=== PATIENT | female | born 1970 | race Hispanic/Latino ===

== ENCOUNTER 2017-01-11 12:41 | Emergency (ER) | payer MEDICARE, MEDICAID ==
[~2017-01-11] VITALS: Ht 149.9 cm; Wt 47.7 kg
[~2017-01-11 12:41] MED LIST: ACET325T51 PO; AMLO2.5T PO; ATOR20TA PO; BISA10SU61 RC; CALC500T9 PO; CITA20TA11 PO; ERGO500050 PO; HYDR-4003 PO; LACT10SO60 PO; LEVO25TA2 PO; MAGN400O4 PO; MELA3TAB35 PO; NA P133E23 RC; O2 NASAL; ONDA-53 PO; ONDA4TAB9 PO; OXYC5TAB72 PO; PANT40TA3 PO; PHEN1SUP94 RECTAL; PRED5DRO6 RIGHT_EYE; SENN-133 PO; SEVE800T7 PO; SIME125C PO
[2017-01-11 12:49] VITALS: BP 171/74; PULSE 72; RESP 14; O2SAT 99
[2017-01-11] MEDS ORDERED: 0.9% Sodium Chloride 500 ML IV ONE (13:20)
[2017-01-11] MEDS ORDERED: Ondansetron 2 mg/mL 2 mL Inj IVPUSH ONE (13:20)
--- NOTE | 2017-01-11 13:39 | ED.REPORT ---
HPI-General Illness Date of Service Jan 11, 2017 ED Provider: Tiffany Leonardo MD Pt is a Gabonese-speaking 46 y.o. female with a hx of ESRD on hemodialysis who presents to the ED from dialysis with weakness. Pt had finished her treatment and was too weak to stand up. She reports nausea, vomiting, diarrhea, and abdominal pain onset 1 week ago. She denies fever. Her most recent episodes of vomiting and diarrhea were yesterday and today at 0300 respectively. She was administered 2 Imodium and 1 Zofran at the dialysis center prior to arrival. Nursing Notes Stated Complaint: VERY TIRED,CAN'T REALLY WALK Chief Complaint: General Complaint Nursing Notes Reviewed: Yes Allergies: Coded Allergies: No Known Allergies (Verified Allergy, Unknown, 08/05/16) Scheduled Amlodipine (Amlodipine) 2.5 Mg Tablet 2.5 MG PO DAILY Atorvastatin (Lipitor) 20 Mg Tablet 20 MG PO HS Calcium Carbonate (Tums) 500 Mg Tab.chew 500 MG PO BID Citalopram (Citalopram) 20 Mg Tablet 20 MG PO HS Ergocalciferol (Vitamin D2) (Drisdol) 50,000 Unit Capsule 50,000 UNIT PO Fri, Debra Lactulose (Lactulose) 20 Gm/30 Ml Solution 20 GM PO DAILY Levothyroxine (Synthroid) 25 Mcg Tablet 25 MCG PO DAILY Loperamide HCl (Imodium A-D) 2 Mg Capsule 2 MG PO after diarrhea max of 6 in 24 hours Melatonin (Melatonin) 3 Mg Tablet 3 MG PO HS Ondansetron (Ondansetron) 4 Mg Tablet 4 MG PO QID Pantoprazole DR (Pantoprazole DR) 40 Mg Tablet.dr 40 MG PO BIDAC Prednisolone Acetate (Prednisolone Acetate) 5 Ml Drops.susp 1 DRP RIGHT_EYE BID 1% Sevelamer Carbonate (Renvela) 800 Mg Tablet 1,600 MG PO TIDWM Scheduled PRN ([O2]) 1-2 L NASAL PRN CP or SOB Acetaminophen (Acetaminophen) 325 Mg Tablet 650 MG PO Q4H PRN PRN Fever/Pain Bisacodyl (Dulcolax Rectal) 10 Mg Supp.rect 10 MG RC Evening PRN PRN For Constipation If no BM by PM shift after using MOM Hydrocodone-Acetaminophen 5-325 mg (Hydrocodone-Acetaminophen 5-325 mg) 1 Each Tablet 1 TABLET PO Q6H PRN PRN For Pain Magnesium Hydroxide (Milk of Magnesia) 400 Mg/5 Ml Oral.susp 400 MG PO MORNING PRN PRN For Constipation If no BM in 3 days Na Phos,M-B/Na Phos,Di-Ba (Fleet Enema) 133 Ml Enema 133 ML RC PRN For Constipation If no BM after using Dulcolax supp Ondansetron (Ondansetron) 4 Mg Tablet 4 MG PO Q6H PRN PRN For Nausea Ondansetron ODT (Zofran ODT) 4 Mg Tablet 4 MG PO Q4H PRN PRN For Nausea Phenylephrine/[place] Butter (Preparation H Supp) 1 Each Supp.rect 1 SUPP RECTAL PRN Rectal Bleeding Give after every bowel movement - up to 4 times a day Sennosides (Senna) 8.6 Mg Tablet 17.2 MG PO PRN For Constipation Simethicone (Gas-X) 125 Mg Capsule 125 MG PO Q24H PRN PRN Gas Pain oxyCODONE (oxyCODONE) 5 Mg Tablet 5-10 MG PO Q4H PRN PRN For Pain General Time Seen by MD: 13:12 Chief Complaint Weakness Hx Obtained From: Patient Arrived By: Wheelchair Sudden in Onset?: Yes Onset Occurred: 1 - 4 hours ago Symptom Duration: Since onset Location: : Abdomen Quality: Painful Severity: Current: Moderate Past Medical History Past Medical History Diabetes mellitus, type II Diabetic foot ulcer, history of End-stage renal disease on hemodialysis Mondays, Wednesdays, and Fridays Hypertension Anemia, likely secondary to end-stage renal disease Hypothyroidism Hx of osteoporotic left femur fracture Hepatosteatosis Past Surgical History Left fistula placement Family History noncontributory Smoking History Never Smoker Social History Drug Use: Denies drug use Other Social History: Lives in [place] [facility], Local resident Ambulatory Status Independent Review of Systems Full Review of Systems Constitutional: Reports: Weakness - generalized GI: Reports: Abdominal pain, Diarrhea, Nausea, Vomiting Neurologic: Reports: Problem walking (due to weakness) Complete sys rev & neg: except as marked. Physical Exam Vital Signs Vital Signs Date Time Temp Pulse Resp B/P Pulse Ox O2 Delivery O2 Flow Rate FiO2 01/11/17 15:23 36.5 80 14 134/69 99 Room Air 01/11/17 14:36 36.8 75 18 158/67 100 Room Air 01/11/17 12:49 36.2 72 14 171/74 99 Room Air Initial VS: Reviewed Head / Eyes: Atraumatic, Normocephalic Extremities: Vascular intact, Neuro intact Neurologic: Alert General/Constitutional: Awake, Alert Pt is generally unwell appearing Respiratory / Chest: Atraumatic, Breath sounds NL, Breath sounds = bilat, No respiratory distress, No wheezing Cardiovascular: Peripheral circulation NL Heart Rate / Rhythm: Positive: Tachycardia Heart Sounds / Murmur: Positive: Systolic murmur present.. (IV/) Abdomen: Atraumatic, Soft, No guarding, No rebound, No distention Tenderness/Guarding/Rebound: Positive: Tender diffuse Non-surgical abdomen Skin: Atraumatic, Color NL, Warm, Dry, Intact, Turgor NL, No swelling Interpretation & Diagnostics Lab Results Interpretation Result Diagram: 01/11/17 1345 01/11/17 1345 Test 01/11/17 13:45 White Blood Count 4.7th/mm3 (3.8-10.1) Red Blood Count 4.36mil/mm3 (3.90-5.20) Hemoglobin 13.2g/dL (12.0-15.6) Hematocrit 39.6% (35.0-46.0) Mean Corpuscular Volume 90.8fL (81-100) Mean Corpuscular Hemoglobin 30.3pg (27.0-35.0) Mean Corpuscular Hemoglobin Concent 33.3% (32.0-37.0) Red Cell Distribution Width 13.6% (12.3-15.4) Platelet Count 158bil/L (150-400) Neutrophils (%) (Auto) 61.1% (40-74) Lymphocytes (%) (Auto) 19.8% (14-46) Monocytes (%) (Auto) 9.9% (4-12) Eosinophils (%) (Auto) 8.6% (0-5) Basophils (%) (Auto) 0.6% (0-3) Sodium Level 135mEq/L (134-144) Potassium Level 3.0mEq/L (3.5-5.2) Chloride Level 89mEq/L (97-108) Carbon Dioxide Level 28mmol/L (18-29) Blood Urea Nitrogen 11mg/dL (6-24) Creatinine 1.96mg/dL (0.57-1.00) Estimat Glomerular Filtration Rate 39mL/min (>59) Glucose Level 100mg/dL (60-99) Calcium Level 10.0mg/dL (8.5-10.1) Magnesium Level 1.9mg/dL (1.6-2.6) Total Bilirubin 1.0mg/dL (0.0-1.2) Aspartate Amino Transf (AST/SGOT) 30U/L (0-50) Alanine Aminotransferase (ALT/SGPT) 29U/L (0-32) Alkaline Phosphatase 188U/L (25-150) Troponin T 0.072ug/L (0.0-0.011) Total Protein 8.6g/dL (6.4-8.4) Albumin 4.6g/dL (3.4-5.0) Lipase 42U/L (13-60) Hold Bazzi Top Tube Received (Received) Lab Results Interpretation: Pt has a trop of 0.072. Her troponin is chronically elevated and is less than previous ECG Interpretation ECG Interpretation: No acute ischemia. Similar to prior ECG (08/05/16) Time: 13:43 Interpreted by: ED physician Normal ECG Interpretation: Normal rate (69), Normal sinus rhythm Re-Eval/Medical Decision Source of Hx: Old records Time of Eval: 14:54 Re-Evaluation/Progress Note: Pt rechecked. Pt states she is feeling improved and would like to be discharged with nausea and diarrhea medication. Discussed plan for discharge, pt understands and agrees with plan. Counseled Regarding: Diagnosis, Lab results Discharge & Departure Primary Impression: Nausea vomiting and diarrhea Disposition: Home Discharge Condition All VS Reviewed: Yes Condition: Improved Patient Instructions: Acute Diarrhea (ED) Additional Instructions: Thank you for entrusting us with your care today. You were seen here today for nausea and diarrhea. I sent a prescription of Zofran and Imodium to your pharmacy.Take these as directed to help with your nausea and diarrhea. Return if you have any new or concerning symptoms. I wish you the best of luck and hope you start to feel better soon! Referrals: NOPCP (PCP) Scribe Attestation Portions of this note were transcribed by Brendon Lester. I, Dr. Leonardo personally performed the history, physical exam and medical decision-making; I reviewed and confirmed the accuracy of the information in the transcribed note. Signed by: Ayden Key, 01/11/17 and 1505 Tiffany Leonardo MD Jan 11, 2017 13:39 BRENDON LESTER Jan 11, 2017 13:43
[2017-01-11 14:11] LABS: BASOPHILS % (AUTO) 0.6 % (0-3); EOSINOPHILS % (AUTO) 8.6 % (0-5); MONOCYTES % (AUTO) 9.9 % (4-12); Mean Corpuscular Hemoglobin 30.3 pg (27.0-35.0); Mean Corpuscular Volume 90.8 fL (81-100); NEUTROPHILS % (AUTO) 61.1 % (40-74); Platelet Count 158 bil/L (150-400)
[2017-01-11 14:36] VITALS: BP 158/67; PULSE 75; RESP 18; O2SAT 100
[2017-01-11 14:41] LABS: Magnesium 1.9 mg/dL (1.6-2.6)
[2017-01-11 14:42] LABS: TROPONIN T 0.072 ug/L (0.0-0.011)
[2017-01-11] MEDS ORDERED: LOPE-147 PO (15:00)
[2017-01-11] MEDS ORDERED: ONDA-53 PO (15:00)
[2017-01-11 15:23] VITALS: BP 134/69; PULSE 80; RESP 14; O2SAT 99
[2017-01-16] MEDS ORDERED: AMLO10TA3 PO (19:07)
[2017-01-16] MEDS ORDERED: CALC667T5 PO (19:19)
== END 2017-01-11 15:24 | disposition home or self-care (01) ==
LOC: SED 12:41
DX: R11.2 Nausea with vomiting, unspecified (principal); R19.7 Diarrhea, unspecified; E11.22 Type 2 diabetes mellitus with diabetic chronic kidney disease; I13.11 Hypertensive heart and chronic kidney disease without heart failure, with stage 5 chronic kidney disease, or end stage renal disease; E11.621 Type 2 diabetes mellitus with foot ulcer; N18.6 End stage renal disease; L97.509 Non-pressure chronic ulcer of other part of unspecified foot with unspecified severity; Z79.899 Other long term (current) drug therapy; Z99.2 Dependence on renal dialysis
CPT/HCPCS: 36415; 80053; 83690; 83735; 84484; 85025; 93005; 96374; 99285; J2405; J7040

== ENCOUNTER 2017-01-17 00:47 | Day surgery (SDC) | payer MEDICARE, MEDICAID ==
[~2017-01-17] VITALS: Ht 149.9 cm; Wt 52.0 kg
[2017-01-17] VITALS (7 sets, daily range): BP systolic 160–170; BP diastolic 63–88; PULSE 60–80; RESP 16–18; O2SAT 100
[~2017-01-17 00:47] MED LIST changes: +AMLO10TA3 PO; -AMLO2.5T PO; +CALC667T5 PO; -ERGO500050 PO; -MAGN400O4 PO; -NA P133E23 RC; -O2 NASAL; -ONDA-53 PO; -SEVE800T7 PO
[2017-01-17 12:12] LABS: EOSINOPHILS % (AUTO) 8.4 % (0-5); MONOCYTES % (AUTO) 8.8 % (4-12); Mean Corpuscular Hemoglobin 30.1 pg (27.0-35.0); NEUTROPHILS % (AUTO) 60.8 % (40-74); Platelet Count 152 bil/L (150-400)
[2017-01-17 12:29] LABS: INR 1.01 ratio
[2017-01-17] MEDS ORDERED: Heparin 1,000 Unit/mL 10 mL Inj ONE ×2 (13:20→13:59)
[2017-01-17] MEDS ORDERED: Heparin 5,000 Units/500 mL NS Premix IV ONE ×2 (13:20→13:45)
[2017-01-17] MEDS ORDERED: fentaNYL-PF 50 mCg/mL 2 mL Inj ONE (13:51)
--- NOTE | 2017-01-17 15:02 | DRSVH ---
PROCEDURE: 1. Left arm AV fistulogram. 2. Angioplasty of peripheral aspect of venous limb. 3. Angioplasty of venous limb at level of proximal humerus. 4. Selective left subclavian venography. 5. Limited ultrasound of the left upper extremity arteriovenous fistula. 6. Conscious sedation x60 minutes. INDICATIONS: Malfunctioning arteriovenous fistula. COMPARISON: [facility], CR, XR CHEST 1VW (PORTABLE), 06/27/2016, 11:40. [facility], XA, ARTERIO VENOUS FISTULOGRAM (PNL), 12/27/2015, 10:53. TECHNIQUE: Informed, written consent from the patient was obtained prior to the procedure. Patient wa s brought to the angiography suite, and conscious sedation was administered intravenously by retirement staff, while continuous cardiorespiratory monitoring was performed. Maximal sterile barrier t echnique, hand hygiene, skin preparation, and sterile ultrasound technique (if ultrasound was utilize d) was followed. A mask, sterile gown, sterile gloves, a large sterile sheet, hand hygiene, and 2% ch lorhexidine or iodine was utilized for skin antisepsis. The left arm was prepped and draped sterilely , and the skin and subcutaneous tissues overlying the peripheral aspect of the venous limb were infus ed with lidocaine. The peripheral aspect of the venous line was accessed antegrade with a micropunctu re set. Contrast was injected for arteriovenous fistulogram. Intravenous heparin was administered. 03 5 J-wire was advanced into the inferior vena cava. A 20 mm long balloon was advanced into the periphe ral aspect of the venous limb and was expanded to 6.2 mm diameter. Subsequently, a high pressure 10 m m diameter 20 mm long balloon was expanded within the venous limb at the level of the proximal humeru s. A 4 Indonesian nontapered angled catheter was advanced into the left subclavian vein and injected for selective left subclavian venography. Sheath was removed and the venotomy was closed with pursestring closure. FLUOROSCOPY TIME: 3.4 minutes FINDINGS: Moderate to high-grade focal weblike stenosis involve the portal aspect of the venous limb just central to the arteriovenous anastomosis. There is only mild residual stenosis following angiop lasty at this site. There is recurrent high-grade focal stenosis within the venous limb at the level of the proximal humerus, with only mild residual stenosis following high pressure 10 mm angioplasty. Central draining venous structures are patent. Selective left subclavian venography demonstrates no e vidence of stenosis. IMPRESSION: 1. 6.2 mm angioplasty of weblike stenosis within the peripheral aspect of the venous limb, with only mild residual stenosis remaining. 2. 10 mm high-pressure angioplasty of recurrent stenosis within the venous limb at the level of the p roximal humerus, with only mild residual stenosis remaining. Dictated by: Reza Hernandez M.D. on 01/17/2017 at 14:56 Approved by: Reza Hernandez M.D. on 01/17/2017 at 15:01
--- NOTE | 2017-01-17 16:30 | NUR ---
Discharge Pt discharged to home with daughter, pt had stable recovery post fistulagram vss on RA, puncture site soft non tender no signs of bleeding. Pt and pt daughter stated verbal understanding of discharge instructions with interpretor present. Pt and daughter left at 1630 with personal belongings, discharge paperwork, IV dc'd intact.
== END 2017-01-17 23:59 | disposition home or self-care (01) ==
LOC: SOUO 00:47
PROVIDERS: ATTEND Radiology Diagnostic Radiology
DX: I87.1 Compression of vein (principal); E11.21 Type 2 diabetes mellitus with diabetic nephropathy; E11.22 Type 2 diabetes mellitus with diabetic chronic kidney disease; I12.0 Hypertensive chronic kidney disease with stage 5 chronic kidney disease or end stage renal disease; N18.6 End stage renal disease; Z99.2 Dependence on renal dialysis; E03.9 Hypothyroidism, unspecified; D63.1 Anemia in chronic kidney disease
CPT/HCPCS: 36415; 36901; 36902; 80048; 85025; 85610; 85730; 99152; 99153; C1725; C1769; C1894; J1644; J2250; J3010; Q9967

== ENCOUNTER 2017-05-07 15:01 | Inpatient (IN) | payer MEDICARE, MEDICAID ==
[~2017-05-07] VITALS: Ht 121.9 cm; Wt 50.7 kg
[2017-05-07 15:31] VITALS: BP 161/72; PULSE 70; RESP 18; O2SAT 98
[2017-05-07 16:17] LABS: BASOPHILS % (AUTO) 0.3 % (0-3); EOSINOPHILS % (AUTO) 1.1 % (0-5); MONOCYTES % (AUTO) 9.8 % (4-12); Mean Corpuscular Hemoglobin 30.4 pg (27.0-35.0); NEUTROPHILS % (AUTO) 75.9 % (40-74); Platelet Count 116 bil/L (150-400)
--- NOTE | 2017-05-07 16:23 | ED.REPORT ---
HPI-NVD Date of Service May 07, 2017 ED Provider: Cayden Whaley MD Patient is a 46 year old female with a history of ESRD, diabetes and hypertension who presents to the ED complaining of vomiting onset a week ago. Associated symptoms include nausea, abdominal pain, chills, decreased appetite, 5-7 episodes of diarrhea a day and a fever for the past 3 days. She denies hematemesis or hematochezia. She describes her abdominal pain as sharp and rates it as an 8/10. Patient reports that vomiting worsens her abdominal pain and she has tried using over the counter anti-diarrhea medication without relief. The patient had similar symptoms 3 months ago, was diagnosed with a "stomach infection" and was put on antibiotics. She states that no one else in the household is sick. Nursing Notes Stated Complaint: UPSET STOMACH, VOMITING Chief Complaint: Female Abdominal Pain Nursing Notes Reviewed: Yes ([employer] not reconciled) Allergies: Coded Allergies: No Known Allergies (Verified Allergy, Unknown, 08/05/16) Scheduled Amlodipine (Amlodipine) 10 Mg Tablet 10 MG PO DAILY Atorvastatin (Lipitor) 20 Mg Tablet 20 MG PO HS Calcium Acetate (Calcium Acetate) 667 Mg Tablet 1,971 MG PO TIDWM Calcium Carbonate (Tums) 500 Mg Tab.chew 500 MG PO BID Citalopram (Citalopram) 20 Mg Tablet 20 MG PO HS Lactulose (Lactulose) 20 Gm/30 Ml Solution 20 GM PO DAILY Levothyroxine (Synthroid) 25 Mcg Tablet 25 MCG PO DAILY Melatonin (Melatonin) 3 Mg Tablet 3 MG PO HS Pantoprazole DR (Pantoprazole DR) 40 Mg Tablet.dr 40 MG PO BIDAC Prednisolone Acetate (Prednisolone Acetate) 5 Ml Drops.susp 1 DRP RIGHT_EYE BID 1% Scheduled PRN Acetaminophen (Acetaminophen) 325 Mg Tablet 650 MG PO Q4H PRN PRN Fever/Pain Bisacodyl (Dulcolax Rectal) 10 Mg Supp.rect 10 MG RC Evening PRN PRN For Constipation If no BM by PM shift after using MOM Hydrocodone-Acetaminophen 5-325 mg (Hydrocodone-Acetaminophen 5-325 mg) 1 Each Tablet 1 TABLET PO Q6H PRN PRN For Pain Ondansetron ODT (Zofran ODT) 4 Mg Tablet 4 MG PO Q4H PRN PRN For Nausea Phenylephrine/[place] Butter (Preparation H Supp) 1 Each Supp.rect 1 SUPP RECTAL PRN Rectal Bleeding Give after every bowel movement - up to 4 times a day Sennosides (Senna) 8.6 Mg Tablet 17.2 MG PO PRN For Constipation Simethicone (Gas-X) 125 Mg Capsule 125 MG PO Q24H PRN PRN Gas Pain oxyCODONE (oxyCODONE) 5 Mg Tablet 5-10 MG PO Q4H PRN PRN For Pain General Time Seen by MD: 16:21 Chief Complaint Vomiting Hx Obtained From: Patient, Spouse Arrived By: Walk-in Onset Occurred: 1 week ago Symptom Duration: Since onset Vomiting: Vomiting 4-6 episodes Diarrhea: Diarrhea 4-6 episodes Location: : LUQ Quality: Painful, Sharp Severity: Current: Pain level 8 out of 10 Associated with: Reports: Fever Recent Healthcare: Recent doctor visit Similar Sx Previous: Yes Past Medical History Past Medical History Diabetes mellitus, type II Diabetic foot ulcer, history of End-stage renal disease on hemodialysis Mondays, Wednesdays, and Fridays Hypertension Anemia, likely secondary to end-stage renal disease Hypothyroidism Hx of osteoporotic left femur fracture Hepatosteatosis Past Surgical History Left fistula placement Family History noncontributory Smoking History Never Smoker Social History Drug Use: Denies drug use Other Social History: Lives in longterm, Local resident Ambulatory Status Independent Review of Systems Constitutional: Reports: Chills, Fever, Malaise GI: Reports: Abdominal pain, Diarrhea, Nausea, Vomiting, Denies: Hematemesis, Hematochezia Skin: Denies Itching, Denies Rash Neurologic: Denies: Headache, Weakness Complete sys rev & neg: except as marked. Respiratory: Denies: Non-productive cough, Shortness of breath Physical Exam Initial Vital Signs Vital Signs (First) Date Time Temp Pulse Resp B/P Pulse Ox O2 Delivery O2 Flow Rate FiO2 05/07/17 15:31 37.8 70 18 161/72 98 Room Air 05/07/17 17:22 2 Initial VS: Reviewed (borderline temp) General/Constitutional: Awake, Alert Distress / Hydration: Positive: Dehydration mild, Distress moderate Appearance / Presentation: Positive: Frail, Uncomfortable appears very fatigued + cough Abdomen: Atraumatic, Soft, No guarding, No rebound minimally diffuse tendernes ENT: Atraumatic, Airway patent Mouth: Positive: Mucous membranes dry Respiratory / Chest: Atraumatic, Breath sounds NL, Breath sounds = bilat, No respiratory distress Cardiovascular: Heart rate NL, Regular rhythm Heart Sounds / Murmur: Positive: Murmur present... (IV/) Skin: Atraumatic, Color NL, No rash poor skin turgor Neurologic: Oriented X3, Speech NL, No motor deficits, No sensory deficits Head / Eyes: Atraumatic, Normocephalic, PERRL, EOMI Upper Extremity / MS: Atraumatic, Inspection NL AV fistula in the left arm Psychiatric: Affect NL, Mood NL Interpretation & Diagnostics Lab Results Interpretation Result Diagram: 05/07/17 1605 05/07/17 1605 Test 05/07/17 16:05 White Blood Count 6.6th/mm3 (3.8-10.1) Red Blood Count 3.49mil/mm3 (3.90-5.20) Hemoglobin 10.6g/dL (12.0-15.6) Hematocrit 32.8% (35.0-46.0) Mean Corpuscular Volume 94.0fL (81-100) Mean Corpuscular Hemoglobin 30.4pg (27.0-35.0) Mean Corpuscular Hemoglobin Concent 32.3% (32.0-37.0) Red Cell Distribution Width 14.5% (12.3-15.4) Platelet Count 116bil/L (150-400) Neutrophils (%) (Auto) 75.9% (40-74) Lymphocytes (%) (Auto) 12.7% (14-46) Monocytes (%) (Auto) 9.8% (4-12) Eosinophils (%) (Auto) 1.1% (0-5) Basophils (%) (Auto) 0.3% (0-3) Sodium Level 129mEq/L (134-144) Potassium Level 4.2mEq/L (3.5-5.2) Chloride Level 86mEq/L (97-108) Carbon Dioxide Level 27mmol/L (18-29) Blood Urea Nitrogen 27mg/dL (6-24) Creatinine 5.13mg/dL (0.57-1.00) Estimat Glomerular Filtration Rate 13mL/min (>59) Glucose Level 152mg/dL (60-99) Calcium Level 9.4mg/dL (8.5-10.1) Magnesium Level 1.8mg/dL (1.6-2.6) Total Bilirubin 1.2mg/dL (0.0-1.2) Aspartate Amino Transf (AST/SGOT) 16U/L (0-50) Alanine Aminotransferase (ALT/SGPT) 9U/L (0-32) Alkaline Phosphatase 113U/L (25-150) Total Protein 7.5g/dL (6.4-8.4) Albumin 3.5g/dL (3.4-5.0) Lipase 9U/L (13-60) Hold Bazzi Top Tube Received (Received) Lab Results Interpretation: CBC normal CMP chronic renal failure Blood cultures 2 pending X-Ray Chest Interpretation Chest Xray Interpretation: IMPRESSION: Right mid lung pneumonia. Recommend radiographic followup to document resolution. Small right pleural effusion. Dictated by: Nghia Cm M.D. on 05/07/2017 at 19:04 Approved by: Nghia Cm M.D. on 05/07/2017 at 19:05 View: Portable, 1 view Interpretation / Wet Read by: Interpret - Radiologist CT Abd / Pelvis Interpretation IMPRESSION: Right middle lobe consolidation, suggestive of pneumonia and/or aspiration. Please correlate clinically and recommend followup after treatment to exclude underlying nodule/mass. Small right pleural effusion with adjacent atelectasis. Cholelithiasis. Please correlate clinically and with LFTs. Nonspecific scattered mild ascites as above. Cardiomegaly. Coronary artery disease. Dictated by: Nghia Cm M.D. on 05/07/2017 at 17:24 Approved by: Nghia Cm M.D. on 05/07/2017 at 17:29 Interpretation / Wet Read by: Interpret - Radiologist Re-Eval/Medical Decision Med Decision/Clinical Course This is a 46-year-old female on dialysis who presents complaining of fevers, chills, some abdominal discomfort, diarrhea, and a cough. It is very worsening over the past week, she still running fevers and chills. She is dialyzed yesterday. She denies shortness of breath. Reports some nausea as well. Exam she has a low-grade fever, she appears quite fatigued and moderately ill. She has a mild cough but does not really complain of this initially-although the family notices present. Her abdomen is soft and nontender. She has no findings of cellulitis, she is sufficient left arm appears normal. Lab work was normal except for chronic renal failure. CT abdomen and pelvis reveals no intra-abdominal acute pathology, there is cholelithiasis but the patient is not tender, has normal LFTs, however is concerning for a possible pneumonia. Follow-up chest x-ray demonstrates a clear lobar pneumonia. The patient received IV fluids given she reports poor import, and appears quite fatigued and moderately ill. Stool studies have also been ordered Received IV fluids boluses ([id number] given her renal failure), Tylenol, but even after interventions still appears ill. Given her comorbidities, despite her young age, I have recommended admission and she is accepted. The patient is being started on initial IV antibiotics for community-acquired pneumonia Source of Hx: Old records Re-Evaluation/Progress #1: Time of Eval: 17:59 Re-Evaluation/Progress Note: Discussed results of CT and plan for X-ray Re-Evaluation/Progress #2: Time of Eval: 19:39 Re-Evaluation/Progress Note: Discussed X-ray results and plan for admit. Patient understands and agrees to the plan. All questions were addressed. Consultation #1: Referral / Consult Name: Kiko Rolle MD Consulted With: Nephrology Call Returned at: 19:18 Trust Operations Assistant: Agrees with eval, Agrees with plan Note: Consult with Dr. Ramirez, who will ensure patient receives dialysis in the morning. Consultation #2: Referral / Consult Name: Tong Looney MD Consulted With: Hospitalist Call Returned at: 19:57 Trust Operations Assistant: Agrees with eval, Agrees with plan, Accepts admit Differential Diagnosis: Positive: Dehydration, Negative: Boerhaave syndrome, Bowel obstruction, Drug-med reaction, Food poisoning, Pancreatitis, Counseled Regarding: Diagnosis, Lab results, Need for admission Discharge & Departure Impression: Primary Impression: Pneumonia Pneumonia type: due to unspecified organism Laterality: right Lung location : middle lobe of lung Qualified Code: J18.1 - Lobar pneumonia, unspecified organism Additional Impressions: Nausea vomiting and diarrhea Chronic renal failure Chronic kidney disease stage: stage 5 Qualified Code: N18.5 - Chronic kidney disease, stage 5 Disposition: ADMITTED TO HOSPITAL Discharge Condition All VS Reviewed: Yes Condition: Stable Referrals: [facility] Scribe Attestation Portions of this note were transcribed by Aviva Dale. I, Dr. Whaley personally performed the history, physical exam and medical decision-making; I reviewed and confirmed the accuracy of the information in the transcribed note. Signed by: Aviva Hensley, 05/07/17 copies to: [facility] Cayden Whaley MD May 07, 2017 16:23 Anne Dale May 07, 2017 16:34
[2017-05-07] MEDS ORDERED: Ondansetron 2 mg/mL 2 mL Inj IVPUSH ONE ×2 (16:25→16:30)
[2017-05-07] MEDS ORDERED: 0.9% Sodium Chloride 500 ML IV ONE ×2 (16:25→17:25)
[2017-05-07 16:39] LABS: Magnesium 1.8 mg/dL (1.6-2.6)
[2017-05-07] MEDS: HYDROmorphone 0.5 mg/0.5 mL iSecure Syringe IVPUSH PRN ×2 (16:45→19:45)
[2017-05-07 17:22] VITALS: BP 166/102; PULSE 72; RESP 16; O2SAT 98
--- NOTE | 2017-05-07 17:31 | DRSVH ---
PROCEDURE: CT ABDOMEN AND PELVIS WITHOUT CONTRAST ([id number]) INDICATIONS: abd pain, fever, NVD TECHNIQUE: Noncontrast 5 mm thick sections acquired from the diaphragms to the symphysis. 5 mm coronal and sagi ttal reformats were then performed. For radiation dose reduction, the following was used: automated exposure control, adjustment of mA and/or kV according to patient size. COMPARISON: None. FINDINGS: Image quality: Excellent. ABDOMEN: Lung bases: Right middle lobe consolidation is present. There is a small right pleural effusion with adjacent atelectasis. The heart is enlarged. There are coronary artery calcifications. Solid organs: Unenhanced liver and spleen are normal in size. Gallbladder contains gallstones and po ssible sludge. Pancreas is normal in contours. No adrenal nodules. Kidneys are normal in size, wit hout hydronephrosis or nephrolithiasis. Peritoneum and bowel: Unenhanced bowel loops demonstrate normal wall thickness and caliber. Perihepa tic and perisplenic mild free fluid. Appendix is not clearly seen. The rectum is decompressed. Nodes and vessels: No retroperitoneal or mesenteric adenopathy by size criteria. Aorta and inferior vena cava are normal in caliber. There are numerous widespread vascular calcifications Miscellaneous: No ventral hernias. PELVIS: Genitourinary: Bladder wall thickness is normal. Miscellaneous: No inguinal hernias or adenopathy. Bones: No suspicious bony lesions. No vertebral body compression fractures. IMPRESSION: Right middle lobe consolidation, suggestive of pneumonia and/or aspiration. Please correlate clinical ly and recommend followup after treatment to exclude underlying nodule/mass. Small right pleural effusion with adjacent atelectasis. Cholelithiasis. Please correlate clinically and with LFTs. Nonspecific scattered mild ascites as above. Cardiomegaly. Coronary artery disease. Dictated by: Nghia Cm M.D. on 05/07/2017 at 17:24 Approved by: Nghia Cm M.D. on 05/07/2017 at 17:29
[2017-05-07 18:33] VITALS: BP 172/68; PULSE 75; RESP 15; O2SAT 99
[2017-05-07] MEDS ORDERED: Azithromycin Inj 500 MG in Dextrose 5% w/Vial Mate 250 ML IV ONE (19:00)
[2017-05-07] MEDS ORDERED: cefTRIAXone Inj 2,000 MG in Dextrose 5% Minibag Plus 50 ML IV ONE (19:00)
--- NOTE | 2017-05-07 19:07 | DRSVH ---
PROCEDURE: X-RAY CHEST ONE VIEW, PORTABLE ([id number]) INDICATIONS: pneumonia TECHNIQUE: One view of the chest was acquired. COMPARISON: [facility], CR, XR CHEST 1VW (PORTABLE), 08/05/2016, 19:51. FINDINGS: Surgical changes and devices: None. Lungs and pleura: Small right pleural effusion and right midlung consolidation. No pneumothorax. Mediastinum: Cardiac silhouette and mediastinal contours are stable. Bones and chest wall: No suspicious bony lesions. Overlying soft tissues appear unremarkable. IMPRESSION: Right mid lung pneumonia. Recommend radiographic followup to document resolution. Small right pleural effusion. Dictated by: Nghia Cm M.D. on 05/07/2017 at 19:04 Approved by: Nghia Cm M.D. on 05/07/2017 at 19:05
[2017-05-07 20:13] VITALS: BP 152/68; PULSE 77; RESP 16; O2SAT 99
[2017-05-07] MEDS ORDERED: Alum-Mag Hydrox-Simeth 30 mL Suspension PO PRN ×2 (20:30→21:35)
--- NOTE | 2017-05-07 21:03 | NUR ---
[facility] PT unable to confirm what medications she currently takes. Family will not be able to bring in her medications tonight, but they will come back in am and will bring pill containers so that meds can be reconcilled. Per report, pt did not take any of her prescribed medications today due to nausea/vomiting.
[2017-05-07 21:27] VITALS: BP 111/62; PULSE 73; RESP 12; O2SAT 98
[2017-05-07 21:29] VITALS: BP 136/76; PULSE 75; RESP 16; O2SAT 98
--- NOTE | 2017-05-07 21:30 | NUR ---
Admit Pt arrived with all belongings from ED, and son came along. Pt was alert and oriented x3, speaks only turkish, son helped. No complaint of nausea at that time, pain in abdomen at a 4 and increasing. IV patent in R forearm, fistula in LUE.
[2017-05-07] MEDS ORDERED: Polyethylene Glycol (PEG) 17 Gm Powder PO PRN (21:35)
[2017-05-07] MEDS ORDERED: Piperacillin-Tazo 3.375 Gm Inj 3.375 GM in Dextrose 5% Minibag Plus 50 ML IV ONE (22:05)
[2017-05-07] MEDS ORDERED: Vancomycin 1 Gm/200 mL NS Premix IV ONE (22:05)
[2017-05-07] MEDS ORDERED: Levofloxacin 750 mg/150 mL D5W IV ONE (22:05)
[2017-05-07] MEDS ORDERED: 0.9% Sodium Chloride 1,000 ML IV SCH ×3 (22:10→22:25)
--- NOTE | 2017-05-07 22:18 | PCM.PHAPRO ---
Progress Date of Service: May 07, 2017 Vancomycin Management per Pharmacy: Indication: Pneumonia in a dialysis patient Goal Vancomycin Trough: ~20 mcg/dL Dialysis Sched: Assume Tu/Th/Sat? Labs: WBC: 6.6 Lactate: not drawn Procalcitonin: Pending CrCl: Dialysis Vitals: Temp: 37.8 HR: 70s BP: Maintaining/on the high end RR: ~12-16 Micro: MRSA screen pending Additional Abx: Zosyn and Levaquin for double pseudomonas covg Recommendation: Vancomycin 1000 mg IV x 1 now (~20 mg/kg) Vanco trough: Draw on 05/08 w/ AM labs, at least 6 hours post vancomycin dose in order for appropriate redistribution post infusion Pharmacy to continue to adjust dose as needed. Liza Villatoro May 07, 2017 22:18
[2017-05-07] MEDS: Famotidine Inj 20 MG in IV Premix 1 EACH IV SCH (22:21)
--- NOTE | 2017-05-07 22:28 | PCM.HPMED ---
Subjective Date of Service May 07, 2017 Primary Provider: Admitting Physician: Primary Care Physician: Arielle Attending Physician: Admit Status: From the Emergency Department Chief Complaint: Fever, Abdominal Pain, Nausea, vomiting History of Present Illness: Bonnie Gooden is a Qatari-speaking 46-year-old female with a history of end- stage renal disease (on dialysis), type 2 diabetes, and hypertension who presents with one week of worsening abdominal pain and fever. Patient is not very conversant, so information taken from her son. She describes her abdominal pain as sharp and rates it an 8/10. Associated symptoms include nausea, vomiting , 5-7 episodes of diarrhea per day, shortness of breath, cough, and fever for the past 3 days. Patient reports that vomiting worsens her abdominal pain and she has tried using over the counter anti-diarrhea medication without relief. The patient had similar symptoms 3 months ago, was diagnosed with a "stomach infection" and was put on "antibiotics." ED records from 01/11/17 show that she was prescribed ondansetron and loperimide for nausea and vomiting. The patient reports that abdominal pain, nausea, and diarrhea have been going on since she started dialysis 1-2 years ago and is usually mild. She states that no one else in the household is sick. She does frequent the dialysis clinic with her scheduled , , . She also mentions she did feel as if her vomit did enter her lungs at times. She denies hematochezia or hematemesis. She denies dysuria, hematuria, or increased urinary urgency or frequency. In the ED, her labs were WBC 6.6, hgb/hct of 10.6/32.8, MCV 94.0, platelets 116, sodium 129, BUN 27, Cr 5.13, glucose 152. Lipase was negative (9 U/L). CT abdomen and pelvis revealed no intra-abdominal acute pathology, there is cholelithiasis but the patient is not tender and has normal LFTs, however shows possible pneumonia. Follow-up chest x-ray demonstrated a clear right middle lobe pneumonia. Review of Systems: A comprehensive review of systems was conducted with the patient and found to be negative except as above in the History of Present Illness. Allergies Coded Allergies: No Known Allergies (Verified Allergy, Unknown, 08/05/16) Home Medications Scheduled Amlodipine (Amlodipine) 10 Mg Tablet 10 MG PO DAILY Atorvastatin (Lipitor) 20 Mg Tablet 20 MG PO HS Calcium Acetate (Calcium Acetate) 667 Mg Tablet 1,971 MG PO TIDWM Calcium Carbonate (Tums) 500 Mg Tab.chew 500 MG PO BID Citalopram (Citalopram) 20 Mg Tablet 20 MG PO HS Lactulose (Lactulose) 20 Gm/30 Ml Solution 20 GM PO DAILY Levothyroxine (Synthroid) 25 Mcg Tablet 25 MCG PO DAILY Melatonin (Melatonin) 3 Mg Tablet 3 MG PO HS Pantoprazole DR (Pantoprazole DR) 40 Mg Tablet.dr 40 MG PO BIDAC Prednisolone Acetate (Prednisolone Acetate) 5 Ml Drops.susp 1 DRP RIGHT_EYE BID 1% Scheduled PRN Acetaminophen (Acetaminophen) 325 Mg Tablet 650 MG PO Q4H PRN PRN Fever/Pain Bisacodyl (Dulcolax Rectal) 10 Mg Supp.rect 10 MG RC Evening PRN PRN For Constipation If no BM by PM shift after using MOM Hydrocodone-Acetaminophen 5-325 mg (Hydrocodone-Acetaminophen 5-325 mg) 1 Each Tablet 1 TABLET PO Q6H PRN PRN For Pain Ondansetron ODT (Zofran ODT) 4 Mg Tablet 4 MG PO Q4H PRN PRN For Nausea Phenylephrine/[place] Butter (Preparation H Supp) 1 Each Supp.rect 1 SUPP RECTAL PRN Rectal Bleeding Give after every bowel movement - up to 4 times a day Sennosides (Senna) 8.6 Mg Tablet 17.2 MG PO PRN For Constipation Simethicone (Gas-X) 125 Mg Capsule 125 MG PO Q24H PRN PRN Gas Pain oxyCODONE (oxyCODONE) 5 Mg Tablet 5-10 MG PO Q4H PRN PRN For Pain PMH Diabetes mellitus, type II Diabetic foot ulcer, history of End-stage renal disease on hemodialysis Mondays, Wednesdays, and Fridays Hypertension Anemia, likely secondary to end-stage renal disease Hypothyroidism Hx of osteoporotic left femur fracture Hepatosteatosis Surgical History Left fistula placement Family History Mother: Diabetes Brother: Diabetes Social History Hx Alcohol Use: No Hx Substance Use: No Hx Tobacco Use: No Smoking Status: Never Smoker Exam Vital Signs Vital Sign - Last Date Time Temp Pulse Resp B/P Pulse Ox O2 Delivery O2 Flow Rate FiO2 05/07/17 18:33 75 15 172/68 99 Nasal Cannula 2 05/07/17 15:31 37.8 Exam General: Ill appearing female, fatigued, quiet, no acute distress HEENT: Normocephalic, atraumatic. Pupils equal, round. Anicteric sclerae. Neck: Supple with full range of motion. No jugular venous distension. No lymphadenopathy. Cardiovascular: Regular rate and rhythm with blowing murmur heard best at left sternal border. Pulmonary: Decreased breath sounds on right, no wheezes, or rhonchi. On nasal cannula. Normal respiratory effort with no use of accessory muscles. Abdomen: Bowel tones present. Soft, left side abdominal tenderness, nondistended. No hepatosplenomegaly or masses appreciated. negative murphys. Extremities: AV fistula left arm, No clubbing, cyanosis, edema, or lymphadenopathy appreciated. Skin: Normal temperature, poor skin turgor Neurological: Cranial nerves grossly intact. Normal muscle strength, tone, and bulk. Reflexes, coordination, and sensory function within normal limits. No known gait impairment. Psychiatric: Normal mood and affect. Alert and oriented to person, place, and time. Lab and Diagnostics Labs Item Value Date Time Lipase 9 U/L L 05/07/17 1605 Albumin 3.5 g/dL 05/07/17 1605 Aspartate Amino Transf (AST/SGOT) 16 U/L 05/07/17 1605 Alanine Aminotransferase (ALT/SGPT) 9 U/L 05/07/17 1605 Magnesium Level 1.8 mg/dL 05/07/17 1605 Total Bilirubin 1.2 mg/dL 05/07/17 1605 Alkaline Phosphatase 113 U/L 05/07/17 1605 Result Diagram: 05/07/17 1605 05/07/17 1605 Microbiology Item Value Date Time Blood Culture Received 05/07/17 1650 Blood Aerobic And Anaerobic Bottle Pending Blood Culture Received 05/07/17 1640 Blood Aerobic And Anaerobic Bottle Pending X-Rays, CTs and MRIs PROCEDURE: CT ABDOMEN AND PELVIS WITHOUT CONTRAST ([id number]) IMPRESSION: Right middle lobe consolidation, suggestive of pneumonia and/or aspiration. Please correlate clinically and recommend followup after treatment to exclude underlying nodule/mass. Small right pleural effusion with adjacent atelectasis. Cholelithiasis. Please correlate clinically and with LFTs. Nonspecific scattered mild ascites as above. Cardiomegaly. Coronary artery disease. Dictated by: Nghia Cm M.D. on 05/07/2017 at 17:24 PROCEDURE: X-RAY CHEST ONE VIEW, PORTABLE ([id number]) IMPRESSION: Right mid lung pneumonia. Recommend radiographic followup to document resolution. Small right pleural effusion. Dictated by: Nghia Cm M.D. on 05/07/2017 at 19:04 Assessment & Plan 45 year old Qatari-speaking female with ESRD on hemodialysis, diabetes mellitus type 2, Hypertension who presents to the Emergency Department with complaint of abdominal pain, vomiting and fever found to have right middle lobe pneumonia. Aspiration with Healthcare associated Pneumonia, Present on Admission, Active Patient presenting with Fever, chest x-ray shows right middle lobe pneumonia. Patient has been vomiting and goes to dialysis clinic. Likely aspiration pneumonia vs. HCAP. Less likely heart failure or TB. - MRSA swab, Respiratory Viral panel, Urine Legionella and strep pneumo ag, procalcitonin, sputum cultures. May be difficult to obtain urine testing as patient minimal urine output from ESRD. - Blood cultures pending - Will start Levofloxacin, Zosyn and Vancomycin Abdominal Pain, Present on Admission, Active Patient has associated nausea, vomiting, diarrhea. Likely secondary to gastroparesis. - Will check stool C. diff - Symptomatic control ESRD on dialysis, Present on Admission, Active On admission Cr 5.13, regular dialysis schedule is - Nephrology Consult, Plan for dialysis 05/08/17 AM - Monitor BMP Hyponatremia, Present on Admission, Active Sodium 129 on admission. Recieved fluids in the ED. Likely due to hypovolemia as patient is dry. - IV NS 100 mL/hr to go till 0500 on 05/08/17 - Monitor BMP Normocytic Anemia, Present on Admission, Active - Monitor CBC Diabetes Mellitus Type 2, Present on Admission, Active Last HgA1C 9.16 July 2016. Per patient she doesn't take any medications for diabetes after starting dialysis. - HgA1c Pending - Bedside glucose checks Hypertension, Present on Admission, Active - Continue home amlodipine Hypothyroidism, presumed stable - Continue home Levothyroxine Patient Status: Patient is admitted under inpatient status with expected length of stay greater than 2 midnights due to severity of presenting symptoms, risk of adverse event, and complexity of treatment plan. Code Status: Full Code VTE Prophylaxis: Sub-Q Heparin (Unfractionated) VTE Mechanical Devices: Intermittant Pneumatic CD Attending Statement The patient was seen and examined together with Dr. Parkinson on 05/07 and I agree with the history, exam and plan as outlined in the note above. Tong Parkinson DO May 07, 2017 20:10 Tong Looney MD May 08, 2017 01:23 ESRD on dialysis, Present on Admission, Active On admission Cr 5.13, regular dialysis schedule is , Sa - Nephrology Consult, Plan for dialysis 05/08/17 AM - Monitor BMP Hyponatremia, Present on Admission, Active Sodium 129 on admission. Recieved fluids in the ED. Likely due to hypovolemia as patient is dry. - IV NS 100 mL/hr to go till 0500 on 05/08/17 - Monitor BMP Normocytic Anemia, Present on Admission, Active - Monitor CBC Diabetes Mellitus Type 2, Present on Admission, Active Last HgA1C 9.16 July 2016. Per patient she doesn't take any medications for diabetes after starting dialysis. - HgA1c Pending - Bedside glucose checks Hypertension, Present on Admission, Active - Continue home amlodipine Hypothyroidism, presumed stable - Continue home Levothyroxine Patient Status: Patient is admitted under inpatient status with expected length of stay greater than 2 midnights due to severity of presenting symptoms, risk of adverse event, and complexity of treatment plan. Code Status: Full Code VTE Prophylaxis: Sub-Q Heparin (Unfractionated) VTE Mechanical Devices: Intermittant Pneumatic CD Tong Parkinson DO May 07, 2017 20:10
[2017-05-07] MEDS: Pantoprazole 40 mg ER24 Tablet PO SCH (23:57)
[2017-05-08] VITALS (11 sets, daily range): BP systolic 141–191; BP diastolic 61–74; PULSE 59–95; RESP 15–22; O2SAT 92–100
[2017-05-08] MEDS: HYDROcodone-APAP 5-325 mg Tablet PO PRN ×3 (00:03→17:15)
[2017-05-08] MEDS: Heparin 5,000 Unit/mL Inj SUBQ SCH ×3 (00:30→17:15)
[2017-05-08] MEDS: Ondansetron 2 mg/mL 2 mL Inj IVPUSH PRN ×3 (01:31→23:02)
--- NOTE | 2017-05-08 03:47 | NUR ---
nausea Pt complained of nausea and vomiting, gave 8 mg Zofran, pt received some relief. Will continue to monitor.
[2017-05-08 06:43] LABS: BASOPHILS % (AUTO) 0.4 % (0-3); EOSINOPHILS % (AUTO) 1.4 % (0-5); MONOCYTES % (AUTO) 13.7 % (4-12); Mean Corpuscular Hemoglobin 30.7 pg (27.0-35.0); Mean Corpuscular Volume 94.2 fL (81-100); Platelet Count 95 bil/L (150-400)
[2017-05-08] MEDS: Pantoprazole 40 mg ER24 Tablet PO SCH ×2 (07:30→17:16)
--- NOTE | 2017-05-08 08:15 | NUR ---
Status MD notified that pt continues to complain of nausea and abdominal pain 05/22. No active emesis. Per MD ok to give po norco. Ok to give heparin with plt 95. Family at bedside. VSS. Will continue to monitor. Pt to go down to dialysis.
[2017-05-08] MEDS ORDERED: PrednisoLONE 1% 1 mL Ophthalmic Suspension RIGHT_EYE SCH (08:30)
[2017-05-08] MEDS: Vancomycin Dose per Pharmacist XX SCH (08:30)
[2017-05-08] MEDS: Piperacillin-Tazo 3.375 Gm Inj 3.375 GM in Dextrose 5% Minibag Plus 50 ML IV SCH ×2 (08:30→21:52)
[2017-05-08] MEDS: Famotidine Inj 20 MG in IV Premix 1 EACH IV SCH (08:30)
[2017-05-08] MEDS ORDERED: levoFLOXacin Inj 750 MG in IV Premix 1 EACH IV SCH (08:30)
--- NOTE | 2017-05-08 10:16 | NUR ---
Pt to dialysis at 0845. Report called, tele notified. Addendum: 05/08/17 at 1412 by ROBBY COLLINS RN Pt back from dialysis at 1320. BP high - amlodipine given and MD notified. To monitor. Placed back on 2L NC with sats at 100%. Fistula stable.
[2017-05-08] MEDS ORDERED: METO-272 PO (11:15)
[2017-05-08] MEDS ORDERED: LOPE-147 PO (11:20)
[2017-05-08] MEDS ORDERED: CHOL500050 PO (11:20)
--- NOTE | 2017-05-08 13:00 | NUR ---
Dialysis note: 3 1/2 hrs tx 2000 ml net UF LUIS CARLOS fistula, accessed w/ no problems Pls see DTR for VS details Qb 400-450 No heparin given, Citrasate used instead O2 @ 2L via NC on Tolerated tx, slept at intervals Fistula needle sites clotted w/in 10 min Stable condition at end of tx Report given to Diana HAJI
[2017-05-08] MEDS ORDERED: ACET325T51 PO (14:40)
[2017-05-08] MEDS: MeTOProlol XL 50 mg ER24 Tablet PO SCH (15:24)
--- NOTE | 2017-05-08 15:55 | NUR ---
BP 1510 MD notified that BP after amlodipine given 191/74 HR 69. MD to reorder home metoprolol. Will monitor. Addendum: 05/08/17 at 1739 by ROBBY COLLINS RN BP 174/71 at 1614 post BB. Will continue to monitor.
--- NOTE | 2017-05-08 15:58 | PCM.CHPMED ---
Subjective Date of Service: May 08, 2017 Provider requesting consult: Herman Kay MD Primary Physician: Admitting Physician: Tong Looney MD Primary Care Physician: Arielle Attending Physician: Herman Kay MD Chief Complaint: Chief Complaint: ESRD on HD History of Present Illness: Ms. Gooden is a 46-year-old female with past medical history of ESRD on HD or over 1 year (,, ), diabetes mellitus type II and HTN who was admitted for abdominal pain with fever, diarrhea, nausea and vomiting. Patient is Yoruba- speaking, Pt son in room who serves as exchange specialist. Pt states abdominal pain has been persistent 1 week and is described as a sharp 8 out of 10 pain in her left upper and lower quadrant and is nonradiating. She also states nausea and vomiting with 5-7 episodes of diarrhea per day, denies blood or mucus in her diarrhea. She states she has been febrile at home though has not taken her temperature and states some diaphoresis as well. She reports a recent stomach infection 3 months prior with similar symptoms. She also states that over all these symptoms of abdominal pain nausea and diarrhea have been somewhat persistent though mild over the last 1-2 years since starting dialysis and home Zofran has not been adequate in controlling her nausea. Nephrology consult to manage HD. Vital signs show persistent hypertension, no white count 2 though high monocyte count, decreased H&H and platelet count. Chem panel shows hyponatremia , elevated BUN/creatinine and serum glucose. Pro-calcitonin elevated at 2.3. Liver function tests normal. CT abdomen and pelvis showed possible pneumonia/ aspiration, cholelithiasis, cardiomegaly and mild ascites. Review of Systems: A comprehensive review of systems was conducted with the patient and found to be negative except as above in the history of present illness. PMH Past Medical History Diabetes mellitus, type II Diabetic foot ulcer, history of End-stage renal disease on hemodialysis Mondays, Wednesdays, and Fridays Hypertension Anemia, likely secondary to end-stage renal disease Hypothyroidism Hx of osteoporotic left femur fracture Hepatosteatosis Bedside Blood Glucose: 75 Surgical History Left fistula placement Home Medications Amlodipine (Amlodipine) 10 Mg Tablet 10 MG PO DAILY Atorvastatin (Lipitor) 20 Mg Tablet 20 MG PO HS Calcium Acetate (Calcium Acetate) 667 Mg Tablet 1,971 MG PO TIDWM Calcium Carbonate (Tums) 500 Mg Tab.chew 500 MG PO BID Citalopram (Citalopram) 20 Mg Tablet 20 MG PO HS Lactulose (Lactulose) 20 Gm/30 Ml Solution 20 GM PO DAILY Levothyroxine (Synthroid) 25 Mcg Tablet 25 MCG PO DAILY Melatonin (Melatonin) 3 Mg Tablet 3 MG PO HS Pantoprazole DR (Pantoprazole DR) 40 Mg Tablet.dr 40 MG PO BIDAC Prednisolone Acetate (Prednisolone Acetate) 5 Ml Drops.susp 1 DRP RIGHT_EYE BID 1% Scheduled PRN Acetaminophen (Acetaminophen) 325 Mg Tablet 650 MG PO Q4H PRN PRN Fever/Pain Bisacodyl (Dulcolax Rectal) 10 Mg Supp.rect 10 MG RC Evening PRN PRN For Constipation If no BM by PM shift after using MOM Hydrocodone-Acetaminophen 5-325 mg (Hydrocodone-Acetaminophen 5-325 mg) 1 Each Tablet 1 TABLET PO Q6H PRN PRN For Pain Ondansetron ODT (Zofran ODT) 4 Mg Tablet 4 MG PO Q4H PRN PRN For Nausea Phenylephrine/[place] Butter (Preparation H Supp) 1 Each Supp.rect 1 SUPP RECTAL PRN Rectal Bleeding Give after every bowel movement - up to 4 times a day Sennosides (Senna) 8.6 Mg Tablet 17.2 MG PO PRN For Constipation Simethicone (Gas-X) 125 Mg Capsule 125 MG PO Q24H PRN PRN Gas Pain oxyCODONE (oxyCODONE) 5 Mg Tablet 5-10 MG PO Q4H PRN PRN For Pain Allergies: Coded Allergies: No Known Allergies (Verified Allergy, Unknown, 08/05/16) Family History Family History Mother: Diabetes Brother: Diabetes Social History Hx Alcohol Use: NoHx Substance Use: NoHx Tobacco Use: No Smoking Status: Never Smoker Exam Vital Signs Vital Sign - Last Date Time Temp Pulse Resp B/P Pulse Ox O2 Delivery O2 Flow Rate FiO2 05/08/17 15:00 69 191/74 100 Nasal Cannula 1.00 05/08/17 13:22 36.6 16 Intake and Output 05/07/17 05/07/17 05/08/17 Cumulative From/Thru 15:00 23:00 07:00 05/07/17 15:31 - 05/08/17 05:25 Intake Total 1000 ml 0 ml 1000 ml Output Total 0 ml 0 ml Balance 1000 ml 0 ml 1000 ml Intake Oral 0 ml 0 ml IV Total 1000 ml 1000 ml Output Urine Total 0 ml 0 ml # Bowel Movements 0 0 General: Ill-appearing female with distant affect in no acute distress. HEENT: Normocephalic, atraumatic. External ears without defect. Pupils equal, round, and reactive to light and accommodation. Neck: No jugular venous distension. Cardiovascular: Regular rate and rhythm soft blowing systolic murmur. Pulmonary: Decreased breath sounds right lung bone, no wheezes. Normal respiratory effort with no use of accessory muscles. Abdomen: Bowel tones present. Soft, states non tender to palpation x 4 quadrants. Though some facial grimace on deep LLQ ABD palpation. Negative Waggoner sign. Extremities: AV fistula left arm good thrill appreciated, no extremity edema. Skin: Normal temperature, decreased skin turgor Neurological: Cranial nerves grossly intact. Lab and Diagnostics Result Diagram: 05/08/1761905/08/17619 Assessment & Plan Assessment Ms. Gooden is a 46 year old ESRD on hemodialysis, diabetes mellitus type 2, Hypertension admitted for possible HAP, nephrology consult to manage hemodialysis secondary to ESRD ESRD on dialysis, Present on Admission, Active Regular dialysis schedule is - HD today with 2 L ultrafiltrate removed - Continue to Monitor BMP Hyponatremia, Present on Admission, Active - Most likely secondary to volume depletion. Patient does have a long history of hyponatremic episodes - Sodium 129 on admission. Today 131 - Received IV fluid bolus in ED and maintenance fluid overnight. - IV fluids discontinued - Continue to monitor BMP Aspiration with Healthcare associated Pneumonia, Present on Admission, Active Patient presenting with Fever, chest x-ray shows right middle lobe pneumonia. Patient has been vomiting and goes to dialysis clinic. Likely aspiration pneumonia vs. HCAP. Less likely heart failure or TB. - MRSA swab, Respiratory Viral panel, Urine Legionella and strep pneumo ag, procalcitonin, sputum cultures. May be difficult to obtain urine testing as patient minimal urine output from ESRD. - Blood cultures pending - Levofloxacin, Zosyn and Vancomycin Abdominal Pain, Present on Admission, Active Patient has associated nausea, vomiting, diarrhea. Likely secondary to gastroparesis. -Appropriate cultures and serologies pending - Symptomatic control Normocytic Anemia, Present on Admission, Active - In the setting of ESRD - Monitor CBC Diabetes Mellitus Type 2, Present on Admission, Active Last HgA1C 9.16 July 2016. Per patient she doesn't take any medications for diabetes after starting dialysis. - HgA1c Pending - Bedside glucose checks Hypertension, Present on Admission, Active - Continue with HD, restart home medications Hypothyroidism, presumed stable - Continue home Levothyroxine Patient was seen and examined. Agreed with Dr. Tapia's assessment and plan. Thank you for allowing me to participate in the care of your patient. Clifton Ramirez MD. Problems: VTE Prophylaxis: Sub-Q Heparin (Unfractionated) VTE Mechanical Devices: Intermittant Pneumatic CD ROQUE TAPIA DO May 08, 2017 15:58 Kiko Rolle MD May 08, 2017 18:09
--- NOTE | 2017-05-08 18:29 | NUR ---
Status Pt up OOB in chair. Stable with pain subsiding. BP improved. Able to eat dinner. Continuing to encourage deep breathing. Family at bedside. Will continue to monitor. Addendum: 05/08/17 at 1837 by ROBBY COLLINS RN aware that if US Abd not ordered stat may not be done this evening, ok with being done in am 05/09
[2017-05-08] MEDS ORDERED: levoFLOXacin Inj 500 MG in IV Premix 1 EACH IV SCH (21:00)
--- NOTE | 2017-05-08 23:24 | PCM.PNMED ---
Subjective Date of Service May 08, 2017 Subjective The patient continues to complain of abdominal pain and nausea, but no further vomiting. The patient has no further diarrhea as of yet today. She has no other new complaints. Exam Vital Signs Vital Sign - Last Date Time Temp Pulse Resp B/P Pulse Ox O2 Delivery O2 Flow Rate FiO2 05/08/17 22:11 Supplement Oxygen 05/08/17 21:01 36.8 60 22 152/61 96 05/08/17 15:00 1.00 Intake and Output 05/07/17 05/07/17 05/08/17 Cumulative From/Thru 15:00 23:00 07:00 05/07/17 15:31 - 05/08/17 05:25 Intake Total 1000 ml 0 ml 1000 ml Output Total 0 ml 0 ml Balance 1000 ml 0 ml 1000 ml Intake Oral 0 ml 0 ml IV Total 1000 ml 1000 ml Output Urine Total 0 ml 0 ml # Bowel Movements 0 0 Exam General: Patient is laying in bed seen after hemodialysis. She appears to be in some general discomfort. HEENT: Head is atraumatic and normocephalic. Eyes: Pupils are equally round and reactive to light and accommodation. Extraocular muscles are intact. Sclera are white, anicteric. Subconjunctival mucosa is pink. Ears and nose are unremarkable. Oropharynx: There is no mucosal lesions, there is no thrush, there is no pharyngitis. Neck: Is supple, there are no nodes, or masses or tenderness. Chest: Is clear to auscultation and percussion. There are no rales, rhonchi, wheezes or rubs. Heart: Rate, rhythm is regular. There is a grade 2/6 systolic ejection murmur heard best at the left sternal border. There is no rub or gallop. Abdomen: Good bowel sounds are present. Abdomen is soft, with nonspecific tenderness, no organomegaly or masses were appreciated. Extremities: Are symmetrical(except for a well-functioning left upper extremity AV fistula) and well perfused. There is no edema, there is no cellulitis, no rash. Neurologic: There are no focal neurological deficits. Cranial nerves II through XII are intact. There are no sensory or motor deficits. Psychiatric: Patients mood is calm and shows no sign of agitation. Genital: Deferred Rectal: Deferred Lab and Diagnostics Result Diagram: 05/08/1761905/08/17619 Microbiology Item Value Date Time Blood Culture Received 05/07/17 1650 Blood Aerobic And Anaerobic Bottle Pending Blood Culture Received 05/07/17 1640 Blood Aerobic And Anaerobic Bottle Pending X-Rays, CTs and MRIs PROCEDURE: CT ABDOMEN AND PELVIS WITHOUT CONTRAST ([id number]) IMPRESSION: Right middle lobe consolidation, suggestive of pneumonia and/or aspiration. Please correlate clinically and recommend followup after treatment to exclude underlying nodule/mass. Small right pleural effusion with adjacent atelectasis. Cholelithiasis. Please correlate clinically and with LFTs. Nonspecific scattered mild ascites as above. Cardiomegaly. Coronary artery disease. Dictated by: Nghia Cm M.D. on 05/07/2017 at 17:24 PROCEDURE: X-RAY CHEST ONE VIEW, PORTABLE ([id number]) IMPRESSION: Right mid lung pneumonia. Recommend radiographic followup to document resolution. Small right pleural effusion. Dictated by: Nghia Cm M.D. on 05/07/2017 at 19:04 Cardiac Echo Impressions Echocardiogram Report Name: YULY PEARCE Study Date: 03/25/2017 Height: 59 in Hospital Exam Location: [facility] Weight: 101 lb Gender: Female BSA: 1.4 m2 : 1970 Age: 46 yrs BP: 130/70 mmHg Reason For Study: END STAGE RENAL DISEASE Ordering Physician: Performed By: Mariya Umanzor Interpretation Summary The ejection fraction is estimated to be 50-55%. There is severe mitral regurgitation. There is severe tricuspid regurgitation. The right ventricular systolic pressure is estimated at 59 mmHg assuming a right atrial pressure of 8 mm Hg. Compared to the prior echo report on 06/2016, there is no significant change. Assessment & Plan The 45 year old Citizen Of [place]-speaking female with ESRD on hemodialysis, diabetes mellitus type 2, Hypertension who presents to the Emergency Department with complaint of abdominal pain, vomiting and fever found to have right middle lobe pneumonia. The patient was admitted to the hospitalist service for further evaluation and treatment. Aspiration with Healthcare associated Pneumonia, Present on Admission, Active Patient presenting with Fever, chest x-ray shows right middle lobe pneumonia. Patient has been vomiting and goes to dialysis clinic. Likely aspiration pneumonia vs. HCAP. Less likely heart failure or TB. - MRSA swab, Respiratory Viral panel, Urine Legionella and strep pneumo ag, procalcitonin, sputum cultures. May be difficult to obtain urine testing as patient minimal urine output from ESRD. - Blood cultures pending - Will start Levofloxacin, Zosyn and Vancomycin Abdominal Pain, Present on Admission, Active Patient has associated nausea, vomiting, diarrhea. Likely secondary to gastroparesis. - Will check stool C. diff - Symptomatic control ESRD on dialysis, Present on Admission, Active On admission Cr 5.13, regular dialysis schedule is - Nephrology Consult, Plan for dialysis 05/08/17 AM - Monitor BMP Hyponatremia, Present on Admission, Active Sodium 129 on admission. Recieved fluids in the ED. Likely due to hypovolemia as patient is dry. - IV NS 100 mL/hr to go till 0500 on 05/08/17 - Monitor BMP Normocytic Anemia, Present on Admission, Active - Monitor CBC Diabetes Mellitus Type 2, Present on Admission, Active Last HgA1C 9.16 July 2016. Per patient she doesn't take any medications for diabetes after starting dialysis. - HgA1c Pending - Bedside glucose checks Hypertension, Present on Admission, Active - Continue home amlodipine Hypothyroidism, presumed stable - Continue home Levothyroxine Patient Status: Patient is admitted under inpatient status with expected length of stay greater than 2 midnights due to severity of presenting symptoms, risk of adverse event, and complexity of treatment plan. Code Status: Full Code Pain Evaluation: Adequate Pain Control GI Prophylaxis: Proton Pump Inhibitor VTE Prophylaxis: Sub-Q Heparin (Unfractionated) VTE Mechanical Devices: Intermittant Pneumatic CD Resuscitation Status: CPR: Attempt Resuscitation Herman Kay MD May 08, 2017 23:24
[2017-05-09] VITALS (7 sets, daily range): BP systolic 130–181; BP diastolic 63–79; PULSE 59–65; RESP 16–18; O2SAT 93–99
[2017-05-09] MEDS: Heparin 5,000 Unit/mL Inj SUBQ SCH ×3 (00:30→16:10)
[2017-05-09] MEDS: Ondansetron 2 mg/mL 2 mL Inj IVPUSH PRN ×4 (06:44→20:38)
[2017-05-09] MEDS: Pantoprazole 40 mg ER24 Tablet PO SCH ×2 (07:08→16:09)
[2017-05-09] MEDS: MeTOProlol XL 50 mg ER24 Tablet PO SCH (07:09)
[2017-05-09 07:24] LABS: EOSINOPHILS % (AUTO) 6.4 % (0-5); MONOCYTES % (AUTO) 13.3 % (4-12); Mean Corpuscular Volume 95.4 fL (81-100); NEUTROPHILS % (AUTO) 58.7 % (40-74); Platelet Count 101 bil/L (150-400)
[2017-05-09] MEDS: Vancomycin Dose per Pharmacist XX SCH (08:30)
[2017-05-09] MEDS: Piperacillin-Tazo 3.375 Gm Inj 3.375 GM in Dextrose 5% Minibag Plus 50 ML IV SCH ×2 (08:40→21:33)
--- NOTE | 2017-05-09 09:55 | NUR ---
nausea/vomit pt complains of feeling nauseated. When this RN returned with Zofran pt was having active emesis. pt requests that Zofran before each meal.
[2017-05-09] MEDS: Famotidine Inj 20 MG in IV Premix 1 EACH IV SCH (11:49)
--- NOTE | 2017-05-09 14:07 | PCM.PNNEPH ---
Subjective Date of Service May 09, 2017 Subjective Patient is well-known to me from previous evaluations. She has a history of end -stage renal disease and normally dialyzes on Friday and Friday. It scheduled Hospital for presumed pneumonia. Since that time she has had some improvement and this morning does not complaining of any chest pain shortness of breath nausea or vomiting. Exam Vital Signs Vital Sign - Last Date Time Temp Pulse Resp B/P Pulse Ox O2 Delivery O2 Flow Rate FiO2 05/09/17 13:32 36.6 64 18 177/79 99 Room Air 05/08/17 15:00 1.00 Intake and Output 05/08/17 05/08/17 05/09/17 Cumulative From/Thru 15:00 23:00 07:00 05/07/17 15:31 - 05/09/17 05:42 Intake Total 0 ml 100 ml 1100 ml Output Total 2000 ml 0 ml 2000 ml Balance -2000 ml 0 ml 100 ml -900 ml Intake Oral 0 ml 100 ml 100 ml IV Total 1000 ml Output Urine Total 0 ml 0 ml Ultrafiltrate 2000 ml 2000 ml # Voids 2 2 # Bowel Movements 0 2 2 Exam Neck is supple without adenopathy, thyromegaly, or jugular venous distention. Chest clear to auscultation. Heart is regular and rhythmical with a soft systolic murmur. Abdomen is soft without any tenderness or rebound and guarding masses or hepatosplenomegaly. Extremities not show any evidence of any clubbing, cyanosis, or edema. Skin turgor is good and ears no evidence of any rashes. Lab and Diagnostics Result Diagram: 05/09/17 0555 05/09/17 0555 Microbiology Item Value Date Time Blood Culture Received 05/07/17 1650 Blood Aerobic And Anaerobic Bottle Pending Blood Culture Received 05/07/17 1640 Blood Aerobic And Anaerobic Bottle Pending X-Rays, CTs and MRIs PROCEDURE: CT ABDOMEN AND PELVIS WITHOUT CONTRAST ([id number]) IMPRESSION: Right middle lobe consolidation, suggestive of pneumonia and/or aspiration. Please correlate clinically and recommend followup after treatment to exclude underlying nodule/mass. Small right pleural effusion with adjacent atelectasis. Cholelithiasis. Please correlate clinically and with LFTs. Nonspecific scattered mild ascites as above. Cardiomegaly. Coronary artery disease. Dictated by: Nghia Cm M.D. on 05/07/2017 at 17:24 PROCEDURE: X-RAY CHEST ONE VIEW, PORTABLE ([id number]) IMPRESSION: Right mid lung pneumonia. Recommend radiographic followup to document resolution. Small right pleural effusion. Dictated by: Nghia Cm M.D. on 05/07/2017 at 19:04 Cardiac Echo Impressions Echocardiogram Report Name: YULY PEARCE Study Date: 03/25/2017 Height: 59 in Hospital Exam Location: [facility] Weight: 101 lb Gender: Female BSA: 1.4 m2 : 1970 Age: 46 yrs BP: 130/70 mmHg Reason For Study: END STAGE RENAL DISEASE Ordering Physician: Performed By: Mariya Umanzor Interpretation Summary The ejection fraction is estimated to be 50-55%. There is severe mitral regurgitation. There is severe tricuspid regurgitation. The right ventricular systolic pressure is estimated at 59 mmHg assuming a right atrial pressure of 8 mm Hg. Compared to the prior echo report on 06/2016, there is no significant change. Plan Impression Impression #1 end-stage renal disease dialysis dependent #2 pneumonia Recommendations #100 scheduled her for her routine dialysis treatment tomorrow. Khanh Ma DO May 09, 2017 14:07
--- NOTE | 2017-05-09 14:20 | NUR ---
emesis/nausea pt is vomiting and feeling nauseated. 8mg Zofran given.
--- NOTE | 2017-05-09 14:38 | DRSVH ---
PROCEDURE: US ABDOMEN, LIMITED ([id number]) INDICATIONS: Abdominal pain with [place] and vomiting TECHNIQUE: Real-time focused scanning was performed of the abdomen, with image documentation. COMPARISON: [facility], CT, CT ABD PELVIS WO CON, 05/07/2017, 16:39. FINDINGS: Limited exam demonstrates normal appearance of the liver and no biliary dilatation is seen . Multiple gallstones are present the gallbladder wall is thickened measuring up to 5 mm. Right ple ural effusion is noted. IMPRESSION: Cholelithiasis with thickened gallbladder wall. Developing cholecystitis cannot be exclu ded and clinical correlation is recommended. Dictated by: Constantino HINTON Interpreted: Chetan Mitchell MD on 05/09/2017 at 10:40 Approved by: Chetan Mitchell M.D. on 05/09/2017 at 14:34
--- NOTE | 2017-05-09 15:24 | NUR ---
Social Work: Initial Assessment Data: Pt is a 46 y/o female admitted for pneumonia, pt's PCP is not listed, pt's insurance is Medicare with [facility] supp. EMR reviewed, pt discussed in multidisciplinary rounds. BRICK SHADER met with pt at bedside with work distributor. Pt states she lives in [place] with her family in a two story home where she uses no DME, pt does not drive, has no hx of HH, hx of SNF at [facility], no LTC or VA benefits. Pt does not have MIO at this time. Pt received dialysis at [facility]. No d/c planning needs anticipated at this time. BRICK SHADER will continue to follow if needs arise. Assessment: Pt on dialysis. Plan: Pt will d/c home via POV when medically stable. No d/c planning needs anticipated at this time. BRICK SHADER will continue to follow if needs arise. EDUARD Hooper Addendum: 05/09/17 at 1527 by SANTANA LUNA Amended: Links added.
--- NOTE | 2017-05-09 15:56 | NUR ---
NUTRITION ASSESSMENT: ASSESS: 46YO F admit with pneumonia (?aspiration)-ST following, abdominal pain--MD notes indicate likely gastroparesis. Vomiting and diarrhea have improved. PMHX: Diabetic, ESRD on dialysis,HTN DIET: Renal Diabetic Soft. Nepro supplement at lunch. PO 25% x 2 days LABS: Reviewed. Alb 3.5, Cr 3.49, Glu 119, A1c 7.1 MEDS: Reviewed GI: 2 BM 05/09 WEIGHT:51.6kg BMI: 34.7 EST.NEEDS: DIALYSIS/OBESITY (25-30kcal/kg;1.2-1.8g/kg pro) NUTRITION DIAGNOSIS: (1) Increased kcal/protein needs related to increased demand for nutrients as evidenced by ESRD on dialysis. (2) Inadequate oral intake likely related to n/v/abdominal pain as evidenced by po intake 25%. INTERVENTION: (1) Small frequent meals for resolution of gastroparesis. (2) Supplement to increase kcal/protein intake with pt. increased needs. MONITOR/EVALUATE: PO intake, texture tolerance, lab values. F/U per moderate risk.
[2017-05-09] MEDS: HYDROcodone-APAP 5-325 mg Tablet PO PRN (21:32)
--- NOTE | 2017-05-09 23:57 | PCM.PNMED ---
Subjective Date of Service May 09, 2017 Subjective The patient was examined with her son Elia who is fluent in Syriac and Danish acting as her translator interpreter. The patient continues to complain of nausea and vomiting and abdominal pain. She states that she is not feeling any better. Exam Vital Signs Vital Sign - Last Date Time Temp Pulse Resp B/P Pulse Ox O2 Delivery O2 Flow Rate FiO2 05/09/17 21:53 Supplement Oxygen 05/09/17 21:13 36.9 65 16 174/74 94 05/08/17 15:00 1.00 Intake and Output 05/08/17 05/08/17 05/09/17 Cumulative From/Thru 15:00 23:00 07:00 05/07/17 15:31 - 05/09/17 05:42 Intake Total 0 ml 100 ml 1100 ml Output Total 2000 ml 0 ml 2000 ml Balance -2000 ml 0 ml 100 ml -900 ml Intake Oral 0 ml 100 ml 100 ml IV Total 1000 ml Output Urine Total 0 ml 0 ml Ultrafiltrate 2000 ml 2000 ml # Voids 2 2 # Bowel Movements 0 2 2 Exam General: Patient is lying supine in bed and appears to be uncomfortable but in no significant distress. HEENT: Head is atraumatic and normocephalic. Eyes: Pupils are equally round and reactive to light and accommodation. Extraocular muscles are intact. Sclera are white, anicteric. Subconjunctival mucosa is pink. Ears and nose are unremarkable. Oropharynx: There is no mucosal lesions, there is no thrush, there is no pharyngitis. Neck: Is supple, there are no nodes, or masses or tenderness. Chest: Is clear to auscultation and percussion. There are no rales, rhonchi, wheezes or rubs. Heart: Rate, rhythm is regular. There is a grade 2/6 systolic ejection murmur heard best at the left sternal border. There is no rub or gallop. Abdomen: Good bowel sounds are present. Abdomen is soft, with nonspecific tenderness, no organomegaly or masses were appreciated. Extremities: Are symmetrical(except for a well-functioning left upper extremity AV fistula) and well perfused. There is no edema, there is no cellulitis, no rash. Neurologic: There are no focal neurological deficits. Cranial nerves II through XII are intact. There are no sensory or motor deficits. Psychiatric: Patients mood is calm and shows no sign of agitation. Genital: Deferred Rectal: Deferred Lab and Diagnostics Result Diagram: 05/09/17 0555 05/09/17 0555 Microbiology Item Value Date Time Blood Culture Received 05/07/17 1650 Blood Aerobic And Anaerobic Bottle Pending Blood Culture Received 05/07/17 1640 Blood Aerobic And Anaerobic Bottle Pending X-Rays, CTs and MRIs PROCEDURE: CT ABDOMEN AND PELVIS WITHOUT CONTRAST ([id number]) IMPRESSION: Right middle lobe consolidation, suggestive of pneumonia and/or aspiration. Please correlate clinically and recommend followup after treatment to exclude underlying nodule/mass. Small right pleural effusion with adjacent atelectasis. Cholelithiasis. Please correlate clinically and with LFTs. Nonspecific scattered mild ascites as above. Cardiomegaly. Coronary artery disease. Dictated by: Nghia Cm M.D. on 05/07/2017 at 17:24 PROCEDURE: X-RAY CHEST ONE VIEW, PORTABLE ([id number]) IMPRESSION: Right mid lung pneumonia. Recommend radiographic followup to document resolution. Small right pleural effusion. Dictated by: Nghia Cm M.D. on 05/07/2017 at 19:04 Cardiac Echo Impressions Echocardiogram Report Name: YULY PEARCE Study Date: 03/25/2017 Height: 59 in Hospital Exam Location: [facility] Weight: 101 lb Gender: Female BSA: 1.4 m2 : 1970 Age: 46 yrs BP: 130/70 mmHg Reason For Study: END STAGE RENAL DISEASE Ordering Physician: Performed By: Mariya Umanzor Interpretation Summary The ejection fraction is estimated to be 50-55%. There is severe mitral regurgitation. There is severe tricuspid regurgitation. The right ventricular systolic pressure is estimated at 59 mmHg assuming a right atrial pressure of 8 mm Hg. Compared to the prior echo report on 06/2016, there is no significant change. Assessment & Plan The 45 year old Danish-speaking female with ESRD on hemodialysis, diabetes mellitus type 2, Hypertension who presents to the Emergency Department with complaint of abdominal pain, vomiting and fever found to have right middle lobe pneumonia. The patient was admitted to the hospitalist service for further evaluation and treatment. Aspiration with Healthcare associated Pneumonia, Present on Admission, Active Patient presenting with Fever, chest x-ray shows right middle lobe pneumonia. Patient has been vomiting and goes to dialysis clinic. Likely aspiration pneumonia vs. HCAP. Less likely heart failure or TB. - MRSA swab, Respiratory Viral panel, Urine Legionella and strep pneumo ag, procalcitonin, sputum cultures. May be difficult to obtain urine testing as patient minimal urine output from ESRD. - Blood cultures pending - Will continue Levofloxacin, Zosyn and Vancomycin for now. As MRSA nasopharyngeal screen was negative may consider discontinuing vancomycin however , will continue for now until patient is showing some improvement. As the negative MRSA nasal smear screen does not rule out an MRSA pneumonia. It does however make it less likely. Abdominal Pain, Present on Admission, Active Patient has associated nausea, vomiting, diarrhea. Likely secondary to gastroparesis. - Will check stool C. diff - Symptomatic control ESRD on dialysis, Present on Admission, Active On admission Cr 5.13, regular dialysis schedule is - Appreciate Nephrology Consult, appreciate Dr. Ma's time and expertise. Plan for dialysis 05/10/17 AM - Monitor BMP Hyponatremia, Present on Admission, Active Sodium 129 on admission. Recieved fluids in the ED. Likely due to hypovolemia as patient is dry. - IV NS 100 mL/hr to go till 0500 on 05/08/17 - Monitor BMP Normocytic Anemia, Present on Admission, Active - Monitor CBC Diabetes Mellitus Type 2, Present on Admission, Active Last HgA1C 9.16 July 2016. Per patient she doesn't take any medications for diabetes after starting dialysis. - HgA1c Pending - Bedside glucose checks Hypertension, Present on Admission, Active - Continue home amlodipine Hypothyroidism, presumed stable - Continue home Levothyroxine Patient Status: Patient will be here another 48 hours due to severity of presenting symptoms, risk of adverse event, and complexity of treatment plan. Code Status: Full Code Pain Evaluation: Adequate Pain Control GI Prophylaxis: Proton Pump Inhibitor VTE Prophylaxis: Sub-Q Heparin (Unfractionated) VTE Mechanical Devices: Venous Foot Pump Resuscitation Status: CPR: Attempt Resuscitation Herman Kay MD May 09, 2017 23:57
[2017-05-10] VITALS (9 sets, daily range): BP systolic 128–176; BP diastolic 64–86; PULSE 53–64; RESP 16–18; O2SAT 95–99
[2017-05-10] MEDS: Heparin 5,000 Unit/mL Inj SUBQ SCH ×3 (00:01→16:55)
[2017-05-10 06:22] LABS: EOSINOPHILS % (AUTO) 9.3 % (0-5); MONOCYTES % (AUTO) 11.8 % (4-12); Mean Corpuscular Hemoglobin 30.3 pg (27.0-35.0); Mean Corpuscular Volume 93.7 fL (81-100); NEUTROPHILS % (AUTO) 55.6 % (40-74); Platelet Count 120 bil/L (150-400)
[2017-05-10 07:03] LABS: Magnesium 2.1 mg/dL (1.6-2.6); Phosphorus 4.2 mg/dL (2.5-4.9)
[2017-05-10] MEDS: MeTOProlol XL 50 mg ER24 Tablet PO SCH ×2 (07:52→14:51)
[2017-05-10] MEDS: Piperacillin-Tazo 3.375 Gm Inj 3.375 GM in Dextrose 5% Minibag Plus 50 ML IV SCH ×2 (07:52→20:17)
[2017-05-10] MEDS: Vancomycin Dose per Pharmacist XX SCH (07:53)
[2017-05-10] MEDS: Pantoprazole 40 mg ER24 Tablet PO SCH ×2 (07:53→16:30)
[2017-05-10] MEDS: HYDROcodone-APAP 5-325 mg Tablet PO PRN ×2 (08:00→21:13)
[2017-05-10] MEDS: Ondansetron 2 mg/mL 2 mL Inj IVPUSH PRN ×2 (08:00→20:17)
[2017-05-10] MEDS ORDERED: Vancomycin Inj 500 MG in 0.9% Sodium Chloride 250 ML IV ONE (08:40)
[2017-05-10] MEDS ORDERED: Vancomycin Inj 500 MG in 0.9% Sodium Chloride 100 ML IV ONE (09:00)
--- NOTE | 2017-05-10 10:34 | PCM.PHAPRO ---
Progress ESRD on HD VANCOMYCIN DOSING PER PHARMACY Pt gets dialysis T/Debra/Sat Trough before dialysis session today (05/10): 11.7 Scr: 4.90 WBC: 5.2 P: Will give one dose of vancomycin 500mg IV Will draw additional trough before next dialysis session on Friday (05/13) Pharmacy will continue to follow Ale Abel PharmD May 10, 2017 10:34
--- NOTE | 2017-05-10 10:48 | NUR ---
[facility] [place]: 1005 Patient arrived via bed for ordered dialysis per plaster block layer Karla. Report received from primary RN Jolanta Villalpando. Addendum: 05/10/17 at 1347 by TAYLOR JAIMES RN Ordered Stool Sample Sent.
--- NOTE | 2017-05-10 11:20 | PCM.PNNEPH ---
Subjective Date of Service May 10, 2017 Subjective Patient offers no new complaints. She is scheduled for dialysis today and orders have been written. Exam Vital Signs Vital Sign - Last Date Time Temp Pulse Resp B/P Pulse Ox O2 Delivery O2 Flow Rate FiO2 05/10/17 09:09 36.6 60 18 176/78 95 Room Air 05/08/17 15:00 1.00 Intake and Output 05/09/17 05/09/17 05/10/17 Cumulative From/Thru 15:00 23:00 07:00 05/07/17 15:31 - 05/10/17 06:02 Intake Total 520 ml 200 ml 1820 ml Output Total 0 ml 2000 ml Balance 520 ml 200 ml -180 ml Intake Oral 520 ml 200 ml 820 ml IV Total 1000 ml Output Urine Total 0 ml 0 ml Ultrafiltrate 2000 ml # Voids 0 2 # Bowel Movements 0 2 Exam Neck is supple without adenopathy, thyromegaly, or jugular venous distention. Lungs are clear to auscultation. Heart is regular and rhythmical with a soft systolic murmur. Abdomen soft without any tenderness rebound guarding masses or hepatosplenomegaly. Extremities did not show any evidence of any clubbing, cyanosis, or edema. Skin turgor is good. Lab and Diagnostics Result Diagram: 05/10/17 0550 05/10/17 0550 Microbiology Item Value Date Time Blood Culture Received 05/07/17 1650 Blood Aerobic And Anaerobic Bottle Pending Blood Culture Received 05/07/17 1640 Blood Aerobic And Anaerobic Bottle Pending X-Rays, CTs and MRIs PROCEDURE: CT ABDOMEN AND PELVIS WITHOUT CONTRAST ([id number]) IMPRESSION: Right middle lobe consolidation, suggestive of pneumonia and/or aspiration. Please correlate clinically and recommend followup after treatment to exclude underlying nodule/mass. Small right pleural effusion with adjacent atelectasis. Cholelithiasis. Please correlate clinically and with LFTs. Nonspecific scattered mild ascites as above. Cardiomegaly. Coronary artery disease. Dictated by: Nghia Cm M.D. on 05/07/2017 at 17:24 PROCEDURE: X-RAY CHEST ONE VIEW, PORTABLE ([id number]) IMPRESSION: Right mid lung pneumonia. Recommend radiographic followup to document resolution. Small right pleural effusion. Dictated by: Nghia Cm M.D. on 05/07/2017 at 19:04 Cardiac Echo Impressions Echocardiogram Report Name: YULY PEARCE Study Date: 03/25/2017 Height: 59 in Hospital Exam Location: [facility] Weight: 101 lb Gender: Female BSA: 1.4 m2 : 1970 Age: 46 yrs BP: 130/70 mmHg Reason For Study: END STAGE RENAL DISEASE Ordering Physician: Performed By: Mariya Umanzor Interpretation Summary The ejection fraction is estimated to be 50-55%. There is severe mitral regurgitation. There is severe tricuspid regurgitation. The right ventricular systolic pressure is estimated at 59 mmHg assuming a right atrial pressure of 8 mm Hg. Compared to the prior echo report on 06/2016, there is no significant change. Plan Impression Impression #1 end-stage renal disease dialysis dependent Recommendation #1 patient is dialyzed today for 3 to half A STANDARD DIALYZER, 2 POTASSIUM BATH, 50 BLOOD FLOW AROUND 600 DIALYSATE FLOW, ALSO HEPARIN AND 200 PER ALL WILL TRY TO TAKE 2 L OF FLUID OFF. Khanh Ma DO May 10, 2017 11:20
--- NOTE | 2017-05-10 14:27 | NUR ---
Hemodialysis note Uneventful 3.5 hr tx. SBP high throughout tx which is normal for this patient. 2L fluid removed, BVP 87.2. Slept most of her tx. See DTR for additional information
--- NOTE | 2017-05-10 16:07 | NUR ---
Enteropathogenic E. Coli Patient PCR stool was collected and sent to lab. Lab called with results of Enteropathogenic E. Coli. was notified. Awaiting orders.
--- NOTE | 2017-05-10 17:48 | NUR ---
Hypoglycemia Patient dinner time blood glucose was 43 and patient was hard to arouse and diaphoretic. MD notified. Patient was administered 25mg D50 IV push. rechecked blood glucose 40 minutes later and was 115. Patient being assisted with eating dinner.
[2017-05-10] MEDS: levoFLOXacin 500 mg Tablet PO SCH (21:14)
[2017-05-11] VITALS (8 sets, daily range): BP systolic 123–132; BP diastolic 65–71; PULSE 54–58; RESP 16–18; O2SAT 97–100
[2017-05-11] MEDS: Heparin 5,000 Unit/mL Inj SUBQ SCH ×3 (00:30→17:20)
--- NOTE | 2017-05-11 00:40 | PCM.PNMED ---
Subjective Date of Service May 11, 2017 Subjective The patient continues to complain of nausea and abdominal pain. She is very somnolent today and her blood sugar was found to be only 46 after hemodialysis. A half an amp of D50 was given and her blood sugar went up to 115. The patient has no other specific complaints. The patient was seen with her son Elia who speaks fluent Filipino and Irish and acted as an experimental electronics developer for her. Exam Vital Signs Vital Sign - Last Date Time Temp Pulse Resp B/P Pulse Ox O2 Delivery O2 Flow Rate FiO2 05/10/17 23:53 36.6 53 16 128/64 95 Room Air 05/08/17 15:00 1.00 Intake and Output 05/10/17 05/10/17 05/11/17 Cumulative From/Thru 15:00 23:00 07:00 05/07/17 15:31 - 05/10/17 20:26 Intake Total 1940 ml 3760 ml Output Total 2000 ml 4000 ml Balance -2000 ml 1940 ml -240 ml Intake Oral 320 ml 1140 ml IV Total 1620 ml 2620 ml Output Urine Total 0 ml Ultrafiltrate 2000 ml 4000 ml # Voids 0 2 # Bowel Movements 2 4 Exam General: Patient is lying supine in bed and appears to be uncomfortable but in no significant distress. HEENT: Head is atraumatic and normocephalic. Eyes: Pupils are equally round and reactive to light and accommodation. Extraocular muscles are intact. Sclera are white, anicteric. Subconjunctival mucosa is pink. Ears and nose are unremarkable. Oropharynx: There is no mucosal lesions, there is no thrush, there is no pharyngitis. Neck: Is supple, there are no nodes, or masses or tenderness. Chest: Is clear to auscultation and percussion. There are no rales, rhonchi, wheezes or rubs. Heart: Rate, rhythm is regular. There is a grade 2/6 systolic ejection murmur heard best at the left sternal border. There is no rub or gallop. Abdomen: Good bowel sounds are present. Abdomen is soft, with nonspecific tenderness, no organomegaly or masses were appreciated. Extremities: Are symmetrical(except for a well-functioning left upper extremity AV fistula) and well perfused. There is no edema, there is no cellulitis, no rash. Neurologic: There are no focal neurological deficits. Cranial nerves II through XII are intact. There are no sensory or motor deficits. Patient is very somnolent after hemodialysis. Psychiatric: Patients mood is calm and shows no sign of agitation. Genital: Deferred Rectal: Deferred Lab and Diagnostics Result Diagram: 05/10/17 0550 05/10/17 0550 Microbiology Item Value Date Time Blood Culture Received 05/07/17 1650 Blood Aerobic And Anaerobic Bottle Pending Blood Culture Received 05/07/17 1640 Blood Aerobic And Anaerobic Bottle Pending X-Rays, CTs and MRIs PROCEDURE: CT ABDOMEN AND PELVIS WITHOUT CONTRAST ([id number]) IMPRESSION: Right middle lobe consolidation, suggestive of pneumonia and/or aspiration. Please correlate clinically and recommend followup after treatment to exclude underlying nodule/mass. Small right pleural effusion with adjacent atelectasis. Cholelithiasis. Please correlate clinically and with LFTs. Nonspecific scattered mild ascites as above. Cardiomegaly. Coronary artery disease. Dictated by: Nghia Cm M.D. on 05/07/2017 at 17:24 PROCEDURE: X-RAY CHEST ONE VIEW, PORTABLE ([id number]) IMPRESSION: Right mid lung pneumonia. Recommend radiographic followup to document resolution. Small right pleural effusion. Dictated by: Nghia Cm M.D. on 05/07/2017 at 19:04 Cardiac Echo Impressions Echocardiogram Report Name: YULY PEARCE Study Date: 03/25/2017 Height: 59 in Hospital Exam Location: [facility] Weight: 101 lb Gender: Female BSA: 1.4 m2 : 1970 Age: 46 yrs BP: 130/70 mmHg Reason For Study: END STAGE RENAL DISEASE Ordering Physician: Performed By: Mariya Umanzor Interpretation Summary The ejection fraction is estimated to be 50-55%. There is severe mitral regurgitation. There is severe tricuspid regurgitation. The right ventricular systolic pressure is estimated at 59 mmHg assuming a right atrial pressure of 8 mm Hg. Compared to the prior echo report on 06/2016, there is no significant change. Assessment & Plan The 45 year old Irish-speaking female with ESRD on hemodialysis, diabetes mellitus type 2, Hypertension who presents to the Emergency Department with complaint of abdominal pain, vomiting and fever found to have right middle lobe pneumonia. The patient was admitted to the hospitalist service for further evaluation and treatment. Aspiration with Healthcare associated Pneumonia, Present on Admission, Active Patient presenting with Fever, chest x-ray shows right middle lobe pneumonia. Patient has been vomiting and goes to dialysis clinic. Likely aspiration pneumonia vs. HCAP. Less likely heart failure or TB. - MRSA swab, Respiratory Viral panel, Urine Legionella and strep pneumo ag, procalcitonin, sputum cultures. May be difficult to obtain urine testing as patient minimal urine output from ESRD. - Blood cultures pending - Will continue Levofloxacin, Zosyn and Vancomycin for now. As MRSA nasopharyngeal screen was negative may consider discontinuing vancomycin however , will continue for now until patient is showing some improvement. As the negative MRSA nasal smear screen does not rule out an MRSA pneumonia. It does however make it less likely. Abdominal Pain, Present on Admission, Active Patient has associated nausea, vomiting, diarrhea. Likely secondary to gastroparesis. - We checked stool PCR for pathogens and is reportedly positive for Escherichia coli entero-pathogenic strain - Symptomatic control Hypoglycemia after hemodialysis - D50 was given with correction of glucose - Continue to monitor closely. ESRD on dialysis, Present on Admission, Active On admission Cr 5.13, regular dialysis schedule is - Appreciate Nephrology Consult, appreciate Dr. Ma's time and expertise. Plan for dialysis 05/10/17 AM - Monitor BMP Hyponatremia, Present on Admission, Active Sodium 129 on admission. Recieved fluids in the ED. Likely due to hypovolemia as patient is dry. - IV NS 100 mL/hr to go till 0500 on 05/08/17 - Monitor BMP Normocytic Anemia, Present on Admission, Active - Monitor CBC Diabetes Mellitus Type 2, Present on Admission, Active Last HgA1C 9.16 July 2016. Per patient she doesn't take any medications for diabetes after starting dialysis. - HgA1c Pending - Bedside glucose checks Hypertension, Present on Admission, Active - Continue home amlodipine Hypothyroidism, presumed stable - Continue home Levothyroxine Patient Status: Patient will be here another 48 hours due to severity of presenting symptoms, risk of adverse event, and complexity of treatment plan. Code Status: Full Code Pain Evaluation: Adequate Pain Control GI Prophylaxis: Proton Pump Inhibitor VTE Prophylaxis: Sub-Q Heparin (Unfractionated) VTE Mechanical Devices: Venous Foot Pump Resuscitation Status: CPR: Attempt Resuscitation Herman Kay MD May 11, 2017 00:40
[2017-05-11 07:15] LABS: BASOPHILS % (AUTO) 0.2 % (0-3); EOSINOPHILS % (AUTO) 6.6 % (0-5); MONOCYTES % (AUTO) 8.9 % (4-12); Mean Corpuscular Hemoglobin 30.3 pg (27.0-35.0); Mean Corpuscular Volume 93.6 fL (81-100); NEUTROPHILS % (AUTO) 66.9 % (40-74); Platelet Count 142 bil/L (150-400)
[2017-05-11] MEDS: MeTOProlol XL 50 mg ER24 Tablet PO SCH (07:32)
[2017-05-11] MEDS: Ondansetron 2 mg/mL 2 mL Inj IVPUSH PRN (07:32)
[2017-05-11] MEDS: Pantoprazole 40 mg ER24 Tablet PO SCH ×2 (07:32→17:19)
[2017-05-11] MEDS: Piperacillin-Tazo 3.375 Gm Inj 3.375 GM in Dextrose 5% Minibag Plus 50 ML IV SCH ×2 (07:33→20:20)
[2017-05-11] MEDS: Vancomycin Dose per Pharmacist XX SCH (07:33)
[2017-05-11 07:38] LABS: Magnesium 1.8 mg/dL (1.6-2.6)
--- NOTE | 2017-05-11 12:20 | NUR ---
Hypoglycemia Patient blood sugar this morning was 65. 25mg of D50 IV push was administered. Patient blood glucose raised up to 95 upon reassessment. Blood sugar at noon was 84. Nurse encouraged patient to eat and let family in room know she needs to be encouraged to eat.
--- NOTE | 2017-05-11 23:35 | PCM.PNMED ---
Subjective Date of Service May 11, 2017 Subjective The patient is feeling slightly better. She still has abdominal pain and nausea but is not having any vomiting at present time. Diarrhea is improved. The patient still appears extremely weak. She has no other new complaints. The patient was seen with her son Elia and daughter who both speak fluent Macedonian and German and acted as interpreters further mother. Exam Vital Signs Vital Sign - Last Date Time Temp Pulse Resp B/P Pulse Ox O2 Delivery O2 Flow Rate FiO2 05/11/17 20:34 36.3 58 16 131/65 98 Room Air 05/08/17 15:00 1.00 Intake and Output 05/10/17 05/10/17 05/11/17 Cumulative From/Thru 15:00 23:00 07:00 05/07/17 15:31 - 05/11/17 05:37 Intake Total 1940 ml 200 ml 3960 ml Output Total 2000 ml 4000 ml Balance -2000 ml 1940 ml 200 ml -40 ml Intake Oral 320 ml 200 ml 1340 ml IV Total 1620 ml 2620 ml Output Urine Total 0 ml Ultrafiltrate 2000 ml 4000 ml # Voids 0 0 2 # Bowel Movements 2 4 Exam General: Patient is lying supine in bed and appears to be more comfortable today. HEENT: Head is atraumatic and normocephalic. Eyes: Pupils are equally round and reactive to light and accommodation. Extraocular muscles are intact. Sclera are white, anicteric. Subconjunctival mucosa is pink. Ears and nose are unremarkable. Oropharynx: There is no mucosal lesions, there is no thrush, there is no pharyngitis. Neck: Is supple, there are no nodes, or masses or tenderness. Chest: Is clear to auscultation and percussion. There are no rales, rhonchi, wheezes or rubs. Heart: Rate, rhythm is regular. There is a grade 2/6 systolic ejection murmur heard best at the left sternal border. There is no rub or gallop. Abdomen: Good bowel sounds are present. Abdomen is soft, with nonspecific tenderness, no organomegaly or masses were appreciated. Extremities: Are symmetrical(except for a well-functioning left upper extremity AV fistula) and well perfused. There is no edema, there is no cellulitis, no rash. Neurologic: There are no focal neurological deficits. Cranial nerves II through XII are intact. There are no sensory or motor deficits. Patient is very somnolent after hemodialysis. Psychiatric: Patients mood is calm and shows no sign of agitation. Genital: Deferred Rectal: Deferred Lab and Diagnostics Result Diagram: 05/11/1745 05/11/1745 Microbiology Item Value Date Time Blood Culture Received 05/07/17 1650 Blood Aerobic And Anaerobic Bottle Pending Blood Culture Received 05/07/17 1640 Blood Aerobic And Anaerobic Bottle Pending X-Rays, CTs and MRIs PROCEDURE: CT ABDOMEN AND PELVIS WITHOUT CONTRAST ([id number]) IMPRESSION: Right middle lobe consolidation, suggestive of pneumonia and/or aspiration. Please correlate clinically and recommend followup after treatment to exclude underlying nodule/mass. Small right pleural effusion with adjacent atelectasis. Cholelithiasis. Please correlate clinically and with LFTs. Nonspecific scattered mild ascites as above. Cardiomegaly. Coronary artery disease. Dictated by: Nghia Cm M.D. on 05/07/2017 at 17:24 PROCEDURE: X-RAY CHEST ONE VIEW, PORTABLE ([id number]) IMPRESSION: Right mid lung pneumonia. Recommend radiographic followup to document resolution. Small right pleural effusion. Dictated by: Nghia Cm M.D. on 05/07/2017 at 19:04 Cardiac Echo Impressions Echocardiogram Report Name: YULY PEARCE Study Date: 03/25/2017 Height: 59 in Hospital Exam Location: [facility] Weight: 101 lb Gender: Female BSA: 1.4 m2 : 1970 Age: 46 yrs BP: 130/70 mmHg Reason For Study: END STAGE RENAL DISEASE Ordering Physician: Performed By: Mariya Umanzor Interpretation Summary The ejection fraction is estimated to be 50-55%. There is severe mitral regurgitation. There is severe tricuspid regurgitation. The right ventricular systolic pressure is estimated at 59 mmHg assuming a right atrial pressure of 8 mm Hg. Compared to the prior echo report on 06/2016, there is no significant change. Assessment & Plan The 45 year old German-speaking female with ESRD on hemodialysis, diabetes mellitus type 2, Hypertension who presents to the Emergency Department with complaint of abdominal pain, vomiting and fever found to have right middle lobe pneumonia. The patient was admitted to the hospitalist service for further evaluation and treatment. Aspiration with Healthcare associated Pneumonia, Present on Admission, Active Patient presenting with Fever, chest x-ray shows right middle lobe pneumonia. Patient has been vomiting and goes to dialysis clinic. Likely aspiration pneumonia vs. HCAP. Less likely heart failure or TB. - MRSA swab, Respiratory Viral panel, Urine Legionella and strep pneumo ag, procalcitonin, sputum cultures. May be difficult to obtain urine testing as patient minimal urine output from ESRD. - Blood cultures pending - Will continue Levofloxacin, Zosyn and Vancomycin for now. As MRSA nasopharyngeal screen was negative may consider discontinuing vancomycin however , will continue for now until patient is showing some improvement. As the negative MRSA nasal smear screen does not rule out an MRSA pneumonia. It does however make it less likely. - We will repeat the chest x-ray in a.m. Abdominal Pain, Present on Admission, Active Patient has associated nausea, vomiting, diarrhea. Likely secondary to gastroparesis. - We checked stool PCR for pathogens and is reportedly positive for Escherichia coli entero-pathogenic strain - Symptomatic control Hypoglycemia after hemodialysis - D50 was given with correction of glucose - Continue to monitor closely. ESRD on dialysis, Present on Admission, Active On admission Cr 5.13, regular dialysis schedule is - Appreciate Nephrology Consult, appreciate Dr. Ma's time and expertise. Plan for dialysis 05/10/17 AM - Monitor BMP Hyponatremia, Present on Admission, Active Sodium 129 on admission. Recieved fluids in the ED. Likely due to hypovolemia as patient is dry. - IV NS 100 mL/hr to go till 0500 on 05/08/17 - Monitor BMP Normocytic Anemia, Present on Admission, Active - Monitor CBC Diabetes Mellitus Type 2, Present on Admission, Active Last HgA1C 9.16 July 2016. Per patient she doesn't take any medications for diabetes after starting dialysis. - HgA1c Pending - Bedside glucose checks Hypertension, Present on Admission, Active - Continue home amlodipine Hypothyroidism, presumed stable - Continue home Levothyroxine Patient Status: Patient will be here another 24 to 48 hours due to severity of presenting symptoms, risk of adverse event, and complexity of treatment plan. Code Status: Full Code Pain Evaluation: Adequate Pain Control GI Prophylaxis: Proton Pump Inhibitor VTE Prophylaxis: Sub-Q Heparin (Unfractionated) VTE Mechanical Devices: Venous Foot Pump Resuscitation Status: CPR: Attempt Resuscitation Herman Kay MD May 11, 2017 23:35
[2017-05-12] VITALS (9 sets, daily range): BP systolic 119–135; BP diastolic 63–78; PULSE 57–60; RESP 14–16; O2SAT 96–98
[2017-05-12] MEDS: Heparin 5,000 Unit/mL Inj SUBQ SCH ×3 (00:01→16:51)
--- NOTE | 2017-05-12 04:25 | NUR ---
Mobility/BG Pt. has been up in the BR a few times this shift, steady on feet, denies any discomfort, BG at HI was 168, no s/s of hypoglycemia, encouraged fluids and deep breath, family at bedside, call light in reach at all times, hourly checks, all needs attended.
[2017-05-12 07:01] LABS: BASOPHILS % (AUTO) 0.3 % (0-3); EOSINOPHILS % (AUTO) 5.2 % (0-5); MONOCYTES % (AUTO) 10.3 % (4-12); Mean Corpuscular Hemoglobin 30.2 pg (27.0-35.0); Mean Corpuscular Volume 93.3 fL (81-100); NEUTROPHILS % (AUTO) 67.4 % (40-74); Platelet Count 150 bil/L (150-400)
[2017-05-12 07:10] LABS: Magnesium 1.9 mg/dL (1.6-2.6)
[2017-05-12] MEDS: Pantoprazole 40 mg ER24 Tablet PO SCH ×2 (07:55→16:51)
[2017-05-12] MEDS: MeTOProlol XL 50 mg ER24 Tablet PO SCH (07:55)
[2017-05-12] MEDS: Vancomycin Dose per Pharmacist XX SCH (07:55)
[2017-05-12] MEDS: Piperacillin-Tazo 3.375 Gm Inj 3.375 GM in Dextrose 5% Minibag Plus 50 ML IV SCH ×2 (07:55→20:15)
[2017-05-12] MEDS ORDERED: Dextrose 10% 250 ML IV PRN (10:50)
--- NOTE | 2017-05-12 11:00 | NUR ---
Social Work-continued d/c planning: Data:EMR Reviewed. Pt is on day 5 of hospitalization for pneumonia per H&P. Pt is not medically stable anticipate several more days. Pt is a dialysis pt and is still on IV abx. No anticipated discharge needs. SW will continue to follow if needs arise. Assessment:Pt who is independent at baseline. Plan:Pt to discharge home when medically stable via POV. No anticipated discharge needs. SW will continue to follow if needs arise. EDUARD Prince
--- NOTE | 2017-05-12 11:13 | DRSVH ---
PROCEDURE: X-RAY CHEST ONE VIEW, PORTABLE ([id number]) INDICATIONS: follow-up for right lower lobe infiltrate. TECHNIQUE: One view of the chest was acquired. COMPARISON: [facility], CR, XR CHEST 1VW (PORTABLE), 05/07/2017, 18:31. FINDINGS: Surgical changes and devices: None. Lungs and pleura: No pneumothorax. No left pleural effusion. Airspace opacity and small right pleura l effusion involving the right lung base redemonstrated similar to prior exam. Left lung is clear. Mediastinum: Mediastinal contours appear normal. Heart size is normal. Bones and chest wall: No suspicious bony lesions. Overlying soft tissues appear unremarkable. IMPRESSION: Right pleural effusion and mid/basilar airspace opacity consistent with compressive atele ctasis and/or pneumonia. Continued radiographic surveillance to resolution is recommended. Dictated by: Constantino HINTON Interpreted: Mary Kay Lo MD on 05/12/2017 at 9:46 Approved by: Mary Kay Lo M.D. on 05/12/2017 at 11:10
[2017-05-12] MEDS: Ondansetron 2 mg/mL 2 mL Inj IVPUSH PRN (11:40)
--- NOTE | 2017-05-12 17:20 | NUR ---
Nausea Patient did have complaints of nausea this morning. Patient was administered Zofran. Medication was effective.
[2017-05-12] MEDS: levoFLOXacin 500 mg Tablet PO SCH (20:15)
[2017-05-13] MEDS: Heparin 5,000 Unit/mL Inj SUBQ SCH ×3 (00:23→17:17)
--- NOTE | 2017-05-13 02:27 | PCM.PNMED ---
Subjective Date of Service May 13, 2017 Subjective For the first time the patient is feeling a little bit better today. Her nausea vomiting and diarrhea have improved. Her energy level has improved. He is eating a little bit better. Exam Vital Signs Vital Sign - Last Date Time Temp Pulse Resp B/P Pulse Ox O2 Delivery O2 Flow Rate FiO2 05/12/17 23:55 36.7 60 16 124/64 97 Room Air 05/08/17 15:00 1.00 Intake and Output 05/12/17 05/12/17 05/13/17 Cumulative From/Thru 15:00 23:00 07:00 05/07/17 15:31 - 05/13/17 00:54 Intake Total 367 ml 5703 ml Output Total 4000 ml Balance 367 ml 1703 ml Intake Oral 250 ml 2563 ml IV Total 117 ml 3140 ml Output Urine Total 0 ml Ultrafiltrate 4000 ml # Voids 1 4 # Bowel Movements 1 6 Exam General: Patient is lying supine in bed and appears to be more comfortable again today. He is much brighter and in better spirits. HEENT: Head is atraumatic and normocephalic. Eyes: Pupils are equally round and reactive to light and accommodation. Extraocular muscles are intact. Sclera are white, anicteric. Subconjunctival mucosa is pink. Ears and nose are unremarkable. Oropharynx: There is no mucosal lesions, there is no thrush, there is no pharyngitis. Neck: Is supple, there are no nodes, or masses or tenderness. Chest: Is significant for a few right basilar crackles. Heart: Rate, rhythm is regular. There is a grade 2/6 systolic ejection murmur heard best at the left sternal border. There is no rub or gallop. Abdomen: Good bowel sounds are present. Abdomen is soft, with nonspecific tenderness, no organomegaly or masses were appreciated. Extremities: Are symmetrical(except for a well-functioning left upper extremity AV fistula) and well perfused. There is no edema, there is no cellulitis, no rash. Neurologic: There are no focal neurological deficits. Cranial nerves II through XII are intact. There are no sensory or motor deficits. Patient is very somnolent after hemodialysis. Psychiatric: Patients mood is calm and shows no sign of agitation. Genital: Deferred Rectal: Deferred Lab and Diagnostics Result Diagram: 05/12/1762405/12/17624 Microbiology Item Value Date Time Blood Culture Received 05/07/17 1650 Blood Aerobic And Anaerobic Bottle Pending Blood Culture Received 05/07/17 1640 Blood Aerobic And Anaerobic Bottle Pending X-Rays, CTs and MRIs PROCEDURE: CT ABDOMEN AND PELVIS WITHOUT CONTRAST ([id number]) IMPRESSION: Right middle lobe consolidation, suggestive of pneumonia and/or aspiration. Please correlate clinically and recommend followup after treatment to exclude underlying nodule/mass. Small right pleural effusion with adjacent atelectasis. Cholelithiasis. Please correlate clinically and with LFTs. Nonspecific scattered mild ascites as above. Cardiomegaly. Coronary artery disease. Dictated by: Nghia Cm M.D. on 05/07/2017 at 17:24 PROCEDURE: X-RAY CHEST ONE VIEW, PORTABLE ([id number]) IMPRESSION: Right mid lung pneumonia. Recommend radiographic followup to document resolution. Small right pleural effusion. Dictated by: Nghia Cm M.D. on 05/07/2017 at 19:04 Cardiac Echo Impressions Echocardiogram Report Name: YULY PEARCE Study Date: 03/25/2017 Height: 59 in Hospital Exam Location: [facility] Weight: 101 lb Gender: Female BSA: 1.4 m2 : 1970 Age: 46 yrs BP: 130/70 mmHg Reason For Study: END STAGE RENAL DISEASE Ordering Physician: Performed By: Mariya Umanzor Interpretation Summary The ejection fraction is estimated to be 50-55%. There is severe mitral regurgitation. There is severe tricuspid regurgitation. The right ventricular systolic pressure is estimated at 59 mmHg assuming a right atrial pressure of 8 mm Hg. Compared to the prior echo report on 06/2016, there is no significant change. Assessment & Plan The 45 year old Belarusian-speaking female with ESRD on hemodialysis, diabetes mellitus type 2, Hypertension who presents to the Emergency Department with complaint of abdominal pain, vomiting and fever found to have right middle lobe pneumonia. The patient was admitted to the hospitalist service for further evaluation and treatment. Aspiration with Healthcare associated Pneumonia, Present on Admission, Active Patient presenting with Fever, chest x-ray shows right middle lobe pneumonia. Patient has been vomiting and goes to dialysis clinic. Likely aspiration pneumonia vs. HCAP. Less likely heart failure or TB. - MRSA swab, Respiratory Viral panel, Urine Legionella and strep pneumo ag, procalcitonin, sputum cultures. May be difficult to obtain urine testing as patient minimal urine output from ESRD. - Blood cultures pending - Will continue Levofloxacin, Zosyn and Vancomycin for now. As MRSA nasopharyngeal screen was negative may consider discontinuing vancomycin however , will continue for now until patient is showing some improvement. As the negative MRSA nasal smear screen does not rule out an MRSA pneumonia. It does however make it less likely. - We will repeat the chest x-ray in a.m. Abdominal Pain, Present on Admission, Active Patient has associated nausea, vomiting, diarrhea. Likely secondary to gastroparesis. - We checked stool PCR for pathogens and is reportedly positive for Escherichia coli entero-pathogenic strain - Symptomatic control Hypoglycemia after hemodialysis - D50 was given with correction of glucose - Continue to monitor closely. ESRD on dialysis, Present on Admission, Active On admission Cr 5.13, regular dialysis schedule is - Appreciate Nephrology Consult, appreciate Dr. Ma's time and expertise. Plan for dialysis 05/10/17 AM - Monitor BMP Hyponatremia, Present on Admission, corrected Sodium 129 on admission. Recieved fluids in the ED. Likely due to hypovolemia as patient is dry. - IV NS 100 mL/hr to go till 0500 on 05/08/17 - Monitor BMP Normocytic Anemia, Present on Admission, Active - Monitor CBC Diabetes Mellitus Type 2, Present on Admission, Active Last HgA1C 9.16 July 2016. Per patient she doesn't take any medications for diabetes after starting dialysis. - HgA1c Pending - Bedside glucose checks Hypertension, Present on Admission, Active - Continue home amlodipine Hypothyroidism, presumed stable - Continue home Levothyroxine Patient Status: Patient will be here another 24 to 48 hours due to severity of presenting symptoms, risk of adverse event, and complexity of treatment plan. Discussed with Dr. Ma. Dr. Naidu will follow in a.m. Code Status: Full Code Pain Evaluation: Adequate Pain Control GI Prophylaxis: Proton Pump Inhibitor VTE Prophylaxis: Sub-Q Heparin (Unfractionated) VTE Mechanical Devices: Venous Foot Pump Resuscitation Status: CPR: Attempt Resuscitation Herman Kay MD May 13, 2017 02:26
[2017-05-13 04:16] VITALS: BP 117/63; PULSE 56; RESP 16; O2SAT 97
[2017-05-13] MEDS ORDERED: Vancomycin Serum Trough XX ONE (05:00)
--- NOTE | 2017-05-13 05:31 | NUR ---
uneventful night Pt denies N/V/D or any discomfort. BG at HS was 143. Slept most of the night. hourly rounding done.
[2017-05-13 07:33] LABS: BASOPHILS % (AUTO) 0.4 % (0-3); Mean Corpuscular Hemoglobin 30.3 pg (27.0-35.0); Mean Corpuscular Volume 93.1 fL (81-100); Platelet Count 174 bil/L (150-400)
[2017-05-13 08:02] LABS: Magnesium 2.1 mg/dL (1.6-2.6)
[2017-05-13] MEDS: Pantoprazole 40 mg ER24 Tablet PO SCH ×2 (08:04→17:17)
[2017-05-13] MEDS: MeTOProlol XL 50 mg ER24 Tablet PO SCH (08:30)
[2017-05-13 09:09] VITALS: BP 153/74; PULSE 62; RESP 15; O2SAT 96
[2017-05-13 09:48] VITALS: BP 144/78; PULSE 61
[2017-05-13] MEDS: Ondansetron 2 mg/mL 2 mL Inj IVPUSH PRN (10:08)
[2017-05-13 10:55] VITALS: PULSE 60
--- NOTE | 2017-05-13 11:27 | PCM.PNNEPH ---
Subjective Date of Service May 13, 2017 Subjective Patient is complaining of some nausea, vomiting, and diffuse abdominal pain. She remains afebrile and her lab has been reviewed. Her sodium is 134 potassium 4.9, chloride 97, bicarbonate 24, BUN and creatinine are 37 and 6.47. Exam Vital Signs Vital Sign - Last Date Time Temp Pulse Resp B/P Pulse Ox O2 Delivery O2 Flow Rate FiO2 05/13/17 10:55 60 05/13/17 09:09 36.6 15 153/74 96 Room Air 05/08/17 15:00 1.00 Intake and Output 05/12/17 05/12/17 05/13/17 Cumulative From/Thru 15:00 23:00 07:00 05/07/17 15:31 - 05/13/17 06:06 Intake Total 367 ml 0 ml 5703 ml Output Total 100 ml 4100 ml Balance 367 ml -100 ml 1603 ml Intake Oral 250 ml 0 ml 2563 ml IV Total 117 ml 3140 ml Output Urine Total 100 ml 100 ml Ultrafiltrate 4000 ml # Voids 1 4 # Bowel Movements 1 6 Exam Neck is supple without adenopathy, thyromegaly, or jugular venous distention. Lungs showed a few scattered rhonchi and markedly diminished breath sounds in both bases. Heart was regular and rhythmical with a soft systolic murmur. Abdomen is distended with diffuse tympany noted. There is some tenderness which localizes into the left lower quadrant. There is no rebound guarding or masses noted. Skin turgor is good. Lab and Diagnostics Result Diagram: 05/13/17 0700 05/13/17 0700 Microbiology Item Value Date Time Blood Culture Received 05/07/17 1650 Blood Aerobic And Anaerobic Bottle Pending Blood Culture Received 05/07/17 1640 Blood Aerobic And Anaerobic Bottle Pending X-Rays, CTs and MRIs PROCEDURE: CT ABDOMEN AND PELVIS WITHOUT CONTRAST ([id number]) IMPRESSION: Right middle lobe consolidation, suggestive of pneumonia and/or aspiration. Please correlate clinically and recommend followup after treatment to exclude underlying nodule/mass. Small right pleural effusion with adjacent atelectasis. Cholelithiasis. Please correlate clinically and with LFTs. Nonspecific scattered mild ascites as above. Cardiomegaly. Coronary artery disease. Dictated by: Nghia Cm M.D. on 05/07/2017 at 17:24 PROCEDURE: X-RAY CHEST ONE VIEW, PORTABLE ([id number]) IMPRESSION: Right mid lung pneumonia. Recommend radiographic followup to document resolution. Small right pleural effusion. Dictated by: Nghia Cm M.D. on 05/07/2017 at 19:04 Cardiac Echo Impressions Echocardiogram Report Name: YULY PEARCE Study Date: 03/25/2017 Height: 59 in Hospital Exam Location: [facility] Weight: 101 lb Gender: Female BSA: 1.4 m2 : 1970 Age: 46 yrs BP: 130/70 mmHg Reason For Study: END STAGE RENAL DISEASE Ordering Physician: Performed By: Mariya Umanzor Interpretation Summary The ejection fraction is estimated to be 50-55%. There is severe mitral regurgitation. There is severe tricuspid regurgitation. The right ventricular systolic pressure is estimated at 59 mmHg assuming a right atrial pressure of 8 mm Hg. Compared to the prior echo report on 06/2016, there is no significant change. Plan Impression End-stage renal disease dialysis dependent #2 pneumonia #3 left lower quadrant tenderness. Recommendation #1 patient to be dialyzed today for routine treatment for 3-1/2 hours on a standard dialyzer, 2 potassium bath, 400 blood flow was 600 dialysate flow, no heparin, and will take 2 L of fluid off. Initial CT from 728 at time of admission was remarkable for gallstones and there was no mention of the left lower quadrant. I would be suspicious of a possible evolving diverticular process. I will defer workup to the primary team. Khanh Ma DO May 13, 2017 11:27
--- NOTE | 2017-05-13 11:38 | DRSVH ---
PROCEDURE: X-RAY CHEST, TWO VIEWS ([id number]) INDICATIONS: follow-up for right lower lobe infiltrate/pneumoni TECHNIQUE: 2 views of the chest were acquired. COMPARISON: [facility], CR, XR CHEST 1VW (PORTABLE), 06/27/2016, 11:40. [facility], CR, XR CHEST 1VW (PORTABLE), 05/12/2017, 5:27. [facility], CR, XR CHEST 1VW (PORT ABLE), 05/07/2017, 18:31. FINDINGS: Surgical changes and devices: None. Lungs and pleura: No pneumothorax. No left pleural effusion. Airspace opacity and small right pleura l effusion involving the right lung base redemonstrated similar to prior exam. Left lung is clear. Mediastinum: Mediastinal contours appear normal. Heart size is normal. Bones and chest wall: No suspicious bony lesions. Overlying soft tissues appear unremarkable. IMPRESSION: Persistent small right pleural effusion and mid/basal air space opacity consistent with c ompressive atelectasis versus pneumonia. Continued radiographic surveillance to resolution is recomme nded. Dictated by: Constantino Lake A Interpreted: Odalis Lynn MD on 05/13/2017 at 10:30 Approved by: Odalis Lynn MD, PhD on 05/13/2017 at 11:35
--- NOTE | 2017-05-13 13:50 | NUR ---
Dialysis note: 3 1/2 hrs tx 2000 ml net UF LUIS CARLOS fistula, accessed w/ no problems Pls see DTR for VS details Qb 400-450 No heparin given, Citrasate used instead O2 @ 2L via NC on during tx PRN Zofran 4 mg IV given for nausea Pt had 1x soft brown BM during tx Tolerated tx, slept at intervals Fistula needle sites clotted w/in 10 min Stable condition at end of tx Report given to Kristina HAJI
--- NOTE | 2017-05-13 15:40 | PCM.PNMED ---
Subjective Date of Service May 13, 2017 Subjective Patient seen and examined today. Uruguayan speaking. Feels tired, wants to sleep. Vitals stable. Exam Vital Signs Vital Sign - Last Date Time Temp Pulse Resp B/P Pulse Ox O2 Delivery O2 Flow Rate FiO2 05/13/17 10:55 60 05/13/17 09:09 36.6 15 153/74 96 Room Air 05/08/17 15:00 1.00 Intake and Output 05/12/17 05/12/17 05/13/17 Cumulative From/Thru 15:00 23:00 07:00 05/07/17 15:31 - 05/13/17 06:06 Intake Total 367 ml 0 ml 5703 ml Output Total 100 ml 4100 ml Balance 367 ml -100 ml 1603 ml Intake Oral 250 ml 0 ml 2563 ml IV Total 117 ml 3140 ml Output Urine Total 100 ml 100 ml Ultrafiltrate 4000 ml # Voids 1 4 # Bowel Movements 1 6 Exam General: Patient is lying supine in bed and appears to be more comfortable again today. He is much brighter and in better spirits. Neck: Is supple, there are no nodes, or masses or tenderness. Chest: Is significant for a few right basilar crackles. Heart: Rate, rhythm is regular. There is a grade 2/6 systolic ejection murmur heard best at the left sternal border. There is no rub or gallop. Abdomen: Good bowel sounds are present. Abdomen is soft, with nonspecific tenderness, no organomegaly or masses were appreciated. Extremities: Are symmetrical(except for a well-functioning left upper extremity AV fistula) and well perfused. There is no edema, there is no cellulitis, no rash. Neurologic: There are no focal neurological deficits. Cranial nerves II through XII are intact. There are no sensory or motor deficits. Patient is very somnolent after hemodialysis. Lab and Diagnostics Result Diagram: 05/13/17 0700 05/13/17 0700 Microbiology Item Value Date Time Blood Culture Received 05/07/17 1650 Blood Aerobic And Anaerobic Bottle Pending Blood Culture Received 05/07/17 1640 Blood Aerobic And Anaerobic Bottle Pending X-Rays, CTs and MRIs PROCEDURE: CT ABDOMEN AND PELVIS WITHOUT CONTRAST ([id number]) IMPRESSION: Right middle lobe consolidation, suggestive of pneumonia and/or aspiration. Please correlate clinically and recommend followup after treatment to exclude underlying nodule/mass. Small right pleural effusion with adjacent atelectasis. Cholelithiasis. Please correlate clinically and with LFTs. Nonspecific scattered mild ascites as above. Cardiomegaly. Coronary artery disease. Dictated by: Nghia Cm M.D. on 05/07/2017 at 17:24 PROCEDURE: X-RAY CHEST ONE VIEW, PORTABLE ([id number]) IMPRESSION: Right mid lung pneumonia. Recommend radiographic followup to document resolution. Small right pleural effusion. Dictated by: Nghia Cm M.D. on 05/07/2017 at 19:04 Cardiac Echo Impressions Echocardiogram Report Name: YULY PEARCE Study Date: 03/25/2017 Height: 59 in Hospital Exam Location: [facility] Weight: 101 lb Gender: Female BSA: 1.4 m2 : 1970 Age: 46 yrs BP: 130/70 mmHg Reason For Study: END STAGE RENAL DISEASE Ordering Physician: Performed By: Mariya Umanzor Interpretation Summary The ejection fraction is estimated to be 50-55%. There is severe mitral regurgitation. There is severe tricuspid regurgitation. The right ventricular systolic pressure is estimated at 59 mmHg assuming a right atrial pressure of 8 mm Hg. Compared to the prior echo report on 06/2016, there is no significant change. Assessment & Plan The 45 year old [place]ayan-speaking female with ESRD on hemodialysis, diabetes mellitus type 2, Hypertension who presents to the Emergency Department with complaint of abdominal pain, vomiting and fever found to have right middle lobe pneumonia. The patient was admitted to the hospitalist service for further evaluation and treatment. Aspiration with Healthcare associated Pneumonia, Present on Admission, Active Patient presenting with Fever, chest x-ray shows right middle lobe pneumonia. Patient has been vomiting and goes to dialysis clinic. Likely aspiration pneumonia vs. HCAP. Less likely heart failure or TB. - MRSA swab, Respiratory Viral panel, Urine Legionella and strep pneumo ag, procalcitonin, sputum cultures. May be difficult to obtain urine testing as patient minimal urine output from ESRD. - Blood cultures pending - Will continue Levofloxacin, Zosyn , will dc vanco. Abdominal Pain, Present on Admission, Active Patient has associated nausea, vomiting, diarrhea. Likely secondary to gastroparesis. - We checked stool PCR for pathogens and is reportedly positive for Escherichia coli entero-pathogenic strain - Symptomatic control Hypoglycemia after hemodialysis - D50 was given with correction of glucose - Continue to monitor closely. ESRD on dialysis, Present on Admission, Active On admission Cr 5.13, regular dialysis schedule is - Appreciate Nephrology Consult, appreciate Dr. Ma's time and expertise. - Monitor BMP Hyponatremia, Present on Admission, corrected Sodium 129 on admission. Recieved fluids in the ED. Likely due to hypovolemia as patient is dry. - IV NS 100 mL/hr to go till 0500 on 05/08/17 - Monitor BMP Normocytic Anemia, Present on Admission, Active - Monitor CBC Diabetes Mellitus Type 2, Present on Admission, Active Last HgA1C 9.16 July 2016. Per patient she doesn't take any medications for diabetes after starting dialysis. - HgA1c Pending - Bedside glucose checks Hypertension, Present on Admission, Active - Continue home amlodipine Hypothyroidism, presumed stable - Continue home Levothyroxine Patient Status: Patient will be here another 24 to 48 hours due to severity of presenting symptoms, risk of adverse event, and complexity of treatment plan. Discussed with Dr. Ma. Dr. Naidu will follow in a.m. Code Status: Full Code GI Prophylaxis: Proton Pump Inhibitor VTE Prophylaxis: Sub-Q Heparin (Unfractionated) VTE Mechanical Devices: Venous Foot Pump Resuscitation Status: CPR: Attempt Resuscitation Time spent 35 mins Favio Naidu MD May 13, 2017 15:40
[2017-05-13] MEDS: Piperacillin-Tazo 3.375 Gm Inj 3.375 GM in Dextrose 5% Minibag Plus 50 ML IV SCH (15:43)
--- NOTE | 2017-05-13 15:49 | NUR ---
Meds Pt had HD this morning and meds were held, IV Abx given now, pharmacy notified and requested Zoysn be retimed.
[2017-05-13 18:19] VITALS: BP 157/63; PULSE 69; RESP 16; O2SAT 91
[2017-05-13 20:50] VITALS: BP 158/65; PULSE 63; RESP 16; O2SAT 94
[2017-05-14] MEDS: Heparin 5,000 Unit/mL Inj SUBQ SCH ×3 (00:43→17:25)
[2017-05-14] MEDS: Piperacillin-Tazo 3.375 Gm Inj 3.375 GM in Dextrose 5% Minibag Plus 50 ML IV SCH ×2 (03:56→16:04)
[2017-05-14 05:08] VITALS: BP 149/69; PULSE 65; RESP 16; O2SAT 94
--- NOTE | 2017-05-14 06:36 | NUR ---
nausea Pt reported slight nausea this shift; no vomiting or diarrhea noted. denies pain or discomfort. hourly rounding done.
[2017-05-14] MEDS: Pantoprazole 40 mg ER24 Tablet PO SCH ×3 (07:30→17:23)
[2017-05-14] MEDS: HYDROcodone-APAP 5-325 mg Tablet PO PRN (08:08)
[2017-05-14] MEDS: MeTOProlol XL 50 mg ER24 Tablet PO SCH (08:09)
[2017-05-14 13:12] VITALS: BP 137/67; PULSE 62; RESP 16; O2SAT 97
--- NOTE | 2017-05-14 15:19 | PCM.DIMED ---
Discharge Instructions Date of Service May 14, 2017 Dates of Hospitalization May 07, 2017 at 20:36 Discharge Diagnosis Discharge Diagnosis Pneumonia Diet Discharge Diet: Low fat, Low Sodium, Other (hydrate adequately ) Activity Discharge Activity: No restrictions Call your provider Call your provider for: Fever or Chills, Vomitting, Excessive diarrhea Patient Instructions Follow-up with PCP in: 1 week Favio Naidu MD May 14, 2017 15:19
--- NOTE | 2017-05-14 16:05 | PCM.PNMED ---
Subjective Date of Service May 14, 2017 Subjective Patient seen and examined today. She says she feels better, however abdominal pain (generalized) comes and goes. Vitals stable. Exam Vital Signs Vital Sign - Last Date Time Temp Pulse Resp B/P Pulse Ox O2 Delivery O2 Flow Rate FiO2 05/14/17 13:12 36.7 62 16 137/67 97 Room Air 05/08/17 15:00 1.00 Intake and Output 05/13/17 05/13/17 05/14/17 Cumulative From/Thru 15:00 23:00 07:00 05/07/17 15:31 - 05/14/17 06:24 Intake Total 500 ml 100 ml 6303 ml Output Total 2000 ml 0 ml 0 ml 6100 ml Balance -2000 ml 500 ml 100 ml 203 ml Intake Oral 500 ml 100 ml 3163 ml IV Total 3140 ml Output Urine Total 0 ml 0 ml 100 ml Ultrafiltrate 2000 ml 6000 ml # Voids 4 # Bowel Movements 1 7 Exam General: Patient is lying supine in bed and appears to be more comfortable. Chest: Is significant for a few right basilar crackles. Heart: Rate, rhythm is regular. There is a grade 2/6 systolic ejection murmur heard best at the left sternal border. There is no rub or gallop. Abdomen: Good bowel sounds are present. Abdomen is soft, with nonspecific tenderness, no organomegaly or masses were appreciated. Extremities: Are symmetrical(except for a well-functioning left upper extremity AV fistula) and well perfused. There is no edema, there is no cellulitis, no rash. Neurologic: There are no focal neurological deficits. Cranial nerves II through XII are intact. There are no sensory or motor deficits. Patient is very somnolent after hemodialysis. Lab and Diagnostics Result Diagram: 05/13/17 0700 05/14/17 0730 Microbiology Item Value Date Time Blood Culture Received 05/07/17 1650 Blood Aerobic And Anaerobic Bottle Pending Blood Culture Received 05/07/17 1640 Blood Aerobic And Anaerobic Bottle Pending X-Rays, CTs and MRIs PROCEDURE: CT ABDOMEN AND PELVIS WITHOUT CONTRAST ([id number]) IMPRESSION: Right middle lobe consolidation, suggestive of pneumonia and/or aspiration. Please correlate clinically and recommend followup after treatment to exclude underlying nodule/mass. Small right pleural effusion with adjacent atelectasis. Cholelithiasis. Please correlate clinically and with LFTs. Nonspecific scattered mild ascites as above. Cardiomegaly. Coronary artery disease. Dictated by: Nghia Cm M.D. on 05/07/2017 at 17:24 PROCEDURE: X-RAY CHEST ONE VIEW, PORTABLE ([id number]) IMPRESSION: Right mid lung pneumonia. Recommend radiographic followup to document resolution. Small right pleural effusion. Dictated by: Nghia Cm M.D. on 05/07/2017 at 19:04 Cardiac Echo Impressions Echocardiogram Report Name: YULY PEARCE Study Date: 03/25/2017 Height: 59 in Hospital Exam Location: [facility] Weight: 101 lb Gender: Female BSA: 1.4 m2 : 1970 Age: 46 yrs BP: 130/70 mmHg Reason For Study: END STAGE RENAL DISEASE Ordering Physician: Performed By: Mariya Umanzor Interpretation Summary The ejection fraction is estimated to be 50-55%. There is severe mitral regurgitation. There is severe tricuspid regurgitation. The right ventricular systolic pressure is estimated at 59 mmHg assuming a right atrial pressure of 8 mm Hg. Compared to the prior echo report on 06/2016, there is no significant change. Assessment & Plan The 45 year old Polish-speaking female with ESRD on hemodialysis, diabetes mellitus type 2, Hypertension who presents to the Emergency Department with complaint of abdominal pain, vomiting and fever found to have right middle lobe pneumonia. The patient was admitted to the hospitalist service for further evaluation and treatment. Aspiration with Healthcare associated Pneumonia, Present on Admission, Active Patient presenting with Fever, chest x-ray shows right middle lobe pneumonia. Patient has been vomiting and goes to dialysis clinic. Likely aspiration pneumonia vs. HCAP. Less likely heart failure or TB. - MRSA swab, Respiratory Viral panel, Urine Legionella and strep pneumo ag, procalcitonin, sputum cultures. - Blood cultures negative - Will continue Levofloxacin for now Abdominal Pain, Present on Admission, Resolving Patient has associated nausea, vomiting, diarrhea. Likely secondary to gastroparesis. - We checked stool PCR for pathogens and is reportedly positive for Escherichia coli entero-pathogenic strain, symptomatic management - CT and US noted for chololithiasis, however her symptoms (Waggoner's negative) + lab values (bili and LFTs) not concerning for acute cholecystitis Hypoglycemia after hemodialysis, resolved - D50 was given with correction of glucose - Continue to monitor closely. ESRD on dialysis, Present on Admission, Active On admission Cr 5.13, regular dialysis schedule is - Appreciate Nephrology Consult, appreciate Dr. Ma's time and expertise. - Monitor BMP Hyponatremia, Present on Admission, corrected Sodium 129 on admission. Recieved fluids in the ED. Likely due to hypovolemia as patient is dry. - IV NS 100 mL/hr to go till 0500 on 05/08/17 - Monitor BMP Normocytic Anemia, Present on Admission, Active - Monitor CBC Diabetes Mellitus Type 2, Present on Admission, Active Last HgA1C 9.16 July 2016. Per patient she doesn't take any medications for diabetes after starting dialysis. - HgA1c Pending - Bedside glucose checks Hypertension, Present on Admission, Active - Continue home amlodipine Hypothyroidism, presumed stable - Continue home Levothyroxine Patient Status: Likely discharge tomorrow after dialysis. Code Status: Full Code GI Prophylaxis: Proton Pump Inhibitor VTE Prophylaxis: Sub-Q Heparin (Unfractionated) VTE Mechanical Devices: Venous Foot Pump Resuscitation Status: CPR: Attempt Resuscitation Time spent 35 mins Favio Naidu MD May 14, 2017 16:05
--- NOTE | 2017-05-14 18:07 | NUR ---
Activity/shift Pt amb to BR with SBA managing IV pole. Denies any pain/discomfort this far. No c/o N/V and no report of loose BM's this shift thus far. Blood sugars 145, 142, and 242. Bed in lowest, locked position and call light in reach. Son at bedside.
[2017-05-14] MEDS: Ondansetron 2 mg/mL 2 mL Inj IVPUSH PRN (19:49)
[2017-05-14] MEDS: levoFLOXacin 500 mg Tablet PO SCH (21:10)
[2017-05-14 22:45] VITALS: BP 125/62; PULSE 64; RESP 16; O2SAT 96
[2017-05-15] MEDS: Heparin 5,000 Unit/mL Inj SUBQ SCH ×2 (01:47→08:01)
[2017-05-15 05:32] VITALS: BP 135/69; PULSE 56; RESP 16; O2SAT 94
[2017-05-15 06:58] LABS: BASOPHILS % (AUTO) 0.6 % (0-3); EOSINOPHILS % (AUTO) 4.9 % (0-5); MONOCYTES % (AUTO) 7.3 % (4-12); Mean Corpuscular Hemoglobin 30.1 pg (27.0-35.0); Mean Corpuscular Volume 94.4 fL (81-100); NEUTROPHILS % (AUTO) 71.3 % (40-74); Platelet Count 201 bil/L (150-400)
[2017-05-15] MEDS: Pantoprazole 40 mg ER24 Tablet PO SCH (07:59)
[2017-05-15] MEDS ORDERED: Ergocalciferol (Vit D2) 50,000 Unit Capsule PO SCH (08:30)
[2017-05-15] MEDS: MeTOProlol XL 50 mg ER24 Tablet PO SCH (08:30)
[2017-05-15 10:00] VITALS: BP 132/68; PULSE 60
[2017-05-15] MEDS ORDERED: guaiFENesin 20 mg/mL 10 mL Syrup PO PRN (10:10)
--- NOTE | 2017-05-15 11:02 | NUR ---
Social Work-readiness for discharge: Data:EMR reviewed. Pt is on day 8 of hospitalization for pneumonia per h&P. Pt is likely medically stable later today. Pt resides at home with her family. SW received a call from Zahira at [facility] requesting expedited referral be sent in from the hospital for assistance with MIO. SW received MD order, SW faxed in expedited referral for services. Zahira at [facility] confirms pt has PCP appointment set up with Corazon Goodman in June, no earlier date can be obtained. Pt's family to provide transport home. No anticipated discharge needs. SW will continue to follow if needs arise. Assessment:Pt who would benefit from MIO referral. Plan:Pt to discharge home when medically stable via POV. Referral faxed into [facility] for Expedited referral for MIO. No anticipated discharge needs. SW will continue to follow if needs arise. [facility]
--- NOTE | 2017-05-15 12:02 | NUR ---
Dialysis Assessment this AM with official court interpreter. Dialysis this AM on MOC. Holding AM BP meds. Pt transferred to room 244 via bed by [employer]. Report called to Diana HAJI.
--- NOTE | 2017-05-15 12:10 | PCM.PNNEPH ---
Subjective Date of Service May 15, 2017 Subjective Overall the patient is unchanged other than complaining of some ongoing abdominal pain. Exam Vital Signs Vital Sign - Last Date Time Temp Pulse Resp B/P Pulse Ox O2 Delivery O2 Flow Rate FiO2 05/15/17 05:32 36.5 56 16 135/69 94 Room Air 05/14/17 22:45 1.00 Intake and Output 05/14/17 05/14/17 05/15/17 Cumulative From/Thru 15:00 23:00 07:00 05/07/17 15:31 - 05/15/17 06:31 Intake Total 243 ml 318 ml 6864 ml Output Total 0 ml 6100 ml Balance 243 ml 318 ml 764 ml Intake Oral 318 ml 3481 ml IV Total 243 ml 3383 ml Output Urine Total 0 ml 100 ml Ultrafiltrate 6000 ml # Voids 4 # Bowel Movements 7 Exam Neck is supple without adenopathy, thyromegaly, or jugular venous distention. Lungs were clear to auscultation. Heart was regular and rhythmical with a soft systolic murmur. Abdomen is soft without any tenderness rebound guarding masses or hepatosplenomegaly. Extremities without evidence of any clubbing cyanosis or edema. Lab and Diagnostics Result Diagram: 05/15/1762605/15/17 06 Microbiology Item Value Date Time Blood Culture Received 05/07/17 1650 Blood Aerobic And Anaerobic Bottle Pending Blood Culture Received 05/07/17 1640 Blood Aerobic And Anaerobic Bottle Pending X-Rays, CTs and MRIs PROCEDURE: CT ABDOMEN AND PELVIS WITHOUT CONTRAST ([id number]) IMPRESSION: Right middle lobe consolidation, suggestive of pneumonia and/or aspiration. Please correlate clinically and recommend followup after treatment to exclude underlying nodule/mass. Small right pleural effusion with adjacent atelectasis. Cholelithiasis. Please correlate clinically and with LFTs. Nonspecific scattered mild ascites as above. Cardiomegaly. Coronary artery disease. Dictated by: Nghia Cm M.D. on 05/07/2017 at 17:24 PROCEDURE: X-RAY CHEST ONE VIEW, PORTABLE ([id number]) IMPRESSION: Right mid lung pneumonia. Recommend radiographic followup to document resolution. Small right pleural effusion. Dictated by: Nghia Cm M.D. on 05/07/2017 at 19:04 Cardiac Echo Impressions Echocardiogram Report Name: YULY PEARCE Study Date: 03/25/2017 Height: 59 in Hospital Exam Location: [facility] Weight: 101 lb Gender: Female BSA: 1.4 m2 : 1970 Age: 46 yrs BP: 130/70 mmHg Reason For Study: END STAGE RENAL DISEASE Ordering Physician: Performed By: Mariya Umanzor Interpretation Summary The ejection fraction is estimated to be 50-55%. There is severe mitral regurgitation. There is severe tricuspid regurgitation. The right ventricular systolic pressure is estimated at 59 mmHg assuming a right atrial pressure of 8 mm Hg. Compared to the prior echo report on 06/2016, there is no significant change. Plan Impression Impression #1 end-stage renal disease dialysis dependent #2 abdominal pain #3 and pneumonia Recommendations #1 the patient dialyzed today for 3-1/2 hours on a standard dialyzer, 2 potassium bath, 450 blood flow and 600 dialysate flow, thousand of heparin and 400 protocol and we will remove about 2 L of fluid. Khanh Ma DO May 15, 2017 12:10
--- NOTE | 2017-05-15 13:48 | NUR ---
Hemodialysis note Uneventful 3.5hr tx completed w/o problems. LUIS CARLOS fistula used with 450 BFR. 2L removed, SBP 130s. Transferred back to 3027 via bed. Plan to go home today Addendum: 05/15/17 at 1737 by MICHAEL SALINAS RN Returned from dialysis with meds in chart.
[2017-05-15 14:47] VITALS: BP 139/67; PULSE 63; RESP 16; O2SAT 95
[2017-05-15] MEDS ORDERED: LEVO500T16 PO (15:08)
--- NOTE | 2017-05-15 15:21 | PCM.DC.MED ---
Discharge Summary Date of Service May 15, 2017 Dates of Hospitalization Date of Hospital Admission May 07, 2017 at 20:36 Date of Discharge: May 15, 2017 Providers: Admitting Physician: Tong Looney MD Primary Care Physician: Arielle Attending Physician: Deric Brower MD Diagnosis at Time of Discharge Diagnosis at Time of Discharge Pneumonia Procedures XRay, CTs & MRIs PROCEDURE: CT ABDOMEN AND PELVIS WITHOUT CONTRAST ([id number]) IMPRESSION: Right middle lobe consolidation, suggestive of pneumonia and/or aspiration. Please correlate clinically and recommend followup after treatment to exclude underlying nodule/mass. Small right pleural effusion with adjacent atelectasis. Cholelithiasis. Please correlate clinically and with LFTs. Nonspecific scattered mild ascites as above. Cardiomegaly. Coronary artery disease. Dictated by: Nghia Cm M.D. on 05/07/2017 at 17:24 PROCEDURE: X-RAY CHEST ONE VIEW, PORTABLE ([id number]) IMPRESSION: Right mid lung pneumonia. Recommend radiographic followup to document resolution. Small right pleural effusion. Dictated by: Nghia Cm M.D. on 05/07/2017 at 19:04 Cardiac Echo Impression Echocardiogram Report Name: YULY PEARCE Study Date: 03/25/2017 Height: 59 in Hospital Exam Location: [facility] Weight: 101 lb Gender: Female BSA: 1.4 m2 : 1970 Age: 46 yrs BP: 130/70 mmHg Reason For Study: END STAGE RENAL DISEASE Ordering Physician: Performed By: Mariya Umanzor Interpretation Summary The ejection fraction is estimated to be 50-55%. There is severe mitral regurgitation. There is severe tricuspid regurgitation. The right ventricular systolic pressure is estimated at 59 mmHg assuming a right atrial pressure of 8 mm Hg. Compared to the prior echo report on 06/2016, there is no significant change. Brief History Ms. Pearce is a 46-year-old female with past medical history of ESRD on HD or over 1 year (,, ), diabetes mellitus type II and HTN who was admitted for abdominal pain with fever, diarrhea, nausea and vomiting. Patient is [place]- speaking, Pt son in room who serves as data security coordinator. Pt states abdominal pain has been persistent 1 week and is described as a sharp 8 out of 10 pain in her left upper and lower quadrant and is nonradiating. She also states nausea and vomiting with 5-7 episodes of diarrhea per day, denies blood or mucus in her diarrhea. She states she has been febrile at home though has not taken her temperature and states some diaphoresis as well. She reports a recent stomach infection 3 months prior with similar symptoms. She also states that over all these symptoms of abdominal pain nausea and diarrhea have been somewhat persistent though mild over the last 1-2 years since starting dialysis and home Zofran has not been adequate in controlling her nausea. Nephrology consult to manage HD. Vital signs show persistent hypertension, no white count 2 though high monocyte count, decreased H&H and platelet count. Chem panel shows hyponatremia , elevated BUN/creatinine and serum glucose. Pro-calcitonin elevated at 2.3. Liver function tests normal. CT abdomen and pelvis showed possible pneumonia/ aspiration, cholelithiasis, cardiomegaly and mild ascites. Hospital Course The 45 year old [place]-speaking female with ESRD on hemodialysis, diabetes mellitus type 2, Hypertension who presents to the Emergency Department with complaint of abdominal pain, vomiting and fever found to have right middle lobe pneumonia. The patient was admitted to the hospitalist service for further evaluation and treatment. Aspiration with Healthcare associated Pneumonia, Present on Admission, Active Patient presenting with Fever, chest x-ray shows right middle lobe pneumonia. Patient has been vomiting and goes to dialysis clinic. Likely aspiration pneumonia vs. HCAP. Less likely heart failure or TB. - MRSA swab, Respiratory Viral panel, Urine Legionella and strep pneumo ag, procalcitonin, sputum cultures. - Blood cultures negative - Will continue Levofloxacin to complete a 7 day course Abdominal Pain, Present on Admission, Resolving Patient has associated nausea, vomiting, diarrhea. Likely secondary to gastroparesis. - We checked stool PCR for pathogens and is reportedly positive for Escherichia coli entero-pathogenic strain, symptomatic management - CT and US noted for chololithiasis, however her symptoms (Waggoner's negative) + lab values (bili and LFTs) not concerning for acute cholecystitis - patient to follow up outpatient Hypoglycemia after hemodialysis, resolved - D50 was given with correction of glucose ESRD on dialysis, Present on Admission, Active On admission Cr 5.13, regular dialysis schedule is , , Sa - Appreciate Nephrology Consult, appreciate Dr. Ma's time and expertise. Hyponatremia, Present on Admission, corrected Sodium 129 on admission. Recieved fluids in the ED. Likely due to hypovolemia as patient is dry. - IV NS 100 mL/hr to go till 0500 on Normocytic Anemia, Present on Admission, Active Diabetes Mellitus Type 2, Present on Admission, Active Last HgA1C 9.16 July 2016. Per patient she doesn't take any medications for diabetes after starting dialysis. Hypertension, Present on Admission, Active - Continue home amlodipine Hypothyroidism, presumed stable - Continue home Levothyroxine Patient to follow up outpatient to address gall bladder stones. Currently no signs of cholecysitis, duct dilatation, or change in lfts and bilirubin. Exam Vital Signs (Last) Date Time Temp Pulse Resp B/P Pulse Ox O2 Delivery O2 Flow Rate FiO2 05/15/17 14:47 36.7 63 16 139/67 95 Room Air 05/14/17 22:45 1.00 Test 05/07/17 16:05 05/07/17 16:28 05/08/17 06:20 05/10/17 05:50 Lipase 9U/L (13-60) Hold Bazzi Top Tube Received (Received) Hemoglobin A1c 7.1% (4.8-5.6) Vancomycin Level Trough 28.0mcg/mL Phosphorus Level 4.2mg/dL (2.5-4.9) Test 05/13/17 07:00 05/14/17 07:30 05/15/17 06:27 Magnesium Level 2.1mg/dL (1.6-2.6) Total Bilirubin 0.6mg/dL (0.0-1.2) Aspartate Amino Transf (AST/SGOT) 12U/L (0-50) Alanine Aminotransferase (ALT/SGPT) 6U/L (0-32) Alkaline Phosphatase 128U/L (25-150) Total Protein 6.3g/dL (6.4-8.4) Albumin 3.3g/dL (3.4-5.0) Random Vancomycin Level 16.4ug/mL Rx Procalcitonin 0.86ng/mL (0.00-0.08) White Blood Count 7.0th/mm3 (3.8-10.1) Red Blood Count 3.06mil/mm3 (3.90-5.20) Hemoglobin 9.2g/dL (12.0-15.6) Hematocrit 28.9% (35.0-46.0) Mean Corpuscular Volume 94.4fL (81-100) Mean Corpuscular Hemoglobin 30.1pg (27.0-35.0) Mean Corpuscular Hemoglobin Concent 31.8% (32.0-37.0) Red Cell Distribution Width 15.1% (12.3-15.4) Platelet Count 201bil/L (150-400) Neutrophils (%) (Auto) 71.3% (40-74) Lymphocytes (%) (Auto) 15.6% (14-46) Monocytes (%) (Auto) 7.3% (4-12) Eosinophils (%) (Auto) 4.9% (0-5) Basophils (%) (Auto) 0.6% (0-3) Sodium Level 140mEq/L (134-144) Potassium Level 4.8mEq/L (3.5-5.2) Chloride Level 99mEq/L (97-108) Carbon Dioxide Level 27mmol/L (18-29) Blood Urea Nitrogen 26mg/dL (6-24) Creatinine 5.49mg/dL (0.57-1.00) Estimat Glomerular Filtration Rate 12mL/min (>59) Glucose Level 171mg/dL (60-99) Calcium Level 10.1mg/dL (8.5-10.1) Microbiology Results Item Value Date Time Blood Culture Received 05/07/17 1650 Blood Aerobic And Anaerobic Bottle Pending Blood Culture Received 05/07/17 1640 Blood Aerobic And Anaerobic Bottle Pending Discharge Medications Discharge Medications Amlodipine (Amlodipine) 10 Mg Tablet 10 MG PO DAILY (Reported) Calcium Acetate (Calcium Acetate) 667 Mg Tablet 1,971 MG PO TIDWM (Reported) Cholecalciferol (Vitamin D3) (Vitamin D3) 50,000 Unit Capsule 50,000 UNIT PO WEEKLY (Reported) Citalopram (Citalopram) 20 Mg Tablet 40 MG PO HS (Reported) Levofloxacin (Levaquin) 500 Mg Tablet 500 MG PO Q48H Prescribed by: DERIC BROWER MD Levothyroxine (Synthroid) 25 Mcg Tablet 25 MCG PO DAILY (Reported) Metoprolol Succinate ER (Metoprolol Succinate ER) 50 Mg Tab.er.24h 50 MG PO DAILY (Reported) Pantoprazole DR (Pantoprazole DR) 40 Mg Tablet.dr 40 MG PO BIDAC Prescribed by: LALO HEARN MD As needed Acetaminophen (Acetaminophen) 325 Mg Tablet 325 MG PO Q4H PRN PRN For Pain ( Reported) Loperamide HCl (Imodium A-D) 2 Mg Capsule 2 MG PO PRN For Diarrhea or Loose Stool (Reported) Ondansetron ODT (Zofran ODT) 4 Mg Tablet 4 MG PO Q4H PRN PRN For Nausea Prescribed by: YOBANY CLEVELAND DO Followup Plan Discharge Diet: Low fat, Low Sodium, Other (hydrate adequately ) Discharge Activity: No restrictions Follow-up with PCP in: 1 week Time spent 35 mins Deric Brower MD May 15, 2017 15:21
--- NOTE | 2017-05-15 15:28 | NUR ---
Social Work-discharge: Data:EMR reviewed. Pt is on day 8 of hospitalization for pneumonia per H&P. Pt is medically stable for discharge. requested SW set up PCP appointment for pt. JASPER explained to MD that per dialysis [facility] has set up PCP appointment in June with Corazon Goodman and they do not want pt to be seen at residency clinic because of the rotation of the MDs. MD is agreeable to PCP appointment. JASPER has faxed in expedited referral for MIO assessment. Pt and family updated and agreeable to plan. Pt's family to provide transport home. No anticipated discharge needs. All updated and agreeable to plan. Assessment:Pt who is independent at baseline. Plan:Pt to discharge home when medically stable via POV. No anticipated discharge needs. All updated and agreeable to plan. EDUARD Prince
[2017-05-15] MEDS ORDERED: levoFLOXacin 500 mg Tablet PO SCH (15:59)
--- NOTE | 2017-05-15 17:37 | NUR ---
Discharge D/C to home with son, D/C instructions discussed with director patient financial services. RX for abx discussed and provided. No further questions about plan of care at this time. Escorted off floor via w/c with all belongings and pillow to splint abdomen if activity triggers coughing.
== END 2017-05-15 16:52 | disposition home or self-care (01) | DRG 177 ==
LOC: SED 15:01 → MPC 20:36
PROVIDERS: ADMIT Hospitalist; ATTEND Hospitalist
PROC: 5A1D00Z (ICD-10-PCS; principal; 2017-05-08)
PROC: 5A1D00Z (ICD-10-PCS; 2017-05-10)
PROC: 5A1D00Z (ICD-10-PCS; 2017-05-13)
PROC: 5A1D00Z (ICD-10-PCS; 2017-05-15)
DX: J69.0 Pneumonitis due to inhalation of food and vomit (principal); N18.6 End stage renal disease; E87.1 Hypo-osmolality and hyponatremia; I12.0 Hypertensive chronic kidney disease with stage 5 chronic kidney disease or end stage renal disease; Z99.2 Dependence on renal dialysis; E86.0 Dehydration; E11.43 Type 2 diabetes mellitus with diabetic autonomic (poly)neuropathy; K31.84 Gastroparesis; D63.1 Anemia in chronic kidney disease; E03.9 Hypothyroidism, unspecified; R19.7 Diarrhea, unspecified; E16.1 Other hypoglycemia

== ENCOUNTER 2017-05-22 12:31 | Inpatient (IN) | payer MEDICARE, MEDICAID ==
[~2017-05-22] VITALS: Ht 147.3 cm; Wt 52.6 kg
[~2017-05-22 12:31] MED LIST changes: -ATOR20TA PO; -BISA10SU61 RC; -CALC500T9 PO; +CHOL500050 PO; -HYDR-4003 PO; -LACT10SO60 PO; +LEVO500T16 PO; +LOPE-147 PO; -MELA3TAB35 PO; +METO-272 PO; -OXYC5TAB72 PO; -PHEN1SUP94 RECTAL; -PRED5DRO6 RIGHT_EYE; -SENN-133 PO; -SIME125C PO
[2017-05-22 12:38] VITALS: BP 173/70; PULSE 73; RESP 13
[2017-05-22 13:22] LABS: BASOPHILS % (AUTO) 1.2 % (0-3); EOSINOPHILS % (AUTO) 3.3 % (0-5); MONOCYTES % (AUTO) 7.7 % (4-12); Mean Corpuscular Hemoglobin 30.9 pg (27.0-35.0); Mean Corpuscular Volume 91.4 fL (81-100); NEUTROPHILS % (AUTO) 69.6 % (40-74); Platelet Count 213 bil/L (150-400)
[2017-05-22 13:25] LABS: INR 1.11 ratio
--- NOTE | 2017-05-22 13:27 | ED.REPORT ---
HPI-General Illness Date of Service May 22, 2017 ED Provider: Jacinto Hayes MD Pt is a 46 year old female with a history of type II DM, HTN, and end-stage renal disease who presents to the ED complaining of persistent clear vomiting onset today. She c/o associated constant LLQ abdominal pain and nausea. Pt rates her abdominal pain as aching, 05/22, and reports that her pain radiates to the middle of her abdomen, and started today as well. Per pt, her pain is neither exacerbated nor relieved by anything. She denies any other new symptoms at this time, including no hematemesis, chest pain, worsening SOB, headache, or vision change. She reports that she was diagnosed with pneumonia recently this past week. Pt reports that she had a complete dialysis session today. Nursing Notes Stated Complaint: LETHARGIC,VOMITING Chief Complaint: Female Abdominal Pain Nursing Notes Reviewed: Yes Allergies: Coded Allergies: No Known Allergies (Verified Allergy, Unknown, 05/22/17) Scheduled Amlodipine (Amlodipine) 10 Mg Tablet 10 MG PO DAILY Calcium Acetate (Calcium Acetate) 667 Mg Tablet 1,971 MG PO TIDWM Cholecalciferol (Vitamin D3) (Vitamin D3) 50,000 Unit Capsule 50,000 UNIT PO WEEKLY Citalopram (Citalopram) 20 Mg Tablet 40 MG PO HS Levofloxacin (Levaquin) 500 Mg Tablet 500 MG PO Q48H Levothyroxine (Synthroid) 25 Mcg Tablet 25 MCG PO DAILY Metoprolol Succinate ER (Metoprolol Succinate ER) 50 Mg Tab.er.24h 50 MG PO DAILY Pantoprazole DR (Pantoprazole DR) 40 Mg Tablet.dr 40 MG PO BIDAC Scheduled PRN Acetaminophen (Acetaminophen) 325 Mg Tablet 325 MG PO Q4H PRN PRN For Pain Loperamide HCl (Imodium A-D) 2 Mg Capsule 2 MG PO PRN For Diarrhea or Loose Stool Ondansetron ODT (Zofran ODT) 4 Mg Tablet 4 MG PO Q4H PRN PRN For Nausea General Time Seen by MD: 13:27 Chief Complaint Vomiting Hx Obtained From: Patient Arrived By: Walk-in Onset Occurred: 5 - 8 hours ago Symptom Duration: Since onset Location: : Abdomen Quality: Painful Radiation: : Does not radiate Severity: Current: Pain level 8 out of 10 Severity: Maximum: Pain level 8 out of 10 Recent Healthcare: Recent doctor visit Similar Sx Previous: Yes Past Medical History Past Medical History Diabetic foot ulcer, history of End-stage renal disease on hemodialysis Mondays, Wednesdays, and Fridays Anemia, likely secondary to end-stage renal disease Hypothyroidism Hx of osteoporotic left femur fracture Hepatosteatosis Reports: Diabetes mellitus (type II), Hypertension Past Surgical History Left fistula placement Family History noncontributory Smoking History Never Smoker Social History Drug Use: Denies drug use Other Social History: Good social support, Lives in senior living, Local resident Ambulatory Status Independent Review of Systems Full Review of Systems Respiratory: Denies: Shortness of breath Cardiovascular: Denies: Chest pain GI: Reports: Abdominal pain, Vomiting (clear), Denies: Hematemesis Neurologic: Denies: Headache, Vision change Complete sys rev & neg: except as marked. Physical Exam Nursing note and vitals reviewed. Constitutional: Well-developed, well-nourished. Not diaphoretic. Head: Normocephalic and atraumatic. Mouth/Throat: Oropharynx is clear and moist. No oropharyngeal exudate. Eyes: EOM are normal. Pupils are equal, round, and reactive to light. Neck: Supple, no tracheal deviation. Cardiovascular: Normal rate, regular rhythm. II/ systolic murmur. Equal and intact distal pulses throughout. Pulmonary/Chest: Effort normal. No respiratory distress. Rhonchi to R base. Abdominal: Diffuse left sided abdominal tenderness, as well as epigastric tenderness. No rebound or guarding. Musculoskeletal: Range of motion grossly intact, moving all extremities. No edema or tenderness appreciated. Neurological: AOx3. Grossly nonfocal exam. Strength and sensation intact and equal to bilateral upper and lower extremities. Skin: Warm and dry, no rashes or pallor appreciated. Psychiatric: Appropriate mood and affect. Behavior appears normal. Vital Signs Vital Signs Date Time Temp Pulse Resp B/P Pulse Ox O2 Delivery O2 Flow Rate FiO2 05/22/17 15:53 62 13 147/65 97 Room Air 05/22/17 13:47 69 14 156/66 97 Room Air 05/22/17 12:38 36.7 73 13 173/70 Initial VS: Reviewed Interpretation & Diagnostics Lab Results Interpretation Result Diagram: 05/22/17 1230 05/22/17 1230 Test 05/22/17 12:30 05/22/17 13:38 White Blood Count 6.9th/mm3 (3.8-10.1) Red Blood Count 3.27mil/mm3 (3.90-5.20) Hemoglobin 10.1g/dL (12.0-15.6) Hematocrit 29.9% (35.0-46.0) Mean Corpuscular Volume 91.4fL (81-100) Mean Corpuscular Hemoglobin 30.9pg (27.0-35.0) Mean Corpuscular Hemoglobin Concent 33.8% (32.0-37.0) Red Cell Distribution Width 15.6% (12.3-15.4) Platelet Count 213bil/L (150-400) Neutrophils (%) (Auto) 69.6% (40-74) Lymphocytes (%) (Auto) 17.9% (14-46) Monocytes (%) (Auto) 7.7% (4-12) Eosinophils (%) (Auto) 3.3% (0-5) Basophils (%) (Auto) 1.2% (0-3) Prothrombin Time 11.9sec (8.1-12.5) Prothromb Time International Ratio 1.11ratio Sodium Level 136mEq/L (134-144) Potassium Level 3.7mEq/L (3.5-5.2) Chloride Level 92mEq/L (97-108) Carbon Dioxide Level 29mmol/L (18-29) Blood Urea Nitrogen 8mg/dL (6-24) Creatinine 1.82mg/dL (0.57-1.00) Estimat Glomerular Filtration Rate 43mL/min (>59) Glucose Level 126mg/dL (60-99) Calcium Level 9.1mg/dL (8.5-10.1) Magnesium Level 1.6mg/dL (1.6-2.6) Total Bilirubin 0.8mg/dL (0.0-1.2) Aspartate Amino Transf (AST/SGOT) 33U/L (0-50) Alanine Aminotransferase (ALT/SGPT) 21U/L (0-32) Alkaline Phosphatase 187U/L (25-150) Total Protein 7.6g/dL (6.4-8.4) Albumin 3.9g/dL (3.4-5.0) Lipase 133U/L (13-60) Lactic Acid Level 0.8mmol/L (0.4-2.0) Lab Results Interpretation: Hgb - 10.1, stable from previous Normal WBC Creatine 1.82 Alkaline - 187-128 nine days ago Lipase - 133, last lipase on 05/07 and it was 9 lactic acid 0.8 ECG Interpretation ECG Interpretation: Sinus rhythm with a rate of 74 Consider left ventricular hypertrophy No significant change from previous Time: 13:31 Interpreted by: ED physician Re-Eval/Medical Decision Med Decision/Clinical Course In summary, 46 old female with a complex past medical history including end- stage renal disease, recent admission for pneumonia presenting to the ED for evaluation of vomiting and abdominal pain since earlier today. Differential is broad and includes small bowel obstruction, pancreatitis, appendicitis, diverticulitis, intra-abdominal mass, etc. EKG demonstrates sinus rhythm with no significant change from previous; patient with LVH pattern. Labs notable for a white blood cell count within normal limits, hemoglobin of 10.1, stable from previous, creatinine of 1.82 (dialyzed today), alkaline phosphatase of 187 , lipase of 133, lactic acid is 0.8. CT scan demonstrates a right-sided pneumonia; patient is apparently on Levaquin as an outpatient for her pneumonia however there is no significant improvement on imaging today despite antibiotics. Within the limits of her noncontrast CT, there was no obvious radiologic etiology for her symptoms. Upon reassessment, patient continues to have significant discomfort and having difficulty tolerating anything by mouth. I do think she has at least a mild or developing pancreatitis given her tenderness and laboratory studies, and I am concerned that her pneumonia is not improving - unclear if this is related to her current presentation at all. Given the above, plan admission for further management and evaluation. Patient agreeable to the plan as stated, to further questions. Source of Hx: Old records Time of Eval: 17:01 Re-Evaluation/Progress Note: Pt rechecked. Informed pt of plan for admission. Pt understands and agrees with plan for admission. All questions addressed. Consultation : Referral / Consult Name: Shasta Rowe MD Consulted With: Hospitalist Call Returned at: 17:02 Gunner'S Mate M: Will see patient, Agrees with eval, Agrees with plan, Accepts admit Counseled Regarding: Diagnosis, Lab results, Need for admission Discharge & Departure Primary Impression: HCAP (healthcare-associated pneumonia) Additional Impression: Pancreatitis Chronicity: chronic Pancreatitis type: unspecified pancreatitis type Qualified Code: K86.1 - Other chronic pancreatitis Disposition: ADMITTED TO HOSPITAL Discharge Condition All VS Reviewed: Yes Condition: Stable Referrals: [facility] Scribe Attestation Portions of this note were transcribed by Sirena Rainey. I, Dr. Hayes personally performed the history, physical exam and medical decision-making; I reviewed and confirmed the accuracy of the information in the transcribed note. Signed by: Ayden Bhat, 05/22/17. copies to: [facility] Jacinto Hayes MD May 22, 2017 13:27 Sirena Bui May 22, 2017 14:19
[2017-05-22 13:32] LABS: Magnesium 1.6 mg/dL (1.6-2.6)
[2017-05-22 13:47] VITALS: BP 156/66; PULSE 69; RESP 14; O2SAT 97
[2017-05-22] MEDS ORDERED: 0.9% Sodium Chloride 1,000 ML IV ONE (14:15)
[2017-05-22] MEDS ORDERED: HYDROmorphone 0.5 mg/0.5 mL iSecure Syringe IVPUSH ONE (14:15)
[2017-05-22 15:53] VITALS: BP 147/65; PULSE 62; RESP 13; O2SAT 97
--- NOTE | 2017-05-22 15:56 | DRSVH ---
PROCEDURE: CT KUB ([id number]) INDICATIONS: abd pain, swelling, vomiting TECHNIQUE: Noncontrast 5 mm thick sections acquired from the diaphragms to the symphysis. 5 mm thick coronal an d sagittal reformats were then performed. For radiation dose reduction, the following was used: aut omated exposure control, adjustment of mA and/or kV according to patient size. COMPARISON: Aorta demonstrates a relative paucity of calcification compared to the other vessels. [facility], CT, CT ABD PELVIS WO CON, 05/07/2017, 16:39. FINDINGS: Image quality: Excellent. Lung bases: Mild to moderate right pleural effusion. Patchy consolidation is present in the right mi ddle lobe and to a lesser extent the right lower lobe superimposed upon the consolidation. There is a minimal interval increase in size of the right pleural effusion compared to prior exam of consolidat coretta opacities are relatively unchanged. Heart size is enlarged. There is a trace pericardial effusion . Prominent coronary vasculature calcification is also noted. Urinary system: Both kidneys are normal in size. No kidney stones. No hydronephrosis or perinephri c fat stranding. Both ureters appear non-dilated throughout their expected courses. Bladder wall th ickness is normal; no calcified bladder stones. Other solid organs: Liver and spleen are normal in size. Gallbladder demonstrates amorphous hyperde nsity within the lumen without wall thickening. Pancreas is normal in contours. No adrenal nodules. Peritoneum and bowel: Unenhanced bowel loops demonstrate normal wall thickness and caliber. Mild sca ttered fluid is present within the abdomen, slightly more prominent when compared to prior exam. Nodes and vessels: No retroperitoneal or mesenteric adenopathy by size criteria. Vascular structures within the abdomen including the celiac axis, superior and inferior mesenteric arteries as well as b ilateral renal arteries ends clinic and hepatic vasculature demonstrate a significant degree of wall calcification, much greater than expected for patient's stated age. Abdominal wall: No ventral hernias. Pelvis: No free pelvic fluid. No inguinal hernias or adenopathy. Bones: No suspicious bony lesions. No vertebral body compression fractures. Stone attenuation measurements reference DELETE FROM FINAL REPORT Calcium oxalate: 6659-8459 HU. Hydroxyapatite: 1371-1362 HU. Uric acid: 200-450 HU. Struvite: 600-900 HU. Cystine: 600-1100 HU. IMPRESSION: 1. Mildly increased right pleural effusion and, with stable superimposed areas of right lower and mid dle lobe consolidation suggestive of pneumonia. 2. Mild abdominal pelvic ascites, minimally increased compared to prior exam. 3. Extensive vascular calcifications, including coronary calcification, greater than expected for pat ient's stated age. 4. Ill-defined hyperintensity within the gallbladder lumen likely motor vehicle field representative of stones and unchan ged. No imaging evidence of wall thickening to suggest cholecystitis. Dictated by: Petra Renteria M.D. on 05/22/2017 at 14:42 Approved by: Petra Renteria M.D. on 05/22/2017 at 14:54
[2017-05-22] MEDS ORDERED: Vancomycin Dose per Pharmacist XX ONE (17:15)
[2017-05-22] MEDS ORDERED: Piper-Tazo 3.375 Gm/50 mL D5W Minibag Plus - Q8H over 4 hrs IV ONE ×2 (17:30)
[2017-05-22] MEDS ORDERED: Vancomycin Inj 1,000 MG in IV Premix 1 EACH IV ONE (17:30)
[2017-05-22] MEDS ORDERED: Levofloxacin 750 mg/150 mL D5W IV ONE (17:30)
[2017-05-22 18:52] VITALS: BP 164/75; PULSE 74; RESP 16; O2SAT 97
[2017-05-22] MEDS ORDERED: Polyethylene Glycol (PEG) 17 Gm Powder PO PRN (19:10)
[2017-05-22] MEDS ORDERED: Alum-Mag Hydrox-Simeth 30 mL Suspension PO PRN (19:10)
[2017-05-22] MEDS: 0.9% Sodium Chloride 1,000 ML IV SCH (19:50)
[2017-05-22] MEDS ORDERED: levoFLOXacin Dose Per Pharmacist XX ONE (22:45)
--- NOTE | 2017-05-22 22:45 | PCM.HPMED ---
Subjective Date of Service May 22, 2017 Primary Provider: Admitting Physician: Tea Dye DO Primary Care Physician: Arielle Attending Physician: Tea Dye DO Chief Complaint: LETHARGIC,VOMITING History of Present Illness: Pt is a 46 year old female with a history of type II DM, HTN, and end-stage renal disease who presents to the ED complaining of persistent clear vomiting onset today. and started today as well. Per pt, her pain is neither exacerbated nor relieved by anything. She denies any other new symptoms at this time, including no hematemesis, chest pain, worsening SOB, headache, or vision change. She reports that she was diagnosed with pneumonia recently this past week. Pt reports that she had a complete dialysis session today. Bonnie Gooden is a Hungarian-speaking 46-year-old female with a history of end- stage renal disease (on dialysis TThS), type 2 diabetes, and hypertension who presents weakness and persistent clear vomiting onset today. She was recently discharged from [facility] week ago today for pneumonia and N/V, was doing quite well until this morning, according to her 2 sons, who accompanied her today.She reports associated constant LLQ abdominal pain and nausea. Pt rates her abdominal pain as aching, 8/10, and reports that her pain radiates to the middle of her abdomen. Patient is not very conversant, so information taken from her son. Today's presentation is much like her previous presentation. On her previous admit she mentions she felt as if her vomit did enter her lungs at times. She denies hematochezia or hematemesis. She denies dysuria, hematuria, or increased urinary urgency or frequency. She denies headache, syncope, shortness of breath. She reports fevers, weakness, Chest pain and abdominal pain. In the ED patients vitals: T - 36.7, HR - 73, RR - 13, BP - 173/70, 97 % RA. CT KUB 1. Mildly increased right pleural effusion and, with stable superimposed areas of right lower and middle lobe consolidation suggestive of pneumonia. 2. Mild abdominal pelvic ascites, minimally increased compared to prior exam. 3. Extensive vascular calcifications, including coronary calcification, greater than expected for patient's stated age. 4. 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 No imaging evidence of wall thickening to suggest cholecystitis. Review of Systems: A comprehensive review of systems was conducted with the patient and found to be negative except as above in the History of Present Illness. Allergies Coded Allergies: No Known Allergies (Verified Allergy, Unknown, 05/22/17) Home Medications Scheduled Amlodipine (Amlodipine) 10 Mg Tablet 10 MG PO DAILY Calcium Acetate (Calcium Acetate) 667 Mg Tablet 1,971 MG PO TIDWM Cholecalciferol (Vitamin D3) (Vitamin D3) 50,000 Unit Capsule 50,000 UNIT PO WEEKLY Citalopram (Citalopram) 20 Mg Tablet 40 MG PO HS Levofloxacin (Levaquin) 500 Mg Tablet 500 MG PO Q48H Levothyroxine (Synthroid) 25 Mcg Tablet 25 MCG PO DAILY Metoprolol Succinate ER (Metoprolol Succinate ER) 50 Mg Tab.er.24h 50 MG PO DAILY Pantoprazole DR (Pantoprazole DR) 40 Mg Tablet.dr 40 MG PO BIDAC Scheduled PRN Acetaminophen (Acetaminophen) 325 Mg Tablet 325 MG PO Q4H PRN PRN For Pain Loperamide HCl (Imodium A-D) 2 Mg Capsule 2 MG PO PRN For Diarrhea or Loose Stool Ondansetron ODT (Zofran ODT) 4 Mg Tablet 4 MG PO Q4H PRN PRN For Nausea PMH Diabetic foot ulcer, history of End-stage renal disease on hemodialysis Mondays, Wednesdays, and Fridays Anemia, likely secondary to end-stage renal disease Hypothyroidism Hx of osteoporotic left femur fracture Hepatosteatosis Reports: Diabetes mellitus (type II), Hypertension Surgical History Left fistula placement Family History Could not report. Social History Hx Alcohol Use: No Hx Substance Use: No Hx Tobacco Use: No Smoking Status: Never Smoker Exam Vital Signs Vital Sign - Last Date Time Temp Pulse Resp B/P Pulse Ox O2 Delivery O2 Flow Rate FiO2 05/22/17 18:52 36.6 74 16 164/75 97 Room Air Exam General: No acute distress, mildly lethargic, well-developed, well-nourished, appropriately interactive HEENT: Normocephalic, atraumatic. External ears without defect. Pupils equal, round, and reactive to light and accommodation. Anicteric sclerae, moist conjunctivae, and no lid lag. Oropharynx free of erythema and cobble stoning with moist mucosa. Neck: Supple with full range of motion. No jugular venous distension. No bruits. No lymphadenopathy or thyromegaly. Cardiovascular: Regular rate and rhythm with no rubs, or gallops appreciated, II / systolic murmur. Pulmonary: Clear to auscultation bilaterally with no crackles, wheezes, mild Rhonchi to R base. Normal respiratory effort with no use of accessory muscles. Abdominal: Diffuse left sided abdominal tenderness, as well as epigastric tenderness. No rebound or guarding. Extremities: No clubbing, cyanosis, edema, or lymphadenopathy appreciated. Skin: Normal temperature, turgor, and texture; no rash, ulcers, or subcutaneous nodules appreciated. Neurological: Cranial nerves grossly intact. Normal muscle strength, tone, and bulk. Reflexes, coordination, and sensory function within normal limits. No known gait impairment. Psychiatric: Normal mood and affect. Alert and oriented to person, place, and time. Lab and Diagnostics Result Diagram: 05/22/17 1230 05/22/17 1230 X-Rays, CTs and MRIs CT KUB IMPRESSION: 1. Mildly increased right pleural effusion and, with stable superimposed areas of right lower and middle lobe consolidation suggestive of pneumonia. 2. Mild abdominal pelvic ascites, minimally increased compared to prior exam. 3. Extensive vascular calcifications, including coronary calcification, greater than expected for patient's stated age. 4. 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 No imaging evidence of wall thickening to suggest cholecystitis. Approved by: Petra Renteria M.D. on 05/22/2017 at 14:54 Assessment & Plan 45 year old Hungarian-speaking female with ESRD on hemodialysis, diabetes mellitus type 2, Hypertension who presents to the Emergency Department with complaint of abdominal pain, vomiting and fever currently being treated for Hospital acquired pneumonia. Hospital Acquired Pneumonia, Present on Admission, Active Patient presenting with Fever, chest x-ray shows increased right middle and lower lobe pneumonia and increased Right pleural effusion. - MRSA swab pending. - Respiratory Viral panel pending. - Urine Legionella and strep pneumo ag, May be difficult to obtain urine testing as patient minimal urine output from ESRD. - Procalcitonin elevated. - Sputum cultures. - Blood cultures pending. - CT as above. - Rpt CXR in the AM. - ID consult. - Patient received Levofloxacin, Zosyn and Vancomycin, will continue. Right pleural effusion, increased from prior study. Present on admission. Active. - If respiratory status worsens may consider US evaluation for thoracentesis. Abdominal Pain, Present on Admission, Active Patient has associated nausea, vomiting, diarrhea. Likely secondary to gastroparesis vs. cholecystitis. Patient with increased pelvic ascites from previous visit. - Symptomatic control - Troponins ordered, trending. - CT KUB as above. - US ordered. ESRD on dialysis, Present on Admission, Active On admission Cr 1.82, regular dialysis schedule is - Nephrology Consult. - Monitor BMP Chronic Normocytic Anemia, Present on Admission, Active - Monitor CBC Diabetes Mellitus Type 2, Present on Admission, Active Last HgA1C 9.16 July 2016. Per patient she doesn't take any medications for diabetes after starting dialysis. - HgA1c from recent admit 7.1. - Holding home oral anti hyperglycemics. Hypertension, Present on Admission, Active - Continue home amlodipine Hypothyroidism, presumed stable - Continue home Levothyroxine Acetaminophen for mild pain when necessary. Bowel regimen Senna and MiraLAX scheduled and PRN. Zofran when necessary for nausea and vomiting. SubQ heparin for now. SCDs in place. High-risk medications: Vancomycin Social: Good social support. Full Code. Patient Status: Patient is admitted under inpatient status with expected length of stay greater than 2 midnights due to severity of presenting symptoms, risk of adverse event, and complexity of treatment plan. Pain Evaluation: Adequate Pain Control Resuscitation Status: CPR: Attempt Resuscitation Attending Statement The patient was seen and examined together with Dr. Potter on 05/22 and I agree with the history, exam and plan as outlined in the note above. PARADISE POTTER DO May 22, 2017 19:20 Tong Looney MD May 23, 2017 03:49
[2017-05-22] MEDS ORDERED: Acetaminophen IV 1,000 MG in IV Premix 1 EACH IV PRN (22:55)
[2017-05-22] MEDS: Heparin 5,000 Unit/mL Inj SUBQ SCH (23:10)
[2017-05-22] MEDS: Ondansetron 2 mg/mL 2 mL Inj IVPUSH PRN (23:11)
[2017-05-23] VITALS (11 sets, daily range): BP systolic 144–169; BP diastolic 68–79; PULSE 62–80; RESP 16–28; O2SAT 95–100
[2017-05-23] MEDS: Heparin 5,000 Unit/mL Inj SUBQ SCH ×3 (00:30→16:15)
--- NOTE | 2017-05-23 02:35 | NUR ---
Arrival to Unit/ Critical Lab Values Patient arrived to floor at approx 0655 via ED gurney. maintenance leader used as patient is Czech speaking only. A&OX3, and passive. Complains of 7-8/10 abdominal pain and nausea. Denies vomiting. Night hospitalist notified and 4mg Zofran and 5mg oxy were ordered. Upon further reassessment patient states some pain relief, and has been sleeping. Droplet precautions started, and patient has been NPO. Tele applied and injection mold technician reports SR 68. Denies CP, SOB. Maintaining sats >92% on room air. Bed is locked/low position, and call light is within reach. Will continue to monitor and continue Q1 hour checks. Critical lab Trop .058 reported at approx 2315. Night hospitalist notified. No new orders at this time.
[2017-05-23] MEDS ORDERED: Glucose 40% Oral Gel 15 Gm Tube PO PRN (03:50)
--- NOTE | 2017-05-23 04:16 | NUR ---
Hypoglycemia 0325 BG 67. Charge Nurse and Night hospitalist notified. 25ml of D50 IV administered. 15min recheck 122. new orders for hypoglycemia protocol have been written. Will continue to closely monitor and continue Q1 hour checks.
[2017-05-23] MEDS ORDERED: Piperacillin-Tazo 3.375 Gm Inj 3.375 GM in Dextrose 5% Minibag Plus 50 ML IV SCH (06:00)
[2017-05-23 07:18] LABS: BASOPHILS % (AUTO) 1.2 % (0-3); EOSINOPHILS % (AUTO) 3.2 % (0-5); Mean Corpuscular Hemoglobin 31.2 pg (27.0-35.0); NEUTROPHILS % (AUTO) 71.8 % (40-74); Platelet Count 157 bil/L (150-400)
[2017-05-23 07:52] LABS: Phosphorus 3.9 mg/dL (2.5-4.9)
[2017-05-23] MEDS: Insulin LISPRO 300 Unit/3 mL Inj SUBQ SCH ×4 (08:00→22:00)
[2017-05-23] MEDS ORDERED: MeTOProlol XL 50 mg ER24 Tablet PO SCH (08:30)
[2017-05-23] MEDS ORDERED: Vancomycin Dose per Pharmacist XX SCH (08:30)
[2017-05-23] MEDS: Ergocalciferol (Vit D2) 50,000 Unit Capsule PO SCH (11:35)
--- NOTE | 2017-05-23 14:29 | DRSVH ---
PROCEDURE: X-RAY CHEST ONE VIEW, PORTABLE ([id number]) INDICATIONS: pneumonia TECHNIQUE: One view of the chest was acquired. COMPARISON: [facility], CR, XR CHEST 2VW, 05/13/2017, 7:52. [facility], CT, CT ABD PELVIS WO CON, 05/07/2017, 16:39. [facility], CR, XR CHEST 1VW (PORTABLE), 05/07/20 17, 18:31. [facility], CR, XR CHEST 1VW (PORTABLE), 05/12/2017, 5:27. FINDINGS: Surgical changes and devices: None. Lungs and pleura: Persistent right basilar airspace opacity and small right pleural effusion. There' s been interval increase in right perihilar airspace opacity. Left lung remains clear. Mediastinum: Mediastinal contours appear normal. Heart size is normal. Bones and chest wall: No suspicious bony lesions. Overlying soft tissues appear unremarkable. IMPRESSION: Increasing right perihilar airspace opacity otherwise persistent right basilar opacity an d right pleural effusion noted. Findings likely related to pneumonia. Continued radiographic surveil raza to resolution is recommended. Dictated by: Constantino SIMMSA Interpreted: Mary Kay Lo MD on 05/23/2017 at 10:49 Approved by: Mary Kay Lo M.D. on 05/23/2017 at 14:28
--- NOTE | 2017-05-23 14:44 | CONS ---
[address] [address] CONSULTATION REPORT PATIENT: YULY PEARCE : 1970 MR#: [id number] ADMIT: 05/22/2017 JOB ID: [id number] DATE OF SERVICE: 05/23/2017 INFECTIOUS DISEASE CONSULTATION: REASON FOR CONSULTATION: Possible pulmonary infection in a patient with intractable nausea and vomiting. I thank Dr. Mena for this timely consult. HISTORY OF THE PRESENT ILLNESS: The patient is a very unfortunate 46-year-old Monegasque [place] woman who was born in [facility] but has lived for years here in [facility]. She has underlying end-stage renal disease, and has been not on dialysis the last 2-3 years. She also has underlying diabetes and hypertension. She was admitted in late April of this year with intractable nausea, vomiting and diarrhea. An extensive workup was done but in the end the patient was treated primarily for pneumonia on the basis of chest imaging which showed right midlung infiltrate. Also of interest during that admission, she underwent CT scan of the abdomen and pelvis, which shows cholelithiasis and some scattered ascites, but no other notable findings. She was treated for this right-sided pulmonary infiltrate with a variety of antibiotics and was eventually discharged on a course of levofloxacin. There were no specific diagnostic cultures of interest obtained during that late April admission which lasted from May 07 until May 15. The patient went home and completed her course of levofloxacin but she reports that she never really got better and that her main problem continues to be nausea, vomiting and diarrhea. She tells me she vomits basically constantly and that this has been a problem for two years or more which seems to be intensifying. Along with the vomiting, nausea and diarrhea, she has considerable abdominal pain which is also chronic. She had some coughing but it is relatively mild and usually nonproductive. She states she has both subjective fever, as well as subjective chills, and that she is losing a great deal of weight because she can no longer eat. She tells me she has headaches which seem to accompany the episodes of vomiting as well as a sore throat from the constant passage of vomitus through her back. The patient has no real productive cough and no pleuritic chest pain. She denies any exposure to or history of TB. PAST MEDICAL HISTORY: 1. End-stage renal disease. 2. Diabetes mellitus. 3. Hypertension. 4. History of right-sided pulmonary infiltrate. 5. Intractable nausea and vomiting. SOCIAL HISTORY: The patient is a lifelong nonsmoker, nondrinker. She lives with her and children in the local area. She is originally from [facility]. FAMILY HISTORY: Is negative for TB in first and second degree relatives. REVIEW OF SYSTEMS: Was done. The patient states she has some headache which tends to accompany excessive vomiting. Her vision is not great but it is not changing recently either. No sinus complaints. She notes a sore throat whenever she has extended jags of vomiting which lately has been a big problem. No stiff neck, but she has minimal cough and denies shortness of breath. She states she can walk a bit outside but she requires a cane because of musculoskeletal complaints. No pleuritic chest pain. She has diffuse abdominal pain, which if anything, is worse in the left upper quadrant. She also notes that she has the constant nausea, vomiting, anorexia and frequent diarrhea usually 4-5 times a day minimum. She produces no urine and, therefore, has no dysuria, urgency or frequency. Her legs and arms are weak on a diffuse basis and she needs a cane to get around, but it is not acutely worse. Remainder of the review of systems is negative. PHYSICAL EXAMINATION: Reveals an afebrile woman. Temperature 36.9, pulse 65, respiratory rate 16, blood pressure 156/73. She is saturating well on room air. Examination of the head reveals no evidence of trauma. There is no temporal wasting noted. The conjunctivae are somewhat pale but without conjunctivitis. Nose is normal. Sinuses nontender. Oral cavity without thrush, pharyngitis or hairy leukoplakia. Neck: Supple. No adenopathy or JVD. A fistula is present in the left upper arm without evidence of infection. Lungs were auscultated with the patient sitting up. She has some decreased breath sounds at the right base and a few crackles at the left base. Cardiac tones notable for a harsh holosystolic 2/6 murmur heard across the precordium. Abdomen is slightly distended and diffusely tender in all quadrants but perhaps especially so in the epigastrium. No masses appreciated. There is no flank tenderness. She does not have a Schilling catheter as she does not make urine. There is no suprapubic distention either. Her joints are without evidence of synovitis. Her skin is free of exanthem or bullae. Neurologically she has surprisingly good strength at 4+/5 throughout. No significant sensory abnormality. LABORATORIES: Include white count basically 6000 throughout this and the last admission. The differential has been completely normal through both admissions. Creatinine 3.2. LFTs are normal. Procalcitonin 0.28. DUSTIN screen recently was negative. Hep B, HIV negative. Micro studies from the last admission included a series of blood cultures which were negative. MRSA screen negative. Stool PCR was positive for EPVC. As mentioned in previous consults, we do not know what that means but it is probably not of significance. During this admission, which started yesterday, we have negative blood cultures, negative MRSA screen and negative respiratory viral PCR panel. IMAGING: Chest x-ray: The patient's chest x-ray shows continued fairly extensive right-sided infiltrates. It is worth noting that on films done a year or so ago this was not present. Though when compared to a film of a week ago, there is not too much difference. IMPRESSION/Plans 1. This is a difficult case of a woman who has been admitted now twice in the past 15 days or so basically for intractable nausea, vomiting and diarrhea, occurring in the setting of longstanding diabetes and renal failure. This to me sounds more like gastroparesis or some gastrointestinal process rather than infection. It is worth noting that her blood cultures and other significant cultures have all been negative through both these admissions and her procalcitonin is 0.28, which if anything, is low for someone with end-stage renal disease. She just received broad-spectrum IV antibiotics in the hospital and then finished a course of levofloxacin as an outpatient. I do not think that she has an untreated typical bacterial pneumonia. The nature of the patient's pulmonary infiltrate remains unclear. It is fairly impressive on a chest x-ray, and I think a CT scan would be advisable to better delineate the size and exact characteristics of this radiographically. In addition I think it may be worthwhile to involve our pulmonary colleagues to see if they believe that any BAL or any other specific diagnostic maneuvers might be of value. At this point, I see no reason to give additional antibiotics. We should look for more atypical causes of infection and I think these might reasonably include mycobacteria, crypto, Aspergillus or similar pathogens and I will order appropriate serologies to include QuantiFERON gold, crypto antigen and Aspergillus antigen and antibody. A Fungitell will also be ordered. 2. If the patient were to have significant sputum, I think it would be reasonable to check a sputum AFB x3 primarily looking for MAC rather than TB and also to do a routine sputum as well as fungal cultures. 3. As mentioned, pulmonary consult with possible BAL is indicated here. 4. CT scan of the chest will be ordered. 5. I think GI should be involved in this case because when you ask the patient what her main problem is, she just says nausea and vomiting and does not even mention pulmonary complaints as the pulmonary issues seem to be relatively quiescent as compared to the very significant gastrointestinal problems here. ADRIANOD
[2017-05-23] MEDS: 0.9% Sodium Chloride 1,000 ML IV SCH (15:15)
[2017-05-23] MEDS: D5 0.45% NaCl + KCl 20 mEq/L 1,000 ML IV SCH (18:39)
[2017-05-23] MEDS: Ondansetron 2 mg/mL 2 mL Inj IVPUSH PRN ×2 (20:08→22:57)
[2017-05-23] MEDS: Famotidine Inj 20 MG in IV Premix 1 EACH IV SCH (20:35)
--- NOTE | 2017-05-23 20:48 | DRSVH ---
PROCEDURE: CT CHEST WITHOUT CONTRAST ([id number]) INDICATIONS: right pleural effusions TECHNIQUE: Noncontrast 5 mm thick sections acquired from the pulmonary apices to the posterior costophrenic angl es. 7 mm thick coronal and sagittal MIP reformats were then acquired. For radiation dose reduction, the following was used: automated exposure control, adjustment of mA and/or kV according to patient size. COMPARISON: None. FINDINGS: Image quality: Excellent. Lungs and pleura: Moderate right pleural effusion with associated compressive atelectasis. Dense righ t middle lobe consolidation with air bronchograms. Left basilar atelectasis.. Mediastinum: Heart size is enlarged. No pericardial effusion. No mediastinal adenopathy by size cr iteria. Esophagus is normal in caliber. No hiatal hernia. Bones and chest wall: No suspicious bony lesions. No vertebral body compression fractures. No axil ubaldo or supraclavicular adenopathy by size criteria. Thyroid gland is present. Abdomen: Partially visualized upper abdominal ascites. Vascular calcifications. Otherwise organs are grossly within normal limits where seen.. IMPRESSION: 1. Moderate right-sided pleural effusion with right basilar atelectasis or infiltrate. 2. Dense right middle lobe infiltrate. Recommend radiographic followup to resolution to exclude under lying masses. 3. Partially visualized upper abdominal ascites. 4. Cardiomegaly. Dictated by: Adriel Ferro M.D. on 05/23/2017 at 20:41 Approved by: Adriel Ferro M.D. on 05/23/2017 at 20:46
--- NOTE | 2017-05-23 23:32 | PCM.PNMED ---
Subjective Date of Service May 23, 2017 Subjective Patient states that she stopped taking diabetes meds when she started dialysis 3 yrs ago, states that her ESRD is due to diabetes. She is endorsing epigastric pain, right upper quadrant pain left shoulder pain. It appears that she was having low-normal blood glucose. Her symptoms have been ongoing for one year, but she came still ER from the dialysis center and she was extremely nauseated and was having emesis. Exam Vital Signs Vital Sign - Last Date Time Temp Pulse Resp B/P Pulse Ox O2 Delivery O2 Flow Rate FiO2 05/23/17 05:58 36.9 68 16 156/68 95 Room Air Intake and Output 05/22/17 05/22/17 05/23/17 Cumulative From/Thru 15:00 23:00 07:00 05/22/17 12:38 - 05/23/17 06:45 Intake Total 1000 ml 586 ml 1586 ml Output Total 0 ml 0 ml Balance 1000 ml 586 ml 1586 ml Intake Oral 0 ml 0 ml IV Total 1000 ml 586 ml 1586 ml Output Urine Total 0 ml 0 ml Exam Gen.: Mildly distressed, very thin appearing HEENT: Normocephalic, atraumatic Respiratory: No lobe pleural effusion crackles could be heard, no wheezing Heart: Positive for systolic murmur Abdomen: Positive for tenderness over the right upper quadrant, epigastrium and left upper quadrant musculoskeletal: pain over upper left thoracic area Extremities: Skin has peeling appearance but no swelling Vascular: Palpable pedal pulses Neurological: No focal deficit IVs and Medications Medications Reviewed: Medications were reviewed in detail Lab and Diagnostics Result Diagram: 05/23/17 0631 05/22/17 1230 X-Rays, CTs and MRIs CT KUB IMPRESSION: 1. Mildly increased right pleural effusion and, with stable superimposed areas of right lower and middle lobe consolidation suggestive of pneumonia. 2. Mild abdominal pelvic ascites, minimally increased compared to prior exam. 3. Extensive vascular calcifications, including coronary calcification, greater than expected for patient's stated age. 4. Ill-defined hyperintensity within the gallbladder lumen likely ambulatory service representative of stones and unchanged. No imaging evidence of wall thickening to suggest cholecystitis. Approved by: Petra Renteria M.D. on 05/22/2017 at 14:54 Assessment & Plan 45 year old Martiniquais-speaking female with ESRD on hemodialysis, diabetes mellitus type 2, Hypertension who presents to the Emergency Department with complaint of abdominal pain, vomiting and fever currently being treated for Hospital acquired pneumonia. Right pleural effusion, increased from prior study. Present on admission. Active. - If respiratory status worsens may consider US evaluation for thoracentesis. -- Chest CT is ordered for further examination of right pleural effusion RUQ Abdominal Pain, Present on Admission, Active Patient has associated nausea, vomiting, diarrhea. Likely secondary to gastroparesis vs. cholecystitis. Patient with increased pelvic ascites from previous visit. -Symptomatic control -CT KUB as above. -US ordered but not performed as she just recently had a right upper quadrant scan that revealed cholelithiasis, possible questionable developing cholecystitis -Discussed the case with GI, no LFT elevation, CT scan showed cholelithiasis but no cholecystitis. MRCP is ordered Dr. Salas and will see the patient ESRD on dialysis, Present on Admission, Active On admission Cr 1.82, regular dialysis schedule is - Nephrology Consult. - Monitor BMP. Acute hypokalemia 3.3 - Because of patient's poor renal function, we will add potassium to IV fluids - Continue to monitor Hospital Acquired Pneumonia, Present on Admission, ruled out Patient presenting with Fever, chest x-ray shows increased right middle and lower lobe pneumonia and increased Right pleural effusion. - MRSA swab negative - Respiratory Viral panel pending. - Urine Legionella and strep pneumo ag, May be difficult to obtain urine testing as patient minimal urine output from ESRD. - Procalcitonin elevated. - Sputum cultures not yet collected - Blood cultures no growth to date - CT as above. - Rpt CXR in the AM showed increasing right perihilar airspace capacity and right pleural effusion - ID consult. - Patient received Levofloxacin, Zosyn and Vancomycin. Vancomycin was discontinued this a.m. Dr. Burrows has seen the patient and feels that she does not have pneumonia based on her findings, rest of the antibiotics were discontinued --Chest CT is ordered to examine the pleural effusions further. Chronic Normocytic Anemia, Present on Admission, Active - Monitor CBC Diabetes Mellitus Type 2, Present on Admission, Active Last HgA1C 9.16 July 2016. Per patient she doesn't take any medications for diabetes after starting dialysis. - HgA1c from recent admit 7.1. - Holding home oral anti hyperglycemics. -- Change her fluids to D5 half normal +20meqK saline running at 50 mL per hour due to concern for low blood glucose and low potassium Hypertension, Present on Admission, poorly controlled - Continue home amlodipine -- Increase metoprolol. Due to fluid control Hypothyroidism, presumed stable - Continue home Levothyroxine Acetaminophen for mild pain when necessary. Bowel regimen Senna and MiraLAX scheduled and PRN. Zofran when necessary for nausea and vomiting. SubQ heparin for now. SCDs in place. High-risk medications: IV morphine Social: Good social support. Full Code. Patient Status: Patient is admitted under inpatient status with expected length of stay greater than 2 midnights due to severity of presenting symptoms, risk of adverse event, and complexity of treatment plan. Pain Evaluation: Pain not Controlled Resuscitation Status: CPR: Attempt Resuscitation Time spent 30 minutes Tea Dye DO May 23, 2017 08:16
[2017-05-24] VITALS (9 sets, daily range): BP systolic 110–156; BP diastolic 61–87; PULSE 61–70; RESP 14–20; O2SAT 93–99
[2017-05-24] MEDS: Heparin 5,000 Unit/mL Inj SUBQ SCH ×3 (00:38→16:30)
[2017-05-24] MEDS: Ondansetron 2 mg/mL 2 mL Inj IVPUSH PRN ×4 (02:20→15:44)
[2017-05-24] MEDS ORDERED: Vancomycin Serum Trough XX ONE (05:00)
--- NOTE | 2017-05-24 05:01 | NUR ---
NOC/Activity Pt reports of abdominal pain 05/22. Controlled with Morphine and Oxycodone. Pt had an emesis of more than 50mL. Administered zofran PRN to control nausea. Pt still have persistent nausea even with Zofran. Denies chest pain, sob. IVF held due to pt being on Hemodialysis. notified. No further orders. Continuing to monitor.
[2017-05-24] MEDS: Insulin LISPRO 300 Unit/3 mL Inj SUBQ SCH ×4 (07:40→21:17)
[2017-05-24] MEDS: MeTOProlol XL 50 mg ER24 Tablet PO SCH (07:50)
--- NOTE | 2017-05-24 08:47 | CONS ---
[address] [address] CONSULTATION REPORT PATIENT: YULY PEARCE : 1970 MR#: [id number] ADMIT: 05/22/2017 JOB ID: [id number] DATE OF SERVICE: 05/24/2017 GASTROENTEROLOGY CONSULTATION: REASON FOR CONSULTATION: Right upper quadrant epigastric pain. HISTORY OF PRESENT ILLNESS: A 46-year-old Serbian-speaking only female with a history end-stage renal disease on hemodialysis, type 2 diabetes, hypertension, who presents for consultation for right upper quadrant pain and epigastric pain. The patient reports there was abdominal pain and nausea and vomiting 05/22. During this hospital stay, the patient had a CT KUB that showed increased mild right pleural effusion suggestive of pneumonia, mild pelvic abdominal ascites, extensive vascular calcifications. The patient had an EGD and colonoscopy performed on June 28, 2016 in which the upper endoscopy showed oozing at a prior biopsy site which was hemoclipped, melena throughout the entire colon at that point time and two polyps 4 mm and 5 mm removed by hot snare polypectomy in the ascending colon, small internal hemorrhoids. Her family history is unknown in terms of colon cancer, inflammatory bowel disease or celiac disease. The patient presents for further evaluation. Most recently, the patient on admission had a lipase of 133 on May 22, 2017, repeat lipase is 78. The patient had an abdominal ultrasound performed May 09, 2017, which show gallstones with a thickened gallbladder wall measuring 5 mm. There was no biliary dilatation that was seen at that point in time. CT of the abdomen and pelvis performed on May 07, 2017 showed right middle lobe consolidation consistent with aspiration pneumonia, small right pleural effusion, gallstones, cardiomegaly and coronary artery disease and mild ascites. PAST MEDICAL HISTORY: As stated above. ALLERGIES: No known drug allergies. PAST SURGERIES: Left fissure repair. HOME MEDICATIONS: Amlodipine, calcium acetate, vitamin D3, citalopram, Levaquin, Synthroid, metoprolol, Protonix 40 mg twice a day. SOCIAL HISTORY: No smoking, alcohol, or drugs. FAMILY HISTORY: Is unknown. REVIEW OF SYSTEMS: The patient denies headache, blurred vision, nausea, vomiting, chest pain, shortness of breath. Positive for abdominal pain. No skin rash. PHYSICAL EXAMINATION: Vital signs upon presentation: Her temperature is 36.4, pulse 70, respiratory rate 16, blood pressure 135/77, satting 97% on room air. Generally in no acute distress. Head: No scars. Eyes: Anicteric. Throat supple. Lungs: Decreased breath sounds and crackles to the left side of the base. Cardiovascular: Regular rhythm. Abdomen: Soft. Positive epigastric pain. Right upper quadrant pain on palpation. Slightly distended. Normoactive bowel sounds. Extremities: No cyanosis, clubbing or edema. LABORATORIES: Show white count of 5.9, hemoglobin 9.4, hematocrit 28, platelet count 157. Sodium 136, potassium 3.3, chloride 95, bicarbonate 25, BUN 12, creatinine 3.2, glucose 84, lactic acid 0.8. Calcium 8.6. Phosphorus 3.9, total bili 0.8. AST 16, ALT 13, alk phos 134. Troponin 0.058, total protein 6.0, albumin 3.4. Lipase 78 currently. PT 11.9, INR 1.1. ASSESSMENT AND PLAN: A 46-year-old Serbian-speaking only female history of type 2 diabetes, end-stage renal disease on hemodialysis, hypertension, history of diabetic foot ulcer, hypothyroidism, left fistula placement who presents for consultation for epigastric area and right upper quadrant pain. At this point in time, the patient does not quite meet the criteria for pancreatitis given the fact that her lipase was not elevated three times upper limit of normal. I agree with an MRCP at this point in time to evaluate the pancreas and the biliary tree, even though her transaminases are normal. Her prior ultrasound CT scan showed gallstones and thickened gallbladder wall. This may be suggestive as to why the patient may also have contributed to have abdominal pain. At this point in time, I will also recommend a repeat upper endoscopy to make sure that there were no ulcers since her last one back on last year. RECOMMENDATIONS: 1. Await MRCP results. 2. Continue Protonix 40 mg twice a day. 3. Upper endoscopy will be scheduled for tomorrow with anesthesia at 930am. 4. Serial abdominal examinations. 5. Will continue to follow. [facility]
[2017-05-24] MEDS: D5 0.45% NaCl + KCl 20 mEq/L 1,000 ML IV SCH (08:50)
[2017-05-24 09:43] LABS: BASOPHILS % (AUTO) 1.9 % (0-3); EOSINOPHILS % (AUTO) 3.7 % (0-5); MONOCYTES % (AUTO) 6.6 % (4-12); Mean Corpuscular Hemoglobin 30.7 pg (27.0-35.0); Mean Corpuscular Volume 93.5 fL (81-100); NEUTROPHILS % (AUTO) 76.5 % (40-74); Platelet Count 156 bil/L (150-400)
[2017-05-24 10:08] LABS: Cryptococcal Ag Negative (Negative)
--- NOTE | 2017-05-24 13:06 | CONS ---
[address] [address] CONSULTATION REPORT PATIENT: YULY PEARCE : 1970 MR#: [id number] ADMIT: 05/22/2017 JOB ID: [id number] CORRECTED REPORT: DATE OF SERVICE: 05/24/2017 HISTORY: The patient is a rather unfortunate, 46-year-old, female, who was readmitted to [facility] once again for abdominal pain, nausea, and vomiting. She has a history of end-stage renal disease, and renal consultation is being sought for further evaluation and management of her end-stage renal disease. She is very difficult to get his a history out of, even with an language interpreter present. She has had several admissions in the last several months for nausea, vomiting, questionable pneumonia, and anorexia. She has been on a variety of antibiotics without significant improvement. She was recently here for another presumed pneumonia and was discharged last week, only to be readmitted. The major concern has been this recurrent and intractable mid epigastric, ill-defined abdominal pain, associated with nausea, vomiting, anorexia, but no diarrhea. There is no hematochezia, melena, urinary problems, dysuria, fever, or chill. There is also no headache, chest pain, shortness of breath, or rash. There is a subjective report of fever and some generalized weakness. However, her oral intake has been poor. In the emergency room, she was once again re-scanned, showing a right pleural effusion, some small amount of ascites, and thickening of the gallbladder. Her lipase was mildly elevated. However, in light of her end-stage renal disease, I do not feel that this minimal elevation was diagnostic. PAST MEDICAL HISTORY: Significant for end-stage renal disease for which she normally dialyzes on Friday, Friday, and Friday, diabetes, hypertension, with hypertensive heart disease and hypertensive nephrosclerosis, nonalcoholic fatty liver disease. PAST SURGICAL HISTORY: Remarkable for a left AV fistula. She is not allergic to any food or any medication. SOCIAL HISTORY: She denies use of alcohol, tobacco, or illicit drugs. FAMILY HISTORY: Noncontributory. REVIEW OF SYSTEMS: As detailed above, but otherwise is quite difficult to get any kind of direct answer from the patient, even through an language interpreter. PHYSICAL EXAMINATION: Revealed a thin, somewhat frail and cachectic-appearing, 46-year-old female, who was somewhat somnolent at time of my evaluation. She was afebrile and her blood pressure today was 137/72 with a pulse rate of 60. HEENT examination is remarkable for pale sclerae and bitemporal wasting. Cornea, conjunctivae, pupils, and extraocular muscles were unremarkable. Neck is supple without adenopathy, thyromegaly, or jugular venous distention. Lungs are clear to auscultation. Heart is regular and rhythmical with a soft systolic murmur. Abdomen is soft, without any tenderness, rebound, guarding, masses or hepatosplenomegaly. Extremities do not show any evidence of any clubbing, cyanosis, or edema. Skin turgor is diminished. LABORATORY EXAMINATION: Her white count is 6.8, hemoglobin 9.5, hematocrit 28.9. Red cell indices, platelet count and differential were unremarkable. Sodium was 136, potassium 4.0, chloride 96, bicarbonate 23, BUN and creatinine were 19 and 4.76. No urinalysis is on the chart. IMPRESSION: 1. End-stage renal disease--dialysis dependent. 2. History of diabetic nephropathy. 3. Hypertension with hypertensive heart disease and hypertensive nephrosclerosis. 4. Abdominal pain with pleural effusion. RECOMMENDATION: 1. I will make arrangements for her dialysis for tomorrow morning. 2. I appreciate Dr. Burrows's input from Infectious Disease and Dr. Salas's input from Gastroenterology. In light of her multiple admissions, I am hoping we can get some definitive answers for this patient. Once again, I would like to thank you for allowing me to participate in the care of this most pleasant but somewhat unfortunate patient. I will be following her closely with you. Corrected by ALEXIS 05/30/17 at 12:06pm DOS.
[2017-05-24] MEDS ORDERED: Promethazine 25 mg/mL Inj IM PRN (16:05)
--- NOTE | 2017-05-24 16:14 | PCM.PNMED ---
Subjective Date of Service May 24, 2017 Subjective During rounding, patient is found to be somnolent, had last morphine at 2 am, oxycodone on the clock every 4 hrs. She is waking up briefly but can not stay awake very long. Apparently mrcp was not done because she was sleepy. 0.4 mg norco was administered and patient regained alertness, following commands but c/o of headache, nausea/vomiting. Also got up to go to have a BM. She said she felt cold, all narcotics discontinued. Exam Vital Signs Vital Sign - Last Date Time Temp Pulse Resp B/P Pulse Ox O2 Delivery O2 Flow Rate FiO2 05/24/17 14:02 36.6 63 20 143/67 93 Room Air Intake and Output 05/23/17 05/23/17 05/24/17 Cumulative From/Thru 15:00 23:00 07:00 05/22/17 12:38 - 05/24/17 06:03 Intake Total 988 ml 1213 ml 3787 ml Output Total 0 ml 50 ml 50 ml Balance 988 ml 1163 ml 3737 ml Intake Oral 520 ml 590 ml 1110 ml IV Total 468 ml 623 ml 2677 ml Output Urine Total 0 ml 0 ml 0 ml Emesis 50 ml 50 ml Exam general: c/o headache and nausea heent: ncat heart: RRR, no s3 s4 abd: positive for tenderness, bowel soudns are present ext: no swelling lung sounds are clear neuro: responding to verbal commands ext: no swelling, peeling Lab and Diagnostics Result Diagram: 05/24/17 0915 05/24/17 0915 X-Rays, CTs and MRIs CT KUB IMPRESSION: 1. Mildly increased right pleural effusion and, with stable superimposed areas of right lower and middle lobe consolidation suggestive of pneumonia. 2. Mild abdominal pelvic ascites, minimally increased compared to prior exam. 3. Extensive vascular calcifications, including coronary calcification, greater than expected for patient's stated age. 4. Ill-defined hyperintensity within the gallbladder lumen likely industrial relations representative of stones and unchanged. No imaging evidence of wall thickening to suggest cholecystitis. Approved by: Perta Renteria M.D. on 05/22/2017 at 14:54 Assessment & Plan 45 year old Irish-speaking female with ESRD on hemodialysis, diabetes mellitus type 2, Hypertension who presents to the Emergency Department with complaint of abdominal pain, vomiting and fever currently being treated for Hospital acquired pneumonia. Increased sedation caused by accumulations of pain meds due to poor renal fucntion, resolved -- Resolved after patient is given one dose of narco. - Discontinues all opiods -- Tylenol IV 1 g PRN for pain Right pleural effusion, increased from prior study. Present on admission. Active. - If respiratory status worsens may consider US evaluation for thoracentesis. -- Chest CT is ordered for further examination of right pleural effusion -- Will request a thoracentesis on Mon AM RUQ Abdominal Pain, Present on Admission, Active Patient has associated nausea, vomiting, diarrhea. Likely secondary to gastroparesis vs. cholecystitis. Patient with increased pelvic ascites from previous visit. -Symptomatic control -CT KUB as above. -US ordered but not performed as she just recently had a right upper quadrant scan that revealed cholelithiasis, possible questionable developing cholecystitis -Discussed the case with GI, no LFT elevation, CT scan showed cholelithiasis but no cholecystitis. MRCP is ordered but not performed 05/24 -Dr Salas has seen the patient, plans to do an EGD in the AM ESRD on dialysis, Present on Admission, Active On admission Cr 1.82, regular dialysis schedule is - Nephrology Consult. - Monitor BMP. - Dialysis Sun AM 05/25 Acute hypokalemia 3.3 resolved - Because of patient's poor renal function, we will add potassium to IV fluids - Continue to monitor Hospital Acquired Pneumonia, Present on Admission, ruled out Patient presenting with Fever, chest x-ray shows increased right middle and lower lobe pneumonia and increased Right pleural effusion. - MRSA swab negative - Respiratory Viral panel pending. - Urine Legionella and strep pneumo ag, May be difficult to obtain urine testing as patient minimal urine output from ESRD. - Procalcitonin elevated. - Sputum cultures not yet collected - Blood cultures no growth to date - CT as above. - Rpt CXR in the AM showed increasing right perihilar airspace capacity and right pleural effusion - ID consult. - Patient received Levofloxacin, Zosyn and Vancomycin. Vancomycin was discontinued this a.m. Dr. Burrows has seen the patient and feels that she does not have pneumonia based on her findings, rest of the antibiotics were discontinued --Chest CT is ordered to examine the pleural effusions further. Chronic Normocytic Anemia, Present on Admission, Active - Monitor CBC Diabetes Mellitus Type 2, Present on Admission, Active Last HgA1C 9.16 July 2016. Per patient she doesn't take any medications for diabetes after starting dialysis. - HgA1c from recent admit 7.1. - Holding home oral anti hyperglycemics. -- Change her fluids to D5 half normal +20meqK saline running at 50 mL per hour due to concern for low blood glucose and low potassium Hypertension, Present on Admission, poorly controlled - Continue home amlodipine -- Increase metoprolol. Due to fluid control Hypothyroidism, presumed stable - Continue home Levothyroxine Acetaminophen for mild pain when necessary. Bowel regimen Senna and MiraLAX scheduled and PRN. Zofran when necessary for nausea and vomiting. SubQ heparin for now. SCDs in place. High-risk medications: IV morphine Social: Good social support. Full Code. Patient Status: Patient is admitted under inpatient status with expected length of stay greater than 2 midnights due to severity of presenting symptoms, risk of adverse event, and complexity of treatment plan. Pain Evaluation: Adequate Pain Control VTE Mechanical Devices: Venous Foot Pump Resuscitation Status: CPR: Attempt Resuscitation Time spent 40 min Tea Dye DO May 24, 2017 16:14
[2017-05-24] MEDS ORDERED: Acetaminophen IV 1,000 MG in IV Premix 1 EACH IV PRN ×2 (16:45→17:35)
[2017-05-24] MEDS ORDERED: Promethazine Inj 25 MG in 0.9% Sodium Chloride 50 ML IV PRN (16:45)
--- NOTE | 2017-05-24 16:49 | NUR ---
Social Work: Brief Note Data: Pt is a 46 y/o female admitted for HCAP, pancreatitis. Pt's PCP is not listed. Pt's insurance is Medicare with [facility] supp. EMR reviewed. Readmit score is 5, high. 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 Pt is a dialysis pt. DELIMER attempted to meet with pt for initial assessment, pt vomiting and with medical staff through the afternoon. DELIMER will complete at a later time. EDUARD Hooper
--- NOTE | 2017-05-24 16:53 | NUR ---
Traci Somnolence when MD went to assess pt. One 0.4mg dose given, pt awaken, states that she has a H.A. and then proceeds to ambulate to the bathroom. MD states that due to pt not having dialysis today that her pain medications may have built up in her system. IV Tylenol ordered for pain and phenergan ordered for N/V.
[2017-05-24] MEDS ORDERED: Levofloxacin 500 mg/100 mL D5W IV SCH (17:00)
[2017-05-24] MEDS ORDERED: levoFLOXacin 500 mg Tablet PO SCH (17:00)
[2017-05-24] MEDS: Famotidine Inj 20 MG in IV Premix 1 EACH IV SCH (20:28)
[2017-05-25] VITALS (13 sets, daily range): BP systolic 105–154; BP diastolic 55–76; PULSE 59–66; RESP 7–20; O2SAT 93–100
[2017-05-25] MEDS: Heparin 5,000 Unit/mL Inj SUBQ SCH ×3 (00:33→16:30)
[2017-05-25] MEDS: D5 0.45% NaCl + KCl 20 mEq/L 1,000 ML IV SCH ×2 (04:04→14:31)
--- NOTE | 2017-05-25 04:10 | NUR ---
OXYGEN NEEDS Pt generally weak and passive, easily awakened. On RA, pts oxygen saturation mid 80s, then up to high 90s, but pt unable to maintain adequate oxygen saturation on RA. Pt placed on 2L NC, oxygen saturation remains mid to high 90s. Pt continues to be easily awakened. Continued to monitor.
[2017-05-25] MEDS: MeTOProlol XL 50 mg ER24 Tablet PO SCH (07:02)
[2017-05-25] MEDS: Insulin LISPRO 300 Unit/3 mL Inj SUBQ SCH ×4 (07:03→20:16)
[2017-05-25 07:15] LABS: Mean Corpuscular Volume 90.8 fL (81-100)
[2017-05-25] MEDS ORDERED: Propofol 10,000 mCg/mL 20 mL Inj ONE (07:32)
[2017-05-25] MEDS ORDERED: Lactated Ringer's 1,000 ML IV ONE (08:50)
--- NOTE | 2017-05-25 08:51 | PCM.HPANE ---
Patient Data Surgeon Admitting Provider:Tong Looney MD Attending Provider:Tea Dye DO Primary Care Physician:Nopcp Other Provider: Reason for Visit Hcap,Pancreatitis Ht/WT & BMI Height (Feet): 4 Height (Inches): 10.00 Weight (Kilograms): 54.800 Body Mass Index 25.27 Allergies Coded Allergies: No Known Allergies (Verified Allergy, Unknown, 05/22/17) Past Anesthesia History Anesthesia History: Denies:: Abnormal Airway, Anesthesia Reactions, Difficult Intubation Diabetes History Hx Diabetes?: Yes Current Bedside Blood Glucose: 118 MRSA MRSA: No Medications Active Scripts Levofloxacin (Levaquin)500 Mg Lwccpj534 Mg PO Q48H 7 Days Prov:Favio Nadiu MD 05/15/17 Ondansetron ODT (Zofran ODT)4 Mg Tablet4 Mg PO Q4H PRN For Nausea #20 TABLET Prov:Rhonda Sheth DO 08/07/[address] 40 Mg Tablet.dr40 Mg PO BIDAC #60 Ref 1 Prov:Cleveland Jane MD 07/01/16 Reported Medications Acetaminophen 325 Mg Pmheuf520 Mg PO Q4H PRN For Pain Ref 0 05/08/17 Loperamide HCl (Imodium A-D)2 Mg Capsule2 Mg PO PRN For Diarrhea or Loose Stool 05/08/17 Cholecalciferol (Vitamin D3) (Vitamin D3)50,000 Unit Qkdmcun36,000 Unit PO WEEKLY 05/08/17 Metoprolol Succinate ER 50 Mg Tab.er.24h50 Mg PO DAILY Ref 0 05/08/17 Calcium Acetate 667 Mg Tablet1,971 Mg PO TIDWM 01/16/17 Amlodipine 10 Mg Dxbwtn86 Mg PO DAILY Ref 0 01/16/17 Levothyroxine (Synthroid)25 Mcg Zvxdkk73 Mcg PO DAILY Ref 0 06/20/16 Citalopram 20 Mg Tqeqie04 Mg PO HS Ref 0 06/20/16 History History of ENT Problems?: No HEENT History: Denies:: Abnormal Airway Cataracts Difficult Intubation Dysphagia Glaucoma Sinus Problem Denture Type: None Teeth Condition: Within Normal Limits Hx of Heart Problems?: Yes Cardiovascular History: Positive for:: Heart Murmur Hypertension Denies:: Cardiac Surgery Chest Pain Congestive Heart Failure Edema Irregular Heartbeat Pacemaker Thrombophlebitis Hx of Respiratory Problem?: No Respiratory History: Positive for:: Pneumonia Denies:: Asthma COPD Chest Surgery Dyspnea Emphysema Hemoptysis Tuberculosis Hx Neurologic Problems?: No Neurological History: Positive for:: Headaches Denies:: Alzheimer's Disease CVA Dementia Dizziness Parkinson's Disease Seizures Hx of GI Problems?: Yes Hx of Problems?: Yes Genitourinary History: Positive for:: HX of Hemodialysis ([facility]) Urinary Tract Infection Denies:: Kidney Stones HX of Peritoneal Dialysis: No Female Hx: Denies:: Currently Endometriosis Pelvic Inflammatory Problems with Breasts? Hx Musculoskeletal Problems?: Yes Musculoskeletal History: Denies:: Back Injury Joint Replacement (FX - of Left femur) Hx of Psycho/Social Problems?: Yes ( on dialysis 3x's week) Psycho Social History: Denies:: Anxiety Bipolar Disorder Hx Depression Suicide Attempt Hx Surgeries?: Yes Hx Any Other Health Problems?: Yes Other History: Positive for:: Hospitalization Denies:: Cancer Endocrine Disease Thyroid Disease History Blood Transfusions: Positive for:: Blood Transfusions Denies:: Blood Transfuse Reaction Hx Diabetes: YesBedside Blood Glucose: 118 Hx Alcohol Use: NoHx Substance Use: No Smoking Status: Never Smoker Have You Smoked inLast 12 mo: No Stop/Bang Treated for Sleep Apnea?: No Do You Have a CPAP Machine?: No S-Snoring: Do You Snore Loudly: No T-Tired: feel tired, fatigued: Yes O-Obsered: Observed not breath: No P-Blood Pressure: treated: Yes B- Body Mass Index > 35 kg/m2: No A- Age over 50: No N- Neck Large Circumference: No G- Gender Male: No SHAD Total Score: 2 Risk Assessment Category Category 1A: Patient has history of documented sleep apnea, and HAS NOT received any narcotic, sedative or anesthesia administration during this stay. Category 1B: Patient has history of documented sleep apnea, and HAS received any narcotic , sedative or anesthesia administration during this stay Category 2: Patient has SUSPECTED Obstructive Sleep Apnea, and HAS received any narcotic , sedative or anesthesia administration during this stay. Category 3: Patient has SUSPECTED Obstructive Sleep Apnea and HAS NOT received narcotic, sedative or anesthesia administration during this stay. Category 4: Outpatient in Procedural Areas with known sleep apnea or who screen positive for High Risk via the STOP/BANG questionnaire. Exam Exam Vital Signs Vital Signs Date Time Temp Pulse Resp B/P Pulse Ox O2 Delivery O2 Flow Rate FiO2 05/25/17 06:11 62 05/25/17 04:05 36.6 62 16 150/72 98 Nasal Cannula 2.00 General Appearance: Alert, Oriented X3, Cooperative, Mild Distress HEENT/AIRWAY: MP 2 Lungs: Clear to Auscultation Heart: Exam Unremarkable Meds/Labs/Diagnostics Admission Meds Current Medications Naloxone HCl (Narcan Inj) 0.4 mg STK-MED ONCE .ROUTE Last administered on t 16:58; Start 05/24/17 at 16:27; Stop 05/24/17 at 16:28; Status DC Bedside Blood Glucose: 118 Labs Test 05/22/17 12:30 05/22/17 13:38 05/23/17 06:31 05/23/17 16:16 Prothrombin Time 11.9sec (8.1-12.5) Prothromb Time International Ratio 1.11ratio Hemoglobin A1c 7.3% (4.8-5.6) Magnesium Level 1.6mg/dL (1.6-2.6) Troponin T 0.058ug/L (0.0-0.011) Lactic Acid Level 0.8mmol/L (0.4-2.0) Phosphorus Level 3.9mg/dL (2.5-4.9) Triglycerides Level 96mg/dL (0-149) Cholesterol Level 125mg/dL (100-199) LDL Cholesterol, Calculated 51.800mg/dL (0-99) VLDL Cholesterol 19.200mg/dL HDL Cholesterol 54mg/dL (>39) Cholesterol/HDL Ratio 2.31 (0.0-4.4) Procalcitonin 0.28ng/mL (0.00-0.08) Cryptococcus Antigen Negative (Negative) Test 05/24/17 09:15 05/25/17 06:50 Neutrophils (%) (Auto) 76.5% (40-74) Lymphocytes (%) (Auto) 11.2% (14-46) Monocytes (%) (Auto) 6.6% (4-12) Eosinophils (%) (Auto) 3.7% (0-5) Basophils (%) (Auto) 1.9% (0-3) White Blood Count 6.7th/mm3 (3.8-10.1) Red Blood Count 2.94mil/mm3 (3.90-5.20) Hemoglobin 9.1g/dL (12.0-15.6) Hematocrit 26.7% (35.0-46.0) Mean Corpuscular Volume 90.8fL (81-100) Mean Corpuscular Hemoglobin 31.0pg (27.0-35.0) Mean Corpuscular Hemoglobin Concent 34.1% (32.0-37.0) Red Cell Distribution Width 15.6% (12.3-15.4) Platelet Count 134bil/L (150-400) Sodium Level 136mEq/L (134-144) Potassium Level 4.2mEq/L (3.5-5.2) Chloride Level 96mEq/L (97-108) Carbon Dioxide Level 23mmol/L (18-29) Blood Urea Nitrogen 28mg/dL (6-24) Creatinine 5.43mg/dL (0.57-1.00) Estimat Glomerular Filtration Rate 12mL/min (>59) Glucose Level 110mg/dL (60-99) Calcium Level 9.2mg/dL (8.5-10.1) Total Bilirubin 0.6mg/dL (0.0-1.2) Aspartate Amino Transf (AST/SGOT) 18U/L (0-50) Alanine Aminotransferase (ALT/SGPT) 14U/L (0-32) Alkaline Phosphatase 154U/L (25-150) Total Protein 6.7g/dL (6.4-8.4) Albumin 3.6g/dL (3.4-5.0) Lipase 66U/L (13-60) Plan Impression Patient chart reviewed, patient interviewed and anesthestic plan with risks, benefits, and alternatives discussed, and informed consent obtained. ASA Physical Status: ASA3 Severe Disease Anesthetic Plan: MAC Bene/Risks/Altern/Consents: Yes HP Complete Prior to Induction: Yes Nilton Rueda MD May 25, 2017 08:51
--- NOTE | 2017-05-25 09:25 | NUR ---
off floor pt taken to EGD. transported in [facility]. pt is georgian speaking only-using staff interpreter.
--- NOTE | 2017-05-25 09:51 | NUR ---
ALEE attempted - pt off floor for EGD
--- NOTE | 2017-05-25 09:52 | NUR ---
Social Work: 2nd Attempted Initial Assessment SW attempted to meet with pt for initial assessment - pt off floor. EDUARD West
[2017-05-25] MEDS ORDERED: Lactated Ringer's 1,000 ML IV SCH (10:57)
--- NOTE | 2017-05-25 11:59 | ENDO ---
[address] [address] ENDOSCOPY PROCEDURE PATIENT: YULY PEARCE : 1970 MR#: [id number] ADMIT: 05/22/2017 JOB ID: [id number] DATE OF SERVICE: 05/25/2017 TYPE OF OPERATION: Esophagogastroduodenoscopy with biopsy. PREOPERATIVE DIAGNOSIS(ES): Epigastric right upper quadrant pain. POSTOPERATIVE DIAGNOSIS(ES): 1. Moderate nonerosive gastritis. 2. Small amount of food retained in the stomach. ANESTHESIA: Monitored anesthesia care. COMPLICATIONS: None. BLOOD LOSS: Minimal. DESCRIPTION OF PROCEDURE: After risks and benefits explained to the patient, informed consent was obtained. After anesthesia administered, upper endoscope was inserted in mouth, intubating the esophagus, stomach, and second portion of duodenum. Mucosa carefully examined. After procedure was done, the scope withdrawn and procedure terminated. Upon inspection esophagus was normal without masses, ulcers, or lesions. Z-line located 35 cm from the incisors. Upon entering the stomach, there is mild nonerosive gastritis. There was also small amount of food that was seen in the stomach. Retroflexion was normal. Duodenal bulb, first and second portion were normal. Biopsy of antrum and body of stomach. IMPRESSION: 1. Moderate nonerosive gastritis. 2. Small amount of food that was seen in the stomach. RECOMMENDATION: 1. Await pathology results. 2. Okay to start clear liquid diet, advance as tolerated. 3. Recommendations per inpatient GI consultation team.
--- NOTE | 2017-05-25 12:18 | PCM.PNNEPH ---
Subjective Date of Service May 25, 2017 Subjective Patient underwent an endoscopy earlier today and I have reviewed his results. These were remarkable only for some nonerosive gastritis and some retained food in the stomach from gastroparesis. She is scheduled for dialysis today. Exam Vital Signs Vital Sign - Last Date Time Temp Pulse Resp B/P Pulse Ox O2 Delivery O2 Flow Rate FiO2 05/25/17 10:27 60 8 136/55 98 Room Air 05/25/17 10:08 4 05/25/17 09:05 36.5 Intake and Output 05/24/17 05/24/17 05/25/17 Cumulative From/Thru 15:00 23:00 07:00 05/22/17 12:38 - 05/25/17 05:53 Intake Total 120 ml 330 ml 4237 ml Output Total 0 ml 50 ml Balance 120 ml 330 ml 4187 ml Intake Oral 120 ml 50 ml 1280 ml IV Total 280 ml 2957 ml Output Urine Total 0 ml 0 ml Emesis 50 ml # Voids 3 3 # Bowel Movements 2 2 Exam Neck is supple without adenopathy thyromegaly or jugular venous distention. Lungs are clear to auscultation. Heart is regular and rhythmical with a soft systolic murmur. Abdomen is soft with mild diffuse tenderness to palpation however rebound is appreciated.. Extremities show any evidence of clubbing cyanosis or edema. Lab and Diagnostics Result Diagram: 05/25/17 0650 05/25/17 0650 X-Rays, CTs and MRIs CT KUB IMPRESSION: 1. Mildly increased right pleural effusion and, with stable superimposed areas of right lower and middle lobe consolidation suggestive of pneumonia. 2. Mild abdominal pelvic ascites, minimally increased compared to prior exam. 3. Extensive vascular calcifications, including coronary calcification, greater than expected for patient's stated age. 4. 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 No imaging evidence of wall thickening to suggest cholecystitis. Approved by: Petra Renteria M.D. on 05/22/2017 at 14:54 Plan Impression Impression #1 end-stage renal disease dialysis dependent #2 diabetic nephropathy with diabetic gastroparesis #3 hypertension with hypertensive heart disease and hypertensive nephrosclerosis Recommendations #1 the patient to be dialyzed today for 3-1/2 hours on a standard dialyzer, 3 potassium bath, 35 bicarbonate, 137 sodium, 400 blood flow and 600 dialysate flow, thousand of heparin and 400 and will attempt to take off 2 L as tolerated. Khanh Ma DO May 25, 2017 12:18
--- NOTE | 2017-05-25 12:57 | PCM.ANEP1 ---
Post Anesthesia PACU Phase 1 Assessment Vital Signs Vital Signs Date Time Temp Pulse Resp B/P Pulse Ox O2 Delivery O2 Flow Rate FiO2 05/25/17 10:27 60 8 136/55 98 Room Air 05/25/17 10:12 59 7 105/57 96 Room Air 05/25/17 10:08 59 9 109/55 100 Nasal Cannula 4 05/25/17 09:35 62 10 129/58 93 Room Air 05/25/17 09:05 36.5 64 15 126/72 98 Nasal Cannula 2.00 05/25/17 08:00 64 05/25/17 06:11 62 Anesthetic Administered: GA, MAC Level of Alertness: Awake, talking GAMEZ's with Equal Strength: Yes Pain: No Nausea or Vomiting: No CV Function & Hydration Stable: Yes Airway Device: Oxygen Delivery: Room Air Lungs: Normal Air Movement PACU Phase 2 Assessment Complications: No Follow up Care: No Patient Instructions Provided: N/A Nilton Rueda MD May 25, 2017 12:57
--- NOTE | 2017-05-25 15:05 | NUR ---
Transfer Pt arrived from [facility] at 1040, pt had transferred there from [facility], report received by Ciaran Richardson RN as well as received meds. Pt latvian speaking only, transferred to bed via slide board. Using mobile ipad physical sciences instructor service pt oriented to room and call light, as well as informing pt of dialysis plan and timing. Pt didn't have any questions or concerns about current plan of care.
--- NOTE | 2017-05-25 20:02 | NUR ---
Hemodialysis note 3.5hr tx 2.8kg fluid removed 83.1L processed VSS throughout tx, see DTRPt slept most of tx, arouses easily. blood sugar at end of tx 76, apple juice given
[2017-05-25] MEDS: Famotidine Inj 20 MG in IV Premix 1 EACH IV SCH (20:42)
--- NOTE | 2017-05-25 22:22 | PCM.PNMED ---
Subjective Date of Service May 25, 2017 Subjective Patient is seen and examined. She is about to go get her in EGD done. No complaints Exam Vital Signs Vital Sign - Last Date Time Temp Pulse Resp B/P Pulse Ox O2 Delivery O2 Flow Rate FiO2 05/25/17 20:32 37.2 66 20 154/68 94 Room Air 05/25/17 12:33 2.00 Intake and Output 05/24/17 05/24/17 05/25/17 Cumulative From/Thru 15:00 23:00 07:00 05/22/17 12:38 - 05/25/17 05:53 Intake Total 120 ml 330 ml 4237 ml Output Total 0 ml 50 ml Balance 120 ml 330 ml 4187 ml Intake Oral 120 ml 50 ml 1280 ml IV Total 280 ml 2957 ml Output Urine Total 0 ml 0 ml Emesis 50 ml # Voids 3 3 # Bowel Movements 2 2 Exam Gen.: No acute distress thin appearing HEENT: NCAT Heart: Regular rate and rhythm 1 plus systolic murmur Lungs: Negative crackles or wheezes Abdomen: Mildly tender over epigastrium and no LUQ. Normal bowel sounds Extremities: No edema; no agitation explained neuro: No focal deficits Lab and Diagnostics Result Diagram: 05/25/17 0650 05/25/17 0650 X-Rays, CTs and MRIs CT KUB IMPRESSION: 1. Mildly increased right pleural effusion and, with stable superimposed areas of right lower and middle lobe consolidation suggestive of pneumonia. 2. Mild abdominal pelvic ascites, minimally increased compared to prior exam. 3. Extensive vascular calcifications, including coronary calcification, greater than expected for patient's stated age. 4. 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 No imaging evidence of wall thickening to suggest cholecystitis. Approved by: Petra Renteria M.D. on 05/22/2017 at 14:54 Assessment & Plan 45 year old Icelandic-speaking female with ESRD on hemodialysis, diabetes mellitus type 2, Hypertension who presents to the Emergency Department with complaint of abdominal pain, vomiting and fever currently being treated for Hospital acquired pneumonia. Increased sedation caused by accumulations of pain meds due to poor renal fucntion, resolved -- Resolved after patient is given one dose of narco. - Discontinues all opiods -- Tylenol IV 1 g PRN for pain Right pleural effusion, increased from prior study. Present on admission. Active. - If respiratory status worsens may consider US evaluation for thoracentesis. -- Chest CT is ordered for further examination of right pleural effusion -- Will request a thoracentesis on Mon AM RUQ Abdominal Pain, Present on Admission, Active Patient has associated nausea, vomiting, diarrhea. Likely secondary to gastroparesis vs. cholecystitis. Patient with increased pelvic ascites from previous visit. -Symptomatic control -CT KUB as above. -US ordered but not performed as she just recently had a right upper quadrant scan that revealed cholelithiasis, possible questionable developing cholecystitis -Discussed the case with GI, no LFT elevation, CT scan showed cholelithiasis but no cholecystitis. MRCP is ordered but not performed 05/24 -Dr Salas has seen the patient, EGD was performed on 05/25 -"IMPRESSION: 1. Moderate nonerosive gastritis. 2. Small amount of food that was seen in the stomach. RECOMMENDATION: 1. Await pathology results. 2. Okay to start clear liquid diet, advance as tolerated. 3. Recommendations per inpatient GI consultation team." -- MRCP is reordered -- Advance diet to full liquid ESRD on dialysis, Present on Admission, Active On admission Cr 1.82, regular dialysis schedule is - Nephrology Consult. - Monitor BMP. - Dialysis Sun AM 05/25 Acute hypokalemia 3.3 resolved - Because of patient's poor renal function, we will add potassium to IV fluids - Continue to monitor Hospital Acquired Pneumonia, Present on Admission, ruled out Patient presenting with Fever, chest x-ray shows increased right middle and lower lobe pneumonia and increased Right pleural effusion. - MRSA swab negative - Respiratory Viral panel pending. - Urine Legionella and strep pneumo ag, May be difficult to obtain urine testing as patient minimal urine output from ESRD. - Procalcitonin elevated. - Sputum cultures not yet collected - Blood cultures no growth to date - CT as above. - Rpt CXR in the AM showed increasing right perihilar airspace capacity and right pleural effusion - ID consult. - Patient received Levofloxacin, Zosyn and Vancomycin. Vancomycin was discontinued this a.m. Dr. Burrows has seen the patient and feels that she does not have pneumonia based on her findings, rest of the antibiotics were discontinued --Chest CT is ordered to examine the pleural effusions further. Chronic Normocytic Anemia, Present on Admission, Active - Monitor CBC Diabetes Mellitus Type 2, Present on Admission, Active Last HgA1C 9.16 July 2016. Per patient she doesn't take any medications for diabetes after starting dialysis. - HgA1c from recent admit 7.1. - Holding home oral anti hyperglycemics. -- Change her fluids to D5 half normal +20meqK saline running at 50 mL per hour due to concern for low blood glucose and low potassium Hypertension, Present on Admission, poorly controlled - Continue home amlodipine -- Increase metoprolol. Due to fluid control Hypothyroidism, presumed stable - Continue home Levothyroxine Acetaminophen for mild pain when necessary. Bowel regimen Senna and MiraLAX scheduled and PRN. Zofran when necessary for nausea and vomiting. SubQ heparin for now. SCDs in place. Social: Good social support. Full Code. Patient Status: Patient is admitted under inpatient status with expected length of stay greater than 2 midnights due to severity of presenting symptoms, risk of adverse event, and complexity of treatment plan. VTE Mechanical Devices: Venous Foot Pump Resuscitation Status: CPR: Attempt Resuscitation Time spent 25 minutes Tea Dye DO May 25, 2017 22:22
[2017-05-26] VITALS (7 sets, daily range): BP systolic 119–144; BP diastolic 67–83; PULSE 57–88; RESP 14–20; O2SAT 92–100
[2017-05-26] MEDS: Heparin 5,000 Unit/mL Inj SUBQ SCH ×3 (00:51→17:04)
--- NOTE | 2017-05-26 07:52 | PCM.PNSURG ---
Subjective Date of Service: May 26, 2017 Date of Service: May 26, 2017 Visit Information: Subjective: s/p egd yesterday. epigastric pain 05/22 this am. Postop General: No Complaints Objective Vital Sign- Last 8 Hours Date Time Temp Pulse Resp B/P Pulse Ox O2 Delivery O2 Flow Rate FiO2 05/26/17 05:51 37.3 88 14 144/67 92 Room Air 05/26/17 04:34 Supplement Oxygen Intake and Output- Last 8 Hour 05/26/17 Cumulative From/Thru 07:00 05/22/17 12:38 - 05/26/17 04:34 Intake Total 5192 ml Output Total 2850 ml Balance 2342 ml Intake Oral 1680 ml IV Total 3512 ml Output Urine Total 0 ml Emesis 50 ml Ultrafiltrate 2800 ml # Voids 3 # Bowel Movements 2 General: Oriented X3 Neck: Supple Lungs: Clear to Auscultation Heart: Exam Unremarkable Abdomen: Benign, Soft, Appropriately tender, Non-distended, Normoactive bowel tones Extremities: Distal Pulses Palpable Result Diagram: 05/25/17 0650 05/26/17 0620 Assessment & Plan Impression A 46-year-old [place] Citizen-speaking only female history of type 2 diabetes, end- stage renal disease on hemodialysis, hypertension, history of diabetic foot ulcer, hypothyroidism, left fistula placement who presents for consultation for epigastric area and right upper quadrant pain. At this point in time, the patient does not quite meet the criteria for pancreatitis given the fact that her lipase was not elevated three times upper limit of normal. I agree with an MRCP at this point in time to evaluate the pancreas and the biliary tree, even though her transaminases are normal. Her prior ultrasound CT scan showed gallstones and thickened gallbladder wall. This may be suggestive as to why the patient may also have contributed to have abdominal pain along with possible gastroparesis given food seen in egd on 05/25/17. s/p egd 05/25/2017- IMPRESSION: 1. Moderate nonerosive gastritis. 2. Small amount of food that was seen in the stomach. RECOMMENDATIONS: 1. Await MRCP results. 2. Continue Protonix 40 mg twice a day. 3. start reglan 5mg po qid 30 min before meals and qhs 4. Serial abdominal examinations. 5. high protein low fat/cho gastroparesis diet Will continue to follow. Problems: Resuscitation Status: CPR: Attempt Resuscitation Anthony Salas MD May 26, 2017 07:52
[2017-05-26] MEDS: Insulin LISPRO 300 Unit/3 mL Inj SUBQ SCH ×4 (08:00→22:00)
[2017-05-26] MEDS: MeTOProlol XL 50 mg ER24 Tablet PO SCH (09:43)
--- NOTE | 2017-05-26 10:51 | NUR ---
Social Work: Initial Assessment/readiness for discharge: Data & assessment: See initial assessment. Pt is a 46 y/o female admitted for HCAP per H&P. Pt's insurance is Medicare with [facility] supp and PCP not listed. EMR reviewed, pt discussed in multidisciplinary rounds. Pt states she lives in [place] with her family in a two story home where she uses no DME. Pt also does not drive and has no HH history.Pt has SNF history at [facility]. {t has no LTC or VA benefits. No DPOA/ advanced directive paperwork has been completed and declined any information. Pt does not have MIO at this time. During last hospitalization, expedited MIO referral had been sent in. Pt also has PCP appointment arranged with Corazon Goodman in June. Pt received dialysis at [facility] / / Friday. Pt's family to provide transport home at discharge. No anticipated discharge needs. SW will continue to follow if needs arise. Plan:Pt to discharge home when medically stable via POV. No anticipated discharge needs. SW will continue to follow if needs arise. EDUARD Prince Addendum: 05/26/17 at 1055 by SHAMA LUNA Amended: Links added.
--- NOTE | 2017-05-26 10:58 | DRSVH ---
PROCEDURE: MR ABDOMEN MRCP INDICATIONS: Abdominal pain and elevated lipase TECHNIQUE: Coronal HASTE through the abdomen, axial 2-D FLASH in- and [id number], and breath-hold T2 FSE with fat saturation through the biliary system and pancreas. Oblique coronal and axial thin-slice HASTE, radial thick-slab HASTE centered on the extrahepatic bile ducts. Intravenous secretin: Not requested. COMPARISON: [facility], CT, CT KUB, 05/22/2017, 15:27. [facility], CT, CT CH EST WO CON, 05/23/2017, 18:31. FINDINGS: Image quality: There is motion artifact limiting evaluation. Pancreas and biliary system: The gallbladder is distended with multiple filling defects in the regio n of the gallbladder neck consistent with gallstones as well as layering biliary sludge. There is mi ld gallbladder wall thickening which is nonspecific, measuring up to 6 mm. And the common bile duct is at the upper limits of normal in caliber, measuring up to 7 mm. No discrete filling defects ident ified to suggest choledocholithiasis. No intrahepatic biliary ductal dilatation. The pancreatic anika t is nondistended. The pancreas demonstrates normal morphology . There is generalized ascites withi n the abdomen limiting evaluation for pancreatitis. No discrete peripancreatic fluid collections to suggest pseudocyst. Other solid organs: There is mild periportal edema within the liver without focal lesions. The splee n is normal in size. No adrenal nodules. Kidneys demonstrate no hydronephrosis. There our small ri ght renal cysts. Nodes and vessels: No retroperitoneal or mesenteric adenopathy by size criteria. Aorta and inferior vena cava are normal in size. Bowel and peritoneum: There is moderate ascites within the abdomen. Visualized loops of bowel appea r normal in caliber. Lung bases: There is a partially visualized moderate to right pleural effusion and right lower lobe c onsolidation. Heart size is enlarged. Bones and soft tissues: No ventral hernias. Bone marrow is of normal overall signal. IMPRESSION: 1. Gallstones and biliary sludge demonstrated in the gallbladder with gallbladder wall thickening wh ich is nonspecific in the context of ascites. Recommend correlation clinically for possible acute ch olecystitis. 2. Borderline dilatation of the common bile duct without filling defects to suggest choledocholithia sis. 3. No pancreatic duct dilatation. Evaluation for pancreatitis is limited due to the presence of asc ites. Recommend correlation with laboratory values. No discrete pseudocyst identified. 4. Partially visualized moderate right pleural effusion and moderate ascites in the abdomen. Dictated by: Earl Graham M.D. on 05/26/2017 at 9:53 Approved by: Earl Graham M.D. on 05/26/2017 at 10:56
--- NOTE | 2017-05-26 11:20 | PROG NOTE ---
[address] [address] PROGRESS NOTE PATIENT: YULY PEARCE : 1970 MR#: [id number] ADMIT: 05/22/2017 JOB ID: [id number] DATE: 05/26/2017 REASON FOR FOLLOWUP: Right middle lobe infiltrate with right pleural effusion in a patient with multiple medical problems including end-stage renal disease, diabetes, and intractable long-term nausea and vomiting. INTERVAL HISTORY: The patient today continues to report abdominal pain, as well as nausea, but no vomiting. She states she has no cough no significant shortness of breath and no fever, but does report occasional chills. PHYSICAL EXAMINATION: Reveals a woman who looks basically miserable. She continues to appear very dejected and perhaps in chronic pain. She is afebrile. Temperatures have been consistently around 37 degrees, now 37.2, pulse 68, respiratory rate 17, blood pressure 144/68. She is saturating well on room air. She is in no acute distress, but does appear basically unhappy and in chronic pain. Mental status is clear. Oral cavity negative. Lungs with very few crackles at the right base, otherwise clear both anteriorly. Cardiac tones with loud well cardiac tones with a 3/6 systolic murmur heard across precordium as before. The abdomen is notable for diffuse mild upper abdominal tenderness. No new skin rashes noted. LABORATORIES: The patient has a normal white count throughout her hospital stay which is now in its 5th today. White count today is 6700, hematocrit is 27, platelets 134. Creatinine 3.09 in this dialysis patient. ALT and AST are normal. Last procalcitonin was three days ago was 0.28 which would certainly be normal in the face of end-stage renal disease. Cryptoantigen negative. Aspergillus antibody, Aspergillus antigen, Fungitell, and QuantiFERON Gold all pending. Micro includes negative blood cultures, negative MRSA screen, and a negative nasopharyngeal PCR panel. IMAGING: Includes a chest CT which I previously recommended. It shows a moderate right pleural effusion with right basilar infiltrate. Also noted is a dense right middle lobe infiltrate. I reviewed this x-ray and agree with that interpretation. An MRCP was just done as well and the results are pending. IMPRESSION: This is a challenging case of a woman with multiple underlying medical problems including end-stage renal disease who was admitted basically because of intractable nausea, vomiting, and abdominal pain. At this point, I am not impressed that she has overt infection as she has no fever, normal white count, and a procalcitonin which is normal and adjusted for renal function and the symptoms which would primarily refer to abdomen such as her diffuse abdominal pain, nausea, and vomiting. She does have fairly impressive right-sided pleural effusion as well as some consolidation in the right lung, but her lung auscultation is not terribly impressive and the patient has very little if any in the way of respiratory complaints. The possibility of an atypical pneumonia certainly exists in this patient who is recently undergone a full course of levofloxacin as an outpatient as empiric antibiotic therapy. RECOMMENDATIONS: 1. We await the pending fungal and mycobacterial studies. 2. The patient currently has no cough, so efforts to collect sputum are likely to be unsuccessful, but I would consult Pulmonary and see if they think either thoracentesis and/or bronchoscopy might be indicated to try and better understand the nature of the right-sided infiltrate and effusion. 3. No antibiotics at this time. 4. Note that I will be leaving for a one week trip and will be returning to the hospital and rounding on June 03. I can be reached between now and then about this or other patients by cell phone or texting or e-mail.
--- NOTE | 2017-05-26 12:54 | DRSVH ---
PROCEDURE: US CHEST/PLEURAL SONOGRAM INDICATIONS: r pleural effusions COMPARISON: [facility], CT, CT CHEST WO CON, 05/23/2017, 18:31. FINDINGS: With reference to the CT scan performed 05/23/17, 3 days ago, there has been a significant interval reduction in size of the right free flowing simple appearing pleural effusion. The current volume of the fluid is not sufficient for safe therapeutic thoracentesis. IMPRESSION: Therapeutic thoracentesis was not performed due to the significant interval improvement i n volume of simple appearing right free flowing pleural effusion with reference to the CT scan perfor med 3 days ago. Dictated by: Chetan Mitchell M.D. on 05/26/2017 at 12:50 Approved by: Chetan Mitchell M.D. on 05/26/2017 at 12:53
--- NOTE | 2017-05-26 13:13 | DRSVH ---
PROCEDURE: X-RAY CHEST ONE VIEW ([id number]) INDICATIONS: R pleural effusions TECHNIQUE: One view of the chest was acquired. COMPARISON: [facility], CR, XR CHEST 1VW (PORTABLE), 05/23/2017, 8:24. [facility], CR, XR CHEST 2VW, 05/13/2017, 7:52. FINDINGS: Surgical changes and devices: None. Lungs and pleura: No pleural effusions or pneumothorax. Lungs are abnormal with reduced inspiratory volume and a persistent pneumonia pattern at the right lower hemithorax, previously present and seen by both plain film and CT scanning. Mediastinum: Mediastinal contours appear normal. Heart size is at or just above the upper limits of normal. Bones and chest wall: No suspicious bony lesions. Overlying soft tissues appear unremarkable. IMPRESSION: Improved aeration within the lung parenchyma bilaterally, persistent pneumonia pattern ri ght lower lung laterally, heart size is at or just above the upper limits of normal. Dictated by: Chetan Mitchell M.D. on 05/26/2017 at 13:10 Approved by: Chetan Mitchell M.D. on 05/26/2017 at 13:11
--- NOTE | 2017-05-26 13:20 | PCM.PNNEPH ---
Subjective Date of Service May 26, 2017 Subjective Patient remains have been abdominal pain especially on the upper abdomen. She had EGD done yesterday which showed moderate non-erosive gastritis. Exam Vital Signs Vital Sign - Last Date Time Temp Pulse Resp B/P Pulse Ox O2 Delivery O2 Flow Rate FiO2 05/26/17 09:59 37.2 68 17 144/68 100 Room Air 05/25/17 12:33 2.00 Intake and Output 05/25/17 05/25/17 05/26/17 Cumulative From/Thru 15:00 23:00 07:00 05/22/17 12:38 - 05/26/17 04:34 Intake Total 200 ml 755 ml 5192 ml Output Total 2800 ml 2850 ml Balance 200 ml -2045 ml 2342 ml Intake Oral 400 ml 1680 ml IV Total 200 ml 355 ml 3512 ml Output Urine Total 0 ml Emesis 50 ml Ultrafiltrate 2800 ml 2800 ml # Voids 3 # Bowel Movements 2 Exam GENERAL: The patient in no apparent distress, and alert and oriented x3. HEENT: Head is normocephalic and atraumatic.Mouth is well hydrated and without lesions. NECK: Supple, no elevation of JVD, No carotid bruits. No lymphadenopathy or thyromegaly. LUNGS: Clear to auscultation, equal breath sounds bilaterally, no wheezing, no rhonchi no rales. HEART: Normal S1/S2, Regular rate and rhythm, no murmurs, rubs or gallops. 2+ pules throughout. ABDOMEN: Soft, mild tenderness on the epigastric area, and nondistended. Positive bowel sounds. No hepatosplenomegaly was noted. EXTREMITIES: Without any cyanosis, clubbing, rash, lesions or edema. Left AV fistula with good thrill and bruit NEUROLOGIC: The patient is oriented to person, place and time. Strength and sensation are grossly intact. SKIN: No ulceration or induration present. Lab and Diagnostics Result Diagram: 05/25/17 0650 05/26/17 0620 X-Rays, CTs and MRIs CT KUB IMPRESSION: 1. Mildly increased right pleural effusion and, with stable superimposed areas of right lower and middle lobe consolidation suggestive of pneumonia. 2. Mild abdominal pelvic ascites, minimally increased compared to prior exam. 3. Extensive vascular calcifications, including coronary calcification, greater than expected for patient's stated age. 4. Ill-defined hyperintensity within the gallbladder lumen likely administrative representative of stones and unchanged. No imaging evidence of wall thickening to suggest cholecystitis. Approved by: Petra Renteria M.D. on 05/22/2017 at 14:54 Plan Impression 1. End-stage renal disease on hemodialysis every Friday 2. Epigastric pain status post endoscopy showed moderate nonerosive gastritis 3. Suspected healthcare associated pneumonia 4. Right pleural effusion 5. Type II diabetes with diabetic nephropathy 6. Hypertension with hypertensive nephrosclerosis 7. Hypothyroid 8. Moderate ascites per MRCP Plan. Patient has received IV fluid for several days. Her blood pressure is stable. I will discontinue current IV fluids when the current bag is finished. Patient will receive dialysis tomorrow. Recommend diagnostic thoracocentesis and diagnostic abdominal paracentesis Plan: Kiko Rolle MD May 26, 2017 13:20
--- NOTE | 2017-05-26 14:51 | NUR ---
NUTRITION ASSESSMENT: ASSESS: 46YO F admit with abdominal pain, possible gastroparesis vs. cholecystitis; MD notes indicate advance diet as tolerated, currently on full liquid diet with variable po intake. Pt with R pleural effusion. Yemeni speaking. PMHX: Diabetic, ESRD on dialysis,HTN DIET: Full Liquid. Nepro at lunch. PO 0-100% LABS: Reviewed. Alb 3.5, Alk Phos 153, Cr 3.09 MEDS: Reviewed GI: 2 BM 05/24 WEIGHT:54.8kg BMI: 25.0; Admit wt:55.01kg EST.NEEDS: DIALYSIS (30-35kcal/kg;1.2-2.0g/kg pro) Kcal: 5931-8771 Pro: 65-110g NUTRITION DIAGNOSIS: (1) Increased kcal/protein needs related to increased demand for nutrients as evidenced by ESRD on dialysis (2) Inadequate oral intake likely related to n/v/abdominal pain as evidenced by po intake 0-100% INTERVENTION: (1) Small frequent meals with potential gastroparesis. (2) Supplement to increase kcal/protein intake with pt. increased needs (Nepro at lunch added). MONITOR/EVALUATE: PO intake, lab values. F/U per moderate risk.
--- NOTE | 2017-05-26 15:55 | NUR ---
NOTES PT SLEEPING ON AND OFF ALL DAY. FAMILY CAME TO VISIT MOST OF THE AFTERNOON. C/O PERSISTENT PAIN IN UPPER LEFT ABDOMINAL REGENT. 8/10 LOWERED TO 5/10 AFTER GIVEN UPDATED PAIN MEDICATION. NO REPORTS OF NAUSEA OR DIZZINESS. TOLERATES FULL LIQUID DIET AND IS UP TO USE THE RESTROOM.
--- NOTE | 2017-05-26 21:10 | PCM.PNMED ---
Subjective Date of Service May 26, 2017 Subjective Patient is seen and examined with the help of vp lab. I have discussed the findings of her EGD, and the MRCP with them. She is feeling better though she now complains of musculoskeletal pain on the left thorax area. Negative for overnight fevers or chills. Patient appears more alert and oriented Exam Vital Signs Vital Sign - Last Date Time Temp Pulse Resp B/P Pulse Ox O2 Delivery O2 Flow Rate FiO2 05/26/17 14:39 37.2 63 20 119/83 99 Room Air 05/25/17 12:33 2.00 Intake and Output 05/25/17 05/25/17 05/26/17 Cumulative From/Thru 15:00 23:00 07:00 05/22/17 12:38 - 05/26/17 04:34 Intake Total 200 ml 755 ml 5192 ml Output Total 2800 ml 2850 ml Balance 200 ml -2045 ml 2342 ml Intake Oral 400 ml 1680 ml IV Total 200 ml 355 ml 3512 ml Output Urine Total 0 ml Emesis 50 ml Ultrafiltrate 2800 ml 2800 ml # Voids 3 # Bowel Movements 2 Exam Gen.: No acute distress sitting up in bed family visiting HEENT: Normocephalic, atraumatic Heart: 2+ systolic murmur, regular rate Lungs: Right lower lobe crackles Extremities: Negative for edema Abdomen: Mild tenderness over epigastrium MSK: Sclerae skeletal pain in the left lateral thoracic area IVs and Medications Medications Reviewed: Medications were reviewed in detail Lab and Diagnostics Result Diagram: 05/25/17 0650 05/26/17 0620 X-Rays, CTs and MRIs CT KUB IMPRESSION: 1. Mildly increased right pleural effusion and, with stable superimposed areas of right lower and middle lobe consolidation suggestive of pneumonia. 2. Mild abdominal pelvic ascites, minimally increased compared to prior exam. 3. Extensive vascular calcifications, including coronary calcification, greater than expected for patient's stated age. 4. Ill-defined hyperintensity within the gallbladder lumen likely public relations representative of stones and unchanged. No imaging evidence of wall thickening to suggest cholecystitis. Approved by: Petra Renteria M.D. on 05/22/2017 at 14:54 PROCEDURE: MR ABDOMEN MRCP INDICATIONS: Abdominal pain and elevated lipase IMPRESSION: 1. Gallstones and biliary sludge demonstrated in the gallbladder with gallbladder wall thickening which is nonspecific in the context of ascites. Recommend correlation clinically for possible acute cholecystitis. 2. Borderline dilatation of the common bile duct without filling defects to suggest choledocholithiasis. 3. No pancreatic duct dilatation. Evaluation for pancreatitis is limited due to the presence of ascites. Recommend correlation with laboratory values. No discrete pseudocyst identified. 4. Partially visualized moderate right pleural effusion and moderate ascites in the abdomen. Dictated by: Earl Graham M.D. on 05/26/2017 at 9:53 Approved by: Earl Graham M.D. on 05/26/2017 at 10:56 Assessment & Plan 45 year old Slovak-speaking female with ESRD on hemodialysis, diabetes mellitus type 2, Hypertension who presents to the Emergency Department with complaint of abdominal pain, vomiting and fever currently being treated for Hospital acquired pneumonia. Chest x-ray findings of right lower lobe pneumonia like, present on admission -- We have discussed the possibility of hcap, infectious diseases were consulted and they did not feel this is a pneumonia -- Pleural effusions have improved since dialysis, radiology did not see a need for thoracentesis 05/26 -- Health Professor consulted to see if this indicates malignant findings ( there are 2 CT scans and at least 2 chest x-rays from this visit), Dr. Dwyer will see the patient in the a.m. -- We appreciated their recommendations Right pleural effusion, increased from prior study. Present on admission. Active. - If respiratory status worsens may consider US evaluation for thoracentesis. -- Chest CT is ordered for further examination of right pleural effusion -- Requested a thoracentesis to tap her effusion, radiology felt she did not have enough after reviewing her ultrasound and chest x-ray. Moderate nonerosive gastritis., Active Patient has associated nausea, vomiting, diarrhea. Likely secondary to gastroparesis vs. cholecystitis. Patient with increased pelvic ascites from previous visit. -Dr Salas has seen the patient, EGD was performed on 05/25 -- GI recs 05/26 Continue Protonix 40 mg twice a day, start reglan 5mg po qid 30 min before meals and qhs, Serial abdominal examinations., high protein low fat/cho gastroparesis diet Elevated lipase, unknown etiology -- -- MRCP is reordered 05/26 "Gallstones and biliary sludge demonstrated in the gallbladder with gallbladder wall thickening which is nonspecific in the context of ascites. Recommend correlation clinically for possible acute cholecystitis. Borderline dilatation of the common bile duct without filling defects to suggest choledocholithiasis. No pancreatic duct dilatation. Evaluation for pancreatitis is limited due to the presence of ascites. Recommend correlation with laboratory values. No discrete pseudocyst identified. Partially visualized moderate right pleural effusion and moderate ascites in the abdomen. " -- Changed to a low-fat, renal - -- Her LFT have mostly normalized the exception of lipase 94 today (on 33, 78 , 88, 66->94) Back pain acute -- Tramadol 50 mg every 12 when necessary -- Tylenol 625 every 4 hours when necessary ESRD on dialysis, Present on Admission, Active On admission Cr 1.82, regular dialysis schedule is - Nephrology Consult. - Monitor BMP. - Dialysis Sun AM 05/25 Increased sedation caused by accumulations of pain meds due to poor renal function, resolved -- Resolved after patient is given one dose of narco. - Discontinues all opiods -- Tylenol 625 every 6 hours when necessary Acute hypokalemia 3.3 resolved - Because of patient's poor renal function, we will add potassium to IV fluids - Continue to monitor Hospital Acquired Pneumonia, Present on Admission, ruled out Patient presenting with Fever, chest x-ray shows increased right middle and lower lobe pneumonia and increased Right pleural effusion. - MRSA swab negative - Respiratory Viral panel pending. - Urine Legionella and strep pneumo ag, May be difficult to obtain urine testing as patient minimal urine output from ESRD. - Procalcitonin elevated. - Sputum cultures not yet collected - Blood cultures no growth to date - CT as above. - Rpt CXR in the AM showed increasing right perihilar airspace capacity and right pleural effusion - ID consult. - Patient received Levofloxacin, Zosyn and Vancomycin. Vancomycin was discontinued this a.m. Dr. Burrows has seen the patient and feels that she does not have pneumonia based on her findings, rest of the antibiotics were discontinued --Chest CT is ordered to examine the pleural effusions further. Chronic Normocytic Anemia, Present on Admission, Active - Monitor CBC Diabetes Mellitus Type 2, Present on Admission, Active Last HgA1C 9.16 July 2016. Per patient she doesn't take any medications for diabetes after starting dialysis. - HgA1c from recent admit 7.1. - Holding home oral anti hyperglycemics. Hypertension, Present on Admission, poorly controlled - Continue home amlodipine -- Increase metoprolol. Due to fluid control Hypothyroidism, presumed stable - Continue home Levothyroxine Acetaminophen for mild pain when necessary. Bowel regimen Senna and MiraLAX scheduled and PRN. Zofran when necessary for nausea and vomiting. SubQ heparin for now. SCDs in place. Social: Good social support. Full Code. Patient Status: Patient is admitted under inpatient status with expected length of stay greater than 2 midnights due to severity of presenting symptoms, risk of adverse event, and complexity of treatment plan. Pain Evaluation: Pain not Controlled VTE Mechanical Devices: Venous Foot Pump Resuscitation Status: CPR: Attempt Resuscitation Time spent 25 minutes Tea Dye DO May 26, 2017 16:51
[2017-05-27] VITALS (7 sets, daily range): BP systolic 134–153; BP diastolic 62–72; PULSE 59–66; RESP 16–18; O2SAT 93–99
[2017-05-27] MEDS: Heparin 5,000 Unit/mL Inj SUBQ SCH ×3 (00:37→18:05)
--- NOTE | 2017-05-27 06:17 | NUR ---
Sleep Pt. denies any discomfort this shift, slept most of the night, VSS afebrile, call light in reach at all times, all needs attended.
--- NOTE | 2017-05-27 07:48 | PCM.PNSURG ---
Subjective Date of Service: May 27, 2017 Date of Service: May 27, 2017 Visit Information: Subjective: pt reports improved epigastric pain 10 this am. MRCP results noted Postop General: No Complaints Objective Vital Sign- Last 8 Hours Date Time Temp Pulse Resp B/P Pulse Ox O2 Delivery O2 Flow Rate FiO2 05/27/17 05:21 37.0 66 16 134/72 98 Room Air 05/27/17 03:06 Supplement Oxygen Intake and Output- Last 8 Hour 05/27/17 Cumulative From/Thru 07:00 05/22/17 12:38 - 05/27/17 06:39 Intake Total 240 ml 5872 ml Output Total 2850 ml Balance 240 ml 3022 ml Intake Oral 240 ml 2160 ml IV Total 3712 ml Output Urine Total 0 ml Emesis 50 ml Ultrafiltrate 2800 ml # Voids 1 6 # Bowel Movements 3 General: Oriented X3 Neck: Supple Lungs: Crackles Heart: Exam Unremarkable Abdomen: Benign, Soft, Appropriately tender, Non-distended, Normoactive bowel tones Extremities: Distal Pulses Palpable Result Diagram: 05/27/17 0700 05/26/17 0620 Assessment & Plan Impression A 46-year-old Ukrainian-speaking only female history of type 2 diabetes, end- stage renal disease on hemodialysis, hypertension, history of diabetic foot ulcer, hypothyroidism, left fistula placement who presents for consultation for epigastric area and right upper quadrant pain. At this point in time, the patient does not quite meet the criteria for pancreatitis given the fact that her lipase was not elevated three times upper limit of normal. I agree with an MRCP at this point in time to evaluate the pancreas and the biliary tree, even though her transaminases are normal. Her prior ultrasound CT scan showed gallstones and thickened gallbladder wall. This may be suggestive as to why the patient may also have contributed to have abdominal pain along with possible gastroparesis given food seen in egd on 05/25/17. Therefore, her epigastric pain most likely multifactorial in etiology. s/p egd 05/25/2017- IMPRESSION: 1. Moderate nonerosive gastritis. 2. Small amount of food that was seen in the stomach. mrcp 05/26/2017- Pancreas and biliary system: The gallbladder is distended with multiple filling defects in the region of the gallbladder neck consistent with gallstones as well as layering biliary sludge. There is mild gallbladder wall thickening which is nonspecific, measuring up to 6 mm. And the common bile duct is at the upper limits of normal in caliber, measuring up to 7 mm. No discrete filling defects identified to suggest choledocholithiasis. No intrahepatic biliary ductal dilatation. The pancreatic duct is nondistended. The pancreas demonstrates normal morphology . There is generalized ascites within the abdomen limiting evaluation for pancreatitis. No discrete peripancreatic fluid collections to suggest pseudocyst. Other solid organs: There is mild periportal edema within the liver without focal lesions. The spleen is normal in size. No adrenal nodules. Kidneys demonstrate no hydronephrosis. There our small right renal cysts. Nodes and vessels: No retroperitoneal or mesenteric adenopathy by size criteria. Aorta and inferior vena cava are normal in size. Bowel and peritoneum: There is moderate ascites within the abdomen. Visualized loops of bowel appear normal in caliber. Lung bases: There is a partially visualized moderate to right pleural effusion and right lower lobe consolidation. Heart size is enlarged. Bones and soft tissues: No ventral hernias. Bone marrow is of normal overall signal. IMPRESSION: 1. Gallstones and biliary sludge demonstrated in the gallbladder with gallbladder wall thickening which is nonspecific in the context of ascites. Recommend correlation clinically for possible acute cholecystitis. 2. Borderline dilatation of the common bile duct without filling defects to suggest choledocholithiasis. 3. No pancreatic duct dilatation. Evaluation for pancreatitis is limited due to the presence of ascites. Recommend correlation with laboratory values. No discrete pseudocyst identified. 4. Partially visualized moderate right pleural effusion and moderate ascites in the abdomen. RECOMMENDATIONS: 1. Continue Protonix 40 mg twice a day. 2. cont reglan 5mg po qid 30 min before meals and qhs 3. Serial abdominal examinations. 4. high protein low fat/cho gastroparesis diet Will continue to follow. Problems: Resuscitation Status: CPR: Attempt Resuscitation Anthony Salas MD May 27, 2017 07:48
[2017-05-27] MEDS: Insulin LISPRO 300 Unit/3 mL Inj SUBQ SCH ×4 (08:00→21:10)
[2017-05-27] MEDS: MeTOProlol XL 50 mg ER24 Tablet PO SCH (08:30)
[2017-05-27] MEDS: Pantoprazole 40 mg ER24 Tablet PO SCH ×2 (09:30→18:05)
--- NOTE | 2017-05-27 09:46 | NUR ---
Dialysis/Pain Pt taken in bed to dialysis in room 244-1. Pt c/o pain left rib area 05/22, tylenol given per order. Addendum: 05/27/17 at 0952 by ADDIS BOCANEGRA RN BP meds held per Violeta dialysis nurse.
--- NOTE | 2017-05-27 11:39 | NUR ---
Facial droop Dr Rosario, from pulmonology, into assess pt. noted facial droop right side of face. MD did neuro assess while at bedside Dr Rosario. reported will notify Dr Cruz. Pt c/o intermit confusion. staffing coordinator equal able to raise both eye brows. Shows all teeth Able to puff cheeks bilat 1150 Dr Cruz here to assess pt. new orders received. Addendum: 05/27/17 at 1207 by ADDIS BOCANEGRA RN Pt reported to Dr Cruz that last night with dinner food dropped out of her mouth on the right side. Pt did drop am cup of medications while setting them on the bedside table. Then able to handle medications once placed in either left and right hand and put them up to mouth. Addendum: 05/27/17 at 1356 by ADDIS BOCANEGRA RN into see patient, notified night shift, that facial droop is new.
--- NOTE | 2017-05-27 12:00 | NUR ---
Care notes Info given to patient regarding aranesp.
[2017-05-27] MEDS ORDERED: Darbepoetin Alfa 60 mCg/0.3 mL Inj SUBQ SCH (12:15)
--- NOTE | 2017-05-27 12:21 | PCM.PNNEPH ---
Subjective Date of Service May 27, 2017 Subjective Pt is seen during HD. She has less abd pain. Chest US showed insufficient fluid for thoracocentesis. Exam Vital Signs Vital Sign - Last Date Time Temp Pulse Resp B/P Pulse Ox O2 Delivery O2 Flow Rate FiO2 05/27/17 11:07 61 05/27/17 08:00 37.0 18 136/62 95 Room Air 05/25/17 12:33 2.00 Intake and Output 05/26/17 05/26/17 05/27/17 Cumulative From/Thru 15:00 23:00 07:00 05/22/17 12:38 - 05/27/17 06:39 Intake Total 440 ml 240 ml 5872 ml Output Total 2850 ml Balance 440 ml 240 ml 3022 ml Intake Oral 240 ml 240 ml 2160 ml IV Total 200 ml 3712 ml Output Urine Total 0 ml Emesis 50 ml Ultrafiltrate 2800 ml # Voids 2 1 6 # Bowel Movements 1 3 Exam GENERAL: The patient in no apparent distress, and alert and oriented x3. HEENT: Head is normocephalic and atraumatic.Mouth is well hydrated and without lesions. NECK: Supple, no elevation of JVD, No carotid bruits. No lymphadenopathy or thyromegaly. LUNGS: Clear to auscultation, equal breath sounds bilaterally, no wheezing, no rhonchi no rales. HEART: Normal S1/S2, Regular rate and rhythm, no murmurs, rubs or gallops. 2+ pules throughout. ABDOMEN: Soft, mild tenderness on the epigastric area, and nondistended. Positive bowel sounds. No hepatosplenomegaly was noted. EXTREMITIES: Without any cyanosis, clubbing, rash, lesions or edema. Left AV fistula with good thrill and bruit Lab and Diagnostics Result Diagram: 05/27/17 0700 05/27/17 0700 X-Rays, CTs and MRIs CT KUB IMPRESSION: 1. Mildly increased right pleural effusion and, with stable superimposed areas of right lower and middle lobe consolidation suggestive of pneumonia. 2. Mild abdominal pelvic ascites, minimally increased compared to prior exam. 3. Extensive vascular calcifications, including coronary calcification, greater than expected for patient's stated age. 4. 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 No imaging evidence of wall thickening to suggest cholecystitis. Approved by: Petra Renteria M.D. on 05/22/2017 at 14:54 PROCEDURE: MR ABDOMEN MRCP INDICATIONS: Abdominal pain and elevated lipase IMPRESSION: 1. Gallstones and biliary sludge demonstrated in the gallbladder with gallbladder wall thickening which is nonspecific in the context of ascites. Recommend correlation clinically for possible acute cholecystitis. 2. Borderline dilatation of the common bile duct without filling defects to suggest choledocholithiasis. 3. No pancreatic duct dilatation. Evaluation for pancreatitis is limited due to the presence of ascites. Recommend correlation with laboratory values. No discrete pseudocyst identified. 4. Partially visualized moderate right pleural effusion and moderate ascites in the abdomen. Dictated by: Earl Graham M.D. on 05/26/2017 at 9:53 Approved by: Earl Graham M.D. on 05/26/2017 at 10:56 Plan Impression 1. End-stage renal disease on hemodialysis every Friday 3.5 hr, 3K, 35HCO3, 1.5L UF, DFR 600, BFR 400, revaclear, AVF. 2. Epigastric pain status post endoscopy showed moderate nonerosive gastritis 3. Suspected healthcare associated pneumonia 4. Right pleural effusion 5. Type II diabetes with diabetic nephropathy 6. Hypertension with hypertensive nephrosclerosis 7. Hypothyroid 8. Moderate ascites per MRCP Plan: Continue HD Q [id number]. Continue phosphate binders. Add aranesp 60 mcg subQ weekly. Add nephrocap 1 tab daily. Kiko Rolle MD May 27, 2017 12:21 Kiko Rolle MD May 27, 2017 12:21
[2017-05-27] MEDS: oxyCODONE-Acetamin 5-325 mg Tablet PO PRN (13:22)
--- NOTE | 2017-05-27 14:27 | NUR ---
Dialysis/MRI Pt returned to room 1410 via bed Pt taken in w/ch to MRI. Had small soft BM, incont. Cleaned prior to MRI. Tele monitor notified of activities.
[2017-05-27] MEDS: Vitamin B Complex/Vit C Tablet PO SCH (15:05)
--- NOTE | 2017-05-27 15:59 | NUR ---
hemodialysis note 3.5hr tx, 2.7kg removed, 86.0L processed BP stable C/O pain in L side just below ribs, med for pain x 1 R side mouth droop noticed, MD here to assess. pt will have MRI after tx.
--- NOTE | 2017-05-27 16:04 | PCM.CHPMED ---
Subjective Date of Service: May 27, 2017 Provider requesting consult: Tea Dye DO Primary Physician: Admitting Physician: Tong Looney MD Primary Care Physician: Arielle Attending Physician: Edgar Cruz MD Chief Complaint: Chief Complaint: N/V/D, abdominal pain History of Present Illness: Patient is a 46 year old female with a history of Type II diabetes mellitus with ESRD (on dialysis on [facility]) and HTN. She was initially admitted for persistent nausea, vomiting, diarrhea and LLQ abdominal pain which had been an ongoing issue for her chronically, but worsened acutely. She had recently been discharged from [facility] about 1 week ago for similar complaints and RLL presumed aspiration pneumonia, and had completed a 7 day course of levofloxacin with no improvement in her symptoms. She reports that she had upper respiratory viral symptoms about 1 month ago. Since then, she reports she has been having progressive shortness of breath, nonproductive cough, chills, and wheezing. She states she coughs constantly to the point of vomiting. She states her shortness of breath does not bother her when moving around or resting upright, but only when she lies flat. She reports waking up in the middle of the night feeling short of breath. She denies having these symptoms prior to her URI 1 month ago. She also reports some vague left rib pain starting today. On review of her imaging, she had a CT abdomen on 05/15/16 which showed a small infiltrate at the right anterior lung base. During her previous admission, on , a CT abd/pelvis showed right middle lobe consolidation and a small right pleural effusion with adjacent atelectasis. A CT chest was ordered this admission on 05/23/17 which showed moderate right-sided pleural effusion with right basilar infiltrate, with a dense right middle lobe infiltrate, all worsened since her CT abdomen 3 weeks prior. She states she was born in [facility] where she lived for 12 years and then moved to [place], [place], where she lived for several years. She then moved to [place], where she has lived ever since. She denies travel to any other places. 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 She denies any hobbies. Denies exposure to any animals, such as rats, deer, or rabbits. She is a lifetime nonsmoker and nondrinker. She denies any exposure or family history of tuberculosis. Review of Systems: Comprehensive review of systems conducted and was negative except for the pertinent positives listed above. PMH Past Medical History Diabetic foot ulcer, history of End-stage renal disease on hemodialysis Mondays, Wednesdays, and Fridays Anemia, likely secondary to end-stage renal disease Hypothyroidism Hx of osteoporotic left femur fracture Hepatosteatosis Diabetes mellitus (type II) Hypertension Bedside Blood Glucose: 83 Surgical History Left fistula placement Allergies: Coded Allergies: No Known Allergies (Verified Allergy, Unknown, 05/22/17) Family History Family History Denies family history of cardiopulmonary disease or cancer. Denies family history of tuberculosis Social History Occupation: Farm workerHx Alcohol Use: NoHx Substance Use: NoHx Tobacco Use: No Smoking Status: Never Smoker Exam Vital Signs Vital Sign - Last Date Time Temp Pulse Resp B/P Pulse Ox O2 Delivery O2 Flow Rate FiO2 05/27/17 11:07 61 05/27/17 08:00 37.0 18 136/62 95 Room Air 05/25/17 12:33 2.00 Intake and Output 05/26/17 05/26/17 05/27/17 Cumulative From/Thru 15:00 23:00 07:00 05/22/17 12:38 - 05/27/17 06:39 Intake Total 440 ml 240 ml 5872 ml Output Total 2850 ml Balance 440 ml 240 ml 3022 ml Intake Oral 240 ml 240 ml 2160 ml IV Total 200 ml 3712 ml Output Urine Total 0 ml Emesis 50 ml Ultrafiltrate 2800 ml # Voids 2 1 6 # Bowel Movements 1 3 Additional Information: General: Alert but somewhat drowsy, Oriented X3, Cooperative, No acute distress Head: Normocephalic, atraumatic. External ears normal. Eyes: PERRLA, EOMI. Anicteric sclerae. Mouth: Mouth normal, Mucous membranes moist/pink Neck: Neck supple with full range of motion. Chest& Lungs: Systolic murmur at left sternal border Cardiovascular: RLL decreased lung sounds and crackles Abdomen: Diffuse tenderness, Non-distended, No masses, Normoactive bowel tones , Soft Musculoskeletal: Normal range of motion Extremities: No cyanosis/clubbing/edema bilaterally Neuro: Normal speech. Profound generalized weakness. Right sided facial droop noted, with flattening of right nasolabial fold. EOMI, normal eyebrow raising, Sensation Intact Lab and Diagnostics Result Diagram: 05/27/17 0705/27/17 07 Assessment & Plan Assessment Patient is a 46 year old female with a history of Type II diabetes mellitus with ESRD (on dialysis on [facility]) and HTN admitted for abdominal pain, N/V/D. Pulmonology consulted for RLL infiltrates and right pleural effusion Right pleural effusion, chronic. - Pt presents with worsening right pleural effusion with right middle lobe atelectasis. This appears to be a chronic problem that has worsened recently. Per Dr. Burrows's notes, this is unlikely to be infectious due to lack of positive infectious markers, but there is still some suspicion for infection. Likely secondary to ESRD. She completed a course of levofloxacin about 2-3 weeks ago, so special consideration should be given to a possible antibiotic regiment. Will discuss antibiotic options with Dr Burrows today. US examination revealed minimal fluid available for thoracentesis at the RLL; possibly enough for a diagnostic but not a therapeutic thoracentesis. However, the patient was undergoing active stroke workup at the time, so we will revisit the option at a later time. If she does not receive a thoracentesis during this hospitalization , we will consider outpatient follow up CT chest and possible outpatient bronchoscopy depending on the course of her stroke workup. We will re-evaluate the patient tomorrow. - Will consider diagnostic thoracentesis in near future vs outpatient imaging and possible bronchoscopy - Will discuss possible antibiotic regimen with Dr. Burrows - Will revisit pt tomorrow. [id number] Problems: Pain Evaluation: Pain not Controlled VTE Mechanical Devices: Intermittant Pneumatic CD Resuscitation Status: CPR: Attempt Resuscitation Time spent I have seen and examined this patient with the resident physician. Vital signs , labs, imaging have been reviewed. I agree with the assessment and plan above. Please refer to my separately dictated progress note for any modifications to above. Kusum Dwyer M.D. Pulmonary and Critical Care medicine Pager [phone] Travon Jain May 27, 2017 14:51 Kusum Dwyer MD May 28, 2017 07:30
--- NOTE | 2017-05-27 16:09 | PCM.PNMED ---
Subjective Date of Service May 27, 2017 Subjective Patient was noted to have right-sided facial droop. On further inquiry patient states she had some difficulty eating last night in which food was dripping from out of right corner of her mouth . She did not have any issue yesterday during breakfast and lunch. She also agrees that she has a right-sided facial droop when asked to check her face on mirror. Last time she saw her face in a mirror is a week ago . No numbness. No weakness of extremities. No dysarthria or aphasia Exam Vital Signs Vital Sign - Last Date Time Temp Pulse Resp B/P Pulse Ox O2 Delivery O2 Flow Rate FiO2 05/27/17 11:07 61 05/27/17 08:00 37.0 18 136/62 95 Room Air 05/25/17 12:33 2.00 Intake and Output 05/26/17 05/26/17 05/27/17 Cumulative From/Thru 15:00 23:00 07:00 05/22/17 12:38 - 05/27/17 06:39 Intake Total 440 ml 240 ml 5872 ml Output Total 2850 ml Balance 440 ml 240 ml 3022 ml Intake Oral 240 ml 240 ml 2160 ml IV Total 200 ml 3712 ml Output Urine Total 0 ml Emesis 50 ml Ultrafiltrate 2800 ml # Voids 2 1 6 # Bowel Movements 1 3 Exam Gen.: No acute distress HEENT: Normocephalic, atraumatic Heart: 2+ systolic murmur, regular rate Lungs: Right lower lobe crackles Extremities: Negative for edema Abdomen: Mild tenderness over epigastrium MSK: Sclerae skeletal pain in the left lateral thoracic area SUPERVISOR/PORT DIRECTOR alert and oriented 3, right facial droop, no other motor sensory deficit noted.NIHSS 1 IVs and Medications Medications Reviewed: Medications were reviewed in detail Lab and Diagnostics Result Diagram: 05/27/17 0700 05/27/17 0700 X-Rays, CTs and MRIs CT KUB IMPRESSION: 1. Mildly increased right pleural effusion and, with stable superimposed areas of right lower and middle lobe consolidation suggestive of pneumonia. 2. Mild abdominal pelvic ascites, minimally increased compared to prior exam. 3. Extensive vascular calcifications, including coronary calcification, greater than expected for patient's stated age. 4. Ill-defined hyperintensity within the gallbladder lumen likely entry level sales representative of stones and unchanged. No imaging evidence of wall thickening to suggest cholecystitis. Approved by: Petra Renteria M.D. on 05/22/2017 at 14:54 PROCEDURE: MR ABDOMEN MRCP INDICATIONS: Abdominal pain and elevated lipase IMPRESSION: 1. Gallstones and biliary sludge demonstrated in the gallbladder with gallbladder wall thickening which is nonspecific in the context of ascites. Recommend correlation clinically for possible acute cholecystitis. 2. Borderline dilatation of the common bile duct without filling defects to suggest choledocholithiasis. 3. No pancreatic duct dilatation. Evaluation for pancreatitis is limited due to the presence of ascites. Recommend correlation with laboratory values. No discrete pseudocyst identified. 4. Partially visualized moderate right pleural effusion and moderate ascites in the abdomen. Dictated by: Earl Graham M.D. on 05/26/2017 at 9:53 Approved by: Earl Graham M.D. on 05/26/2017 at 10:56 Assessment & Plan 45 year old Nepali-speaking female with ESRD on hemodialysis, diabetes mellitus type 2, Hypertension who presents to the Emergency Department with complaint of abdominal pain, vomiting and fever currently being treated for Hospital acquired pneumonia. # Right facial droop,acute,not poa -[place] palsy vs acute CVA. 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 On further inquiry patient states she had some dysphasia last night with food drooping out of her right corner of mouth . -last known well 12 hrs. not a candidate for TPA due to out of window time,low NIHSS -ASA 325 daily started -Swallow eval,,echo ,carotid duplex -MRI brain negative for acute stroke -Initially held antihypertensives pending stroke workup for permissive hypertension,will resume now given negative MRI # right lower lobe infiltrates possibly due to recently treated for pneumonia, present on admission -- Initially considered hcap, infectious diseases were consulted and he did not feel this is a pneumonia -- Pleural effusions have improved since dialysis, radiology did not see a need for thoracentesis 05/26 -- Litharge Supervisor consulted -Patient initially received Levofloxacin, Zosyn and Vancomycin for HCAP but discontinued given no symptoms, low procal,no leukocytosis -Blood culture 2, respiratory PCR negative -- We appreciated their recommendations -may need repeat CT in few weeks to confirm resolution of infiltrate and rule out underlying mass # Right pleural effusion, increased from prior study. Present on admission. Active. Improving -- Chest CT is ordered for further examination of right pleural effusion -- Requested a thoracentesis to tap her effusion, effusion has markedly improved with dialysis. Radiology felt she did not have enough after reviewing her ultrasound and chest x-ray. # Moderate nonerosive gastritis., Active Patient has associated nausea, vomiting, diarrhea. Likely secondary to gastroparesis vs. cholecystitis. Patient with increased pelvic ascites from previous visit. -Dr Salas has seen the patient, EGD was performed on 05/25 -- GI recs 05/26 Continue Protonix 40 mg twice a day, start reglan 5mg po qid 30 min before meals and qhs, Serial abdominal examinations., high protein low fat/cho gastroparesis diet # Elevated lipase, unknown etiology --MRCP is reordered 05/26 "Gallstones and biliary sludge demonstrated in the gallbladder with gallbladder wall thickening which is nonspecific in the context of ascites. Recommend correlation clinically for possible acute cholecystitis. Borderline dilatation of the common bile duct without filling defects to suggest choledocholithiasis. No pancreatic duct dilatation. Evaluation for pancreatitis is limited due to the presence of ascites. Recommend correlation with laboratory values. No discrete pseudocyst identified. Partially visualized moderate right pleural effusion and moderate ascites in the abdomen. " -- Changed to a low-fat, renal - -- Her LFT have mostly normalized the exception of lipase (on 33, 78, 88, 66- >94) # Back pain acute -- Tramadol 50 mg every 12 when necessary -- Tylenol 625 every 4 hours when necessary # ESRD on dialysis, Present on Admission, Active dialysis schedule is - Dialysis Sun AM 05/25 #Chronic Normocytic Anemia, Present on Admission, Active - Monitor CBC #Diabetes Mellitus Type 2, Present on Admission, Active Last HgA1C 9.16 July 2016. Per patient she doesn't take any medications for diabetes after starting dialysis. - HgA1c from recent admit 7.1. - Holding home oral anti hyperglycemics. #Hypertension, Present on Admission, poorly controlled - Continue home amlodipine -- Increase metoprolol. Due to fluid control #Hypothyroidism, presumed stable - Continue home Levothyroxine Acetaminophen for mild pain when necessary. Bowel regimen Senna and MiraLAX scheduled and PRN. Zofran when necessary for nausea and vomiting. SubQ heparin for now. SCDs in place. Social: Good social support. Full Code. Possible discharge in 1-2 days VTE Mechanical Devices: Intermittant Pneumatic CD Resuscitation Status: CPR: Attempt Resuscitation Edgar Cruz MD May 27, 2017 16:09 Resuscitation Status: CPR: Attempt Resuscitation Edgar Cruz MD May 27, 2017 16:09 SubQ heparin for now. SCDs in place. Social: Good social support. Full Code. Patient Status: Patient is admitted under inpatient status with expected length of stay greater than 2 midnights due to severity of presenting symptoms, risk of adverse event, and complexity of treatment plan. VTE Mechanical Devices: Intermittant Pneumatic CD Resuscitation Status: CPR: Attempt Resuscitation Edgar Cruz MD May 27, 2017 16:09 Edgar Cruz MD May 27, 2017 16:09
--- NOTE | 2017-05-27 16:15 | DRSVH ---
PROCEDURE: MRI BRAIN WITHOUT CONTRAST ([id number]) INDICATIONS: CVA TECHNIQUE: Noncontrast axial T1 spin echo, axial T2 fast spin echo, sagittal and axial FLAIR, coronal T2 fast sp in echo, axial gradient echo, axial diffusion and ADC through the brain. COMPARISON: None. FINDINGS: Image quality: Excellent. CSF Spaces: Basal cisterns are patent. No extra-axial fluid collections. Ventricles are normal in size and shape. Brain: No intracranial masses or hemorrhage. Yo/white matter interface is normal. Brainstem appe ars normal. Diffusion-weighted images demonstrate no acute ischemic insult. No chronic ischemic ins ults. Normal intravascular flow voids are present. Skull and face: Probable small intraosseous lipoma noted in the right parietal bone. Calvarium otherw ise has normal signal. Orbits appear normal. Sinuses: Sinuses and mastoids are clear. IMPRESSION: 1. No intracranial disease process. 2. No areas of acute or chronic infarction. 3. No intracranial hemorrhage. Dictated by: Odalis Lynn MD, PhD on 05/27/2017 at 16:08 Approved by: Odalis Lynn MD, PhD on 05/27/2017 at 16:14
--- NOTE | 2017-05-27 16:23 | DRSVH ---
PROCEDURE: MRA ANGIOGRAM HEAD WITHOUT CONTRAST ([id number]) INDICATIONS: WEAKNESS TECHNIQUE: Noncontrast axial 3-D [id number] MR angiogram, with 3-dimensional maximum intensity projection (M IP) reformats of the internal carotid arteries and posterior circulation then performed. COMPARISON: None. FINDINGS: Image quality: Excellent. Anterior circulation: Intracranial internal carotid arteries demonstrate normal size and intralumina l flow signal. The flow within the paired anterior cerebral arteries is normal and symmetric. The f low within the middle cerebral arteries is normal and symmetric. The anterior communicating artery i s seen. No stenoses, occlusions, or aneurysms. Posterior circulation: Visualized portions of the vertebral arteries demonstrate normal caliber, and join to form a normal appearing basilar artery. The flow within the posterior cerebral arteries is normal and symmetric. Posterior tibial arteries have origins which is a congenital anatomic va riant. No stenoses, occlusions, or aneurysms. IMPRESSION: Negative examination. Dictated by: Odalis Lynn MD, PhD on 05/27/2017 at 16:19 Approved by: Odalis Lynn MD, PhD on 05/27/2017 at 16:22
--- NOTE | 2017-05-27 16:29 | DRSVH ---
[facility] [address] [place] [address] Echocardiogram Report Name: YULY PEARCE Study Date: 05/27/2017 Height: 58 in Hospital Exam Location: [facility] Weight: 120 lb Gender: Female BSA: 1.5 m2 : 1970 Age: 46 yrs BP: 136/62 mmHg Reason For Study: CVA Ordering Physician: Performed By: Deja Burden Referring Physician: SHARMILA AVILES Interpretation Summary 1. Normal left ventricular size and wall thickness with an estimated EF of 50 -55% 2. Mild to moderately dilated right ventricle with normals systolic function. The estimated right atrial pressure is elevated. The estimated RVSP is 51 mm Hg 3. Severe tricuspid regurgitation 4. Severe mitral regurgitation Compared to the previous study (images reviewed) the estimated right atrial pressure is higher Procedure: The study quality was technically limited. Comparison is made with the echocardiogram of 03/25/17. The patient was in normal sinus rhythm during the exam. Left Ventricle: The left ventricle is mildly dilated. There is normal left ventricular wall thickness. Left ventricular systolic function is low normal. The ejection fraction is estimated to be 50-55%. There is septal wall mild hypokinesis. Right Ventricle: The right ventricle is mild to moderately dilated. The right ventricular systolic function is normal. Atria: aneurysmal interatrial septum. No color doppler evidence for an ASD. Mitral Valve: The mitral valve leaflets appear thickened, but open well. There is severe mitral regurgitation. Aortic Valve: The aortic valve is trileaflet. The aortic valve opens well. Tricuspid Valve: The leaflets appear somewhat thickened. There is severe tricuspid regurgitation. The right ventricular systolic pressure is estimated at least 51 mmHg assuming a right atrial pressure of 15 mm Hg. May be underestimated due to severity of TR. Great Vessels: The IVC is dilated (diameter is greater than 2.1 cm) and it collapses less than 50% with a sniff. This suggests a high right atrial pressure of 15 mm Hg. Pericardium/ Pleura There is a trace loculated pericardial effusion. There is a large right-sided pleural effusion. MMode/2D Measurements & Calculations LVIDd: 5.4 cm IVC diam EDV(MOD-sp2) LV ty. diameter/BSA LVIDs: 3.7 cm : 2.4 cm (cm/m^2): 3.7 FS: 31.0 % ESV(MOD-sp2) IVSd: 0.84 cm LVPWd: 0.88 cm EF(MOD-sp2) LV sys. diameter/BSA RVD1 (basal) RVD2 (mid) (cm/m^2): 2.5 : 2.6 cm Doppler Measurements & Calculations TR max brionna: 298.6 cm/sec TR max P.7 mmHg Reading Physician:04:29 PM
--- NOTE | 2017-05-27 16:30 | NUR ---
Evaluation completed. Please go to "Notes" then click on "Assessments and Notes" (bottom left corner of screen). Then select appropriate discipline tab on top of screen.
--- NOTE | 2017-05-27 16:39 | CONS ---
[address] [address] CONSULTATION REPORT PATIENT: YULY PEARCE : 1970 MR#: [id number] ADMIT: 05/22/2017 JOB ID: [id number] DATE OF SERVICE: 05/27/2017 The patient is a 46-year-old woman with end-stage renal disease on hemodialysis, seen in consultation at the request of Dr. Tea Dye for evaluation of right pleural effusion and right middle lobe consolidation. The patient was seen and evaluated with resident physician, Travon Jain. Please refer to separate detailed note for complete HPI, past medical history, social history, family history, review of systems and a complete physical exam. The following is a brief attending note. Ms. Pearce is a 46-year-old woman with history of end-stage renal disease on hemodialysis. She is and primarily Iranian-speaking. She came into the hospital on May 22 with symptoms of vomiting primarily, and at that time, denied any chest pain, worsening shortness of breath, etc. Workup revealed a right pleural effusion which really has been present for a long time, i.e. many months, and also right middle lobe consolidation that was also seen previously on a chest CT from May 07. CT scan--Reviewed chest CT from May [address] from May 07. There is a small right pleural effusion which has been present on prior CTs, although slightly larger on the current one. There is also a right middle lobe consolidation which persists since April but is new or worse compared to an older CT from 2015. ASSESSMENT/RECOMMENDATIONS: 1. Right middle lobe consolidation. 2. Right pleural effusion. 3. End-stage renal disease, on hemodialysis. 4. ? acute stroke. In the process of this workup, the patient was noted to have an acute right facial droop by the pulmonary resident evaluating her. He alerted the Hospitalist team and they initiated a stroke workup which is in process. In fact, when I met the patient, she was in the midst of an echo so my evaluation of her was brief. With regards to her CT findings which are the reason for her pulmonary consultation, certainly if the pleural effusion is less concerning to me because it is free flowing and has been present for a year or more and seems to decrease with dialysis. This would really be most consistent with a transudate but ideally a diagnostic thoracentesis should confirm this. We looked at the chest with an ultrasound that there seems to be enough fluid for diagnostic thoracentesis although not a lot. At this point, however, I would like to defer this until her stroke evaluation has been completed. With regards to the right middle lobe consolidation she certainly does not have any symptoms of infection and recently completed a course of levofloxacin. I think this could be a community-acquired pneumonia versus atelectasis. Other things, like an atypical mycobacterial infection would be much less likely as mentioned in Dr. Burrows's separate Infectious Disease note. I would like to if possible discuss with Dr. Burrows about a 2nd course of antibiotic therapy to treat this and reimage in about a month's time. If this is not improving at all, then I would consider bronchoscopy at that point but once again, at this point, with her ongoing acute stroke workup, I think this takes secondary important since she is asymptomatic from the pulmonary standpoint. Will continue to follow peripherally but please call for any questions.
--- NOTE | 2017-05-27 16:59 | NUR ---
facial droop slightly decreased from this am Pt looks more awake alert. able to tolerate lunch without pocketing, drooling, or coughing.
[2017-05-27] MEDS: predniSONE 20 mg Tablet PO SCH (18:05)
[2017-05-28] VITALS (8 sets, daily range): BP systolic 96–148; BP diastolic 60–68; PULSE 42–74; RESP 8–18; O2SAT 40–100
[2017-05-28] MEDS: Heparin 5,000 Unit/mL Inj SUBQ SCH ×3 (00:32→18:13)
[2017-05-28] MEDS: oxyCODONE-Acetamin 5-325 mg Tablet PO PRN ×2 (02:45→11:18)
--- NOTE | 2017-05-28 05:58 | NUR ---
PAIN Pt. c/o back pain, given prn norco, effective, tolerating po well, no difficulties swallowing noted, VSS, call light in reach at all time, closely monitored.
--- NOTE | 2017-05-28 07:36 | PCM.PNSURG ---
Subjective Date of Service: May 28, 2017 Date of Service: May 28, 2017 Visit Information: Subjective: pt reports no abdominal pain this am. 010. Postop General: No Complaints Objective Vital Sign- Last 8 Hours Date Time Temp Pulse Resp B/P Pulse Ox O2 Delivery O2 Flow Rate FiO2 05/28/17 04:18 37.0 69 16 129/65 100 Room Air 05/28/17 00:38 37.0 59 17 143/68 96 Room Air Intake and Output- Last 8 Hour 05/28/17 Cumulative From/Thru 07:00 05/22/17 12:38 - 05/28/17 05:45 Intake Total 180 ml 6142 ml Output Total 5550 ml Balance 180 ml 592 ml Intake Oral 180 ml 2430 ml IV Total 3712 ml Output Urine Total 0 ml Emesis 50 ml Ultrafiltrate 5500 ml # Voids 6 # Bowel Movements 4 General: Oriented X3 Neck: Supple Lungs: Crackles Heart: Exam Unremarkable Abdomen: Benign, Soft, Non-tender, Non-distended, Normoactive bowel tones Extremities: Distal Pulses Palpable Result Diagram: 05/27/17 0700 05/27/17 0700 Assessment & Plan Impression the patient does not quite meet the criteria for pancreatitis given the fact that her lipase was not elevated three times upper limit of normal. I agree with an MRCP at this point in time to evaluate the pancreas and the biliary tree , even though her transaminases are normal. Her prior ultrasound CT scan showed gallstones and thickened gallbladder wall. This may be suggestive as to why the patient may also have contributed to have abdominal pain along with possible gastroparesis given food seen in egd on 05/25/17. Therefore, her epigastric pain most likely multifactorial in etiology. s/p egd 05/25/2017- IMPRESSION: 1. Moderate nonerosive gastritis. 2. Small amount of food that was seen in the stomach. mrcp 05/26/2017- Pancreas and biliary system: The gallbladder is distended with multiple filling defects in the region of the gallbladder neck consistent with gallstones as well as layering biliary sludge. There is mild gallbladder wall thickening which is nonspecific, measuring up to 6 mm. And the common bile duct is at the upper limits of normal in caliber, measuring up to 7 mm. No discrete filling defects identified to suggest choledocholithiasis. No intrahepatic biliary ductal dilatation. The pancreatic duct is nondistended. The pancreas demonstrates normal morphology . There is generalized ascites within the abdomen limiting evaluation for pancreatitis. No discrete peripancreatic fluid collections to suggest pseudocyst. Other solid organs: There is mild periportal edema within the liver without focal lesions. The spleen is normal in size. No adrenal nodules. Kidneys demonstrate no hydronephrosis. There our small right renal cysts. Nodes and vessels: No retroperitoneal or mesenteric adenopathy by size criteria. Aorta and inferior vena cava are normal in size. Bowel and peritoneum: There is moderate ascites within the abdomen. Visualized loops of bowel appear normal in caliber. Lung bases: There is a partially visualized moderate to right pleural effusion and right lower lobe consolidation. Heart size is enlarged. Bones and soft tissues: No ventral hernias. Bone marrow is of normal overall signal. IMPRESSION: 1. Gallstones and biliary sludge demonstrated in the gallbladder with gallbladder wall thickening which is nonspecific in the context of ascites. Recommend correlation clinically for possible acute cholecystitis. 2. Borderline dilatation of the common bile duct without filling defects to suggest choledocholithiasis. 3. No pancreatic duct dilatation. Evaluation for pancreatitis is limited due to the presence of ascites. Recommend correlation with laboratory values. No discrete pseudocyst identified. 4. Partially visualized moderate right pleural effusion and moderate ascites in the abdomen. 05/28/2017- no abdominal pain. transaminases nl. RECOMMENDATIONS: 1. Continue Protonix 40 mg twice a day. 2. cont reglan 5mg po qid 30 min before meals and qhs 3. high protein low fat/cho gastroparesis diet Will continue to follow. Problems: Resuscitation Status: CPR: Attempt Resuscitation Anthony Salas MD May 28, 2017 07:36
[2017-05-28] MEDS: MeTOProlol XL 50 mg ER24 Tablet PO SCH (08:09)
[2017-05-28] MEDS: Pantoprazole 40 mg ER24 Tablet PO SCH ×2 (08:10→18:12)
[2017-05-28] MEDS: predniSONE 20 mg Tablet PO SCH (08:10)
[2017-05-28] MEDS: Vitamin B Complex/Vit C Tablet PO SCH (08:11)
[2017-05-28] MEDS: Insulin LISPRO 300 Unit/3 mL Inj SUBQ SCH ×4 (08:14→22:02)
--- NOTE | 2017-05-28 08:43 | NUR ---
The pt's brain MRI was neg for acute changes. ST will sign off at this time.
--- NOTE | 2017-05-28 10:41 | PATH ---
SURGICAL PATHOLOGY Attending Physician:Anthony Salas MD CASE STATUS: Signed Out PATIENT NAME: YULY PEARCE PID: [id number] : 1970 DATE COLLECTED:05/25/2017 00:00 SPECIMEN: 1: Stomach, Antrum, Biopsy 2: Gastric, Biopsy CLINICAL HISTORY: ABDOMINAL PAIN 1). ANTRUM BIOPSY 2). GASTRIC BODY BIOPSY FINAL DIAGNOSIS: 1.ANTRUM, BIOPSY: GASTRIC MUCOSA WITH CHRONIC ACTIVE GASTRITIS. Negative for Helicobacter pylori by immunohistochemistry. Negative for intestinal metaplasia. Negative for dysplasia and malignancy. 2.GASTRIC BODY, BIOPSY: GASTRIC BODY-TYPE MUCOSA WITH CHRONIC ACTIVE GASTRITIS. Negative for Helicobacter pylori by immunohistochemistry. Negative for intestinal metaplasia. Negative for dysplasia and malignancy. ICD10 R10.9 GROSS DESCRIPTION: The specimen is received in two formalin filled containers labeled with the patient's name. 1). The specimen is labeled "antrum" and consists of portions of tissue which aggregate to 0.4 x 0.2 x 0.2 CM. The specimen is entirely submitted in cassette 1A. 2). The specimen is labeled "gastric body" and consists of a 0.4 x 0.3 x 0.2 CM portion of tissue which is entirely submitted in cassette 2A. 05/26/2017DC MICRO DESCRIPTION: 1. & 2. An immunohistochemical stain was performed to evaluate for Helicobacter pylori microorganisms. Control stains showed appropriate reactivity. This test was developed and its performance characteristics determined by [employer] It has not been cleared or approved by the U. S. Food and Drug Administration. The FDA has determined that such clearance or approval is not necessary. This test is used for clinical purposes. It should not be regarded as investigational or for research. ICD-9 CODES: CPT CODES: 1: 06494, 39931 2: 22115, 13064 Electronically Signed Out Keshav Moore MD [facility] [address], [place] [address] Technical component performed at [facility], [address], [place], [address]
--- NOTE | 2017-05-28 11:49 | NUR ---
Evaluation completed. Please go to "Notes" then click on "Assessments and Notes" (bottom left corner of screen). Then select appropriate discipline tab on top of screen.
--- NOTE | 2017-05-28 12:40 | PCM.PNNEPH ---
Subjective Date of Service May 28, 2017 Subjective She reported feeling weak. HD yesterday without complication. (+) right facial droop, negative MRI. 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 Exam Vital Signs Vital Sign - Last Date Time Temp Pulse Resp B/P Pulse Ox O2 Delivery O2 Flow Rate FiO2 05/28/17 10:39 72 05/28/17 08:05 18 148/65 99 Room Air 05/28/17 04:18 37.0 05/25/17 12:33 2.00 Intake and Output 05/27/17 05/27/17 05/28/17 Cumulative From/Thru 15:00 23:00 07:00 05/22/17 12:38 - 05/28/17 05:45 Intake Total 90 ml 180 ml 6142 ml Output Total 2700 ml 5550 ml Balance -2610 ml 180 ml 592 ml Intake Oral 90 ml 180 ml 2430 ml IV Total 3712 ml Output Urine Total 0 ml Emesis 50 ml Ultrafiltrate 2700 ml 5500 ml # Voids 6 # Bowel Movements 1 4 Exam GENERAL: The patient in no apparent distress, and alert and oriented x3. HEENT: Head is normocephalic and atraumatic.Mouth is well hydrated and without lesions. Right facial droop. NECK: Supple, no elevation of JVD, No carotid bruits. No lymphadenopathy or thyromegaly. LUNGS: Clear to auscultation, equal breath sounds bilaterally, no wheezing, no rhonchi no rales. HEART: Normal S1/S2, Regular rate and rhythm, soft systolic murmurs, no rubs or gallops. ABDOMEN: Soft, mild tenderness on the epigastric area, and nondistended. Positive bowel sounds. No hepatosplenomegaly was noted. EXTREMITIES: Without any cyanosis, clubbing, rash, lesions or edema. Left AV fistula with good thrill and bruit Lab and Diagnostics Result Diagram: 05/27/17 0700 05/27/17 0700 X-Rays, CTs and MRIs CT KUB IMPRESSION: 1. Mildly increased right pleural effusion and, with stable superimposed areas of right lower and middle lobe consolidation suggestive of pneumonia. 2. Mild abdominal pelvic ascites, minimally increased compared to prior exam. 3. Extensive vascular calcifications, including coronary calcification, greater than expected for patient's stated age. 4. Ill-defined hyperintensity within the gallbladder lumen likely loan representative of stones and unchanged. No imaging evidence of wall thickening to suggest cholecystitis. Approved by: Petra Renteria M.D. on 05/22/2017 at 14:54 PROCEDURE: MR ABDOMEN MRCP INDICATIONS: Abdominal pain and elevated lipase IMPRESSION: 1. Gallstones and biliary sludge demonstrated in the gallbladder with gallbladder wall thickening which is nonspecific in the context of ascites. Recommend correlation clinically for possible acute cholecystitis. 2. Borderline dilatation of the common bile duct without filling defects to suggest choledocholithiasis. 3. No pancreatic duct dilatation. Evaluation for pancreatitis is limited due to the presence of ascites. Recommend correlation with laboratory values. No discrete pseudocyst identified. 4. Partially visualized moderate right pleural effusion and moderate ascites in the abdomen. Dictated by: Earl Graham M.D. on 05/26/2017 at 9:53 Approved by: Earl Graham M.D. on 05/26/2017 at 10:56 Plan Impression 1. End-stage renal disease on hemodialysis every Friday 2. Epigastric pain status post endoscopy showed moderate nonerosive gastritis 3. Suspected healthcare associated pneumonia 4. Right pleural effusion 5. Type II diabetes with diabetic nephropathy 6. Hypertension with hypertensive nephrosclerosis 7. Hypothyroid 8. Moderate ascites per MRCP 9. 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 Plan: Continue HD Q [id number]. Decrease phoslo to 667 mg TID. Continue aranesp 60 mcg subQ weekly. Continue nephrocap 1 tab daily. Check TSH and FT4. Kiko Rolle MD May 28, 2017 12:40
--- NOTE | 2017-05-28 13:59 | PCM.PNMED ---
Subjective Date of Service May 28, 2017 Subjective Pulmonology Progress Note Patient is a 46 year old female with a history of Type II diabetes mellitus with ESRD (on dialysis on TThS) and HTN admitted for abdominal pain, N/V/D. Pulmonology consulted for RLL infiltrates and right pleural effusion She reports continuing weakness and abdominal pain this morning, but denies shortness of breath, chest pain, or cough. She denies fevers or chills. Exam Vital Signs Vital Sign - Last Date Time Temp Pulse Resp B/P Pulse Ox O2 Delivery O2 Flow Rate FiO2 05/28/17 10:39 72 05/28/17 08:05 18 148/65 99 Room Air 05/28/17 04:18 37.0 05/25/17 12:33 2.00 Intake and Output 05/27/17 05/27/17 05/28/17 Cumulative From/Thru 15:00 23:00 07:00 05/22/17 12:38 - 05/28/17 05:45 Intake Total 90 ml 180 ml 6142 ml Output Total 2700 ml 5550 ml Balance -2610 ml 180 ml 592 ml Intake Oral 90 ml 180 ml 2430 ml IV Total 3712 ml Output Urine Total 0 ml Emesis 50 ml Ultrafiltrate 2700 ml 5500 ml # Voids 6 # Bowel Movements 1 4 Exam General: Alert, Oriented X3, Cooperative, No acute distress Head: Normocephalic, atraumatic. External ears normal. Eyes: PERRLA, EOMI. Anicteric sclerae. Mouth: Mouth normal, Mucous membranes moist/pink Neck: Neck supple with full range of motion. Chest& Lungs: Systolic murmur at left sternal border Cardiovascular: Mild crackles at RLL Abdomen: Diffuse tenderness, Non-distended, No masses, Normoactive bowel tones , Soft Musculoskeletal: Normal range of motion Extremities: No cyanosis/clubbing/edema bilaterally Neuro: Normal speech. Mild right facial droop. Lab and Diagnostics Result Diagram: 05/27/17 0700 05/27/17 0700 X-Rays, CTs and MRIs CT KUB IMPRESSION: 1. Mildly increased right pleural effusion and, with stable superimposed areas of right lower and middle lobe consolidation suggestive of pneumonia. 2. Mild abdominal pelvic ascites, minimally increased compared to prior exam. 3. Extensive vascular calcifications, including coronary calcification, greater than expected for patient's stated age. 4. Ill-defined hyperintensity within the gallbladder lumen likely group sales representative of stones and unchanged. No imaging evidence of wall thickening to suggest cholecystitis. Approved by: Petra Renteria M.D. on 05/22/2017 at 14:54 PROCEDURE: MR ABDOMEN MRCP INDICATIONS: Abdominal pain and elevated lipase IMPRESSION: 1. Gallstones and biliary sludge demonstrated in the gallbladder with gallbladder wall thickening which is nonspecific in the context of ascites. Recommend correlation clinically for possible acute cholecystitis. 2. Borderline dilatation of the common bile duct without filling defects to suggest choledocholithiasis. 3. No pancreatic duct dilatation. Evaluation for pancreatitis is limited due to the presence of ascites. Recommend correlation with laboratory values. No discrete pseudocyst identified. 4. Partially visualized moderate right pleural effusion and moderate ascites in the abdomen. Dictated by: Earl Graham M.D. on 05/26/2017 at 9:53 Approved by: Earl Graham M.D. on 05/26/2017 at 10:56 Assessment & Plan Patient is a 46 year old female with a history of Type II diabetes mellitus with ESRD (on dialysis on TT) and HTN admitted for abdominal pain, N/V/D. Pulmonology consulted for RLL infiltrates and right pleural effusion Right pleural effusion, chronic. - Pt presents with worsening right pleural effusion with right middle lobe atelectasis. This appears to be a chronic problem that has worsened recently. Per Dr. Burrows's notes, this is unlikely to be infectious due to lack of positive infectious markers, but there is still some suspicion for infection. Likely secondary to ESRD, as it tends to improve with dialysis. She completed a course of levofloxacin about 2-3 weeks ago. There is some suspicion for MAC, which would be at least partially treated by levofloxacin, so any cultures obtained via bronchoscopy or thoracentesis would likely be unhelpful. In any case, she does not have any major respiratory complaints at this time and was hospitalized for abdominal complaints, so her workup can be outpatient. - Follow up CT chest in 4-6 weeks, then follow up with Dr. Dwyer to discuss outpatient bronchoscopy in 4-6 weeks. VTE Mechanical Devices: Intermittant Pneumatic CD Resuscitation Status: CPR: Attempt Resuscitation Attending Statement I have seen and examined this patient with the resident physician. Vital signs , labs, imaging have been reviewed. I agree with the assessment and plan above. Please refer to my separately dictated progress note for any modifications to above. Kusum Dwyer M.D. Pulmonary and Critical Care medicine Pager [phone] Travon Jain May 28, 2017 13:59 Kusum Dwyer MD May 30, 2017 08:11
--- NOTE | 2017-05-28 15:22 | PCM.PNMED ---
Subjective Date of Service May 28, 2017 Subjective facial droop improving. No dyspnea. No nausea or vomiting. Epigastric pain improved. Exam Vital Signs Vital Sign - Last Date Time Temp Pulse Resp B/P Pulse Ox O2 Delivery O2 Flow Rate FiO2 05/28/17 11:15 36.6 74 16 131/60 92 Room Air 05/25/17 12:33 2.00 Intake and Output 05/27/17 05/27/17 05/28/17 Cumulative From/Thru 15:00 23:00 07:00 05/22/17 12:38 - 05/28/17 05:45 Intake Total 90 ml 180 ml 6142 ml Output Total 2700 ml 5550 ml Balance -2610 ml 180 ml 592 ml Intake Oral 90 ml 180 ml 2430 ml IV Total 3712 ml Output Urine Total 0 ml Emesis 50 ml Ultrafiltrate 2700 ml 5500 ml # Voids 6 # Bowel Movements 1 4 Exam Gen.: No acute distress HEENT: Normocephalic, atraumatic Heart: 2+ systolic murmur, regular rate Lungs: Right lower lobe crackles Extremities: Negative for edema Abdomen: Mild tenderness over epigastrium MSK: Sclerae skeletal pain in the left lateral thoracic area REGISTERED NURSE HH CASE MANAGER alert and oriented 3, right facial droop, no other motor sensory deficit noted.NIHSS 1 IVs and Medications Medications Reviewed: Medications were reviewed in detail Lab and Diagnostics Result Diagram: 05/27/17 0700 05/27/17 0700 X-Rays, CTs and MRIs CT KUB IMPRESSION: 1. Mildly increased right pleural effusion and, with stable superimposed areas of right lower and middle lobe consolidation suggestive of pneumonia. 2. Mild abdominal pelvic ascites, minimally increased compared to prior exam. 3. Extensive vascular calcifications, including coronary calcification, greater than expected for patient's stated age. 4. Ill-defined hyperintensity within the gallbladder lumen likely equal opportunity representative of stones and unchanged. No imaging evidence of wall thickening to suggest cholecystitis. Approved by: Petra Renteria M.D. on 05/22/2017 at 14:54 PROCEDURE: MR ABDOMEN MRCP INDICATIONS: Abdominal pain and elevated lipase IMPRESSION: 1. Gallstones and biliary sludge demonstrated in the gallbladder with gallbladder wall thickening which is nonspecific in the context of ascites. Recommend correlation clinically for possible acute cholecystitis. 2. Borderline dilatation of the common bile duct without filling defects to suggest choledocholithiasis. 3. No pancreatic duct dilatation. Evaluation for pancreatitis is limited due to the presence of ascites. Recommend correlation with laboratory values. No discrete pseudocyst identified. 4. Partially visualized moderate right pleural effusion and moderate ascites in the abdomen. Dictated by: Earl Graham M.D. on 05/26/2017 at 9:53 Approved by: Earl Graham M.D. on 05/26/2017 at 10:56 PROCEDURE: MRI BRAIN WITHOUT CONTRAST ([id number]) INDICATIONS: CVA IMPRESSION: 1. No intracranial disease process. 2. No areas of acute or chronic infarction. 3. No intracranial hemorrhage. Dictated by: Odalis Lynn MD, PhD on 05/27/2017 at 16:08 PROCEDURE: MRA ANGIOGRAM HEAD WITHOUT CONTRAST ([id number]) INDICATIONS: WEAKNESS TECHNIQUE: Noncontrast axial 3-D [id number] MR angiogram, with 3-dimensional maximum intensity projection (MIP) reformats of the internal carotid arteries and posterior circulation then performed. COMPARISON: None. FINDINGS: Image quality: Excellent. Anterior circulation: Intracranial internal carotid arteries demonstrate normal size and intraluminal flow signal. The flow within the paired anterior cerebral arteries is normal and symmetric. The flow within the middle cerebral arteries is normal and symmetric. The anterior communicating artery is seen. No stenoses, occlusions, or aneurysms. Posterior circulation: Visualized portions of the vertebral arteries demonstrate normal caliber, and join to form a normal appearing basilar artery. The flow within the posterior cerebral arteries is normal and symmetric. Posterior tibial arteries have origins which is a congenital anatomic variant. No stenoses, occlusions, or aneurysms. IMPRESSION: Negative examination. Dictated by: Odalis Lynn MD, PhD on 05/27/2017 at 16:19 Cardiac Echo Impressions 05/27 Interpretation Summary 1. Normal left ventricular size and wall thickness with an estimated EF of 50 -55%05/27 2. Mild to moderately dilated right ventricle with normals systolic function. The estimated right atrial pressure is elevated. The estimated RVSP is 51 mm Hg 3. Severe tricuspid regurgitation 4. Severe mitral regurgitation Compared to the previous study (images reviewed) the estimated right atrial pressure is higher Assessment & Plan 45 year old Vincentian-speaking female with ESRD on hemodialysis, diabetes mellitus type 2, Hypertension who presents to the Emergency Department with complaint of abdominal pain, vomiting and fever currently being treated for Hospital acquired pneumonia. 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 started prednisone 40 mg per day for 5 days .facial droop improving -Patient was noted to have right-sided facial droop 05/27. On further inquiry patient states she had some dysphasia 05/26 night with food drooping out of her right corner of mouth . -last known well >12 hrs. not a candidate for TPA due to out of window time, low NIHSS -ASA 325 daily started ,will discontinue -Swallow eval ok ,,echo unchanged ,MRA without contrast negative -MRI brain negative for acute stroke -Initially held antihypertensives pending stroke workup for permissive hypertension, resumed now given negative MRI. resumed lower dose of metoprolol.75 to 50 daily given borderline HR # right lower lobe infiltrates possibly due to recently treated pneumonia, present on admission -- Initially considered hcap, infectious diseases were consulted and he did not feel this is a pneumonia -- Pleural effusions have improved since dialysis, radiology did not see a need for thoracentesis 05/26 -- Headline Writer consulted -Patient initially received Levofloxacin, Zosyn and Vancomycin for HCAP but discontinued given no symptoms, low procal,no leukocytosis -Blood culture 2, respiratory PCR negative -- We appreciated their recommendations -Discussed with pulmonology Dr. Dwyer . Bronchoscopy will be low yield given recent antibiotic treatment. Follow-up with Dr Dwyer in 4-[address] to confirm resolution of infiltrate and rule out underlying mass. May need bronchoscopy or IR biopsy if infiltrate persists # Right pleural effusion, Present on admission. Active. Improving -- Requested a thoracentesis to tap her effusion, effusion has markedly improved with dialysis. Radiology felt she did not have enough after reviewing her ultrasound and chest x-ray. Effusion probably transudate given improvement with the dialysis. # Moderate nonerosive gastritis., Active Patient has associated nausea, vomiting, diarrhea. Likely secondary to gastroparesis vs. cholecystitis. Patient with increased pelvic ascites from previous visit. -Dr Salas has seen the patient, EGD was performed on 05/25 -- GI recs 05/26 Continue Protonix 40 mg twice a day, start reglan 5mg po qid 30 min before meals and qhs,, high protein low fat/cho gastroparesis diet # Elevated lipase, unknown etiology --MRCP reordered 05/26 "Gallstones and biliary sludge demonstrated in the gallbladder with gallbladder wall thickening which is nonspecific in the context of ascites. Recommend correlation clinically for possible acute cholecystitis. Borderline dilatation of the common bile duct without filling defects to suggest choledocholithiasis. No pancreatic duct dilatation. Evaluation for pancreatitis is limited due to the presence of ascites. Recommend correlation with laboratory values. No discrete pseudocyst identified. Partially visualized moderate right pleural effusion and moderate ascites in the abdomen. " # ESRD on dialysis, Present on Admission, Active dialysis schedule is - Dialysis Sun AM 05/25 #Chronic Normocytic Anemia, Present on Admission, Active - Monitor CBC #Diabetes Mellitus Type 2, Present on Admission, Active Last HgA1C 9.16 July 2016. Per patient she doesn't take any medications for diabetes after starting dialysis. - HgA1c from recent admit 7.1. - Holding home oral anti hyperglycemics. -Blood glucose elevated due to steroid, sliding scale in place #Hypertension, Present on Admission, poorly controlled - Continue home amlodipine -- Increase metoprolol. Due to fluid control #Hypothyroidism, presumed stable - Continue home Levothyroxine Acetaminophen for mild pain when necessary. Bowel regimen Senna and MiraLAX scheduled and PRN. Zofran when necessary for nausea and vomiting. SubQ heparin for now. SCDs in place. Social: Good social support. Full Code. Possible discharge tomorrow after dialysis VTE Mechanical Devices: Intermittant Pneumatic CD Resuscitation Status: CPR: Attempt Resuscitation Edgar Cruz MD May 28, 2017 15:22
--- NOTE | 2017-05-28 17:37 | PROG NOTE ---
[address] [address] PROGRESS NOTE PATIENT: YULY PEARCE : 1970 MR#: [id number] ADMIT: 05/22/2017 JOB ID: [id number] DATE: 05/28/2017 PULMONARY PROGRESS NOTE: This patient is a pleasant 46-year-old woman with end-stage renal disease on hemodialysis seen for right middle lobe consolidation and right pleural effusion. INTERVAL HISTORY: She was ruled out for stroke yesterday based on her evaluation. With her symptoms she says she has had mild cough today with no sputum. Denies any fevers, chills, chest pain. Continues to have nausea, vomiting. REVIEW OF SYSTEMS: Are as above. PHYSICAL EXAMINATION: Vital signs reviewed. T-max 36.6, pulse 74, respirations 16, BP 131/60, sats 99% on room air. General: Sitting in bed, speaking comfortably in no distress. Chest is clear to auscultation. LABORATORY DATA: Labs reviewed. Serologies negative for cryptococcal antigen, fungal antibodies, hepatitis antibody, Aspergillus galactomannan. Respiratory viral PCR is negative. ASSESSMENT AND RECOMMENDATIONS: 1. Right middle lobe consolidation. 2. Right pleural effusion. 3. End-stage renal disease on hemodialysis. The patient is a 46-year-old woman who was admitted to the hospital for nausea, vomiting and essentially unrelated symptoms, found to have right middle lobe consolidation and a chronic right pleural effusion for which I was asked to see her. It appears that the right middle lobe consolidation was first seen on imaging a few weeks ago in late April after which she was treated with a long course of levofloxacin. It is certainly possible that this was a bacterial pneumonia back then, although at present she has no symptoms to suggest that. Since she just had a long course of levofloxacin it may be best to wait, reassess this with imaging in a few weeks time and if it is not improving then consider bronchoscopy. I would like to see her back in about 4-6 weeks in [facility] with a CT scan prior to the visit to enable this. Certainly differential at that point if things persist would include atypical mycobacterial infection, fungal infection, and also much less likely malignancy. Discussed with the hospitalist on the team and with the patient who understands.
--- NOTE | 2017-05-28 18:40 | NUR ---
Facial droop/pain Facial droop imroving on right side. Prednisone given per order. Pt c/o pain left rib/chest region percocet given per order with moderate effective relief.
--- NOTE | 2017-05-28 22:14 | ABG ---
DateTimeAnalyzed 22:03:00 -_ pH ____7.541 - 7.350 7.450 pCO2 ___29.9__ -mmHg 35.0 45.0 pO2 105 -mmHg 69.0 116 HCO3- ___25.5__ -mmol/L 22.0 26.0 ABE ____3.4__ -mmol/L -2.0 2.0 tHb ____9.7__ -g/dL 12.0 18.0 O2Hb ___95.9__ -% COHb ____2.3__ -% 0.0 1.5 MetHb ____0.8__ -% 0.4 1.5 sO2 ___99.0__ -% FIO2 ___28.0__ -% Drawn By MM - Date/Time Notified____ 22:13:00 -_ Spontaneous_RR ___20.0__ -b/min Liter_Flow ____2.0__ -L/min Oxygen Device 1 __OXYMASK - Notified By MM - Notified Whom DR KUBISTY - B 760 -mmHg tO2 ___13.2__ -Vol% Alan test N/A -
[2017-05-28] MEDS ORDERED: Acetaminophen IV 1,000 MG in IV Premix 1 EACH IV ONE (22:30)
[2017-05-28] MEDS ORDERED: 0.9% Sodium Chloride 250 ML ONE (22:32)
[2017-05-28 22:35] LABS: Mean Corpuscular Hemoglobin 30.5 pg (27.0-35.0); Mean Corpuscular Volume 92.7 fL (81-100); NEUTROPHILS % (AUTO) 91.2 % (40-74); Platelet Count 164 bil/L (150-400)
[2017-05-28 22:36] LABS: BASOPHILS % (AUTO) 0.1 % (0-3); EOSINOPHILS % (AUTO) 0 % (0-5); MONOCYTES % (AUTO) 2.3 % (4-12)
[2017-05-28 22:44] LABS: INR 0.87 ratio
[2017-05-28 23:22] LABS: TROPONIN T 0.049 ug/L (0.0-0.011)
[2017-05-28] MEDS ORDERED: Insulin Human REGular Inj 100 UNIT in 0.9% Sodium Chloride-Pha MIX 100 ML IV SCH (23:33)
[2017-05-28] MEDS ORDERED: Dextrose 5% 0.45% NaCl 1,000 ML IV PRN (23:33)
--- NOTE | 2017-05-28 23:54 | PCM.PNMED ---
Subjective Date of Service May 28, 2017 Subjective Rapid response was called for patient more lethargic difficult to arouse. Last opiate administration which essentially was Percocet 5 mg/325 was at 11 AM. Nurse notes no recent visitors for the patient. Patient was given Narcan 0.4 mg IV and did awaken but was not back to normal baseline she appeared somewhat confused. Patient did have an MRI of brain which revealed no acute findings for left facial droop yesterday. After review of her records she did have an episode earlier on in her hospital stay where she needed Narcan as she was quite lethargic and did respond to it. At that time it Was thought that she was not clearing narcotics appropriately and hence was lethargic. Exam Vital Signs Vital Sign - Last Date Time Temp Pulse Resp B/P Pulse Ox O2 Delivery O2 Flow Rate FiO2 05/28/17 17:30 Supplement Oxygen 05/28/17 17:30 37.1 68 18 133/64 99 05/25/17 12:33 2.00 Intake and Output 05/27/17 05/27/17 05/28/17 Cumulative From/Thru 15:00 23:00 07:00 05/22/17 12:38 - 05/28/17 05:45 Intake Total 90 ml 180 ml 6142 ml Output Total 2700 ml 5550 ml Balance -2610 ml 180 ml 592 ml Intake Oral 90 ml 180 ml 2430 ml IV Total 3712 ml Output Urine Total 0 ml Emesis 50 ml Ultrafiltrate 2700 ml 5500 ml # Voids 6 # Bowel Movements 1 4 Exam Constitutional: drowsy middle-aged female who is difficult to arouse and will arouse briefly and then go back to sleep did respond to Narcan but seems somewhat more anxious and confused Head: Normocephalic atraumatic Chest: Clear to auscultation Cor: Regular rate and rhythm S1-S2 Abdomen: Soft nontender bowel sounds present Extremities: No pedal edema Neuro: Lethargic difficult to assess orientation, does move all extremities equally Skin no rashes IVs and Medications Medications Reviewed: Medications were reviewed in detail Lab and Diagnostics Laboratory Tests 72 Hours Test 05/26/17 06:20 05/27/17 07:00 05/27/17 12:48 05/28/17 22:30 Sodium Level 138mEq/L (134-144) 135mEq/L (134-144) 130mEq/L (134-144) Potassium Level 3.9mEq/L (3.5-5.2) 4.5mEq/L (3.5-5.2) 5.3mEq/L (3.5-5.2) Chloride Level 97mEq/L (97-108) 94mEq/L (97-108) 89mEq/L (97-108) Carbon Dioxide Level 27mmol/L (18-29) 25mmol/L (18-29) 22mmol/L (18-29) Blood Urea Nitrogen 12mg/dL (6-24) 20mg/dL (6-24) 34mg/dL (6-24) Creatinine 3.09mg/dL (0.57-1.00) 4.28mg/dL (0.57-1.00) 4.75mg/dL (0.57-1.00) Estimat Glomerular Filtration Rate 23mL/min (>59) 16mL/min (>59) 14mL/min (>59) Glucose Level 135mg/dL (60-99) 118mg/dL (60-99) 513mg/dL (60-99) Calcium Level 8.8mg/dL (8.5-10.1) 9.6mg/dL (8.5-10.1) 10.5mg/dL (8.5-10.1) Total Bilirubin 0.5mg/dL (0.0-1.2) 0.7mg/dL (0.0-1.2) 0.6mg/dL (0.0-1.2) Aspartate Amino Transf (AST/SGOT) 19U/L (0-50) 17U/L (0-50) 19U/L (0-50) Alanine Aminotransferase (ALT/SGPT) 13U/L (0-32) 12U/L (0-32) 13U/L (0-32) Alkaline Phosphatase 153U/L (25-150) 139U/L (25-150) 188U/L (25-150) Total Protein 6.2g/dL (6.4-8.4) 6.3g/dL (6.4-8.4) 8.0g/dL (6.4-8.4) Albumin 3.5g/dL (3.4-5.0) 3.7g/dL (3.4-5.0) 4.1g/dL (3.4-5.0) Lipase 94U/L (13-60) 73U/L (13-60) 43U/L (13-60) Hepatitis B Surface Antibody Reactive (.) Hepatitis C Antibody <0.1s/co ratio (0.0-0.9) White Blood Count 5.6th/mm3 (3.8-10.1) 8.2th/mm3 (3.8-10.1) Thyroid Stimulating Hormone (TSH) 5.780uIU/mL (0.450-4.500) Free Thyroxine 1.61ng/dL (0.82-1.77) Red Blood Count 3.44mil/mm3 (3.90-5.20) Hemoglobin 10.5g/dL (12.0-15.6) Hematocrit 31.9% (35.0-46.0) Mean Corpuscular Volume 92.7fL (81-100) Mean Corpuscular Hemoglobin 30.5pg (27.0-35.0) Mean Corpuscular Hemoglobin Concent 32.9% (32.0-37.0) Red Cell Distribution Width 16.2% (12.3-15.4) Platelet Count 164bil/L (150-400) Neutrophils (%) (Auto) 91.2% (40-74) Lymphocytes (%) (Auto) 6.3% (14-46) Monocytes (%) (Auto) 2.3% (4-12) Eosinophils (%) (Auto) 0% (0-5) Basophils (%) (Auto) 0.1% (0-3) Prothrombin Time 9.3sec (8.1-12.5) Prothromb Time International Ratio 0.87ratio Lactic Acid Level 2.4mmol/L (0.4-2.0) Troponin T 0.049ug/L (0.0-0.011) Procalcitonin 0.37ng/mL (0.00-0.08) Test 05/28/17 22:48 Ammonia 81ug/dL (18-53) Result Diagram: 05/28/17222905/28/172229 X-Rays, CTs and MRIs CT KUB IMPRESSION: 1. Mildly increased right pleural effusion and, with stable superimposed areas of right lower and middle lobe consolidation suggestive of pneumonia. 2. Mild abdominal pelvic ascites, minimally increased compared to prior exam. 3. Extensive vascular calcifications, including coronary calcification, greater than expected for patient's stated age. 4. Ill-defined hyperintensity within the gallbladder lumen likely outbound call center representative of stones and unchanged. No imaging evidence of wall thickening to suggest cholecystitis. Approved by: Petra Renteria M.D. on 05/22/2017 at 14:54 PROCEDURE: MR ABDOMEN MRCP INDICATIONS: Abdominal pain and elevated lipase IMPRESSION: 1. Gallstones and biliary sludge demonstrated in the gallbladder with gallbladder wall thickening which is nonspecific in the context of ascites. Recommend correlation clinically for possible acute cholecystitis. 2. Borderline dilatation of the common bile duct without filling defects to suggest choledocholithiasis. 3. No pancreatic duct dilatation. Evaluation for pancreatitis is limited due to the presence of ascites. Recommend correlation with laboratory values. No discrete pseudocyst identified. 4. Partially visualized moderate right pleural effusion and moderate ascites in the abdomen. Dictated by: Earl Graham M.D. on 05/26/2017 at 9:53 Approved by: Earl Graham M.D. on 05/26/2017 at 10:56 PROCEDURE: MRI BRAIN WITHOUT CONTRAST ([id number]) INDICATIONS: CVA IMPRESSION: 1. No intracranial disease process. 2. No areas of acute or chronic infarction. 3. No intracranial hemorrhage. Dictated by: Odalis Lynn MD, PhD on 05/27/2017 at 16:08 PROCEDURE: MRA ANGIOGRAM HEAD WITHOUT CONTRAST ([id number]) INDICATIONS: WEAKNESS TECHNIQUE: Noncontrast axial 3-D [id number] MR angiogram, with 3-dimensional maximum intensity projection (MIP) reformats of the internal carotid arteries and posterior circulation then performed. COMPARISON: None. FINDINGS: Image quality: Excellent. Anterior circulation: Intracranial internal carotid arteries demonstrate normal size and intraluminal flow signal. The flow within the paired anterior cerebral arteries is normal and symmetric. The flow within the middle cerebral arteries is normal and symmetric. The anterior communicating artery is seen. No stenoses, occlusions, or aneurysms. Posterior circulation: Visualized portions of the vertebral arteries demonstrate normal caliber, and join to form a normal appearing basilar artery. The flow within the posterior cerebral arteries is normal and symmetric. Posterior tibial arteries have origins which is a congenital anatomic variant. No stenoses, occlusions, or aneurysms. IMPRESSION: Negative examination. Dictated by: Odalis Lynn MD, PhD on 05/27/2017 at 16:19 Cardiac Echo Impressions 05/27 Interpretation Summary 1. Normal left ventricular size and wall thickness with an estimated EF of 50 -55%05/27 2. Mild to moderately dilated right ventricle with normals systolic function. The estimated right atrial pressure is elevated. The estimated RVSP is 51 mm Hg 3. Severe tricuspid regurgitation 4. Severe mitral regurgitation Compared to the previous study (images reviewed) the estimated right atrial pressure is higher Additional Diagnostics YULY PEARCE 1970 Female DateTimeAnalyzed 22:03:00 -_ pH ____7.541 - 7.350 7.450 pCO2 ___29.9__ -mmHg 35.0 45.0 pO2 105 -mmHg 69.0 116 HCO3- ___25.5__ -mmol/L 22.0 26.0 ABE ____3.4__ -mmol/L -2.0 2.0 tHb ____9.7__ -g/dL 12.0 18.0 O2Hb ___95.9__ -% COHb ____2.3__ -% 0.0 1.5 MetHb ____0.8__ -% 0.4 1.5 sO2 ___99.0__ -% FIO2 ___28.0__ -% Drawn By MM - Date/Time Notified____ 22:13:00 -_ Spontaneous_RR ___20.0__ -b/min Liter_Flow ____2.0__ -L/min Oxygen Device 1 __OXYMASK - Notified By MM - Notified Whom DR KUBISTY - B 760 -mmHg tO2 ___13.2__ -Vol% Alan test N/A - Please note that this was obtained after Narcan administration Assessment & Plan 45 year old Kyrgyz-speaking female with ESRD on hemodialysis, diabetes mellitus type 2, Hypertension who presents to the Emergency Department with complaint of abdominal pain, vomiting and fever currently being treated for Hospital acquired pneumonia. 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 started prednisone 40 mg per day for 5 days .facial droop improving -Patient was noted to have right-sided facial droop 05/27. On further inquiry patient states she had some dysphasia 05/26 night with food drooping out of her right corner of mouth . -last known well >12 hrs. not a candidate for TPA due to out of window time, low NIHSS -ASA 325 daily started ,will discontinue -Swallow eval ok ,,echo unchanged ,MRA without contrast negative -MRI brain negative for acute stroke -Initially held antihypertensives pending stroke workup for permissive hypertension, resumed now given negative MRI. resumed lower dose of metoprolol.75 to 50 daily given borderline HR # right lower lobe infiltrates possibly due to recently treated pneumonia, present on admission -- Initially considered hcap, infectious diseases were consulted and he did not feel this is a pneumonia -- Pleural effusions have improved since dialysis, radiology did not see a need for thoracentesis 05/26 -- Sisal Operator consulted -Patient initially received Levofloxacin, Zosyn and Vancomycin for HCAP but discontinued given no symptoms, low procal,no leukocytosis -Blood culture 2, respiratory PCR negative -- We appreciated their recommendations -Discussed with pulmonology Dr. Dwyer . Bronchoscopy will be low yield given recent antibiotic treatment. Follow-up with Dr Dwyer in 4-[address] to confirm resolution of infiltrate and rule out underlying mass. May need bronchoscopy or IR biopsy if infiltrate persists # Right pleural effusion, Present on admission. Active. Improving -- Requested a thoracentesis to tap her effusion, effusion has markedly improved with dialysis. Radiology felt she did not have enough after reviewing her ultrasound and chest x-ray. Effusion probably transudate given improvement with the dialysis. # Moderate nonerosive gastritis., Active Patient has associated nausea, vomiting, diarrhea. Likely secondary to gastroparesis vs. cholecystitis. Patient with increased pelvic ascites from previous visit. -Dr Salas has seen the patient, EGD was performed on 05/25 -- GI recs 05/26 Continue Protonix 40 mg twice a day, start reglan 5mg po qid 30 min before meals and qhs,, high protein low fat/cho gastroparesis diet # Elevated lipase, unknown etiology --MRCP reordered 05/26 "Gallstones and biliary sludge demonstrated in the gallbladder with gallbladder wall thickening which is nonspecific in the context of ascites. Recommend correlation clinically for possible acute cholecystitis. Borderline dilatation of the common bile duct without filling defects to suggest choledocholithiasis. No pancreatic duct dilatation. Evaluation for pancreatitis is limited due to the presence of ascites. Recommend correlation with laboratory values. No discrete pseudocyst identified. Partially visualized moderate right pleural effusion and moderate ascites in the abdomen. " # ESRD on dialysis, Present on Admission, Active dialysis schedule is - Dialysis Sun AM 05/25 #Chronic Normocytic Anemia, Present on Admission, Active - Monitor CBC #Diabetes Mellitus Type 2, Present on Admission, Active Last HgA1C 9.16 July 2016. Per patient she doesn't take any medications for diabetes after starting dialysis. - HgA1c from recent admit 7.1. - Holding home oral anti hyperglycemics. -Blood glucose elevated due to steroid, sliding scale in place #Hypertension, Present on Admission, poorly controlled - Continue home amlodipine -- Increase metoprolol. Due to fluid control #Hypothyroidism, presumed stable - Continue home Levothyroxine Acetaminophen for mild pain when necessary. Bowel regimen Senna and MiraLAX scheduled and PRN. Zofran when necessary for nausea and vomiting. SubQ heparin for now. SCDs in place. Social: Good social support. Full Code. Possible discharge tomorrow after dialysis Addendum: # Acute encephalopathy, not present on admission -Check CT scan of head without contrast stat -ABG reveals respiratory alkalosis will get CTA of chest stat PE protocol -Borderline elevated ammonia level but does not have elevated LFTs -Does have elevated lactic acid level and elevated blood sugar at 513 but bicarbonate is normal, check serum ketones -Start non-DKA protocol insulin IV -We will DC all her opiates -Check 12-lead EKG Critical care time spent 30 minutes VTE Mechanical Devices: Intermittant Pneumatic CD Resuscitation Status: CPR: Attempt Resuscitation Time spent Critical care time spent 30 minutes Jacquie Carson MD May 28, 2017 23:54
[2017-05-29] VITALS (8 sets, daily range): BP systolic 101–154; BP diastolic 58–66; PULSE 55–71; RESP 14–18; O2SAT 98–100
[2017-05-29] MEDS: Heparin 5,000 Unit/mL Inj SUBQ SCH ×3 (00:44→18:31)
--- NOTE | 2017-05-29 01:51 | NUR ---
AMS/HYPERGLYCEMIA/HYPOXIA At 2134, pt found sleeping in bed. Tried to arouse for medications and assessment, pt had difficulty waking up, did not speak much. Used online parts interpreter to tell pt about the plan for the night, pt continued to be obtunded. Upon vital sign check at 2142, 02 on RA dropped down to as low as 40%, BP 96/60, HR dropped as low at 39, RR 8-10, temp 36.5. Pt responding only to repeated stimulus with fluttering of eyes or mumbled response. Put pt on 6L O2 oxymask, blood glucose 470. Called storage battery charger to help, storage battery charger called rapid response at 2144. Respiratory therapy responded--on 6L oxymask, pt at 99%. BP increased to 110s/60s. Rapid response called off before other responders in room. Pt given insulin see EMAR. No improvement in LOC. Dr. Carson called in to assess pt, who ordered Narcan. No improvement in LOC. Dr. Carson ordered to call rapid response again for probably transfer. With rapid response team coming in, pt started to increase LOC, but still somnolent responding with one word answers to parts interpreter. Pt at that time complained of being very cold and having a headache, pt received IV tylenol, given heat packs and warm blankets. Orders per Dr. Carson completed. 2nd IV line started for chest CTA. Pt off floor for CT at 2315 with this RN and UA. Return to floor at 2240. Transfer to [facility] at 2345, handoff to ADITHYA Dunham. Addendum: 05/29/17 at 0239 by MELANIA ANTONY RN Correction. Return to floor at 2340.
--- NOTE | 2017-05-29 06:18 | NUR ---
Pt rec'd from [facility] at 2345. VSS. Lethargic, oriented x3. Severe generalized weakness, strength equal bilat. Maintains 100% on 2L oxymask. Insulin drip at 10.5u/hr, BG 238 at 0600. Verbal order rec'd for repeat troponin at 1115. K 5.5 this AM, pt due to dialyze today. Lactic remains elevated at 2.3. Ammonia 81, reported to provider, no new orders at this time.
--- NOTE | 2017-05-29 07:41 | PCM.PNSURG ---
Subjective Date of Service: May 29, 2017 Date of Service: May 29, 2017 Subjective: Events noted last night. Pt report mild epigastric pain this am. Postop General: No Complaints Objective Vital Sign- Last 8 Hours Date Time Temp Pulse Resp B/P Pulse Ox O2 Delivery O2 Flow Rate FiO2 05/29/17 05:35 65 05/29/17 03:41 36.8 56 16 101/60 100 OxyMask 2.00 05/29/17 00:25 37.0 56 16 118/58 100 OxyMask 2.00 Intake and Output- Last 8 Hour 05/29/17 Cumulative From/Thru 07:00 05/22/17 12:38 - 05/29/17 06:59 Intake Total 150 ml 6812 ml Output Total 0 ml 5550 ml Balance 150 ml 1262 ml Intake Oral 150 ml 3100 ml IV Total 3712 ml Output Urine Total 0 ml 0 ml Emesis 50 ml Ultrafiltrate 5500 ml # Voids 6 # Bowel Movements 4 General: Alert Neck: Supple Lungs: Crackles Heart: Exam Unremarkable Abdomen: Benign, Soft, Appropriately tender, Non-distended, Normoactive bowel tones Extremities: Distal Pulses Palpable Result Diagram: 05/28/17222905/28/172229 Assessment & Plan Impression A 46-year-old Guinean-speaking only female history of type 2 diabetes, end- stage renal disease on hemodialysis, hypertension, history of diabetic foot ulcer, hypothyroidism, left fistula placement who presents for consultation for epigastric area and right upper quadrant pain. At this point in time, the patient does not quite meet the criteria for pancreatitis given the fact that her lipase was not elevated three times upper limit of normal. I agree with an MRCP at this point in time to evaluate the pancreas and the biliary tree, even though her transaminases are normal. Her prior ultrasound CT scan showed gallstones and thickened gallbladder wall. This may be suggestive as to why the patient may also have contributed to have abdominal pain along with possible gastroparesis given food seen in egd on 05/25/17. Therefore, her epigastric pain most likely multifactorial in etiology. s/p egd 05/25/2017- IMPRESSION: 1. Moderate nonerosive gastritis. 2. Small amount of food that was seen in the stomach. mrcp 05/26/2017- Pancreas and biliary system: The gallbladder is distended with multiple filling defects in the region of the gallbladder neck consistent with gallstones as well as layering biliary sludge. There is mild gallbladder wall thickening which is nonspecific, measuring up to 6 mm. And the common bile duct is at the upper limits of normal in caliber, measuring up to 7 mm. No discrete filling defects identified to suggest choledocholithiasis. No intrahepatic biliary ductal dilatation. The pancreatic duct is nondistended. The pancreas demonstrates normal morphology . There is generalized ascites within the abdomen limiting evaluation for pancreatitis. No discrete peripancreatic fluid collections to suggest pseudocyst. Other solid organs: There is mild periportal edema within the liver without focal lesions. The spleen is normal in size. No adrenal nodules. Kidneys demonstrate no hydronephrosis. There our small right renal cysts. Nodes and vessels: No retroperitoneal or mesenteric adenopathy by size criteria. Aorta and inferior vena cava are normal in size. Bowel and peritoneum: There is moderate ascites within the abdomen. Visualized loops of bowel appear normal in caliber. Lung bases: There is a partially visualized moderate to right pleural effusion and right lower lobe consolidation. Heart size is enlarged. Bones and soft tissues: No ventral hernias. Bone marrow is of normal overall signal. IMPRESSION: 1. Gallstones and biliary sludge demonstrated in the gallbladder with gallbladder wall thickening which is nonspecific in the context of ascites. Recommend correlation clinically for possible acute cholecystitis. 2. Borderline dilatation of the common bile duct without filling defects to suggest choledocholithiasis. 3. No pancreatic duct dilatation. Evaluation for pancreatitis is limited due to the presence of ascites. Recommend correlation with laboratory values. No discrete pseudocyst identified. 4. Partially visualized moderate right pleural effusion and moderate ascites in the abdomen. RECOMMENDATIONS: 1. Continue Protonix 40 mg twice a day. 2. cont reglan 5mg po qid 30 min before meals and qhs 3. high protein low fat/cho gastroparesis diet Will continue to follow. Problems: Resuscitation Status: CPR: Attempt Resuscitation Anthony Salas MD May 29, 2017 07:41
[2017-05-29 08:29] LABS: BASOPHILS % (AUTO) 0 % (0-3); EOSINOPHILS % (AUTO) 0 % (0-5); MONOCYTES % (AUTO) 7.7 % (4-12); Mean Corpuscular Hemoglobin 30.9 pg (27.0-35.0); Mean Corpuscular Volume 93.4 fL (81-100); NEUTROPHILS % (AUTO) 85.2 % (40-74); Platelet Count 141 bil/L (150-400)
[2017-05-29] MEDS: MeTOProlol XL 50 mg ER24 Tablet PO SCH (08:30)
--- NOTE | 2017-05-29 08:44 | DRSVH ---
PROCEDURE: X-RAY CHEST ONE VIEW, PORTABLE ([id number]) INDICATIONS: RAPID RESPONSE DIFFICULTY BREATHING TECHNIQUE: One view of the chest was acquired. COMPARISON: [facility], CR, XR CHEST 1VW, 05/26/2017, 11:44. [facility], CR, XR CHEST 1VW (PORTABLE), 05/23/2017, 8:24. [facility], CR, XR CHEST 1VW (PORTABLE), 05/12, 5:27. [facility], CR, XR CHEST 1VW (PORTABLE), 05/07/2017, 18:31. FINDINGS: Surgical changes and devices: None. Lungs and pleura: No pneumothorax. Small right pleural effusion. Moderate patchy right basilar airsp yarelis opacity. Mediastinum: Mediastinal contours appear normal. Heart size is enlarged. Bones and chest wall: No suspicious bony lesions. Overlying soft tissues appear unremarkable. IMPRESSION: Right basilar pneumonia with small parapneumonic effusion. Continued plain film surveill ance is recommended to ensure resolution, and to exclude underlying or central malignancy. Dictated by: Reza Hernandez M.D. on 05/29/2017 at 8:08 Approved by: Reza Hernandez M.D. on 05/29/2017 at 8:42
--- NOTE | 2017-05-29 08:45 | DRSVH ---
PROCEDURE: CT BRAIN WITHOUT CONTRAST ([id number]) INDICATIONS: ALTERED MENTAL STATUS. RAPID RESPONSE TEAM CALLED TECHNIQUE: Noncontrast 4.5 mm thick angled axial sections acquired from the foramen magnum to the vertex, with c oronal reformats. COMPARISON: [facility], CT, CT BRAIN WO CON, 09/24/2015, 22:05. FINDINGS: Image quality: Excellent. CSF spaces: Basal cisterns are patent. No extra-axial fluid collections. Ventricles are normal in size and shape. Brain: No midline shift. No intracranial masses or hemorrhage. Yo-white matter interface is norm al. Skull and face: Calvarium and visualized facial bones are intact, without suspicious lesions. Sinuses: Visualized sinuses and mastoids are clear. IMPRESSION: 1. No acute intracranial process. Dictated by: Petra Renteria M.D. on 05/29/2017 at 8:41 Approved by: Petra Renteria M.D. on 05/29/2017 at 8:44
--- NOTE | 2017-05-29 09:02 | DRSVH ---
PROCEDURE: CT ANGIO CHEST PULMONARY EMBOLISM ([id number]) INDICATIONS: respiratory distress TECHNIQUE: After the administration of intravenous contrast, 2 mm thick sections acquired from the pulmonary api mckay to the posterior costophrenic angles. 3-dimensional maximum intensity projection (MIP) coronal a nd sagittal reformats were then acquired through the thorax. For radiation dose reduction, the follo wing was used: automated exposure control, adjustment of mA and/or kV according to patient size. COMPARISON: None. FINDINGS: Image quality: Excellent. Pulmonary arteries: The main pulmonary artery is enlarged suggestive of pulmonary arterial hypertensi on. The pulmonary arteries demonstrate no intraluminal filling defects to suggest central pulmonary e mbolism. Lungs and pleura: There is a mild right pleural effusion with superimposed consolidation. Mediastinum: Heart size is mildly enlarged, without pericardial effusion. No mediastinal or hilar a denopathy. Thoracic aorta is normal in caliber and enhancement. Esophagus is normal in caliber, wit hout hiatal hernia. Bones and chest wall: No suspicious bony lesions. Ribs and thoracic spine appear intact throughout. Thyroid gland is unremarkable. No axillary or supraclavicular adenopathy. Abdomen: As noted there is prominent vascular reflux within the hepatic vascular which can be seen w ith venous hypertension/diminish cardiac output. Visualized upper abdominal solid organs appear serg l in the early arterial phase of enhancement. IMPRESSION: 1. No visualized pulmonary embolism. 2. Mild right pleural effusion with superimposed consolidation. The latter can be unit support representative of a telectasis versus developing airspace disease such as pneumonia. 3. Prominence of the main pulmonary artery suggestive of pulmonary artery hypertension. 3. Cardiomegaly with increased pulmonary venous prominence as well as prominence within the hepatic v asculature. Recommend correlation to potential decreased cardiac output/pulmonary venous hypertension . Dictated by: Petra Renteria M.D. on 05/29/2017 at 8:44 Approved by: Petra Renteria M.D. on 05/29/2017 at 9:01
--- NOTE | 2017-05-29 10:58 | NUR ---
Transfer to Dialysis Patient left unit via READING INTERVENTION TEACHER in a stable condition. Report called to [facility] RN, Insulin gtt still infusing at 0.8mls per hour. Addendum: 05/29/17 at 1059 by KRISTOFER TARIQ RN all AM meds withheld until back from dialysis. Withheld BP meds per share dairy farmer request.
--- NOTE | 2017-05-29 11:08 | DRSVH ---
PROCEDURE: CT ABDOMEN AND PELVIS WITH CONTRAST ([id number]) INDICATIONS: 05/15/16 possible peritoneal carcinomatosis TECHNIQUE: After the administration of intravenous contrast, 5 mm thick sections acquired from the diaphragm to the symphysis. 5 mm coronal and sagittal reformats were acquired. For radiation dose reduction, the following was used: automated exposure control, adjustment of mA and/or kV according to patient siz e. COMPARISON: [facility], CT, CT ABD PELVIS WO CON, 05/07/2017, 16:39. [facility], CT, CT CHEST WO CON, 05/23/2017, 18:31. [facility], CT, CT ABD PELVIS W CON, 05/15/20 16, 16:36. FINDINGS: Image quality: Excellent. ABDOMEN: Lung bases: There is a partially visualized moderate low density right pleural effusion. Consolidatio n or lung mass is present within the right middle lobe unchanged in the study dated 05/23/17. Atelecta sis is present at the left lung base. The heart is enlarged. No pericardial effusion. Solid organs: Liver and spleen are normal in size and enhancement. There is a small amount of perihe patic and perisplenic free fluid. Subcentimeter gallstones and sludge is present within the gallbladd er. No discrete gallbladder wall thickening. Biliary system is non dilated. Pancreas enhances normal ly. No adrenal nodules. The kidneys are atrophic. Peritoneum and bowel: A large amount of food material is present within the gastric fundus. The duod enum and jejunum are decompressed. No discrete antral lesions visualized. Bowel loops demonstrate nor mal wall thickness and caliber. There is a moderate amount of low-density free pelvic fluid. This carolina ears unchanged when compared with the study dated 05/07/17. Nodes and vessels: No retroperitoneal or mesenteric adenopathy by size criteria. Aorta and inferior vena cava are normal in size. There are scattered atheromatous calcifications throughout the aorta and iliac arteries bilaterally. Miscellaneous: No ventral hernias. PELVIS: Genitourinary: Bladder wall thickness is normal. There are multiple myometrial calcifications throu ghout uterus. Miscellaneous: No inguinal hernias or adenopathy. There is diffuse anasarca throughout the soft tis sues. Bones: No suspicious bony lesions. No vertebral body compression fractures. IMPRESSION: 1. Moderate right low-density pleural effusion, moderate amount of intra-abdominal ascites, and anasa rca all of which may be related to fluid overload in the setting of renal failure. 2. Cardiomegaly. 3. Large amount of food material in the stomach with a decompressed duodenum. This finding may be ass ociated with gastroparesis or gastric outlet obstruction. Of note, there is no discrete extrinsic or intraluminal mass lesion visualized. Direct visualization or upper GI may be helpful to further sumanth cterize findings. 4. Cholelithiasis. #5. No discrete findings to suggest peritoneal carcinomatosis. Dictated by: Mary Kay Lo M.D. on 05/29/2017 at 10:52 Approved by: Mary Kay Lo M.D. on 05/29/2017 at 11:07
--- NOTE | 2017-05-29 12:05 | NUR ---
NUTRITION FOLLOW UP: ASSESS: 46YO F admit with abdominal pain, R pleural effusion, ruled out CVA, possible bells palsy with facial droop; R middle lobe consolidation; pt to follow up re possible mycobacterial infection v fungal infection v malignancy. Pt re-started on diabetic diet after NPO x 2d relate to n/v & workup/tests. PMHX: Diabetic, ESRD on dialysis,HTN DIET: Diabetic Renal Soft (per ST). PO 75-100% LABS: Reviewed. Alb 3.9, Alk Phos 160, Lactic Acid 2.3,BUN 40, Ammonia 81, Glu 182 MEDS: Reviewed GI: 1 BM 05/27 WEIGHT:53.8kg BMI: 24.8; Admit wt:55.01kg EST.NEEDS: DIALYSIS (30-35kcal/kg;1.2-2.0g/kg pro) Kcal: 4263-3069 Pro: 65-110g NUTRITION DIAGNOSIS: (1) Increased kcal/protein needs related to increased demand for nutrients as evidenced by ESRD on dialysis---PERSISTS. (2) Inadequate oral intake likely related to n/v/abdominal pain as evidenced by po intake 0-100%---IMPROVING. PO was 75-100% prior to being made NPO. INTERVENTION: (1) Diet modified to Small portions/low fat with potential gastroparesis. (2) Supplement to increase kcal/protein intake with pt. increased needs (Nepro at lunch added). MONITOR/EVALUATE: PO intake, lab values. F/U per moderate risk.
--- NOTE | 2017-05-29 14:46 | PCM.PNNEPH ---
Subjective Date of Service May 29, 2017 Subjective Patient was transferred to [facility] after she had developed decreased LOC, hyperglycemia and hypoxemia. No relieve after narcan given. Insulin gtt started. CTA showed no PE, CT abd revealed large amount of food material in the stomach with a decompressed duodenum suggesting gastroparesis or gastric outlet obstruction. Exam Vital Signs Vital Sign - Last Date Time Temp Pulse Resp B/P Pulse Ox O2 Delivery O2 Flow Rate FiO2 05/29/17 10:05 55 05/29/17 09:11 Supplement Oxygen 05/29/17 09:01 36.7 14 126/65 99 2.00 Intake and Output 05/28/17 05/28/17 05/29/17 Cumulative From/Thru 15:00 23:00 07:00 05/22/17 12:38 - 05/29/17 06:59 Intake Total 520 ml 150 ml 6812 ml Output Total 0 ml 0 ml 5550 ml Balance 520 ml 150 ml 1262 ml Intake Oral 520 ml 150 ml 3100 ml IV Total 3712 ml Output Urine Total 0 ml 0 ml 0 ml Emesis 50 ml Ultrafiltrate 5500 ml # Voids 6 # Bowel Movements 0 4 Exam GENERAL: The patient in no apparent distress, and alert and oriented x3. HEENT: Head is normocephalic and atraumatic.Mouth is well hydrated and without lesions. Right facial droop. NECK: Supple, no elevation of JVD, No carotid bruits. No lymphadenopathy or thyromegaly. LUNGS: Clear to auscultation, equal breath sounds bilaterally, no wheezing, no rhonchi no rales. HEART: Normal S1/S2, Regular rate and rhythm, soft systolic murmurs, no rubs or gallops. ABDOMEN: Soft, NT, ND, Positive bowel sounds. No hepatosplenomegaly was noted. EXTREMITIES: Without any cyanosis, clubbing, rash, lesions or edema. Left AV fistula with good thrill and bruit Lab and Diagnostics Result Diagram: 05/29/17 0807 05/29/17 0807 X-Rays, CTs and MRIs CT KUB IMPRESSION: 1. Mildly increased right pleural effusion and, with stable superimposed areas of right lower and middle lobe consolidation suggestive of pneumonia. 2. Mild abdominal pelvic ascites, minimally increased compared to prior exam. 3. Extensive vascular calcifications, including coronary calcification, greater than expected for patient's stated age. 4. 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 No imaging evidence of wall thickening to suggest cholecystitis. Approved by: Petra Renteria M.D. on 05/22/2017 at 14:54 PROCEDURE: MR ABDOMEN MRCP INDICATIONS: Abdominal pain and elevated lipase IMPRESSION: 1. Gallstones and biliary sludge demonstrated in the gallbladder with gallbladder wall thickening which is nonspecific in the context of ascites. Recommend correlation clinically for possible acute cholecystitis. 2. Borderline dilatation of the common bile duct without filling defects to suggest choledocholithiasis. 3. No pancreatic duct dilatation. Evaluation for pancreatitis is limited due to the presence of ascites. Recommend correlation with laboratory values. No discrete pseudocyst identified. 4. Partially visualized moderate right pleural effusion and moderate ascites in the abdomen. Dictated by: Earl Graham M.D. on 05/26/2017 at 9:53 Approved by: Earl Graham M.D. on 05/26/2017 at 10:56 PROCEDURE: MRI BRAIN WITHOUT CONTRAST ([id number]) INDICATIONS: CVA IMPRESSION: 1. No intracranial disease process. 2. No areas of acute or chronic infarction. 3. No intracranial hemorrhage. Dictated by: Odalis Lynn MD, PhD on 05/27/2017 at 16:08 PROCEDURE: MRA ANGIOGRAM HEAD WITHOUT CONTRAST ([id number]) INDICATIONS: WEAKNESS TECHNIQUE: Noncontrast axial 3-D [id number] MR angiogram, with 3-dimensional maximum intensity projection (MIP) reformats of the internal carotid arteries and posterior circulation then performed. COMPARISON: None. FINDINGS: Image quality: Excellent. Anterior circulation: Intracranial internal carotid arteries demonstrate normal size and intraluminal flow signal. The flow within the paired anterior cerebral arteries is normal and symmetric. The flow within the middle cerebral arteries is normal and symmetric. The anterior communicating artery is seen. No stenoses, occlusions, or aneurysms. Posterior circulation: Visualized portions of the vertebral arteries demonstrate normal caliber, and join to form a normal appearing basilar artery. The flow within the posterior cerebral arteries is normal and symmetric. Posterior tibial arteries have origins which is a congenital anatomic variant. No stenoses, occlusions, or aneurysms. IMPRESSION: Negative examination. Dictated by: Odalis Lynn MD, PhD on 05/27/2017 at 16:19 Cardiac Echo Impressions 05/27 Interpretation Summary 1. Normal left ventricular size and wall thickness with an estimated EF of 50 -55%05/27 2. Mild to moderately dilated right ventricle with normals systolic function. The estimated right atrial pressure is elevated. The estimated RVSP is 51 mm Hg 3. Severe tricuspid regurgitation 4. Severe mitral regurgitation Compared to the previous study (images reviewed) the estimated right atrial pressure is higher Additional Diagnostics LAURENYULY MERCADO D 1970 Female DateTimeAnalyzed 22:03:00 -_ pH ____7.541 - 7.350 7.450 pCO2 ___29.9__ -mmHg 35.0 45.0 pO2 105 -mmHg 69.0 116 HCO3- ___25.5__ -mmol/L 22.0 26.0 ABE ____3.4__ -mmol/L -2.0 2.0 tHb ____9.7__ -g/dL 12.0 18.0 O2Hb ___95.9__ -% COHb ____2.3__ -% 0.0 1.5 MetHb ____0.8__ -% 0.4 1.5 sO2 ___99.0__ -% FIO2 ___28.0__ -% Drawn By MM - Date/Time Notified____ 22:13:00 -_ Spontaneous_RR ___20.0__ -b/min Liter_Flow ____2.0__ -L/min Oxygen Device 1 __OXYMASK - Notified By MM - Notified Whom DR KUBISTY - B 760 -mmHg tO2 ___13.2__ -Vol% Alan test N/A - Please note that this was obtained after Narcan administration Plan Impression 1. End-stage renal disease on hemodialysis every Friday 2. Epigastric pain status post endoscopy showed moderate nonerosive gastritis 3. Suspected healthcare associated pneumonia 4. Hyperglycemia on insulin gtt. 5. Altered mental status. 6. Right pleural effusion and moderate ascites, likely related to chronic volume overload in the setting of ESRD. 7. Type II diabetes with diabetic nephropathy and gastroparesis 8. Hypertension with hypertensive nephrosclerosis 9. Hypothyroid 10. 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 Plan: Continue HD Q [id number]. D/c phoslo. Continue aranesp 60 mcg subQ weekly. Continue nephrocap 1 tab daily. Check TSH and FT4. Kiko Rolle MD May 29, 2017 14:46
[2017-05-29] MEDS ORDERED: ERYT-96 PO (15:07)
[2017-05-29] MEDS ORDERED: METO5TAB78 PO (15:44)
--- NOTE | 2017-05-29 16:00 | NUR ---
pt returned to [facility] post DIALYSIS at ~1600 via bed escorted by CNAs report given back to primary nurse KM RN see cardiopulmonary physical therapist note, intervention, and/or graphic flow for treatment details
--- NOTE | 2017-05-29 16:22 | NUR ---
Dialysis note: 3.5 hr tx, 1000 ML fluid removed, 79.7L processed. Revaclear dialyzer, 2K+, 35HCO3, 13Na Stable treatment, VVS 120's/60's Fistula hand held x 10 min and clamps X 5min, T&B present transfered back to 2006 via bed BM x 2 post tx
[2017-05-29] MEDS: Pantoprazole 40 mg ER24 Tablet PO SCH ×2 (16:30→18:30)
--- NOTE | 2017-05-29 16:33 | PCM.DIMED ---
Anurag Romo DO 05/29/17 1518: Discharge Instructions Date of Service May 29, 2017 Dates of Hospitalization May 22, 2017 at 17:59 Discharge Diagnosis Discharge Diagnosis Right lower lobe infiltrates possibly due to recently treated pneumonia Right pleural effusion Moderate nonerosive gastritis Renal disease on dialysis Chronic Normocytic Anemia Diabetes Mellitus Type 2 Hypertension Hypothyroidism Medication Instructions Additional med instructions In addition to your regular home meds I would like you to take: Metoclopramide 5 mg 4 times a day 30 minutes before meals and one at night Do not continue levofloxacin Junto con lacey medicinas de casa regulares, quisiera que usted tomara: Metoclopramida 5 mg 4 veces al da 30 minutos antes de las comidas y treva por la noche No continuar levofloxacina Test Results Test Results Various tests were completed during your stay here in the hospital some of which include a CT scan of your chest which showed fluid just below the lung on the right with some areas of lung consolidation. As well as fluid in your abdomen which is minimally increased from your previous scan. Calcifications of your heart vessels were also seen in this scan, along with stones in the gallbladder which are unchanged from previous scans, however there was no evidence of gallbladder infection or inflammation. Multiple chest x-rays were done which reiterated the findings seen on the CT scan. An MRCP was conducted which again showed fluid below the lung and fluid in the abdomen as well as gallstones, without suggestion of infection or inflammation of the gallbladder A brain and head MRI showed no intracranial disease A brain CT scan showed no findings A CT angiogram showed no evidence of a blood clot in your lungs. However it did indicate possible increased blood pressures within your lungs. Varios exmenes se completaron yessenia hoyt estancia aqu en el hospital, algunos de los cuales incluyen treva tomografa computarizada de hoyt pecho que mostr l quido everton por debajo del pulmn derecho con algunas reas de consolidacin pulmonar. Tambien mostr lquido en el abdomen que es mnimamente aumentado desde el escaneo anterior. Calcificaciones de los vasos del corazn tambin se observaron en tasneem escaneo, junto con unas piedras en la vescula biliar que no mejia cambiado desde los escneres anteriores, sin embargo, no haba nada que indicaba infeccin de la vescula o inflamacin de ello. Se realizaron mltiples radiografas del trax que reiteraron los hallazgos observados en la tomografa. Se llev a cabo treva MRCP que mostr de nuevo fluido por debajo del pulmn y l quido en el abdomen, as alvarado clculos biliares, sin sugerencia de infeccin o inflamacin de la vescula Treva resonancia magnetica del cerebro y zackary no mostr ninguna enfermedad intracraneal Treva tomografa de cerebro no mostr ningun problema Un angiograma de tomografa no mostr evidencia de un cogulo de blaine en lacey pulmones. Sin embargo, s indic un posible aumento de la presin arterial dentro de lacey pulmones Diet Discharge Diet: Diabetic Activity Discharge Activity: No restrictions Call your provider Call your provider for: Fever or Chills, Shortness of breath, Bleeding, Chest pain, Vomitting, Excessive diarrhea, Weakness (unilateral) Patient Instructions Patient Instructions The majority of your nausea and vomiting is likely related to gastroparesis which is a condition which is caused by decreased movement of the bowels especially the stomach. After eating food tends to stay in the stomach instead of going into the small bowel as it should. This causes increased nausea, and at times vomiting. We have prescribed medications to help with this condition which you should take as described above. However, in addition to these medications we would like you to attempt multiple smaller meals throughout the day which consist of high protein foods such as seafood, beans, chicken, eggs, peanuts, almonds, oats, yogurt, broccoli, milk, avocados, peas. Avoid foods high in fats and carbohydrates such as bread, rice, sugar, sodas, etc. Creo que la mayora de lacey nuseas y vmitos que se relaciona con gastroparesia , que es treva condicin que es causada por la disminucin del movimiento de los intestinos, especialmente el estmago. Despus de comer los alimentos suele permanecer en el estmago en lugar de entrar en el intestino felder alvarado deber a. [place] causa nusea, y a veces vmitos. Hemos prescrito medicamentos para ayudar con esta condicin que usted debe elias alvarado se describe anteriormente. Sin embargo, adems de estos medicamentos, nos gustara que usted intente comer varias comidas ms pequeas a lo anthony del da que consisten en alimentos ricos en protenas alvarado mariscos, frijoles, kirti, huevos, cacahuetes, almendras, carmina, yogur, brcoli, leche, aguacates, guisantes. Evite alimentos ricos en grasas y carbohidratos alvarado carbajal, arroz, azcar, refrescos, etc. Follow-up plan If possible I would like you to follow-up with me in the residency clinic to see how you are doing, and how your medications are working for you. The fluid found below your lungs is possibly related to the pneumonia with which you were diagnosed previously. There is also a minimal amount of consolidation within your lungs which will need to be followed up by a ramp manager. Dr. Dwyer saw you in the hospital and would like you to follow up in her clinic 4-6 weeks from your discharge, and likely repeat a CT scan of your lungs at that time. I would also like you to followup with Dr. Ramirez for your kidneys and management of dialysis Si es posible, quisiera que vinieras a visitarme en la clnica para liat stand up forklift operator est s y stand up forklift operator tus medicamentos estn funcionando para ti. El lquido que se encuentra debajo de tus pulmones podra estar relacionado con la neumona con la que se le diagnostic anteriormente. Tambin hay treva cantidad mnima de consolidacin dentro de lacey pulmones que tendr que ser seguido por un neumlogo. La Dra. Dwyer lo jordyn en el hospital y le gustara que siguiera en hoyt clnica de 4 a 6 semanas despus de salir del hospital y probablemente repetira treva tomografa de los pulmones en megan momento Tambien, me gustaia si pordrias visitar con la James para lacey rinones y manejo de la dialisis Follow-up Provider: [facility] Follow-up with PCP in: 1 week Provider: Kusum Dwyer MD Follow-up in: 5 weeks Berry Robins MD 05/31/17 0609: Discharge Instructions Attending's Statement The patient was seen and examined together with Dr. Romo on 05/30/2017 and I agree with the history, exam and plan as outlined in the note above. . Anurag Romo DO May 29, 2017 15:18 Berry Robins MD May 31, 2017 06:09
--- NOTE | 2017-05-29 17:57 | PCM.PNMED ---
Subjective Date of Service May 29, 2017 Subjective Subjective: As of this morning the patient was significantly fatigued however after dialysis she seemed to gain more strength. She does state that she feels weak on her feet, and would be interested in physical therapy. Events Overnight: No acute events overnight. ROS: Denies fever/chills, nausea/vomiting, headache, weakness, abdominal pain, chest pain, shortness of breath, increased swelling in hands or feet. Exam Vital Signs Vital Sign - Last Date Time Temp Pulse Resp B/P Pulse Ox O2 Delivery O2 Flow Rate FiO2 05/29/17 16:12 37.0 71 16 154/66 98 Room Air 05/29/17 09:01 2.00 Intake and Output 05/28/17 05/28/17 05/29/17 Cumulative From/Thru 15:00 23:00 07:00 05/22/17 12:38 - 05/29/17 06:59 Intake Total 520 ml 150 ml 6812 ml Output Total 0 ml 0 ml 5550 ml Balance 520 ml 150 ml 1262 ml Intake Oral 520 ml 150 ml 3100 ml IV Total 3712 ml Output Urine Total 0 ml 0 ml 0 ml Emesis 50 ml Ultrafiltrate 5500 ml # Voids 6 # Bowel Movements 0 4 Exam General: Fatigue, no acute distress, well-developed, well-nourished Head: Normocephalic, atraumatic. External ears without defect. Eyes: Pupils equal, round, and reactive to light and accommodation. Anicteric sclerae, moist conjunctivae. Neck: Normal range of motion, no lymphadenopathy noted Cardiovascular: Regular rate and rhythm with moderate systolic murmur, rubs, or gallops appreciated Pulmonary: Clear to auscultation bilaterally with no crackles, wheezes, or rhonchi. Normal respiratory effort with no use of accessory muscles. Abdomen: Bowel tones present. Soft, diffuse tenderness, minor distention, ascites. Extremities: No clubbing, cyanosis, edema Skin: Normal temperature, turgor, and texture; no rash, ulcers, or subcutaneous nodules appreciated. Neurological: Cranial nerves grossly intact. Reflexes, coordination, and sensory function within normal limits. Normal muscle strength, tone, and bulk. Psychiatric: Normal mood and affect. Alert and oriented to person, place, and time IVs and Medications Medications Reviewed: Medications were reviewed in detail Lab and Diagnostics Result Diagram: 05/29/17 0807 05/29/17 0807 X-Rays, CTs and MRIs CT KUB IMPRESSION: 1. Mildly increased right pleural effusion and, with stable superimposed areas of right lower and middle lobe consolidation suggestive of pneumonia. 2. Mild abdominal pelvic ascites, minimally increased compared to prior exam. 3. Extensive vascular calcifications, including coronary calcification, greater than expected for patient's stated age. 4. 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 No imaging evidence of wall thickening to suggest cholecystitis. Approved by: Petra Renteria M.D. on 05/22/2017 at 14:54 PROCEDURE: MR ABDOMEN MRCP INDICATIONS: Abdominal pain and elevated lipase IMPRESSION: 1. Gallstones and biliary sludge demonstrated in the gallbladder with gallbladder wall thickening which is nonspecific in the context of ascites. Recommend correlation clinically for possible acute cholecystitis. 2. Borderline dilatation of the common bile duct without filling defects to suggest choledocholithiasis. 3. No pancreatic duct dilatation. Evaluation for pancreatitis is limited due to the presence of ascites. Recommend correlation with laboratory values. No discrete pseudocyst identified. 4. Partially visualized moderate right pleural effusion and moderate ascites in the abdomen. Dictated by: Earl Graham M.D. on 05/26/2017 at 9:53 Approved by: Earl Graham M.D. on 05/26/2017 at 10:56 PROCEDURE: MRI BRAIN WITHOUT CONTRAST ([id number]) INDICATIONS: CVA IMPRESSION: 1. No intracranial disease process. 2. No areas of acute or chronic infarction. 3. No intracranial hemorrhage. Dictated by: Odalis Lynn MD, PhD on 05/27/2017 at 16:08 PROCEDURE: MRA ANGIOGRAM HEAD WITHOUT CONTRAST ([id number]) INDICATIONS: WEAKNESS TECHNIQUE: Noncontrast axial 3-D [id number] MR angiogram, with 3-dimensional maximum intensity projection (MIP) reformats of the internal carotid arteries and posterior circulation then performed. COMPARISON: None. FINDINGS: Image quality: Excellent. Anterior circulation: Intracranial internal carotid arteries demonstrate normal size and intraluminal flow signal. The flow within the paired anterior cerebral arteries is normal and symmetric. The flow within the middle cerebral arteries is normal and symmetric. The anterior communicating artery is seen. No stenoses, occlusions, or aneurysms. Posterior circulation: Visualized portions of the vertebral arteries demonstrate normal caliber, and join to form a normal appearing basilar artery. The flow within the posterior cerebral arteries is normal and symmetric. Posterior tibial arteries have origins which is a congenital anatomic variant. No stenoses, occlusions, or aneurysms. IMPRESSION: Negative examination. Dictated by: Odalis Lynn MD, PhD on 05/27/2017 at 16:19 Cardiac Echo Impressions 05/27 Interpretation Summary 1. Normal left ventricular size and wall thickness with an estimated EF of 50 -55%05/27 2. Mild to moderately dilated right ventricle with normals systolic function. The estimated right atrial pressure is elevated. The estimated RVSP is 51 mm Hg 3. Severe tricuspid regurgitation 4. Severe mitral regurgitation Compared to the previous study (images reviewed) the estimated right atrial pressure is higher Additional Diagnostics YULY PEARCE 1970 Female DateTimeAnalyzed 22:03:00 -_ pH ____7.541 - 7.350 7.450 pCO2 ___29.9__ -mmHg 35.0 45.0 pO2 105 -mmHg 69.0 116 HCO3- ___25.5__ -mmol/L 22.0 26.0 ABE ____3.4__ -mmol/L -2.0 2.0 tHb ____9.7__ -g/dL 12.0 18.0 O2Hb ___95.9__ -% COHb ____2.3__ -% 0.0 1.5 MetHb ____0.8__ -% 0.4 1.5 sO2 ___99.0__ -% FIO2 ___28.0__ -% Drawn By MM - Date/Time Notified____ 22:13:00 -_ Spontaneous_RR ___20.0__ -b/min Liter_Flow ____2.0__ -L/min Oxygen Device 1 __OXYMASK - Notified By MM - Notified Whom DR KUBISTY - B 760 -mmHg tO2 ___13.2__ -Vol% Alan test N/A - Please note that this was obtained after Narcan administration Assessment & Plan 45 year old Salvadorean-speaking female with ESRD on hemodialysis, diabetes mellitus type 2, Hypertension who presents to the Emergency Department with complaint of abdominal pain, vomiting and fever currently being treated for Hospital acquired pneumonia. Acute encephalopathy, not present on admission, resolved -CT scan of head without contrast negative -ABG revealed respiratory alkalosis. CTA of chest negative for PE -Borderline elevated ammonia level but does not have elevated LFTs -Elevated lactic acid and blood sugar at 513. Bicarbonate normal, ketones negative -Insulin IV initiated, patient bridged back to subcutaneous insulin -DC opiates -Marked difference after dialysis on 05/29 -Continue to monitor. 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 -Prednisone discontinued at this time as it increases the patient's blood glucose dramatically, combined with the fact that she is 90% resolved clinically -noncontrast MRA negative -MRI brain negative for acute stroke Right lower lobe infiltrates possibly due to recently treated pneumonia, present on admission, stable -Initially considered hcap, infectious disease was consulted and he did not feel this is a pneumonia -Pleural effusions have improved since dialysis, radiology did not see a need for thoracentesis 05/26 -Patient initially received Levofloxacin, Zosyn and Vancomycin for HCAP but discontinued given no symptoms, low procal,no leukocytosis -Blood culture 2, respiratory PCR negative -Follow-up with Dr Dwyer in 4-[address] to confirm resolution of infiltrate and rule out underlying mass. May need bronchoscopy or IR biopsy if infiltrate persists Right pleural effusion, Present on admission. Active. Resolving - Requested a thoracentesis to tap her effusion, effusion has markedly improved with dialysis. - Ultrasound and chest x-ray showed not enough fluid for thoracentesis. - Effusion probably transudate given improvement with the dialysis. Gastroparesis likely secondary to diabetes, Active, stable Patient has associated nausea, vomiting, diarrhea. Likely secondary to gastroparesis vs. cholecystitis. Patient with increased pelvic ascites from previous visit. -Dr Salas has seen the patient, EGD was performed on 05/25 -- GI recs 05/26 Continue Protonix 40 mg twice a day, start reglan 5mg po qid 30 min before meals and qhs,, high protein low fat/cho gastroparesis diet Elevated lipase, unknown etiology --MRCP reordered 05/26 "Gallstones and biliary sludge demonstrated in the gallbladder with gallbladder wall thickening which is nonspecific in the context of ascites. Recommend correlation clinically for possible acute cholecystitis. Borderline dilatation of the common bile duct without filling defects to suggest choledocholithiasis. No pancreatic duct dilatation. Evaluation for pancreatitis is limited due to the presence of ascites. Recommend correlation with laboratory values. No discrete pseudocyst identified. Partially visualized moderate right pleural effusion and moderate ascites in the abdomen. " ESRD on dialysis, Present on Admission, Active -Dialysis schedule is Chronic Normocytic Anemia, Present on Admission, Active - Monitor CBC Diabetes Mellitus Type 2, Present on Admission, Active Last HgA1C 9.16 July 2016. Per patient she doesn't take any medications for diabetes after starting dialysis. - HgA1c from recent admit 7.1. -Blood glucose elevated due to steroid, insulin drip initiated, patient bridged back to sliding scale on 05/29 -DC prednisone Hypertension, Present on Admission, poorly controlled - Continue home amlodipine - Metoprolol Succinate 50 mg daily Hypothyroidism, presumed stable - Continue home Levothyroxine Acetaminophen for mild pain when necessary. Bowel regimen Senna and MiraLAX scheduled and PRN. Zofran when necessary for nausea and vomiting. SubQ heparin for now. SCDs in place. Social: Good social support. CODE STATUS: Full Code. Disposition: We will continue to monitor the patient for the next 24 hours after which she will likely be discharged home. VTE Mechanical Devices: Intermittant Pneumatic CD Resuscitation Status: CPR: Attempt Resuscitation Attending Statement The patient was seen and examined together with Dr. Romo on 05/29/2017 and I agree with the history, exam and plan as outlined in the note above. . Anurag Romo DO May 29, 2017 17:57 Berry Robins MD May 31, 2017 06:09
[2017-05-29] MEDS: Vitamin B Complex/Vit C Tablet PO SCH (18:30)
--- NOTE | 2017-05-29 18:56 | NUR ---
Insulin gtt/LOC Per switchboard clerk, patient denies chest pain. Tele jess 50s. BP meds withheld this AM prior to dialysis. Per switchboard clerk, patient has mild SOB with exertion. SPO2 on 1L oxymask 99% this AM for comfort, patient reports feeling slightly better, weaned to RA with SPO2 mid 90s. Denies cough. Per switchboard clerk, patient reports abdominal pain with bloating and mild nausea with no emesis. Bowel tones hypoactive. BM this AM. Patient is drowsy but oriented x3, GAMEZ. As shift progressed and patient returned from dialysis, patient seemed to be more alert and her strength had improved. BG within range x4 hours, progressed to Q2 checks. First Q2 check showed sugar at 220 after patient was cleared to eat lunch that had arrived to unit post dialysis, adjusted back to 4 units per hour per protocol. Addendum: 05/29/17 at 1903 by KRISTOFER TARIQ RN paged about increase in BG, no new orders at this time. Continue with Insulin infusion per protocol.
[2017-05-30 00:09] VITALS: BP 119/56; PULSE 64; RESP 16; O2SAT 95
[2017-05-30] MEDS: Heparin 5,000 Unit/mL Inj SUBQ SCH ×2 (00:47→08:32)
[2017-05-30 02:37] LABS: Mean Corpuscular Hemoglobin 31.1 pg (27.0-35.0); Mean Corpuscular Volume 93.7 fL (81-100)
[2017-05-30 03:56] VITALS: BP 122/61; PULSE 63; RESP 16; O2SAT 98
[2017-05-30 05:43] VITALS: PULSE 63
--- NOTE | 2017-05-30 06:34 | NUR ---
Insulin gtt/ Rest Patient continues to be on insulin gtt overnight. Hourly blood sugar checks per protocol. Blood glucose reading of 262 at start of shift, improved to 108 at end of shift.Current infusion rate 1 unit/hour. Patient resting comfortably between checks. Denies pain. Continue to monitor.
[2017-05-30] MEDS ORDERED: Glucose 40% Oral Gel 15 Gm Tube PO PRN (07:50)
[2017-05-30] MEDS ORDERED: WALK1EAC55 MC (07:55)
[2017-05-30] MEDS: Insulin LISPRO 300 Unit/3 mL Inj SUBQ SCH ×2 (08:00→11:46)
[2017-05-30 08:22] VITALS: BP 123/62; PULSE 70; RESP 14; O2SAT 100
[2017-05-30] MEDS: Ergocalciferol (Vit D2) 50,000 Unit Capsule PO SCH (08:28)
[2017-05-30] MEDS: Vitamin B Complex/Vit C Tablet PO SCH (08:28)
[2017-05-30] MEDS: MeTOProlol XL 50 mg ER24 Tablet PO SCH (08:30)
[2017-05-30] MEDS: Pantoprazole 40 mg ER24 Tablet PO SCH (08:31)
--- NOTE | 2017-05-30 10:33 | PCM.DC.MED ---
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 Active. Resolving Gastroparesis likely secondary to Diabetes, Active. Stable Elevated lipase, unknown etiology, active ESRD on dialysis, Present on Admission, Active Chronic Normocytic Anemia, Present on Admission, Active Diabetes Mellitus Type 2, Present on Admission, Active Hypertension, Present on Admission, poorly controlled Hypothyroidism, presumed stable Consultations Nephrology: Dr. Ramirez and Dr. Ma GI: Dr. Salas Pulmonology: Dr. Reymundo Luis XRay, CTs & MRIs CT KUB IMPRESSION: 1. Mildly increased right pleural effusion and, with stable superimposed areas of right lower and middle lobe consolidation suggestive of pneumonia. 2. Mild abdominal pelvic ascites, minimally increased compared to prior exam. 3. Extensive vascular calcifications, including coronary calcification, greater than expected for patient's stated age. 4. Ill-defined hyperintensity within the gallbladder lumen likely specialty sales representative of stones and unchanged. No imaging evidence of wall thickening to suggest cholecystitis. Approved by: Petra Renteria M.D. on 05/22/2017 at 14:54 X-RAY CHEST ONE VIEW, PORTABLE IMPRESSION: Increasing right perihilar airspace opacity otherwise persistent right basilar opacity and right pleural effusion noted. Findings likely related to pneumonia. Continued radiographic surveillance to resolution is recommended. Dictated by: Constantino HINTON Interpreted: Mary Kay Lo MD on 05/23/2017 at 10: 49 Approved by: Mary Kay Lo M.D. on 05/23/2017 at 14:28 CT CHEST WITHOUT CONTRAST IMPRESSION: 1. Moderate right-sided pleural effusion with right basilar atelectasis or infiltrate. 2. Dense right middle lobe infiltrate. Recommend radiographic followup to resolution to exclude underlying masses. 3. Partially visualized upper abdominal ascites. 4. Cardiomegaly. Dictated by: Adriel Ferro M.D. on 05/23/2017 at 20:41 Approved by: Adriel Ferro M.D. on 05/23/2017 at 20:46 MR ABDOMEN MRCP IMPRESSION: 1. Gallstones and biliary sludge demonstrated in the gallbladder with gallbladder wall thickening which is nonspecific in the context of ascites. Recommend correlation clinically for possible acute cholecystitis. 2. Borderline dilatation of the common bile duct without filling defects to suggest choledocholithiasis. 3. No pancreatic duct dilatation. Evaluation for pancreatitis is limited due to the presence of ascites. Recommend correlation with laboratory values. No discrete pseudocyst identified. 4. Partially visualized moderate right pleural effusion and moderate ascites in the abdomen. Dictated by: Earl Graham M.D. on 05/26/2017 at 9:53 Approved by: Eral Graham M.D. on 05/26/2017 at 10:56 X-RAY CHEST ONE VIEW IMPRESSION: Improved aeration within the lung parenchyma bilaterally, persistent pneumonia pattern right lower lung laterally, heart size is at or just above the upper limits of normal. Dictated by: Chetan Mitchell M.D. on 05/26/2017 at 13:10 Approved by: Chetan Mitchell M.D. on 05/26/2017 at 13:11 MRI BRAIN WITHOUT CONTRAST INDICATIONS: CVA IMPRESSION: 1. No intracranial disease process. 2. No areas of acute or chronic infarction. 3. No intracranial hemorrhage. Dictated by: Odalis Lynn MD, PhD on 05/27/2017 at 16:08 MRA ANGIOGRAM HEAD WITHOUT CONTRAST IMPRESSION: Negative examination. Dictated by: Odalis Lynn MD, PhD on 05/27/2017 at 16:19 X-RAY CHEST ONE VIEW, PORTABLE IMPRESSION: Right basilar pneumonia with small parapneumonic effusion. Continued plain film surveillance is recommended to ensure resolution, and to exclude underlying or central malignancy. Dictated by: Reza Hernandez M.D. on 05/29/2017 at 8:08 Approved by: Reza Hernandez M.D. on 05/29/2017 at 8:42 CT BRAIN WITHOUT CONTRAST IMPRESSION: No acute intracranial process. Dictated by: Petra Renteria M.D. on 05/29/2017 at 8:41 Approved by: Petra Renteria M.D. on 05/29/2017 at 8:44 CT ANGIO CHEST PULMONARY EMBOLISM IMPRESSION: 1. No visualized pulmonary embolism. 2. Mild right pleural effusion with superimposed consolidation. The latter can be specialty sales representative of atelectasis versus developing airspace disease such as pneumonia. 3. Prominence of the main pulmonary artery suggestive of pulmonary artery hypertension. 3. Cardiomegaly with increased pulmonary venous prominence as well as prominence within the hepatic vasculature. Recommend correlation to potential decreased cardiac output/pulmonary venous hypertension. Dictated by: Petra Renteria M.D. on 05/29/2017 at 8:44 Approved by: Petra Renteria M.D. on 05/29/2017 at 9:01 CT ABDOMEN AND PELVIS WITH CONTRAST IMPRESSION: 1. Moderate right low-density pleural effusion, moderate amount of intra- abdominal ascites, and anasarca all of which may be related to fluid overload in the setting of renal failure. 2. Cardiomegaly. 3. Large amount of food material in the stomach with a decompressed duodenum. This finding may be associated with gastroparesis or gastric outlet obstruction. Of note, there is no discrete extrinsic or intraluminal mass lesion visualized. Direct visualization or upper GI may be helpful to further characterize findings. 4. Cholelithiasis. 5. No discrete findings to suggest peritoneal carcinomatosis. Dictated by: Mary Kay Lo M.D. on 05/29/2017 at 10:52 Approved by: Mary Kay Lo M.D. on 05/29/2017 at 11:07 Cardiac Echo Impression 05/27 Interpretation Summary 1. Normal left ventricular size and wall thickness with an estimated EF of 50 -55%05/27 2. Mild to moderately dilated right ventricle with normals systolic function. The estimated right atrial pressure is elevated. The estimated RVSP is 51 mm Hg 3. Severe tricuspid regurgitation 4. Severe mitral regurgitation Compared to the previous study (images reviewed) the estimated right atrial pressure is higher Other Diagnostics US CHEST/PLEURAL SONOGRAM IMPRESSION: Therapeutic thoracentesis was not performed due to the significant interval improvement in volume of simple appearing right free flowing pleural effusion with reference to the CT scan performed 3 days ago. Dictated by: Chetan Mitchell M.D. on 05/26/2017 at 12:50 Approved by: Chetan Mitchell M.D. on 05/26/2017 at 12:53 ABG 22:03:00 pH 7.541 pCO2 29.9 pO2 105 HCO3- 25.5 Please note that this was obtained after Narcan administration Brief History Taken from the Medical consultation of Dr. Jain: Patient is a 46 year old female with a history of Type II diabetes mellitus with ESRD (on dialysis on hS) and HTN. She was initially admitted for persistent nausea, vomiting, diarrhea and LLQ abdominal pain which had been an ongoing issue for her chronically, but worsened acutely. She had recently been discharged from [facility] about 1 week ago for similar complaints and RLL presumed aspiration pneumonia, and had completed a 7 day course of levofloxacin with no improvement in her symptoms. She reports that she had upper respiratory viral symptoms about 1 month ago. Since then, she reports she has been having progressive shortness of breath, nonproductive cough, chills, and wheezing. She states she coughs constantly to the point of vomiting. She states her shortness of breath does not bother her when moving around or resting upright, but only when she lies flat. She reports waking up in the middle of the night feeling short of breath. She denies having these symptoms prior to her URI 1 month ago. She also reports some vague left rib pain starting today. On review of her imaging, she had a CT abdomen on 05/15/16 which showed a small infiltrate at the right anterior lung base. During her previous admission, on , a CT abd/pelvis showed right middle lobe consolidation and a small right pleural effusion with adjacent atelectasis. A CT chest was ordered this admission on 05/23/17 which showed moderate right-sided pleural effusion with right basilar infiltrate, with a dense right middle lobe infiltrate, all worsened since her CT abdomen 3 weeks prior. She states she was born in [facility], where she lived for 12 years and then moved to [place], [place], where she lived for several years. She then moved to [place], where she has lived ever since. She denies travel to any other places. 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 She denies any hobbies. Denies exposure to any animals, such as rats, deer, or rabbits. She is a lifetime nonsmoker and nondrinker. She denies any exposure or family history of tuberculosis. Hospital Course 45 year old Lao-speaking female with ESRD on hemodialysis, diabetes mellitus type 2, Hypertension who presents to the Emergency Department with complaint of abdominal pain, vomiting and fever Acute encephalopathy, not present on admission, resolved Unsure etiolology, but it apears to be some combination of decreased opiate clearance combined with hyperglycemia -CT scan of head without contrast negative -ABG revealed respiratory alkalosis. CTA of chest negative for PE -Borderline elevated ammonia level but does not have elevated LFTs -Elevated lactic acid and blood sugar at 513. 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 -Prednisone discontinued at this time as it increases the patient's blood glucose dramatically, combined with the fact that she is resolved clinically -Noncontrast MRA negative -MRI brain negative for acute stroke Right lower lobe infiltrates possibly due to recently treated pneumonia, present on admission, stable -Initially considered hcap, infectious disease was consulted and he did not feel this is a pneumonia -Pleural effusions have improved since dialysis, radiology did not see a need for thoracentesis 05/26 -Patient initially received Levofloxacin, Zosyn and Vancomycin for HCAP but discontinued given no symptoms, low procal,no leukocytosis -Blood culture 2, respiratory PCR negative -Follow-up with Dr Dwyer in 4-[address] to confirm resolution of infiltrate and rule out underlying mass. May need bronchoscopy or IR biopsy if infiltrate persists Right pleural effusion, Present on admission. Active. Resolving - Requested a thoracentesis to tap her effusion, effusion has markedly improved with dialysis. - Ultrasound and chest x-ray showed not enough fluid for thoracentesis. - Effusion probably transudate given improvement with the dialysis. Gastroparesis likely secondary to diabetes, Active Patient has associated nausea, vomiting, diarrhea. Likely secondary to gastroparesis vs. cholecystitis. Patient with increased pelvic ascites from previous visit. -Dr Salas has seen the patient, EGD was performed on 05/25 -- GI recs 05/26 Continue Protonix 40 mg twice a day, start reglan 5mg po qid 30 min before meals and qhs,, high protein low fat/cho gastroparesis diet Weakness and difficulty with mobilization, active -Physical therapy evaluating the patient for discharge states that she would likely benefit from home health -The patient lives in an apartment with numerous sets of stairs at this point she requires assistance with ambulation. -Home physical therapy should evaluate the patient 2-3 times a week and assist with exercises and strengthening muscles necessary for activities of daily living appropriate to her situation. -Patient lives with family who is able to assist her with the majority of her needs however guidance in hospital rehabilitation would be of great benefit. Elevated lipase, unknown etiology --MRCP reordered 05/26 "Gallstones and biliary sludge demonstrated in the gallbladder with gallbladder wall thickening which is nonspecific in the context of ascites. Recommend correlation clinically for possible acute cholecystitis. Borderline dilatation of the common bile duct without filling defects to suggest choledocholithiasis. No pancreatic duct dilatation. Evaluation for pancreatitis is limited due to the presence of ascites. Recommend correlation with laboratory values. No discrete pseudocyst identified. Partially visualized moderate right pleural effusion and moderate ascites in the abdomen. " ESRD on dialysis, Present on Admission, Active -Dialysis schedule is Chronic Normocytic Anemia, Present on Admission, Active - Monitor CBC Diabetes Mellitus Type 2, Present on Admission, Active Last HgA1C 9.16 July 2016. Per patient she doesn't take any medications for diabetes after starting dialysis. - HgA1c from recent admit 7.1. -Blood glucose elevated due to steroid, insulin drip initiated, patient bridged back to sliding scale on 05/29 -DC prednisone Hypertension, Present on Admission, poorly controlled - Continue home amlodipine - Metoprolol Succinate 50 mg daily Hypothyroidism, presumed stable - Continue home Levothyroxine Exam Vital Signs (Last) Date Time Temp Pulse Resp B/P Pulse Ox O2 Delivery O2 Flow Rate FiO2 05/30/17 08:22 36.8 70 14 123/62 100 05/30/17 03:56 Room Air 05/29/17 09:01 2.00 Exam General: Fatigue, no acute distress, well-developed, well-nourished Head: Normocephalic, atraumatic. External ears without defect. Eyes: Pupils equal, round, and reactive to light and accommodation. Anicteric sclerae, moist conjunctivae. Neck: Normal range of motion, no lymphadenopathy noted Cardiovascular: Regular rate and rhythm with moderate systolic murmur, rubs, or gallops appreciated Pulmonary: Clear to auscultation bilaterally with no crackles, wheezes, or rhonchi. Normal respiratory effort with no use of accessory muscles. Abdomen: Bowel tones present. Soft, diffuse tenderness, minor distention, ascites. Extremities: No clubbing, cyanosis, edema Skin: Normal temperature, turgor, and texture; no rash, ulcers, or subcutaneous nodules appreciated. Neurological: Cranial nerves grossly intact. Reflexes, coordination, and sensory function within normal limits. Normal muscle strength, tone, and bulk. Psychiatric: Normal mood and affect. Alert and oriented to person, place, and time Test 05/22/17 12:30 05/23/17 06:31 05/23/17 16:16 05/26/17 06:20 Hemoglobin A1c 7.3% (4.8-5.6) Magnesium Level 1.6mg/dL (1.6-2.6) Phosphorus Level 3.9mg/dL (2.5-4.9) Triglycerides Level 96mg/dL (0-149) Cholesterol Level 125mg/dL (100-199) LDL Cholesterol, Calculated 51.800mg/dL (0-99) VLDL Cholesterol 19.200mg/dL HDL Cholesterol 54mg/dL (>39) Cholesterol/HDL Ratio 2.31 (0.0-4.4) Cryptococcus Antigen Negative (Negative) Fungal Antibodies <31pg/mL (<80) Aspergillus flavus Antibody Negative (Neg:<1:1) Aspergillus fumigatus Antibody Negative (Neg:<1:1) Aspergillus galactomannan Antigen 0.07Index (0.00-0.49) Aspergillus niger Antibody Negative (Neg:<1:1) Hepatitis B Surface Antibody Reactive (.) Hepatitis C Antibody <0.1s/co ratio (0.0-0.9) Test 05/27/17 12:48 05/28/17 22:30 05/28/17 22:48 05/29/17 08:07 Thyroid Stimulating Hormone (TSH) 5.780uIU/mL (0.450-4.500) Free Thyroxine 1.61ng/dL (0.82-1.77) Prothrombin Time 9.3sec (8.1-12.5) Prothromb Time International Ratio 0.87ratio Lipase 43U/L (13-60) Ketones Negative (Negative) Ammonia 81ug/dL (18-53) Neutrophils (%) (Auto) 85.2% (40-74) Lymphocytes (%) (Auto) 6.9% (14-46) Monocytes (%) (Auto) 7.7% (4-12) Eosinophils (%) (Auto) 0% (0-5) Basophils (%) (Auto) 0% (0-3) Procalcitonin 0.35ng/mL (0.00-0.08) Test 05/29/17 13:30 05/30/17 02:30 Troponin T 0.032ug/L (0.0-0.011) White Blood Count 13.1th/mm3 (3.8-10.1) Red Blood Count 3.15mil/mm3 (3.90-5.20) Hemoglobin 9.8g/dL (12.0-15.6) Hematocrit 29.5% (35.0-46.0) Mean Corpuscular Volume 93.7fL (81-100) Mean Corpuscular Hemoglobin 31.1pg (27.0-35.0) Mean Corpuscular Hemoglobin Concent 33.2% (32.0-37.0) Red Cell Distribution Width 17.1% (12.3-15.4) Platelet Count 167bil/L (150-400) Sodium Level 138mEq/L (134-144) Potassium Level 3.8mEq/L (3.5-5.2) Chloride Level 97mEq/L (97-108) Carbon Dioxide Level 25mmol/L (18-29) Blood Urea Nitrogen 23mg/dL (6-24) Creatinine 3.49mg/dL (0.57-1.00) Estimat Glomerular Filtration Rate 20mL/min (>59) Glucose Level 126mg/dL (60-99) Lactic Acid Level 1.8mmol/L (0.4-2.0) Calcium Level 9.1mg/dL (8.5-10.1) Total Bilirubin 0.4mg/dL (0.0-1.2) Aspartate Amino Transf (AST/SGOT) 21U/L (0-50) Alanine Aminotransferase (ALT/SGPT) 13U/L (0-32) Alkaline Phosphatase 155U/L (25-150) Total Protein 6.2g/dL (6.4-8.4) Albumin 3.4g/dL (3.4-5.0) Discharge Medications Discharge Medications Amlodipine (Amlodipine) 10 Mg Tablet 10 MG PO DAILY (Reported) Calcium Acetate (Calcium Acetate) 667 Mg Tablet 1,971 MG PO TIDWM (Reported) Cholecalciferol (Vitamin D3) (Vitamin D3) 50,000 Unit Capsule 50,000 UNIT PO WEEKLY (Reported) Citalopram (Citalopram) 20 Mg Tablet 40 MG PO HS (Reported) Levothyroxine (Synthroid) 25 Mcg Tablet 25 MCG PO DAILY (Reported) Metoprolol Succinate ER (Metoprolol Succinate ER) 50 Mg Tab.er.24h 50 MG PO DAILY (Reported) Pantoprazole DR (Pantoprazole DR) 40 Mg Tablet.dr 40 MG PO BIDAC Prescribed by: LALO HEARN MD As needed Acetaminophen (Acetaminophen) 325 Mg Tablet 325 MG PO Q4H PRN PRN For Pain ( Reported) Loperamide HCl (Imodium A-D) 2 Mg Capsule 2 MG PO PRN For Diarrhea or Loose Stool (Reported) Metoclopramide (Reglan) 5 Mg Tablet 5 MG PO QID PRN PRN For Nausea Take 30 minutes before eating Prescribed by: ANURAG ZURITA DO Ondansetron ODT (Zofran ODT) 4 Mg Tablet 4 MG PO Q4H PRN PRN For Nausea Prescribed by: YOBANY CLEVELAND DO Durable Medical Equipment Walker (Ultra-Light Rollator) 1 Each Each 1 EACH [facility] (DME) Prescribed by: ANURAG ZURITA, DO Additional med instructions In addition to your regular home meds I would like you to take: Metoclopramide 5 mg 4 times a day 30 minutes before meals and one at night Do not continue levofloxacin Junto con lacey medicinas de casa regulares, quisiera que usted tomara: Metoclopramida 5 mg 4 veces al da 30 minutos antes de las comidas y treva por la noche No continuar levofloxacina Followup Plan Disposition: Home Follow-up plan If possible I would like you to follow-up with me in the residency clinic to see how you are doing, and how your medications are working for you. The fluid found below your lungs is possibly related to the pneumonia with which you were diagnosed previously. There is also a minimal amount of consolidation within your lungs which will need to be followed up by a aircraft maintenance technician. Dr. Dwyer saw you in the hospital and would like you to follow up in her clinic 4-6 weeks from your discharge, and likely repeat a CT scan of your lungs at that time. Si es posible, quisiera que vinieras a visitarme en la clnica para liat exhibition carver est s y exhibition carver tus medicamentos estn funcionando para ti. El lquido que se encuentra debajo de tus pulmones podra estar relacionado con la neumona con la que se le diagnostic anteriormente. Tambin hay treva cantidad mnima de consolidacin dentro de lacey pulmones que tendr que ser seguido por un neumlogo. La Dra. Dwyer lo jordyn en el hospital y le gustara que siguiera en hoyt clnica de 4 a 6 semanas despus de salir del hospital y probablemente repetira treva tomografa de los pulmones en megan momento Discharge Diet: Diabetic Discharge Activity: No restrictions Patient Instructions The majority of your nausea and vomiting is likely related to gastroparesis which is a condition which is caused by decreased movement of the bowels especially the stomach. After eating food tends to stay in the stomach instead of going into the small bowel as it should. This causes increased nausea, and at times vomiting. We have prescribed medications to help with this condition which you should take as described above. However, in addition to these medications we would like you to attempt multiple smaller meals throughout the day which consist of high protein foods such as seafood, beans, chicken, eggs, peanuts, almonds, oats, yogurt, broccoli, milk, avocados, peas. Avoid foods high in fats and carbohydrates such as bread, rice, sugar, sodas, etc. Creo que la mayora de lacey nuseas y vmitos que se relaciona con gastroparesia , que es treva condicin que es causada por la disminucin del movimiento de los intestinos, especialmente el estmago. Despus de comer los alimentos suele permanecer en el estmago en lugar de entrar en el intestino felder alvarado deber a. [place] causa nusea, y a veces vmitos. Hemos prescrito medicamentos para ayudar con esta condicin que usted debe elias alvarado se describe anteriormente. Sin embargo, adems de estos medicamentos, nos gustara que usted intente comer varias comidas ms pequeas a lo anthony del da que consisten en alimentos ricos en protenas alvarado mariscos, frijoles, kirti, huevos, cacahuetes, almendras, carmina, yogur, brcoli, leche, aguacates, guisantes. Evite alimentos ricos en grasas y carbohidratos alvarado carbajal, arroz, azcar, refrescos, etc. Follow-up Provider: [facility] Follow-up with PCP in: 1 week Provider: Kusum Dwyer MD Follow-up in: 5 weeks Time spent Greater than 30 minutes was spent in preparation of discharge with greater than 50% of that time dedicated to patient counseling and coordination of care. . Attending Statement The patient was seen and examined together with Dr. Zurita on 05/30/2017 and I agree with the history, exam and plan as outlined in the note above. . copies to: [facility] Anurag Zurita DO May 30, 2017 09:40 Berry Robins MD May 31, 2017 06:10
[2017-05-30 10:50] VITALS: PULSE 61
[2017-05-30 11:48] VITALS: BP 111/55; PULSE 60; RESP 14; O2SAT 98
--- NOTE | 2017-05-30 15:03 | NUR ---
Discharge Patient alert and oriented. VSS. Denies pain/discomfort but states she still feels weak. Insulin drip DC'd this AM and blood sugars remain within goal range. Discharge instructions and medication instructions printed and reviewed verbally with patient and family. IV DC"d intact. Patient left unit via wc with all personal belongings and transport home via private vehicle accompanied by her son.
--- NOTE | 2017-05-30 16:32 | NUR ---
Social Work Note: Discharge Data& Assessment: Per MD in multidisciplinary rounds, pt is medically ready to discharge home with home health PT and [employer] DEVELOPER to follow. Bonnie Gooden is a 46 year old female admitted on 05/22/2017 for HCAP and pancreatitis. Per pt is medically improved and ready to discharge. Per MD order, INTRAN[employer] DEVELOPER met with pt at bedside to discuss Home Health PT and [facility]EL[employer] with assistance from in person software quality assurance engineer. Pt provided with [facility] list for preferences. Pt does not have a preference and agreed to refer to the rotating calender. Referral provided to [facility] and Barak from [facility] and accepted referral. They are hoping to complete intake today and see pt on Friday06/02/2017. [facility] DEVELOPER spoke with ED[facility] who informed this INTRANET DEVELOPER that she arranged taxi transportation for pt HD tomorrow but she will need to call [facility] [employer] on Friday to arrange her transport to dialysis for her Friday and HD times. This was communicated to pt and pt son Elia at bedside. Pt otherwise independent with self care during this hospitalization. Pt and pt son deny any other needs. No other discharge needs or MD orders identified. All updated and agreeable to plan. Plan: Per pt is medically ready to discharge home via POV with [facility] and [facility] to follow. Pt and pt son deny any other needs. No other discharge needs or MD orders identified. All updated and agreeable to plan. EDUARD Tran
== END 2017-05-30 14:59 | disposition home health service (06) | DRG 73 ==
LOC: SED 12:31 → EDBD 12:31 → MPC 17:59 → MOC 05-25 10:42 → PCC 05-28 23:44
PROVIDERS: ADMIT Hospitalist; ATTEND Hospitalist
PROC: 5A1D00Z (ICD-10-PCS; 2017-05-25)
PROC: 0DB68ZX Excision of Stomach, Via Natural or Artificial Opening Endoscopic, Diagnostic (ICD-10-PCS; principal; 2017-05-25 09:30)
PROC: 5A1D00Z (ICD-10-PCS; 2017-05-27)
PROC: 4A033R1 Measurement of Arterial Saturation, Peripheral, Percutaneous Approach (ICD-10-PCS; 2017-05-28)
PROC: 5A1D00Z (ICD-10-PCS; 2017-05-29)
DX: E11.43 Type 2 diabetes mellitus with diabetic autonomic (poly)neuropathy (principal); N18.6 End stage renal disease; G93.40 Encephalopathy, unspecified; J90 Pleural effusion, not elsewhere classified; R18.8 Other ascites; I13.11 Hypertensive heart and chronic kidney disease without heart failure, with stage 5 chronic kidney disease, or end stage renal disease; R64 Cachexia; E87.3 Alkalosis; E44.1 Mild protein-calorie malnutrition; K31.84 Gastroparesis; K80.20 Calculus of gallbladder without cholecystitis without obstruction; E11.65 Type 2 diabetes mellitus with hyperglycemia; Z79.84 Long term (current) use of oral hypoglycemic drugs; Z99.2 Dependence on renal dialysis; K29.70 Gastritis, unspecified, without bleeding; Z68.25 Body mass index [BMI] 25.0-25.9, adult; E11.21 Type 2 diabetes mellitus with diabetic nephropathy; G51.0 Bell's palsy; E03.9 Hypothyroidism, unspecified; D63.1 Anemia in chronic kidney disease; E87.6 Hypokalemia; R91.8 Other nonspecific abnormal finding of lung field